=== PATIENT | female | born 1965 | race Two or more races ===

== ENCOUNTER 2019-01-14 22:19 | Inpatient (IN) | payer MEDICAID, OTHER ==
[~2019-01-14] VITALS: Ht 165.1 cm; Wt 109.6 kg
[2019-01-14] MEDS ORDERED: ALBUTEROL SULF 2.5 MG/0.5ML(0.5%) NEB SOLN NEB STA (22:22)
[2019-01-14] MEDS ORDERED: IPRATROPIUM BROM 0.5 MG/2.5ML INH SOL NEB ONE (22:30)
[2019-01-14] MEDS ORDERED: methylPREDNISolone SOD SUCC 125 MG/2 ML VL IV ONE (22:45)
[2019-01-14] MEDS ORDERED: ALBUTEROL SULF 2.5 MG/0.5ML(0.5%) NEB SOLN HHN ONE (22:45)
[2019-01-14] MEDS ORDERED: IPRATROPIUM BROM 0.5 MG/2.5ML INH SOL HHN ONE (22:45)
[2019-01-14] MEDS ORDERED: LEVOFLOXACIN 500MG 100 ML IV ONE (22:45)
[2019-01-14] MEDS ORDERED: ASPirin 81 mg TAB PO ONE (23:00)
[2019-01-14] MEDS ORDERED: MORPHINE SULF INJ 2 MG/ML SYRINGE 1ML IV ONE (23:00)
[2019-01-14] MEDS ORDERED: SODIUM CHLORIDE 0.9% 500 ML IV ONE (23:05)
[2019-01-14 23:11] LABS: Basophils # (auto) 0 uL; Basophils % (auto) 0.4 % (0.0-2.0); Eosinophils # (auto) 0 uL; Eosinophils % (auto) 0.1 % (0.0-7.0); Hematocrit 40.4 % (36.0-46.0); Hemoglobin 13.4 g/dL (12.2-16.2); Lymphocytes # (auto) 1.4 uL; Mean Corpuscular Hgb Conc. 33.1 g/dL (32.0-36.0); Mean Corpuscular Volume 87.4 fL (80.0-100.0); Monocytes # (auto) 0.9 uL; Monocytes % (auto) 8.9 % (0.0-12.0); Neutrophils # (auto) 7.8 uL; Neutrophils % (auto) 76.6 % (37.0-80.0); Platelet Count (auto) 272 10^3/uL (140-450); Red Blood Cells 4.62 10^6/uL (4.0-5.20); Red Cell Distribution Width 14.6 % (11.8-14.3); White Blood Cell 10.3 10^3/uL (4.4-10.8)
[2019-01-14] MEDS ORDERED: ONDANSETRON HCL 4 MG/2 ML VIAL IV ONE (23:15)
[2019-01-14] MEDS ORDERED: IODIXANOL 320MG/ML 100ML BTL IV ONE (23:17)
[2019-01-14 23:40] LABS: Alanine Aminotransferase 32 U/L (13-56); Albumin 4.1 g/dL (3.4-5.0); Anion Gap 9 (5-15); Aspartate Aminotransferase 23 U/L (15-37); BUN/Creatinine Ratio 31.9; Blood Urea Nitrogen 23 mg/dL (7-18); Calcium 8.7 mg/dL (8.5-10.1); Carbon Dioxide 21 mmol/L (21-32); Chloride 107 mmol/L (98-107); GFR African American 110 mL/min; GFR Non-African American 91 mL/min; Glucose 134 mg/dL (74-106); Potassium 3.8 mmol/L (3.5-5.1); Sodium 137 mmol/L (136-145)
[2019-01-14 23:44] LABS: Alkaline Phosphatase 93 U/L (45-117); Bilirubin, Total 1.4 mg/dL (0.2-1.0); Total Protein 7.6 g/dL (6.4-8.2)
[2019-01-14 23:54] LABS: INR 1.01 (0.9-1.15); Partial Thromboplastin Time 29.2 sec (23.78-33.04); Prothrombin Time 10.8 sec (9.27-12.13)
[2019-01-15] MEDS ORDERED: LORazepam 2MG/ML-1ML VIAL IV SCH (01:30)
[2019-01-15] MEDS ORDERED: LORazepam 2MG/ML-1ML VIAL IV ONE (01:30)
[2019-01-15] MEDS ORDERED: ONDANSETRON HCL 4 MG/2 ML VIAL IV ONE (02:05)
[2019-01-15] MEDS ORDERED: MORPHINE SULF INJ 2 MG/ML SYRINGE 1ML IV ONE (02:05)
[2019-01-15] MEDS ORDERED: cloNIDine HCL 0.1 MG TAB PO ONE ×2 (03:15→05:00)
[2019-01-15 05:46] LABS: Urine WBC None Seen /hpf (0 - 5)
[2019-01-15 05:56] LABS: Urine Bacteria NONE SEEN /hpf (None Seen); Urine Blood TRACE /uL (Negative)
[2019-01-15] MEDS ORDERED: ACETAMINOPHEN 500 MG TAB PO PRN (06:00)
[2019-01-15] MEDS: IPRATROPIUM BROM 0.5 MG/2.5ML INH SOL NEB SCH ×4 (06:08→19:16)
[2019-01-15] MEDS: ALBUTEROL SULF 2.5 MG/0.5ML(0.5%) NEB SOLN NEB SCH ×4 (06:08→19:15)
[2019-01-15] MEDS ORDERED: DOXYCYCLINE 100MG/250ML 250 ML IV SCH (06:30)
[2019-01-15] MEDS ORDERED: MORPHINE SULFATE 4 MG/ML SYR/VIAL IV ONE (06:30)
[2019-01-15 06:58] LABS: Calcium 8.4 mg/dL (8.5-10.1); Potassium 3.7 mmol/L (3.5-5.1)
[2019-01-15 07:02] LABS: BUN/Creatinine Ratio 21.9
[2019-01-15] MEDS: ONDANSETRON HCL 4 MG/2 ML VIAL IV PRN ×3 (07:03→17:02)
[2019-01-15] MEDS: methylPREDNISolone SOD SUCC 40 MG/ML VL IV SCH ×3 (07:04→21:45)
[2019-01-15] MEDS: MORPHINE SULF INJ 2 MG/ML SYRINGE 1ML IV PRN ×3 (07:04→17:01)
[2019-01-15 07:17] LABS: Basophils # (auto) 0 uL; Basophils % (auto) 0.1 % (0.0-2.0); Eosinophils # (auto) 0 uL; Hematocrit 37.2 % (36.0-46.0); Hemoglobin 12.2 g/dL (12.2-16.2); Lymphocytes # (auto) 0.6 uL; Lymphocytes % (auto) 7.2 % (10.0-50.0); Mean Corpuscular Hemoglobin 28.7 pg (28.0-32.0); Mean Corpuscular Hgb Conc. 32.7 g/dL (32.0-36.0); Mean Corpuscular Volume 87.7 fL (80.0-100.0); Monocytes # (auto) 0.1 uL; Monocytes % (auto) 1.6 % (0.0-12.0); Neutrophils # (auto) 7.3 uL; Neutrophils % (auto) 91.1 % (37.0-80.0); Platelet Count (auto) 254 10^3/uL (140-450); Red Blood Cells 4.25 10^6/uL (4.0-5.20); Red Cell Distribution Width 14.7 % (11.8-14.3)
[2019-01-15 07:35] VITALS: BP 154/79
[2019-01-15 08:40] VITALS: BP 145/85
--- NOTE | 2019-01-15 08:40 | NUR ---
Telemetry admit from ER PIA WHYTE admitted to Telemetry unit after SBAR received from Davina FORBES. Patient oriented to TRIP JACKSON, primary RN, unit, room, bed, and unit policies regarding patient care and visiting hours. Patient now on continuous telemetry monitoring, tele box #[id number] and telemetry reading on arrival to unit is sinus rhythm. Patient on room air oxygen of 97%, weighed by bedscale and encouraged to call if they need something. Called US tech because patient verbalized that she needs to pee for pelvic ultrasound. All questions and concerns addressed, patient verbalized understanding.
[2019-01-15 09:35] VITALS: BP 145/85
[2019-01-15] MEDS ORDERED: GABA300C10 PO (09:35)
[2019-01-15] MEDS ORDERED: MELO1TAB73 PO (09:35)
[2019-01-15] MEDS ORDERED: LISI40TA PO (09:35)
[2019-01-15] MEDS ORDERED: OMEP20TA PO (09:35)
[2019-01-15] MEDS ORDERED: IBUP600T27 PO (09:35)
[2019-01-15] MEDS ORDERED: PERCOT PO (09:35)
[2019-01-15] MEDS ORDERED: CHOL20007 PO (09:35)
[2019-01-15] MEDS: LORazepam 0.5 MG TAB PO PRN ×2 (09:50→21:45)
[2019-01-15] MEDS: LISINOPRIL 20 MG TAB PO SCH (09:52)
[2019-01-15] MEDS: PANTOPRAZOLE 40 MG TAB PO SCH (09:53)
--- NOTE | 2019-01-15 09:55 | NUR ---
IV removal Noted IV infiltrated. IV DC'd with clean sterile technique, catheter fully intact. Pressure dressing applied to site. Patient tolerated well.
--- NOTE | 2019-01-15 10:00 | NUR ---
IV insertion New IV access obtained, via clean sterile technique by inserting gauge catheter 22 at right antecubital after 1 attempt. IV secured properly. No trauma to site. Patient tolerated well.
--- NOTE | 2019-01-15 10:10 | NUR ---
DR. Oconnor at bedside.
[2019-01-15] MEDS ORDERED: cefTRIAXone 1GM/50ML D5W 50 ML IV ONE (10:30)
[2019-01-15] MEDS ORDERED: AZITHROMYCIN 250 MG TAB PO ONE (10:30)
[2019-01-15 12:28] VITALS: BP 133/70
[2019-01-15 16:36] VITALS: BP 126/71
--- NOTE | 2019-01-15 18:05 | NUR ---
INFORMED [employer] FOR PATIENT'S PULMO CONSULT TO DR. MA.
--- NOTE | 2019-01-15 19:20 | NUR ---
Opening Shift Note Assumed care of patient, awake and alert. No S/S of distress/SOB or pain. Instructed on POC and to call for assist PRN, will continue to monitor for changes Q1hr and PRN. Side rails up x2. Bed locked in lowest position. Call light within reach.
--- NOTE | 2019-01-15 22:00 | NUR ---
IV removal IV DC'd from right upper arm with clean sterile technique, catheter fully intact. Pressure dressing applied to site. Patient tolerated well.
[2019-01-15 22:06] VITALS: BP 148/72
--- NOTE | 2019-01-15 22:06 | NUR ---
IV insertion IV access obtained, via clean sterile technique by inserting 22 gauge catheter on left forearm after 1 attempt. IV secured properly. No trauma to site. Patient tolerated well.
--- NOTE | 2019-01-16 01:52 | NUR ---
Rounds Patient in bed asleep with no signs of distress/sob/pain. Will continue to monitor.
[2019-01-16] MEDS: ONDANSETRON HCL 4 MG/2 ML VIAL IV PRN ×5 (04:51→21:30)
[2019-01-16] MEDS: MORPHINE SULF INJ 2 MG/ML SYRINGE 1ML IV PRN ×5 (04:52→21:30)
[2019-01-16 05:05] VITALS: BP 138/76
[2019-01-16] MEDS: methylPREDNISolone SOD SUCC 40 MG/ML VL IV SCH ×3 (05:06→22:29)
[2019-01-16 06:11] LABS: Basophils # (auto) 0 uL; Basophils % (auto) 0.1 % (0.0-2.0); Eosinophils # (auto) 0 uL; Hematocrit 37.7 % (36.0-46.0); Hemoglobin 12.4 g/dL (12.2-16.2); Lymphocytes # (auto) 1.2 uL; Lymphocytes % (auto) 7.2 % (10.0-50.0); Mean Corpuscular Hemoglobin 28.8 pg (28.0-32.0); Mean Corpuscular Hgb Conc. 32.9 g/dL (32.0-36.0); Mean Corpuscular Volume 87.4 fL (80.0-100.0); Monocytes # (auto) 0.7 uL; Monocytes % (auto) 4.6 % (0.0-12.0); Neutrophils # (auto) 14.2 uL; Neutrophils % (auto) 88.1 % (37.0-80.0); Platelet Count (auto) 272 10^3/uL (140-450); Red Blood Cells 4.32 10^6/uL (4.0-5.20); Red Cell Distribution Width 14.7 % (11.8-14.3); White Blood Cell 16.1 10^3/uL (4.4-10.8)
[2019-01-16] MEDS: IPRATROPIUM BROM 0.5 MG/2.5ML INH SOL NEB PRN ×2 (06:26→13:28)
[2019-01-16] MEDS: ALBUTEROL SULF 2.5 MG/0.5ML(0.5%) NEB SOLN NEB PRN ×2 (06:26→13:28)
[2019-01-16 06:29] LABS: Potassium 3.9 mmol/L (3.5-5.1)
[2019-01-16 06:35] LABS: Albumin 3.4 g/dL (3.4-5.0); Bilirubin, Total 0.9 mg/dL (0.2-1.0)
--- NOTE | 2019-01-16 06:41 | NUR ---
IV removal IV DC'd from left forearm with clean sterile technique, catheter fully intact. Pressure dressing applied to site. Patient tolerated well.
--- NOTE | 2019-01-16 06:50 | NUR ---
IV insertion IV access obtained, via clean sterile technique by inserting 24 gauge catheter on Right forearm after 2 attempts. IV secured properly. No trauma to site. Patient tolerated well.
--- NOTE | 2019-01-16 07:08 | NUR ---
Endorsed care to day shift RN.
--- NOTE | 2019-01-16 07:15 | NUR ---
Opening Shift Note Received report from Bryec FORBES. Assumed care of patient, awake and alert. Reported SOB when coughing. Instructed on POC and to call for assist PRN, will continue to monitor for changes Q1hr and PRN.
[2019-01-16 07:20] VITALS: BP 143/73
[2019-01-16 08:00] VITALS: BP 143/73
[2019-01-16] MEDS: cefTRIAXone 1GM/50ML D5W 50 ML IV SCH (09:15)
[2019-01-16] MEDS: AZITHROMYCIN 250 MG TAB PO SCH (09:15)
[2019-01-16] MEDS: LISINOPRIL 20 MG TAB PO SCH (09:16)
[2019-01-16] MEDS: PANTOPRAZOLE 40 MG TAB PO SCH (09:16)
--- NOTE | 2019-01-16 10:10 | NUR ---
Dr. Oconnor at bedside.
[2019-01-16 12:33] VITALS: BP 157/89
[2019-01-16 16:39] VITALS: BP 148/91
--- NOTE | 2019-01-16 19:30 | NUR ---
Dr. Charles at bedside.
[2019-01-16] MEDS ORDERED: ALBUTEROL SULF 2.5 MG/0.5ML(0.5%) NEB SOLN ONE (20:34)
[2019-01-16] MEDS ORDERED: IPRATROPIUM BROM 0.5 MG/2.5ML INH SOL ONE (20:34)
[2019-01-16] MEDS ORDERED: IPRATROPIUM BROM 0.5 MG/2.5ML INH SOL NEB SCH (22:00)
[2019-01-16 22:14] VITALS: BP 149/72
[2019-01-16] MEDS: LORazepam 0.5 MG TAB PO PRN (23:52)
--- NOTE | 2019-01-17 01:26 | NUR ---
Rounds Patient in bed awake with complaints of shortness of breath. Elevated head of the bed with nasal cannula on 3L O2. RT paged for a breathing treatment.
[2019-01-17] MEDS: ALBUTEROL SULF 2.5 MG/0.5ML(0.5%) NEB SOLN NEB SCH ×4 (01:29→18:48)
[2019-01-17] MEDS: IPRATROPIUM BROM 0.5 MG/2.5ML INH SOL NEB SCH ×4 (01:29→18:48)
--- NOTE | 2019-01-17 01:29 | NUR ---
RT at bedside for a breathing treatment.
[2019-01-17] MEDS: MORPHINE SULF INJ 2 MG/ML SYRINGE 1ML IV PRN ×5 (04:44→22:57)
[2019-01-17] MEDS: ONDANSETRON HCL 4 MG/2 ML VIAL IV PRN ×5 (04:44→22:57)
[2019-01-17] MEDS: methylPREDNISolone SOD SUCC 40 MG/ML VL IV SCH ×3 (06:35→22:16)
[2019-01-17 06:40] LABS: Basophils # (auto) 0 uL; Basophils % (auto) 0.2 % (0.0-2.0); Eosinophils # (auto) 0 uL; Hematocrit 35.6 % (36.0-46.0); Hemoglobin 11.9 g/dL (12.2-16.2); Lymphocytes # (auto) 1.5 uL; Lymphocytes % (auto) 13.1 % (10.0-50.0); Mean Corpuscular Hemoglobin 29.3 pg (28.0-32.0); Mean Corpuscular Hgb Conc. 33.5 g/dL (32.0-36.0); Mean Corpuscular Volume 87.3 fL (80.0-100.0); Monocytes # (auto) 0.6 uL; Neutrophils # (auto) 9.5 uL; Neutrophils % (auto) 81.7 % (37.0-80.0); Nucleated Red Blood Cells % 0.1 %; Platelet Count (auto) 280 10^3/uL (140-450); Red Blood Cells 4.08 10^6/uL (4.0-5.20); Red Cell Distribution Width 14.7 % (11.8-14.3); White Blood Cell 11.7 10^3/uL (4.4-10.8)
[2019-01-17 06:53] LABS: Potassium 4.1 mmol/L (3.5-5.1)
[2019-01-17 06:57] LABS: Albumin 3.4 g/dL (3.4-5.0)
[2019-01-17 07:00] LABS: BUN/Creatinine Ratio 28.8
[2019-01-17 07:05] LABS: Bilirubin, Total 0.5 mg/dL (0.2-1.0)
--- NOTE | 2019-01-17 07:15 | NUR ---
Endorsed care to day shift RN.
--- NOTE | 2019-01-17 07:50 | NUR ---
Opening Shift Note Assumed care of patient, sitting up in bed, with NC at 3 L. Patient c/o chest and back pain when coughing. Will medicate as prescribed by MD. Instructed on POC and to call for assist PRN. Side rails up x2. Bed locked in lowest position Will continue to monitor for changes Q1hr and PRN.
[2019-01-17 08:00] VITALS: BP 151/101
[2019-01-17 08:20] VITALS: BP 140/78
[2019-01-17] MEDS: PANTOPRAZOLE 40 MG TAB PO SCH (09:27)
[2019-01-17] MEDS: LISINOPRIL 20 MG TAB PO SCH (09:28)
[2019-01-17] MEDS: cefTRIAXone 1GM/50ML D5W 50 ML IV SCH (09:29)
[2019-01-17] MEDS: AZITHROMYCIN 250 MG TAB PO SCH (10:59)
[2019-01-17 13:04] VITALS: BP 153/65
--- NOTE | 2019-01-17 14:06 | NUR ---
IV removal Patients IV started leaking, patient c/o pain while flushing. IV DC'd with clean sterile technique, catheter fully intact. Pressure dressing applied to site. Patient tolerated well.
--- NOTE | 2019-01-17 15:11 | NUR ---
NUTRITION ASSESSMENT NOTES Please refer to link notes of nutrition screen form filed under the intervention section of the plan of care for further details. Est. Needs: 1600 kcal to 2150 kcal (15-20 kcal/kgBW), 50 gms to 60 gms pro (1.0-1.2 gms/kgIBW : 50 kg). Will continue to monitor pertinent labs and reassess nutrient need prn Thank you. Addendum: 01/17/19 at [address] Amended: Links added.
[2019-01-17 16:25] VITALS: BP 153/84
--- NOTE | 2019-01-17 17:04 | NUR ---
Midline Placement: Patient educated on need for midline placement. All risks and benefits explained and all questions and concerns addresses prior to procedure. 18g/10cm midline inserted via right basilic vein using Ultrasound. Sterile technique utilized. Blood return obtained from lumen and flushed easily with NS using proper technique. Midline secured with saline lock; biodisc and occlusive dressing applied. Primary RN notified. Midline lot # [id number]. x1 attempt
--- NOTE | 2019-01-17 19:14 | NUR ---
Patient comfortably resting in bed. Care endorsed to NOC ANDREI Silver.
--- NOTE | 2019-01-17 19:25 | NUR ---
RECEIVED PATIENT LYING IN BED, AWAKE, ALERT, ORIENTED X4. NO S/S OF RESPIRATORY DISTRESS, DENIES SOB AND CHEST PAIN. ORIENTED ON PLAN OF CARE. BED IS LOCKED AND IN LOWEST LEVEL, SIDE RAILS UP X2, CALL LIGHT WITHIN REACH. WILL CONTINUE TO MONITOR
[2019-01-17] MEDS: HYDROcodone-ACET 5/325MG TAB PO PRN (21:18)
[2019-01-17 21:30] VITALS: BP 147/73
[2019-01-17] MEDS: LORazepam 0.5 MG TAB PO PRN (22:20)
[2019-01-18] VITALS (8 sets, daily range): BP systolic 134–160; BP diastolic 73–100
[2019-01-18] MEDS: IPRATROPIUM BROM 0.5 MG/2.5ML INH SOL NEB SCH ×4 (00:11→18:00)
[2019-01-18] MEDS: ALBUTEROL SULF 2.5 MG/0.5ML(0.5%) NEB SOLN NEB SCH ×4 (00:11→18:00)
[2019-01-18] MEDS: MORPHINE SULF INJ 2 MG/ML SYRINGE 1ML IV PRN ×4 (05:12→22:18)
[2019-01-18] MEDS: ONDANSETRON HCL 4 MG/2 ML VIAL IV PRN ×4 (05:12→22:18)
[2019-01-18] MEDS: methylPREDNISolone SOD SUCC 40 MG/ML VL IV SCH ×3 (05:50→22:07)
[2019-01-18 07:01] LABS: Basophils # (auto) 0 uL; Basophils % (auto) 0.1 % (0.0-2.0); Eosinophils # (auto) 0 uL; Hematocrit 38.2 % (36.0-46.0); Hemoglobin 12.5 g/dL (12.2-16.2); Lymphocytes # (auto) 1.3 uL; Lymphocytes % (auto) 10.6 % (10.0-50.0); Mean Corpuscular Hemoglobin 28.6 pg (28.0-32.0); Mean Corpuscular Hgb Conc. 32.7 g/dL (32.0-36.0); Mean Corpuscular Volume 87.4 fL (80.0-100.0); Monocytes # (auto) 0.7 uL; Monocytes % (auto) 5.7 % (0.0-12.0); Neutrophils # (auto) 10.5 uL; Neutrophils % (auto) 83.6 % (37.0-80.0); Platelet Count (auto) 304 10^3/uL (140-450); Red Blood Cells 4.37 10^6/uL (4.0-5.20); Red Cell Distribution Width 14.7 % (11.8-14.3); White Blood Cell 12.6 10^3/uL (4.4-10.8)
[2019-01-18 07:18] LABS: Potassium 4.1 mmol/L (3.5-5.1)
--- NOTE | 2019-01-18 07:18 | NUR ---
CARE ENDORSED TO AM SHIFT RN
[2019-01-18 07:25] LABS: Albumin 3.5 g/dL (3.4-5.0); BUN/Creatinine Ratio 33.9
[2019-01-18 07:27] LABS: Bilirubin, Total 0.4 mg/dL (0.2-1.0); Total Protein 7.1 g/dL (6.4-8.2)
--- NOTE | 2019-01-18 07:35 | NUR ---
Opening Shift Note Assumed care of patient, patient is sitting up in bed, awake and alert. Patient on 2L NC and No S/S of distress/SOB or pain. Instructed on POC and to call for assist PRN. Bed at lowest position and call light within reach, will continue to monitor for changes Q1hr and PRN.
[2019-01-18] MEDS: cefTRIAXone 1GM/50ML D5W 50 ML IV SCH (09:12)
[2019-01-18] MEDS: LISINOPRIL 20 MG TAB PO SCH (09:13)
[2019-01-18] MEDS: PANTOPRAZOLE 40 MG TAB PO SCH (09:13)
[2019-01-18] MEDS: HYDROcodone-ACET 5/325MG TAB PO PRN (09:14)
[2019-01-18] MEDS: AZITHROMYCIN 250 MG TAB PO SCH (09:14)
--- NOTE | 2019-01-18 15:15 | NUR ---
Patient c/o chest pain/pressure , rates it 910, patient was coughing and SOB. Medicated with pain medication per MD' s orders. Performed an EKG . EKG was read by Dr. Henok MD informs me that it looks NSR, no further orders. Dr. Oconnor has been notified, left message.
--- NOTE | 2019-01-18 15:20 | NUR ---
VS: Bp 168/87 HR 95 Sp02 96% RR 21
--- NOTE | 2019-01-18 15:20 | NUR ---
RT paged to patients room, for breathing treatment.
[2019-01-18] MEDS ORDERED: ASPirin 81 mg TAB PO ONE (16:00)
--- NOTE | 2019-01-18 16:00 | NUR ---
Orders received from Dr. Oconnor. Aspirin 81 mg po once today and daily, troponin series STAT. Orders read back and verified.
[2019-01-18] MEDS ORDERED: ALBUTEROL SULF 2.5 MG/0.5ML(0.5%) NEB SOLN NEB ONE ×3 (16:30→17:15)
--- NOTE | 2019-01-18 16:49 | NUR ---
paged Dr. Oconnor. RT recommends a higher breathing treatment dosage. Patient is requesting cough syrup for excessive coughing. Awaiting call back.
[2019-01-18] MEDS ORDERED: IPRATROPIUM BROM 0.5 MG/2.5ML INH SOL ONE (16:55)
[2019-01-18] MEDS ORDERED: ALBUTEROL SULF 2.5 MG/0.5ML(0.5%) NEB SOLN ONE (16:55)
[2019-01-18] MEDS ORDERED: IPRATROPIUM BROM 0.5 MG/2.5ML INH SOL NEB ONE (17:00)
--- NOTE | 2019-01-18 19:01 | NUR ---
Respiratory note: MED NEB TX NOT DUE. PT RECEIVED ALBUTEROL 10 MG AND ATROVENT 1 MG CONTINUOUS TX AT 1700 WITH RT AGATHA MANRIQUEZ. PT IS CURRENTLY ON 2 L/M NC: HR 104, RR 20. SPO2 95%. PT SHOWS NO S/S OF RESPIRATORY DISTRESS. WILL CONTINUE TO MONITOR.
--- NOTE | 2019-01-18 19:32 | NUR ---
OPENING NOTES RECEIVED REPORT FROM DAY SHIFT NURSE. PT A/O X4 WITH NO S/S OF DISTRESS NOR PAIN. PT IS STABLE WITH NO S/S OF SOB. BED IS IN LOWEST POSITION WITH SIDE RAILS UP X 2. BED BRAKES ARE LOCKED AND CALL LIGHT IS WITH IN REACH. HOB IS 30 DEGREES. DISCUSSED POC WITH PATIENT AND PT VERBALIZED UNDERSTANDING.
[2019-01-18] MEDS: PROMETHAZINE W/CODEINE 5 ML ORAL SYRUP PO PRN (20:05)
[2019-01-18] MEDS: LORazepam 0.5 MG TAB PO PRN (23:22)
[2019-01-19] VITALS (7 sets, daily range): BP systolic 136–158; BP diastolic 67–86
[2019-01-19] MEDS: ALBUTEROL SULF 2.5 MG/0.5ML(0.5%) NEB SOLN NEB SCH ×5 (00:24→23:51)
[2019-01-19] MEDS: IPRATROPIUM BROM 0.5 MG/2.5ML INH SOL NEB SCH ×5 (00:24→23:51)
[2019-01-19] MEDS: PROMETHAZINE W/CODEINE 5 ML ORAL SYRUP PO PRN ×3 (04:26→15:51)
[2019-01-19] MEDS: methylPREDNISolone SOD SUCC 40 MG/ML VL IV SCH ×2 (06:06→18:54)
[2019-01-19 06:11] LABS: Basophils # (auto) 0 uL; Basophils % (auto) 0.2 % (0.0-2.0); Eosinophils # (auto) 0 uL; Hematocrit 40.4 % (36.0-46.0); Hemoglobin 12.9 g/dL (12.2-16.2); Lymphocytes % (auto) 13.1 % (10.0-50.0); Mean Corpuscular Hemoglobin 28.8 pg (28.0-32.0); Mean Corpuscular Hgb Conc. 32.1 g/dL (32.0-36.0); Mean Corpuscular Volume 89.9 fL (80.0-100.0); Monocytes % (auto) 6.6 % (0.0-12.0); Neutrophils # (auto) 12.4 uL; Neutrophils % (auto) 80.1 % (37.0-80.0); Nucleated Red Blood Cells % 0.1 %; Platelet Count (auto) 287 10^3/uL (140-450); Red Blood Cells 4.49 10^6/uL (4.0-5.20); Red Cell Distribution Width 14.8 % (11.8-14.3); White Blood Cell 15.5 10^3/uL (4.4-10.8)
[2019-01-19 06:28] LABS: Potassium 4.4 mmol/L (3.5-5.1)
[2019-01-19] MEDS: HYDROcodone-ACET 5/325MG TAB PO PRN ×2 (06:39→20:51)
[2019-01-19 06:45] LABS: Albumin 3.4 g/dL (3.4-5.0); BUN/Creatinine Ratio 35.5; Bilirubin, Total 0.4 mg/dL (0.2-1.0); Calcium 9.4 mg/dL (8.5-10.1)
--- NOTE | 2019-01-19 07:00 | NUR ---
Opening Shift Note Assumed care of the patient from the shift production associate RN. The patient is A&Ox4, no signs or symptoms of distress. Educated the patient on POC and patient verbalized understanding. The patient's call light is within reach and bed is in the lowest, locked position. Will round hourly and continue to monitor.
--- NOTE | 2019-01-19 07:24 | NUR ---
CLOSING NOTES ENDORSED CARE TO DAY SHIFT NURSE, ALBERT.
[2019-01-19] MEDS: cefTRIAXone 1GM/50ML D5W 50 ML IV SCH (08:47)
--- NOTE | 2019-01-19 09:25 | NUR ---
Dr. Roya Oconnor at bedside
[2019-01-19] MEDS: PANTOPRAZOLE 40 MG TAB PO SCH (09:31)
[2019-01-19] MEDS: LISINOPRIL 20 MG TAB PO SCH (09:31)
[2019-01-19] MEDS: ASPirin 81 mg TAB PO SCH (09:31)
[2019-01-19] MEDS: AZITHROMYCIN 250 MG TAB PO SCH (09:32)
[2019-01-19] MEDS: MORPHINE SULF INJ 2 MG/ML SYRINGE 1ML IV PRN ×3 (10:48→23:26)
[2019-01-19] MEDS: ONDANSETRON HCL 4 MG/2 ML VIAL IV PRN ×3 (10:55→23:26)
[2019-01-19] MEDS: LORazepam 0.5 MG TAB PO PRN (20:53)
[2019-01-20] MEDS: PROMETHAZINE W/CODEINE 5 ML ORAL SYRUP PO PRN ×3 (03:49→22:36)
[2019-01-20 05:00] VITALS: BP 140/73
[2019-01-20 05:59] LABS: Basophils # (auto) 0 uL; Basophils % (auto) 0.1 % (0.0-2.0); Eosinophils # (auto) 0 uL; Eosinophils % (auto) 0.1 % (0.0-7.0); Hematocrit 39.1 % (36.0-46.0); Hemoglobin 12.5 g/dL (12.2-16.2); Lymphocytes # (auto) 3.2 uL; Lymphocytes % (auto) 19.4 % (10.0-50.0); Mean Corpuscular Hemoglobin 28.1 pg (28.0-32.0); Mean Corpuscular Hgb Conc. 32.1 g/dL (32.0-36.0); Mean Corpuscular Volume 87.5 fL (80.0-100.0); Monocytes # (auto) 1.2 uL; Monocytes % (auto) 7.2 % (0.0-12.0); Neutrophils # (auto) 12.2 uL; Neutrophils % (auto) 73.2 % (37.0-80.0); Platelet Count (auto) 329 10^3/uL (140-450); Red Blood Cells 4.46 10^6/uL (4.0-5.20); Red Cell Distribution Width 14.7 % (11.8-14.3); White Blood Cell 16.7 10^3/uL (4.4-10.8)
[2019-01-20 06:28] LABS: Potassium 4.4 mmol/L (3.5-5.1)
[2019-01-20] MEDS: ALBUTEROL SULF 2.5 MG/0.5ML(0.5%) NEB SOLN NEB SCH ×3 (06:37→19:28)
[2019-01-20] MEDS: IPRATROPIUM BROM 0.5 MG/2.5ML INH SOL NEB SCH ×3 (06:37→19:28)
[2019-01-20 06:39] LABS: Albumin 3.5 g/dL (3.4-5.0); BUN/Creatinine Ratio 33.8; Bilirubin, Total 0.4 mg/dL (0.2-1.0); Total Protein 6.3 g/dL (6.4-8.2)
--- NOTE | 2019-01-20 07:00 | NUR ---
Opening Shift Note Assumed care of the patient from the assistant passenger locomotive engineer RN. The patient is A&Ox4, no signs or symptoms of distress. Educated the patient on POC and patient verbalized understanding. The patient's call light is within reach and bed is in the lowest, locked position. Will round hourly and continue to monitor.
--- NOTE | 2019-01-20 07:01 | NUR ---
closing notes endorsed care to day shift nurse, Jil.
[2019-01-20] MEDS: MORPHINE SULF INJ 2 MG/ML SYRINGE 1ML IV PRN ×3 (08:06→20:58)
[2019-01-20] MEDS: ONDANSETRON HCL 4 MG/2 ML VIAL IV PRN ×3 (08:07→20:57)
[2019-01-20 09:01] VITALS: BP 140/70
[2019-01-20] MEDS: cefTRIAXone 1GM/50ML D5W 50 ML IV SCH (09:52)
[2019-01-20] MEDS: PANTOPRAZOLE 40 MG TAB PO SCH (09:53)
[2019-01-20] MEDS: ASPirin 81 mg TAB PO SCH (09:53)
[2019-01-20] MEDS: methylPREDNISolone SOD SUCC 40 MG/ML VL IV SCH ×2 (09:53→22:36)
[2019-01-20] MEDS: AZITHROMYCIN 250 MG TAB PO SCH (09:54)
[2019-01-20] MEDS: LISINOPRIL 20 MG TAB PO SCH (09:54)
[2019-01-20 11:43] VITALS: BP 129/64
[2019-01-20] MEDS: LORazepam 0.5 MG TAB PO PRN ×2 (13:00→22:36)
--- NOTE | 2019-01-20 14:32 | NUR ---
Nutrition Follow-up Notes Wt.: 107.1 kg as of yesterday. Pt's on oxygen via nasal cannula, asleep, no immediate family member at bedside during rounds this morning. Pt's no signs of distress noted earlier, currently on Consistent Carb diet with adequate PO intake aeb 90% ave. consumed meals (x6) in last 2.5 days. Noted pt's for active Cardiology consult. Est. Needs: 1600 kcal to 2150 kcal (15-20 kcal/kgBW), 50 gms to 60 gms pro (1.0-1.2 gms/kgIBW : 50 kg). Will continue to monitor pertinent labs and reassess nutrient need prn Labs: Gluc 134 H, BUN 22 H, AST 8 H, Tpro 6.3 L Skin: Jimmy scale 20, low risk, skin intact per emissions testing technician. GI: Pt had 1 BM yesterday per emissions testing technician. PES: Altered nutrition related lab values r/t current/chronic medical condition aeb hyperglycemia,low AST level Obesity r/t food intake more than body requirement aeb 188% IBW, BMI 39.3 kg/m2 and increased body adiposity Will continue to monitor PO intake, skin status, pertinent labs and weight trend. F/u in 3 to 5 days. Rec.: 1.) Continue close supervision during meals. 2.) Refer pt to CDE/RD for further nutrition education and weight monitoring upon discharge. 3.) Continue current plan of care.
[2019-01-20 16:39] VITALS: BP 123/69
[2019-01-20] MEDS: HYDROcodone-ACET 5/325MG TAB PO PRN (19:56)
--- NOTE | 2019-01-20 20:00 | NUR ---
open note assumed care of pt. upon entering room pt awake and alert conversing with visitor at bedside. no distress noted. pt updated on plan of care. pt bed is locked, in low position and 2x rails up. pt has no additional questions at this time. call light in reach, encouraged to call as needed. will round q1hr and prn.
[2019-01-20 22:00] VITALS: BP 138/73
[2019-01-21] MEDS: ALBUTEROL SULF 2.5 MG/0.5ML(0.5%) NEB SOLN NEB SCH ×4 (00:38→19:06)
[2019-01-21] MEDS: IPRATROPIUM BROM 0.5 MG/2.5ML INH SOL NEB SCH ×4 (00:39→19:06)
[2019-01-21] MEDS: ONDANSETRON HCL 4 MG/2 ML VIAL IV PRN ×4 (03:24→22:13)
[2019-01-21] MEDS: MORPHINE SULF INJ 2 MG/ML SYRINGE 1ML IV PRN ×4 (03:25→22:13)
[2019-01-21 04:51] VITALS: BP 125/91
[2019-01-21 06:05] LABS: Basophils # (auto) 0.1 uL; Basophils % (auto) 0.3 % (0.0-2.0); Eosinophils # (auto) 0 uL; Eosinophils % (auto) 0.3 % (0.0-7.0); Hematocrit 40.6 % (36.0-46.0); Hemoglobin 13.1 g/dL (12.2-16.2); Lymphocytes % (auto) 11.1 % (10.0-50.0); Mean Corpuscular Hemoglobin 28.5 pg (28.0-32.0); Mean Corpuscular Hgb Conc. 32.4 g/dL (32.0-36.0); Monocytes # (auto) 0.7 uL; Neutrophils % (auto) 84.3 % (37.0-80.0); Nucleated Red Blood Cells % 0.1 %; Platelet Count (auto) 325 10^3/uL (140-450); Red Blood Cells 4.61 10^6/uL (4.0-5.20); Red Cell Distribution Width 14.5 % (11.8-14.3); White Blood Cell 17.8 10^3/uL (4.4-10.8)
[2019-01-21 06:26] LABS: BUN/Creatinine Ratio 29.7; Calcium 8.9 mg/dL (8.5-10.1); Potassium 4.2 mmol/L (3.5-5.1)
--- NOTE | 2019-01-21 07:45 | NUR ---
opening Patient is asleep, bed in lowest position, call light within reach. No distress noted at this time Will f/u with morning assessment WBC 17.[address] ABD- diverticulosis this is to be treated as outpatient Stereo Equipment Repairer orders-- possible clearance once the patient is coughing less on exertion, less shortness of breath etc.
[2019-01-21 09:00] VITALS: BP 125/66
[2019-01-21] MEDS: methylPREDNISolone SOD SUCC 40 MG/ML VL IV SCH ×2 (09:30→22:12)
[2019-01-21] MEDS: cefTRIAXone 1GM/50ML D5W 50 ML IV SCH (09:30)
[2019-01-21] MEDS: AZITHROMYCIN 250 MG TAB PO SCH (09:31)
[2019-01-21] MEDS: ASPirin 81 mg TAB PO SCH (09:31)
[2019-01-21] MEDS: PANTOPRAZOLE 40 MG TAB PO SCH (09:31)
[2019-01-21] MEDS: LISINOPRIL 20 MG TAB PO SCH (09:33)
[2019-01-21 10:41] VITALS: BP 125/66
--- NOTE | 2019-01-21 11:09 | NUR ---
Respiratory note: ORDER RECEIVED FOR ROOM AIR ABG. ABG OBTAINED AND RESULTS IN [facility]. WALKED PT FOR 10 MINUTES ON ROOM AIR PRIOR TO OBTAINING SAMPLE.
--- NOTE | 2019-01-21 11:17 | NUR ---
ABG PO2 80.2 Does not qualify for home oxygen
[2019-01-21] MEDS: PROMETHAZINE W/CODEINE 5 ML ORAL SYRUP PO PRN ×2 (12:30→23:30)
[2019-01-21 13:00] VITALS: BP 133/74
--- NOTE | 2019-01-21 16:07 | NUR ---
assessment Patient is a 53 year old female who is alert and oriented. Patients cognitive abilities are intact. Prior to admission patient lived home with family and functioned independently. Patient informed me she is able to care for her own ADLs. Per patient she will return home to her prior living arrangements post discharge and family will transport her home. Patients PCP is Dr Irving. Patient feels safe returning home on discharge. Patient may need home 02 on discharge. Waiting for ABG now. I informed patient she has a right to speak to a rigging worker regarding all care. I informed patient she has a right to participate in any and all discharge planning. Patient is aware of visiting hours on the hospital floor. I informed patient she has a right to privacy. Patient does not have a POA and advanced directive. I have offered patient information on POA and advanced directives. I informed the patient the advantages and benefits of having an Advanced Directive. Patient verbalized understanding and agreed to discharge plan. Addendum: 01/21/19 at 1608 by Thu DELEON Amended: Links added.
[2019-01-21] MEDS: HYDROcodone-ACET 5/325MG TAB PO PRN (16:21)
[2019-01-21 16:46] VITALS: BP 143/69
--- NOTE | 2019-01-21 20:35 | NUR ---
open note assumed care of pt. upon entering room pt awake and alert. pt on room air with no sob or distress noted or expressed. pt denied pain at this time. pt updated on plan of care and had no additional questions at this time. pt dressing on tonny midline changed using aseptic technique. pt call light in reach, encouraged to call as needed. will round on this pt q1hr and prn.
[2019-01-21 22:00] VITALS: BP 130/71
[2019-01-21] MEDS: LORazepam 0.5 MG TAB PO PRN (23:31)
--- NOTE | 2019-01-21 23:47 | NUR ---
report given to Marcie FORBES. pt awake and alert. no distress noted or expressed. call light in reach.
[2019-01-22] MEDS: ALBUTEROL SULF 2.5 MG/0.5ML(0.5%) NEB SOLN NEB SCH ×3 (00:19→12:00)
[2019-01-22] MEDS: IPRATROPIUM BROM 0.5 MG/2.5ML INH SOL NEB SCH ×3 (00:19→12:00)
[2019-01-22] MEDS: MORPHINE SULF INJ 2 MG/ML SYRINGE 1ML IV PRN (04:16)
[2019-01-22] MEDS: ONDANSETRON HCL 4 MG/2 ML VIAL IV PRN (04:17)
[2019-01-22 04:35] VITALS: BP 124/58
--- NOTE | 2019-01-22 07:00 | NUR ---
Opening Shift Note Assumed care of patient, awake, alert, and oriented x4. No S/S of distress/SOB or pain. Midline in right upper arm asymptomatic, intact, patent, and saline locked. Bed locked and in lowest position and call light is within reach. Instructed on POC and to call for assist PRN, and patient verbalized understanding. Will continue to monitor for changes Q1hr and PRN.
[2019-01-22 08:08] LABS: Hematocrit 39.7 % (36.0-46.0); Mean Corpuscular Hemoglobin 28.8 pg (28.0-32.0); Mean Corpuscular Hgb Conc. 32.8 g/dL (32.0-36.0); Mean Corpuscular Volume 87.7 fL (80.0-100.0); Platelet Count (auto) 339 10^3/uL (140-450); Red Blood Cells 4.53 10^6/uL (4.0-5.20); Red Cell Distribution Width 14.6 % (11.8-14.3); White Blood Cell 19.2 10^3/uL (4.4-10.8)
[2019-01-22 08:25] LABS: Basophils % (manual) 0 (0.0-2.0); Blast Cells 0; Eosinophils % (manual) 0 (0-7); Metamyelocytes % 0; Myelocytes % 0; Promyelocytes % 0; Reactive Lymphocytes 0
[2019-01-22] MEDS: cefTRIAXone 1GM/50ML D5W 50 ML IV SCH (08:27)
[2019-01-22 08:30] LABS: Calcium 9.2 mg/dL (8.5-10.1); Potassium 4.4 mmol/L (3.5-5.1)
[2019-01-22 08:32] LABS: BUN/Creatinine Ratio 33.8
[2019-01-22] MEDS: HYDROcodone-ACET 5/325MG TAB PO PRN (08:34)
[2019-01-22 08:46] VITALS: BP 115/56
[2019-01-22 09:25] LABS: Band Neutrophils % (manual) 1; Lymphocytes % (manual) 18 (10.0-50.0); Monocytes % (manual) 5 (0-12)
--- NOTE | 2019-01-22 09:30 | NUR ---
Dr. Oconnor at bedside, new orders received.
[2019-01-22] MEDS: PANTOPRAZOLE 40 MG TAB PO SCH (10:00)
[2019-01-22] MEDS: LISINOPRIL 20 MG TAB PO SCH (10:00)
[2019-01-22] MEDS: ASPirin 81 mg TAB PO SCH (10:00)
[2019-01-22] MEDS: AZITHROMYCIN 250 MG TAB PO SCH (10:00)
[2019-01-22] MEDS: methylPREDNISolone SOD SUCC 40 MG/ML VL IV SCH (10:00)
[2019-01-22 10:14] VITALS: BP 115/56
--- NOTE | 2019-01-22 11:00 | NUR ---
Discharge instructions given as ordered. Encourage to follow up with PMD as instructed. All questions and concerns addressed. Patient verbalized understanding. Medication reconciliation form completed and copy given to patient. IV removed with catheter intact, pressure dressing applied. Telemetry unit returned to [facility]. Patient taken to vehicle via wheelchair with all personal belongings, accompanied by staff and family member. No distress noted at time of departure.
[2019-01-22 11:28] VITALS: BP 125/75
== END 2019-01-22 10:45 | disposition home or self-care (01) | DRG 140 ==
LOC: ER 22:19 → TELE 01-15 05:46 → TELE-WESTW 01-15 08:39
PROVIDERS: ADMIT Nurse Practitioner Family; ATTEND Internal Medicine
DX: J44.1 Chronic obstructive pulmonary disease with (acute) exacerbation (principal); J96.20 Acute and chronic respiratory failure, unspecified whether with hypoxia or hypercapnia; E11.41 Type 2 diabetes mellitus with diabetic mononeuropathy; E66.9 Obesity, unspecified; I10 Essential (primary) hypertension; K57.30 Diverticulosis of large intestine without perforation or abscess without bleeding; J98.11 Atelectasis; F12.90 Cannabis use, unspecified, uncomplicated; Z90.49 Acquired absence of other specified parts of digestive tract; Z98.51 Tubal ligation status; Z87.891 Personal history of nicotine dependence; Z80.1 Family history of malignant neoplasm of trachea, bronchus and lung; Z82.49 Family history of ischemic heart disease and other diseases of the circulatory system; Z83.3 Family history of diabetes mellitus; Z68.39 Body mass index [BMI] 39.0-39.9, adult
CPT/HCPCS: 36415; 36600; 70450; 71045; 74178; 76830; 76856; 80048; 80053; 81001; 82805; 83690; 83880; 84484; 84702; 85007; 85025; 85027; 85379; 85610; 85730; 87040; 93005; 93306; 94640; 94761; 96365; 96366; 96367; 96375; 96376; A6257; G0378; J0696; J1956; J2405; J3490; Q9967

== ENCOUNTER 2025-06-21 15:18 | Inpatient (IN) | payer MEDICARE, MEDICAID ==
[~2025-06-21] VITALS: Ht 167.6 cm; Wt 97.4 kg
[~2025-06-21 15:18] MED LIST: CHOL20007 PO; GABA-1250 PO; IBUP-1454 PO; LISI40TA16 PO; MELO7.5T7 PO; OMEP20TA PO; PERCOT PO
[2025-06-21 15:40] VITALS: PULSE 84; RESP 11; O2SAT 95
--- NOTE | 2025-06-21 15:58 | ECG ---
[facility] Test Date: 2025-06-21 Test Time: 15:21:33 Pat Name: PIA WHYTE Department: [facility] ED Patient ID: [id number] [facility]: [facility] Gender: F Sawyer Helper: best : 1965 Requested By: BRANT BERMUDEZ Order Number: [id number] Reading MD: Rangel Alegre Measurements Intervals [place] Rate: 87 P: -64 DE: 135 QRS: 81 QRSD: 106 T: 43 QT: 371 QTc: 447 Interpretive Statements Sinus or ectopic atrial rhythm Low voltage, precordial leads Electronically Signed On 06-22-2025 22:18:30 PDT by Rangel Alegre Please click the below link to view image of tracing.
[2025-06-21] MEDS: ONDANSETRON HCL 4 MG/2 ML VIAL IV ONE ×2 (16:06→18:43)
[2025-06-21] MEDS: MORPHINE SULFATE 4 MG/ML SYR/VIAL IV ONE ×2 (16:06→18:44)
[2025-06-21 16:43] LABS: Hematocrit 39.0 % (36.0-46.0); Hemoglobin 13.2 g/dL (12.2-16.2); Mean Corpuscular Hemoglobin 28.3 pg (28.0-32.0); Mean Corpuscular Volume 83.7 fL (80.0-100.0); Nucleated Red Blood Cells % 0.0 %
[2025-06-21 16:54] LABS: Potassium 3.5 mmol/L (3.5-5.1); Sodium 144 mmol/L (136-145)
[2025-06-21 16:55] LABS: Anion Gap 8 (5-15); Calcium 9.4 mg/dL (8.7-10.4); Carbon Dioxide 24 mmol/L (20-31); Chloride 112 mmol/L (98-107)
--- NOTE | 2025-06-21 16:59 | ED.PDOC ---
GI ASSESSMENT HPI Comments Keena Kumra is a 59 year old female, with past medical history of HTN, DM2, abdominal hernia, aFib, diverticular disease, colitis, IBS diarrhea predominant. The patient came to the ED via EMS with chief complain of abdominal pain that started 6 hrs ago, 6/10, localized on left lower quadrant, no radiation, colicky like, associated with nausea. Two hours ago the pain worsen, 10/10, continues, the patient noticed her abdomen is distended and the area of the abdominal hernia is nor reducible, indurated and painful to touch, associated with continues vomit >6 times, the gastric content, this prompted her visit tot the ED. The patient denies fever, chills, constipation. In the ED CT abd/pelv, labs and surgical consult was placed. Chief Complaint: Abdominal Pain Time Seen by MD: 15:50 Reviewed Notes: Nurses Notes, Medications, Allergies Allergies: Coded Allergies: NO KNOWN ALLERGIES (Unverified , 01/14/19) Home Meds Reported Medications Cholecalciferol (VITAMIN D3) 2,000 Unit Tab, 1 TAB PO DAILY, #30 TAB 5 Refills 01/15/19 Ibuprofen (Ibuprofen) 600 Mg Tab, 600 MG PO QIDP PRN for MILD PAIN, MG 0 Refills 01/15/19 Omeprazole (Gnp Omeprazole) 20 Mg Tab, 10 MG PO DAILY, TAB 01/15/19 Lisinopril (Lisinopril) 40 Mg Tab, 40 MG PO DAILY for 30 Days, MG 01/15/19 Gabapentin (Gabapentin) 300 Mg Cap, 300 MG PO BID for 30 Days, MG 01/15/19 Meloxicam (Meloxicam) 7.5 Mg Tab, 1 TAB PO DAILY, #30 TAB 2 Refills 01/15/19 Oxycodone W/ Acetaminophen (Percocet 5/325MG) 1 Tab Tb, 2 TAB PO QIDPRN PRN for MODERATE PAIN 01/15/19 Information Source: Patient Mode of Arrival: EMS Timing: Hours Duration: Since onset Quality: Cramping Vomitus: Food Particles Severity: Moderate Recent: None Recent Hx of: None Pain Location: LLQ Modifying Factors: Movement Associated sign and symptoms: Nausea, Vomiting, Diarrhea Past Medical History PAST MEDICAL HISTORY: AFIB, DM, HTN Past Medical History (Other): Diverticular disease Colitis IBS Diarrhea predominant Surgical History (Other): Laparotomy BARGE CAPTAIN History: No Pertinent BARGE CAPTAIN History Family History Family History: Reviewed,noncontributory to illness Social History Smoker: Quit Less Than 1 Year Alcohol: Denies ETOH Use Drugs: Denies Drug Use Lives In: Home Constitutional: denies: chills, diaphoresis, fatigue, fever, malaise, sweats, weakness, others EENTM: denies: blurred vision, double vision, ear bleeding, ear discharge, ear drainage, ear pain, ear ringing, eye pain, eye redness, hearing loss, mouth pain, mouth swelling, nasal discharge, nose bleeding, nose congestion, nose pain, photophobia, tearing, throat pain, throat swelling, voice changes, others Respiratory: denies: cough, hemoptysis, orthopnea, SOB at rest, shortness of breath, SOB with excertion, stridor, wheezing, others Cardiovascular: denies: chest pain, dizzy spells, diaphoresis, Dyspnea on exertion, edema, irregular heart beat, left arm pain, lightheadedness, palpitations, PND, syncope, others Gastrointestinal: reports: abdominal pain, diarrhea, nausea, vomiting; denies: abdomen distended, blood streaked bowels, constipated, dysphagia, difficulty swallowing, hematemesis, melena, poor appetite, poor fluid intake, rectal bleeding, rectal pain, others Genitourinary: denies: abnormal vagina bleeding, burning, dyspareunia, dysuria, flank pain, frequency, hematuria, incontinence, pain, , vagina discharge, urgency, others Neurological: denies: dizziness, fainting, headache, left sided numbness, left sided weakness, numbness, paresthesia, pre-existing deficit, right sided numbness, right sided weakness, seizure, speech problems, tingling, tremors, wea kness, others Musculoskeletal: denies: back pain, gout, joint pain, joint swelling, muscle pain, muscle stiffness, neck pain, others Integumetry: denies: bruises, change in color, change in hair/nails, dryness, l aceration, lesions, lumps, rash, wounds, others Allergic/Immunocompromised: denies: Difficulty Healing, Frequent Infections, Hives, Itching, others Hematologic/Lymphatic: denies: anemia, blood clots, easy bleeding, easy bruising, swollen glands, others Endocrine: denies: excessive hunger, excessive sweating, excessive thirst, excessive urination, flushing, intolerance to cold, intolerance to heat, unexplained weight gain, unexplained weight loss, others Psychiatric: denies: anxiety, bipolar disorder, depression, hopeless, panic disorder, schizophrenia, sleepless, suicidal, others Physical Exam General Appearance: Moderate Distress HEENT: Normal ENT Inspection, Pharynx Normal, TMs Normal Neck: Full Range of Motion, Non-Tender, Normal, Normal Inspection Respiratory: Chest Non-Tender, Lungs Clear, No Accessory Muscle Use, No Re spiratory Distress, Normal Breath Sounds Cardiovascular: No Edema, No JVD, No Murmur, No Gallop, Normal Peripheral Pulses, Regular Rate/Rhythm Breast Exam: Deferred Gastrointestinal: Abnormal Bowel Sounds (disminished), Hernia (Hernia is localized on the left side of the abdominal rectus, near to the umbilical area t hat is teneder to touch, no reducible. ), No Pulsatile Mass, Tenderness (Near to the umbilical area and left lower quadrant there is a induration tender to light touch. ) Genitalia: Deferred Pelvic: Deferred Rectal: Deferred Extremities: No calf tenderness, Normal capillary refill, Normal inspection, Normal range of motion, Non-tender, No pedal edema Musculoskeletal : Apperance: Normal Neurologic: Alert, saw edge fuser circular II-XII nml as Tested, No Motor Deficits, Normal Affect, Normal Mood, No Sensory Deficits Cerebellar Function: Normal Reflexes: Normal Skin: Dry, Normal Color, Warm Lymphatic: No Adenopathy Was a procedure done? Was a procedure done?: No GI differential Dx Differential Diagnosis: Hernia Other Differential Diagnosis Abdominal wall hernia incarcerated vs strangulated X-Ray, Labs, Meds, VS Vital Signs Date Time Temp Pulse Resp B/P (MAP) Pulse Ox O2 Delivery O2 Flow Rate FiO2 06/21/25 19:22 77 18 153/74 06/21/25 19:00 98.4 110 18 139/80 97 98.4 06/21/25 18:44 81 10 134/52 06/21/25 18:20 84 13 134/52 (79) 95 06/21/25 17:02 76 13 156/87 06/21/25 16:06 76 11 156/87 06/21/25 15:40 84 11 95 Room Air* 0 21 06/21/25 15:40 98.6 84 11 120/69 (86) 95 98.6 Lab Test 06/21/25 17:55 06/21/25 16:23 Range/Units Urine Color Light-yellow Yellow Urine Clarity Clear Clear Urine pH 7.5 5.0-9.0 Urine Specific [place] 1.032 1.001-1.035 Urine Protein Negative Negative Urine Ketones Trace Negative Urine Blood Negative Negative /uL Urine Nitrite Negative Negative Urine Bilirubin Negative Negative Urine Urobilinogen Normal Negative mg/dL Urine Leukocyte Esterase Negative Negative /uL Urine RBC <1 0 - 4 /hpf Urine Microscopic WBC < 1 0-5 /HPF Urine Squamous Epithelial Cells Few <5 /hpf Urine Bacteria None seen None Seen /hpf Urine Glucose Normal Normal mg/dL White Blood Count 13.1 H 4.4-10.8 10^3/uL Red Blood Count 4.65 4.0-5.20 10^6/uL Hemoglobin 13.2 12.2-16.2 g/dL Hematocrit 39.0 36.0-46.0 % Mean Corpuscular Volume 83.7 80.0-100.0 fL Mean Corpuscular Hemoglobin 28.3 28.0-32.0 pg Mean Corpuscular Hemoglobin Concent 33.7 32.0-36.0 g/dL Red Cell Distribution Width 13.8 11.8-14.3 % Platelet Count 312 140-450 10^3/uL Mean Platelet Volume 8.8 6.9-10.8 fL Neutrophils (%) (Auto) 82.1 H 37.0-80.0 % Lymphocytes (%) (Auto) 11.8 10.0-50.0 % Monocytes (%) (Auto) 5.0 0.0-12.0 % Eosinophils (%) (Auto) 0.4 0.0-7.0 % Basophils (%) (Auto) 0.7 0.0-2.0 % Neutrophils # (Auto) 10.7 H 1.6-8.6 10 ^3/uL Lymphocytes # (Auto) 1.5 0.4-5.4 10 ^3/uL Monocytes # (Auto) 0.6 0-1.3 10 ^3/uL Eosinophils # (Auto) 0.1 0-0.8 10 ^3/uL Basophils # (Auto) 0.1 0-0.2 10 ^3/uL Nucleated Red Blood Cells 0.0 % Prothrombin Time 11.0 9.3-11.8 sec Prothrombin Time INR 1.04 0.9-1.15 Activated Partial Thromboplast Time 24.8 24.5-34.5 SEC Sodium Level 144 136-145 mmol/L Potassium Level 3.5 3.5-5.1 mmol/L Chloride Level 112 H 98-107 mmol/L Carbon Dioxide Level 24 20-31 mmol/L Anion Gap 8 5-15 Blood Urea Nitrogen 9 9-23 mg/dL Creatinine 0.65 0.550-1.02 mg/dL Glomerular Filtration Rate Calc 103 >90 mL/min BUN/Creatinine Ratio 13.8 10.0-20.0 Serum Glucose 123 H 74-106 mg/dL Calcium Level 9.4 8.7-10.4 mg/dL Current Medications Medications (Trade) Dose Ordered Sig/Susana Route Start Time Stop Time Status Last Admin Morphine Sulfate 4 mg ONCE ONCE IV 06/21/25 15:45 06/21/25 15:46 DC 06/21/25 16:06 Ondansetron HCl (Zofran) 4 mg ONCE ONCE IV 06/21/25 15:45 06/21/25 15:46 DC 06/21/25 16:06 Morphine Sulfate 2 mg ONCE ONCE IV 06/21/25 18:30 06/21/25 18:31 DC 06/21/25 18:44 Ondansetron HCl (Zofran) 4 mg ONCE ONCE IV 06/21/25 18:30 06/21/25 18:31 DC 06/21/25 18:43 X-Ray, Labs, Meds, VS Comment The patient has been re-assessed, report improvement of abdominal pain after morphine. CBC revealed: WBC 13.1x10e3/uL, Hb: 13.2 mg/dl CMP: Na 144, Cl: 112 CT ab/pelv: the report is pending. 18:18 CT abdomen showed: Moderate sized supraumbilical hernia containing segmental small bowel with no evidence of obstruction. Mild fat stranding of the herniated mesenteric fat and adjacent ventral abdominal mesenteric fat. Correlate for Possible strangulation of the herniated fat. No associated bowel wall thickening or enhancement. Additional small fat containing epigastric and infraumbilical hernias are noted. Colonic diverticulosis without diverticulitis. Juan Jose Bartlett (Surgery) was consulted, he will come to see the patient. The patient will be admitted for further assessment and management. Time of 1ST Reevaluation: 16:00 Reevaluation 1ST: Improved (The pain improved from 10/10 to 7/10 with morphine 4mg. The abdomen is ammonia still operator to light touch. ) Time of 2ND Reevaluation: 18:18 Reevaluation 2ND: Improved Patient Education/Counseling: Diagnosis, Treatment, Prognosis, Need For Follow Up Family Education/Counseling: Diagnosis, Treatment, Prognosis, Need For Follow Up SEPSIS Sepsis Screen Recent Procedure: No On Antibiotic Therapy: No Respiratory Rate >20: No Heart Rate >90: No Temp<36 C (96.8 F) or >38.3 C: No SBP <90 or MAP <65 mmHG: No New Acute Mental Status Change: No Is the patient on CPAP, BIPAP,: No IV fluid challenge completed?: No Physician Orders Ct Ab Pel With Iv Con Only (06/21/25 15:50) * Surgical Consult (06/21/25 ) Npo (Nothing By Mouth) Diet (06/21/25 Dinner) Vital Signs Date Time Temp Pulse Resp B/P (MAP) Pulse Ox O2 Delivery O2 Flow Rate FiO2 06/21/25 19:22 77 18 153/74 06/21/25 19:00 98.4 110 18 139/80 97 98.4 06/21/25 18:44 81 10 134/52 06/21/25 18:20 84 13 134/52 (79) 95 06/21/25 17:02 76 13 156/87 06/21/25 16:06 76 11 156/87 06/21/25 15:40 84 11 95 Room Air* 0 21 06/21/25 15:40 98.6 84 11 120/69 (86) 95 98.6 Laboratory Tests Test 06/21/25 16:23 White Blood Count 13.1 10^3/uL (4.4-10.8) H Medications Medications Dose Ordered Sig/Susana Route Start Time Stop Time Status Last Admin Dose Admin Morphine Sulfate 2 mg ONCE ONCE IV 06/21/25 18:30 06/21/25 18:31 DC 06/21/25 18:44 Morphine Sulfate 4 mg ONCE ONCE IV 06/21/25 15:45 06/21/25 15:46 DC 06/21/25 16:06 Ondansetron HCl 4 mg ONCE ONCE IV 06/21/25 15:45 06/21/25 15:46 DC 06/21/25 16:06 Ondansetron HCl 4 mg ONCE ONCE IV 06/21/25 18:30 06/21/25 18:31 DC 06/21/25 18:43 Departure 1 Departure Time of Disposition: 18:18 Impression: Primary Impression: Abdominal wall hernia Additional Impression: Hernia with strangulation Disposition: ADMITTED INPATIENT Admit to: Med Surg Condition: Fair Comments Goals of care discussed with the patient > 35 min. Discussed plan of care with Dr. Mishra Code status: Full code PCP: the patient does not recall name Plan discussed with: Patient, the patient agrees with the admission plan. Critical Care Note Critical Care Time?: No Stability Stability form required: No Heart Score Heart Score: Heart Score Response (Comments) Value History N/A 0 EKG N/A 0 Age N/A 0 Risk Factors N/A 0 Troponin N/A 0 Total 0 BRANT BERMUDEZ RESIDENT Jun 21, 2025 16:59
[2025-06-21 17:00] LABS: BUN/Creatinine Ratio 13.8 (10.0-20.0); Blood Urea Nitrogen 9 mg/dL (9-23); Glucose 123 mg/dL (74-106)
[2025-06-21 17:07] LABS: INR 1.04 (0.9-1.15); Partial Thromboplastin Time 24.8 SEC (24.5-34.5); Prothrombin Time 11.0 sec (9.3-11.8)
[2025-06-21] MEDS: IOHEXOL 300 MG/ML 100ML BOTTLE IJ ONE (17:32)
--- NOTE | 2025-06-21 18:14 | DVH ---
Exam: CT CT AB PEL WITH IV CON ONLY History: Abdominal pain, R/O strangulated hernia Comparison Study: None TECHNIQUE: Multidetector CT of the abdomen pelvis with IV contrast. Axial, coronal and sagittal multi planar reformats were obtained from the axial data set by the technologist. Radiation Dose Information: CT Dose: CTDI volume is 26.73 mGy. Dose-length product is 3.92 mGy*cm FINDINGS: Bibasilar atelectasis. Partially visualized heart is unremarkable. Mild intrahepatic biliary ductal dilatation. Otherwise, liver, spleen, pancreas and adrenal glands un remarkable. Subcentimeter hypodense left renal lesion that is too small to characterize and otherwise, Kidneys, u reters and urinary bladder unremarkable. Uterus and adnexa unremarkable. Mild gastric wall thickening which may be due to inadequate distention. Small bowel loops are unremar kable. Moderate size supraumbilical hernia containing segment of small bowel without evidence of obst ruction . Mild fat stranding of the herniated mesenteric fat extending into the adjacent anterior ab dominal mesenteric fat. Additional Small fat containing infraumbilical and epigastric hernias noted w ith focus of hyperdensity over the inferior portion of the infraumbilical hernia. Appendix is not definitely visualized no pericecal inflammatory reaction to suggest acute appendiciti s. Descending colon and sigmoid diverticulosis without diverticulitis. The large bowel is unremarkabl e. No evidence of intraperitoneal free air or free fluid. No evidence of aortic aneurysm or dissection. Mild atherosclerotic calcification of the aorta and bi lateral iliacs. Shotty retroperitoneal and pelvic sidewall lymph nodes. The soft tissues unremarkable. No evidence of acute osseous abnormalities. IMPRESSION: Moderate sized supraumbilical hernia containing segmental small bowel with no evidence of obstruction . Mild fat stranding of the herniated mesenteric fat and adjacent ventral abdominal mesenteric fat. C orrelate for Possible strangulation of the herniated fat. No associated bowel wall thickening or enh ancement Additional small fat containing epigastric and infraumbilical hernias are noted. Colonic diverticulosis without diverticulitis. Additional findings as above.
[2025-06-21 18:28] LABS: Urine Protein, UAD Negative (Negative)
--- NOTE | 2025-06-21 21:08 | DVHINCON2 ---
Consultation - Surgical Date Seen: Jun 21, 2025 Referring Physician Reason for Consultation Chronically incarcerated ventral hernia causing obstructive symptoms History of Present Illness History of Present Illness Mrs. Marinelli is a 59-year-old female who presented to the ED today with midabdominal pain, associated with nausea vomiting and diarrhea. The abdominal pain started last night, patient started feeling her abdomen tight and decided to wait and see if it will pass on its own. This morning she woke up with more abdominal pain, crampy in nature and started having vomiting episodes and diarrhea. Patient has had a ventral hernia for some time now and denies any symptoms in the past. Denies fevers, chills, changes in urinary or stooling habits, blood in the vomit or in the stool. Patient has had a 36 lb weight loss, intentionally on Ozempic. Patient continues to pass gas and her last bowel movement was this morning. At the moment of the interview patient is not nauseous or vomiting. Past Medical/Surgical History Past Medical/Surgical History PMH: HTN, DM2, abdominal hernia, aFib, diverticular disease, colitis PSH open cholecystectomy, appendectomy, exploratory laparotomy x2 for internal bleeding (patient is unclear of what happened during the surgery) Family and Social History Family and Social History Family history noncontributory Allergies and medications Allergies: Coded Allergies: NO KNOWN ALLERGIES (Unverified , 01/14/19) Home Meds Reported Medications Cholecalciferol (VITAMIN D3) 2,000 Unit Tab, 1 TAB PO DAILY, #30 TAB 5 Refills 01/15/19 Ibuprofen (Ibuprofen) 600 Mg Tab, 600 MG PO QIDP PRN for MILD PAIN, MG 0 Refills 01/15/19 Omeprazole (Gnp Omeprazole) 20 Mg Tab, 10 MG PO DAILY, TAB 01/15/19 Lisinopril (Lisinopril) 40 Mg Tab, 40 MG PO DAILY for 30 Days, MG 01/15/19 Gabapentin (Gabapentin) 300 Mg Cap, 300 MG PO BID for 30 Days, MG 01/15/19 Meloxicam (Meloxicam) 7.5 Mg Tab, 1 TAB PO DAILY, #30 TAB 2 Refills 01/15/19 Oxycodone W/ Acetaminophen (Percocet 5/325MG) 1 Tab Tb, 2 TAB PO QIDPRN PRN for MODERATE PAIN 01/15/19 Review of systems Review of Systems: Deferred Examination Vital signs Vital Signs Date Time Temp Pulse Resp B/P (MAP) Pulse Ox O2 Delivery O2 Flow Rate FiO2 06/21/25 19:22 77 18 153/74 06/21/25 19:00 98.4 97 98.4 06/21/25 15:40 Room Air* 0 21 Laboratory Labs Test 06/21/25 17:55 06/21/25 16:23 Range/Units Urine Color Light-yellow Yellow Urine Clarity Clear Clear Urine pH 7.5 5.0-9.0 Urine Specific [place] 1.032 1.001-1.035 Urine Protein Negative Negative Urine Ketones Trace Negative Urine Blood Negative Negative /uL Urine Nitrite Negative Negative Urine Bilirubin Negative Negative Urine Urobilinogen Normal Negative mg/dL Urine Leukocyte Esterase Negative Negative /uL Urine RBC <1 0 - 4 /hpf Urine Microscopic WBC < 1 0-5 /HPF Urine Squamous Epithelial Cells Few <5 /hpf Urine Bacteria None seen None Seen /hpf Urine Glucose Normal Normal mg/dL White Blood Count 13.1 H 4.4-10.8 10^3/uL Red Blood Count 4.65 4.0-5.20 10^6/uL Hemoglobin 13.2 12.2-16.2 g/dL Hematocrit 39.0 36.0-46.0 % Mean Corpuscular Volume 83.7 80.0-100.0 fL Mean Corpuscular Hemoglobin 28.3 28.0-32.0 pg Mean Corpuscular Hemoglobin Concent 33.7 32.0-36.0 g/dL Red Cell Distribution Width 13.8 11.8-14.3 % Platelet Count 312 140-450 10^3/uL Mean Platelet Volume 8.8 6.9-10.8 fL Neutrophils (%) (Auto) 82.1 H 37.0-80.0 % Lymphocytes (%) (Auto) 11.8 10.0-50.0 % Monocytes (%) (Auto) 5.0 0.0-12.0 % Eosinophils (%) (Auto) 0.4 0.0-7.0 % Basophils (%) (Auto) 0.7 0.0-2.0 % Neutrophils # (Auto) 10.7 H 1.6-8.6 10 ^3/uL Lymphocytes # (Auto) 1.5 0.4-5.4 10 ^3/uL Monocytes # (Auto) 0.6 0-1.3 10 ^3/uL Eosinophils # (Auto) 0.1 0-0.8 10 ^3/uL Basophils # (Auto) 0.1 0-0.2 10 ^3/uL Nucleated Red Blood Cells 0.0 % Prothrombin Time 11.0 9.3-11.8 sec Prothrombin Time INR 1.04 0.9-1.15 Activated Partial Thromboplast Time 24.8 24.5-34.5 SEC Sodium Level 144 136-145 mmol/L Potassium Level 3.5 3.5-5.1 mmol/L Chloride Level 112 H 98-107 mmol/L Carbon Dioxide Level 24 20-31 mmol/L Anion Gap 8 5-15 Blood Urea Nitrogen 9 9-23 mg/dL Creatinine 0.65 0.550-1.02 mg/dL Glomerular Filtration Rate Calc 103 >90 mL/min BUN/Creatinine Ratio 13.8 10.0-20.0 Serum Glucose 123 H 74-106 mg/dL Calcium Level 9.4 8.7-10.4 mg/dL Examination: GENERAL:Normal, ABDOMEN:Abnormal (Nondistended, midline scar, right subcostal scar, ventral epigastric incisional hernia (Kittitian cheese) 1 defect at the superior edge of the incision (epigastric area proximally 3 cm in length), another 2 fascial defects in the supraumbilical area (1 of movements almost 3 cm in length and the other ones almost 4 cm in length) both this lower defects small bowel containing, no overlying skin changes, mild tenderness, no rebound, no guarding) Problem List/Assessment/Plan Problems: (1) Abdominal wall hernia Assessment and Plan Mrs. Marinelli is a 59-year-old female who presented with partial small bowel obstruction symptoms due to ventral incisional hernia. At the moment of evaluation patient is not nauseous or vomiting anymore, and is passing flatus. CT was evaluated and shows a ventral incisional hernia with [place] cheese defects, small bowel containing. Bowel does not appear to be strangulated, as he has good perfusion. Given that the hernia was causing obstructive symptoms patient will benefit from surgical repair of the hernia during this admission. I offered laparoscopic assisted open ventral hernia repair with mesh. Procedure, risks, benefits, complications, and alternatives were discussed with the patient. Patient agreed with surgical plan 1. On-call to OR for laparoscopic assisted open ventral hernia repair with mesh, possible bowel resection and all indicated procedures 2. NPO at midnight Plan discussed with Plan discussed with: Patient Visit Coding Surgery Date of Service if different f: Jun 21, 2025 Billing Provider: ADIA CRAFT MD Surgery Visit Codes: 25709 - INP CONSULT <110 MIN ADIA CRAFT MD Jun 21, 2025 21:08
[2025-06-21] MEDS ORDERED: DEXTROSE (50%) 50ML SYRG IV PRN (21:15)
--- NOTE | 2025-06-21 22:15 | DVH ---
CLINICAL HISTORY: pre operative TECHNIQUE: Single view of the chest was obtained. COMPARISON: None FINDINGS: The heart size and pulmonary vasculature are normal. The lungs are clear. IMPRESSION: NO ACUTE CARDIOPULMONARY PROCESS.
--- NOTE | 2025-06-21 22:51 | DVHHP2 ---
History of Present Illness Reason for Visit: Abdominal pain History of Present Illness 59-year-old female presents for evaluation of abdominal pain. Abdominal pain. Patient reports a one day history of abdominal pain to her left lower quadrant. She also reports having a ventral hernia that started becoming painful to the touch today. She also reports episodes of nausea with vomiting. No fever or chills. Past Medical History Hypertension, diabetes mellitus, atrial fibrillation, diverticular disease Past Surgical History Appendectomy, cholecystectomy, laparotomy x2 Family History Noncontributory Smoke: No ALCOHOL: none Drugs: None Lives: with Family Review of Systems Review of Systems Review of systems are currently negative otherwise addressed in HPI. Allergies: Coded Allergies: NO KNOWN ALLERGIES (Unverified , 01/14/19) Medications Current Medications Medications Dose Ordered Sig/Susana Route Start Time Stop Time Status Last Admin Dose Admin Ondansetron HCl 4 mg Q4HP PRN IV 06/21/25 21:15 Morphine Sulfate 2 mg Q4HPRN PRN IV 06/21/25 21:15 Diagnostic Test (Pha) 1 strip Q6HR 06/22/25 00:00 Insulin Human Regular Q6HR SC 06/22/25 00:00 Dextrose 50 ml UD PRN IV 06/21/25 21:15 Exam Vital Signs Vital Signs Date Time Temp Pulse Resp B/P (MAP) Pulse Ox O2 Delivery O2 Flow Rate FiO2 06/21/25 22:05 72 11 137/65 (89) 95 06/21/25 19:00 98.4 98.4 06/21/25 15:40 Room Air* 0 21 Exam Gen: 59-year-old female in mild distress Skin: Warm, dry, normal color and texture, no rash. HEENT: Normocephalic atraumatic, mucous membranes moist and pink. Neck: Cervical and supraclavicular nodes normal without enlargement, trachea is midline, thyroid gland is normal without masses. Pulmonary: Clear to auscultation and percussion bilaterally. Cardiac: Regular rate and rhythm. No murmur Abdomen: Soft, tenderness at ventral hernia site, nondistended, bowel sounds present all 4 quadrants, no guarding, no rigidity, no organomegaly. Extremities: No cyanosis, clubbing, no edema Neuro: Cranial nerves II through XII grossly intact, normal affect and speech, no focal motor deficits. Labs/Xrays ORDERING PHYSICIAN: ADIA CRAFT MD PROCEDURE(s): CXR1 - CHEST XRAY 1 VIEW REASON: pre operative ORDER NUMBER(s): [id number], ACCESSION NUMBER(s): [id number] CLINICAL HISTORY: pre operative TECHNIQUE: Single view of the chest was obtained. COMPARISON: None FINDINGS: The heart size and pulmonary vasculature are normal. The lungs are clear. IMPRESSION: NO ACUTE CARDIOPULMONARY PROCESS. RING PHYSICIAN: BRANT BERMUDEZ RESIDENT PROCEDURE(s): ABPLIV - CT AB PEL WITH IV CON ONLY REASON: Abdominal pain, R/O strangulated hernia ORDER NUMBER(s): [id number], ACCESSION NUMBER(s): [id number] Exam: CT CT AB PEL WITH IV CON ONLY History: Abdominal pain, R/O strangulated hernia Comparison Study: None TECHNIQUE: Multidetector CT of the abdomen pelvis with IV contrast. Axial, coronal and sagittal multiplanar reformats were obtained from the axial data set by the technologist. Radiation Dose Information: CT Dose: CTDI volume is 26.73 mGy. Dose-length product is 3.92 mGy*cm FINDINGS: Bibasilar atelectasis. Partially visualized heart is unremarkable. Mild intrahepatic biliary ductal dilatation. Otherwise, liver, spleen, pancreas and adrenal glands unremarkable. Subcentimeter hypodense left renal lesion that is too small to characterize and otherwise, Kidneys, ureters and urinary bladder unremarkable. Uterus and adnexa unremarkable. Mild gastric wall thickening which may be due to inadequate distention. Small bowel loops are unremarkable. Moderate size supraumbilical hernia containing segment of small bowel without evidence of obstruction . Mild fat stranding of the herniated mesenteric fat extending into the adjacent anterior abdominal mesenteric fat. Additional Small fat containing infraumbilical and epigastric hernias noted with focus of hyperdensity over the inferior portion of the infraumbilical hernia. Appendix is not definitely visualized no pericecal inflammatory reaction to suggest acute appendicitis. Descending colon and sigmoid diverticulosis without diverticulitis. The large bowel is unremarkable. No evidence of intraperitoneal free air or free fluid. No evidence of aortic aneurysm or dissection. Mild atherosclerotic calcification of the aorta and bilateral iliacs. Shotty retroperitoneal and pelvic sidewall lymph nodes. The soft tissues unremarkable. No evidence of acute osseous abnormalities. IMPRESSION: Moderate sized supraumbilical hernia containing segmental small bowel with no evidence of obstruction. Mild fat stranding of the herniated mesenteric fat and adjacent ventral abdominal mesenteric fat. Correlate for Possible strangulation of the herniated fat. No associated bowel wall thickening or enhancement Additional small fat containing epigastric and infraumbilical hernias are noted. Colonic diverticulosis without diverticulitis. Additional findings as above. ATED BY: DAGMAR RICHARDSON DO Labs Test 06/21/25 17:55 06/21/25 16:23 Range/Units Urine Color Light-yellow Yellow Urine Clarity Clear Clear Urine pH 7.5 5.0-9.0 Urine Specific [place] 1.032 1.001-1.035 Urine Protein Negative Negative Urine Ketones Trace Negative Urine Blood Negative Negative /uL Urine Nitrite Negative Negative Urine Bilirubin Negative Negative Urine Urobilinogen Normal Negative mg/dL Urine Leukocyte Esterase Negative Negative /uL Urine RBC <1 0 - 4 /hpf Urine Microscopic WBC < 1 0-5 /HPF Urine Squamous Epithelial Cells Few <5 /hpf Urine Bacteria None seen None Seen /hpf Urine Glucose Normal Normal mg/dL White Blood Count 13.1 H 4.4-10.8 10^3/uL Red Blood Count 4.65 4.0-5.20 10^6/uL Hemoglobin 13.2 12.2-16.2 g/dL Hematocrit 39.0 36.0-46.0 % Mean Corpuscular Volume 83.7 80.0-100.0 fL Mean Corpuscular Hemoglobin 28.3 28.0-32.0 pg Mean Corpuscular Hemoglobin Concent 33.7 32.0-36.0 g/dL Red Cell Distribution Width 13.8 11.8-14.3 % Platelet Count 312 140-450 10^3/uL Mean Platelet Volume 8.8 6.9-10.8 fL Neutrophils (%) (Auto) 82.1 H 37.0-80.0 % Lymphocytes (%) (Auto) 11.8 10.0-50.0 % Monocytes (%) (Auto) 5.0 0.0-12.0 % Eosinophils (%) (Auto) 0.4 0.0-7.0 % Basophils (%) (Auto) 0.7 0.0-2.0 % Neutrophils # (Auto) 10.7 H 1.6-8.6 10 ^3/uL Lymphocytes # (Auto) 1.5 0.4-5.4 10 ^3/uL Monocytes # (Auto) 0.6 0-1.3 10 ^3/uL Eosinophils # (Auto) 0.1 0-0.8 10 ^3/uL Basophils # (Auto) 0.1 0-0.2 10 ^3/uL Nucleated Red Blood Cells 0.0 % Prothrombin Time 11.0 9.3-11.8 sec Prothrombin Time INR 1.04 0.9-1.15 Activated Partial Thromboplast Time 24.8 24.5-34.5 SEC Sodium Level 144 136-145 mmol/L Potassium Level 3.5 3.5-5.1 mmol/L Chloride Level 112 H 98-107 mmol/L Carbon Dioxide Level 24 20-31 mmol/L Anion Gap 8 5-15 Blood Urea Nitrogen 9 9-23 mg/dL Creatinine 0.65 0.550-1.02 mg/dL Glomerular Filtration Rate Calc 103 >90 mL/min BUN/Creatinine Ratio 13.8 10.0-20.0 Serum Glucose 123 H 74-106 mg/dL Calcium Level 9.4 8.7-10.4 mg/dL SEPSIS Sepsis Screen Date sepsis recognized/suspect: Jun 21, 2025 Time Sepsis recognized/suspect: 1524 Recent Procedure: No On Antibiotic Therapy: No Respiratory Rate >20: No Heart Rate >90: No Temp<36 C (96.8 F) or >38.3 C: No SBP <90 or MAP <65 mmHG: No New Acute Mental Status Change: No Is the patient on CPAP, BIPAP,: No IV fluid challenge completed?: No Physician Orders Ct Ab Pel With Iv Con Only (06/21/25 15:50) * Surgical Consult (06/21/25 ) Complete Blood Count (06/22/25 04:00) Comprehensive Metabolic Panel (06/22/25 04:00) Prothrombin Time W/ Inr (06/22/25 04:00) Type And Screen (06/22/25 04:00) Beta Hcg, Quantitative (06/22/25 04:00) Chest Xray 1 View (06/21/25 21:08) Electrocardigram (06/21/25 21:08) Obtain Consent For: (06/21/25 21:12) Obtain Consent For Anesthesia (06/21/25 21:12) Npo (Nothing By Mouth) Diet (06/22/25 Breakfast) Admit (06/21/25 21:14) Ondansetron Hcl (Zofran) (06/21/25 21:15) Condition: Stable (06/21/25 21:14) Bedrest With Bathroom Privileg (06/21/25 21:14) Glucose Blood (Accu-Chek Comfort Curve T (06/22/25 00:00) Insulin R (Human) (Insulin R) (06/22/25 00:00) Dextrose 50% Syringe (06/21/25 21:15) Morphine Sulfate Injection (06/21/25 21:15) Vital Signs Date Time Temp Pulse Resp B/P (MAP) Pulse Ox O2 Delivery O2 Flow Rate FiO2 06/21/25 22:05 72 11 137/65 (89) 95 06/21/25 19:22 77 18 153/74 06/21/25 19:00 98.4 110 18 139/80 97 98.4 06/21/25 18:44 81 10 134/52 06/21/25 18:20 84 13 134/52 (79) 95 06/21/25 17:02 76 13 156/87 06/21/25 16:06 76 11 156/87 06/21/25 15:40 84 11 95 Room Air* 0 21 06/21/25 15:40 98.6 84 11 120/69 (86) 95 98.6 Laboratory Tests Test 06/21/25 16:23 White Blood Count 13.1 10^3/uL (4.4-10.8) H Medications Medications Dose Ordered Sig/Susana Route Start Time Stop Time Status Last Admin Dose Admin Morphine Sulfate 2 mg ONCE ONCE IV 06/21/25 18:30 06/21/25 18:31 DC 06/21/25 18:44 2 MG Morphine Sulfate 4 mg ONCE ONCE IV 06/21/25 15:45 06/21/25 15:46 DC 06/21/25 16:06 4 MG Ondansetron HCl 4 mg ONCE ONCE IV 06/21/25 15:45 06/21/25 15:46 DC 06/21/25 16:06 4 MG Ondansetron HCl 4 mg ONCE ONCE IV 06/21/25 18:30 06/21/25 18:31 DC 06/21/25 18:43 4 MG Assessment/Plan Assessment/Plan Assessment Acute abdominal pain Rule out strangulated hernia Hypertension Plan Admit the patient to [facility] surge to the hospitalist NPO after midnight Pain management Maintenance IV fluids Continue treatment per orders. Plan discussed with: Patient My Orders Orders - JOSE ISSA Procedure Category Date Status Time Npo (Nothing By DIET 06/22/25 Transmitted Mouth) Diet Breakfast Admit ADMIT 06/21/25 Transmitted 21:14 Ondansetron Hcl PHA 06/21/25 In Process (Zofran) 21:15 Condition: Stable SLOANE 06/21/25 In Process 21:14 Bedrest With Bathroom SLOANE 06/21/25 In Process Privileg 21:14 Glucose Blood PHA 06/22/25 In Process (Accu-Chek Comfort 00:00 Insulin R (Human) PHA 06/22/25 In Process (Insulin R) 00:00 Dextrose 50% Syringe PHA 06/21/25 In Process 21:15 Morphine Sulfate PHA 06/21/25 In Process Injection 21:15 Date of Service: Jun 21, 2025 Billing Provider: JOSE ISSA Common Visit Codes: [id number] INP/OBS CARE (MOD) JOSE ISSA Jun 21, 2025 22:51
[2025-06-21] MEDS: MORPHINE SULFATE 4 MG/ML SYR/VIAL IV PRN (22:58)
[2025-06-21] MEDS: ONDANSETRON HCL 4 MG/2 ML VIAL IV PRN (22:59)
[2025-06-22] MEDS: InsuLIN REG 1unit/0.01ml Soln (100units/ml) SC SCH
[2025-06-22] MEDS: ACCU-CHEK COMFORT CURVE STRIP VI SCH (00:16)
[2025-06-22 06:39] LABS: Hematocrit 39.5 % (36.0-46.0); Hemoglobin 13.3 g/dL (12.2-16.2); Mean Corpuscular Hemoglobin 28.3 pg (28.0-32.0); Mean Corpuscular Volume 84.0 fL (80.0-100.0); Nucleated Red Blood Cells % 0.0 %
[2025-06-22 06:56] LABS: Alanine Aminotransferase 16 U/L (7-40); Albumin 4.6 g/dL (3.2-4.8); Alkaline Phosphatase 91 U/L (46-116); Anion Gap 8 (5-15); BUN/Creatinine Ratio 14.3 (10.0-20.0); Blood Urea Nitrogen 10 mg/dL (9-23); Calcium 9.4 mg/dL (8.7-10.4); Carbon Dioxide 27 mmol/L (20-31); Glucose 106 mg/dL (74-106); Potassium 3.7 mmol/L (3.5-5.1); Sodium 143 mmol/L (136-145); Total Protein 6.8 g/dL (5.7-8.2)
[2025-06-22 06:58] LABS: Bilirubin, Total 1.5 mg/dL (0.2-1.0); Chloride 108 mmol/L (98-107)
[2025-06-22 07:01] LABS: INR 1.05 (0.9-1.15); Prothrombin Time 11.1 sec (9.3-11.8)
[2025-06-22 08:00] VITALS: BP 137/82; PULSE 70; RESP 17; TEMP 98.1; O2SAT 94
[2025-06-22 08:23] VITALS: PULSE 70; RESP 17; O2SAT 94
--- NOTE | 2025-06-22 11:53 | DVHPN2 ---
Reviewed: Care Plan, H&P, Labs, Medications, Previous Orders, Radiology Changes from previous H/P or p: No Changes Objective Vitals Vital Signs Date Time Temp Pulse Resp B/P (MAP) Pulse Ox O2 Delivery O2 Flow Rate FiO2 06/22/25 09:30 70 17 137/87 06/22/25 08:00 98.1 94 98.1 06/22/25 02:15 Room Air* 0 21 Intake/Output Intake and Output 06/22/25 07:00 Intake Total 400 ml Output Total 0 ml Balance 400 ml Intake Oral 400 ml Output Stool Total 0 ml # Voids 3 Medications Current Medications Medications Dose Ordered Sig/Susana Route Start Time Stop Time Status Last Admin Dose Admin Ondansetron HCl 4 mg Q4HP PRN IV 06/21/25 21:15 06/22/25 08:22 4 MG Morphine Sulfate 2 mg Q4HPRN PRN IV 06/21/25 21:15 06/22/25 08:23 2 MG Diagnostic Test (Pha) 1 strip Q6HR 06/22/25 00:00 06/22/25 11:42 1 STRIP Insulin Human Regular Q6HR SC 06/22/25 00:00 Dextrose 50 ml UD PRN IV 06/21/25 21:15 Laboratory Results Laboratory Tests 06/22/25 05:57 Chemistry Test 06/21/25 16:23 06/22/25 05:57 Calcium Level 9.4 mg/dL (8.7-10.4) 9.4 mg/dL (8.7-10.4) Albumin 4.6 g/dL (3.2-4.8) Total Protein 6.8 g/dL (5.7-8.2) Coagulation Test 06/21/25 16:23 06/22/25 05:57 Prothrombin Time 11.0 sec (9.3-11.8) 11.1 sec (9.3-11.8) Prothrombin Time INR 1.04 (0.9-1.15) 1.05 (0.9-1.15) Activated Partial Thromboplast Time 24.8 SEC (24.5-34.5) LFT Test 06/22/25 05:57 Alanine Aminotransferase (ALT) 16 U/L (7-40) Alkaline Phosphatase 91 U/L (46-116) Aspartate Amino Transferase (AST) 19 U/L (13-40) Total Bilirubin 1.5 mg/dL (0.2-1.0) H Urinalysis Test 06/21/25 17:55 Urine Color Light-yellow (Yellow) Urine Clarity Clear (Clear) Urine pH 7.5 (5.0-9.0) Urine Specific [place] 1.032 (1.001-1.035) Urine Protein Negative (Negative) Urine Ketones Trace (Negative) Urine Blood Negative /uL (Negative) Urine Nitrite Negative (Negative) Urine Bilirubin Negative (Negative) Urine Urobilinogen Normal mg/dL (Negative) Urine Leukocyte Esterase Negative /uL (Negative) Urine RBC <1 /hpf (0 - 4) Urine Microscopic WBC < 1 /HPF (0-5) Urine Squamous Epithelial Cells Few /hpf (<5) Urine Bacteria None seen /hpf (None Seen) Urine Glucose Normal mg/dL (Normal) Labs and/or images reviewed: Labs reviewed by me, Image(s) reviewed by me Assessment/Plan Assessment/Plan Acute abdominal pain Rule out strangulated hernia consult by Dr. Ingram appreciated Planning for laparoscopic assisted open ventral hernia repair with mesh, possible bowel resection and all indicated procedures History of laparotomy 2020 at [place] for perforated viscus Hypertension History of cholecystectomy History of appendectomy Plan discussed with: Patient My Orders Orders - TERRENCE DE SOUZA MD Procedure Category Date Status Time * Surgical Consult CONS 06/22/25 Transmitted 11:41 Date of Service: Jun 22, 2025 Billing Provider: TERRENCE DE SOUZA MD Common Visit Codes: [id number] INP/OBS CARE(HIGH) TERRENCE DE SOUZA MD Jun 22, 2025 11:53
[2025-06-22 13:00] VITALS: BP 129/64; PULSE 70; RESP 17; TEMP 98.1; O2SAT 95
[2025-06-22] MEDS: SODIUM CHLORIDE 0.9% 1,000 ML IV ONE (14:38)
[2025-06-22 16:00] VITALS: BP 123/73; PULSE 71; RESP 17; TEMP 98.1; O2SAT 95
[2025-06-22 21:00] VITALS: BP 132/79; PULSE 77; RESP 20; TEMP 98.4; O2SAT 96
--- NOTE | 2025-06-22 23:50 | DVHPN2 ---
Progress Note - Surgical Date Seen: Jun 22, 2025 Post op day Post op day: 0 Subjective Patient reports: Feels better (feeling better today no complaints of abdominal pain, afebrile with vital signs stable, no nausea no vomiting) Review of Systems: Deferred Objective Vital signs Vital Sign Date Time Temp Pulse Resp B/P (MAP) Pulse Ox O2 Delivery O2 Flow Rate FiO2 06/22/25 22:00 76 18 124/72 06/22/25 21:00 98.4 96 98.4 06/22/25 20:06 Room Air* 0 21 Total Intake and Output 06/21/25 06/21/25 06/22/25 15:00 23:00 07:00 Intake Total 400 ml Output Total 0 ml Balance 400 ml Medications Current Medications Medications Dose Ordered Sig/Susana Route Start Time Stop Time Status Last Admin Dose Admin Ondansetron HCl 4 mg Q4HP PRN IV 06/21/25 21:15 06/22/25 21:35 4 MG Morphine Sulfate 2 mg Q4HPRN PRN IV 06/21/25 21:15 06/22/25 21:35 2 MG Diagnostic Test (Pha) 1 strip Q6HR 06/22/25 00:00 06/22/25 17:58 1 STRIP Insulin Human Regular Q6HR SC 06/22/25 00:00 Dextrose 50 ml UD PRN IV 06/21/25 21:15 Laboratory Laboratory Tests 06/22/25 05:57 Test 06/22/25 05:57 Range/Units Serum Glucose 106 74-106 mg/dL Examination: GENERAL:Normal, ABDOMEN:Normal (Nondistended, soft, depressible, ventral hernia, very mild tenderness, no rebound,) Labs and/or images reviewed: Labs reviewed by me Problem List/Assessment/Plan Problems: (1) Abdominal wall hernia Assessment and Plan Mrs. Marinelli is a 59-year-old female who presented with partial small bowel obstruction symptoms due to ventral incisional hernia. Patient was scheduled to undergo surgery this morning but given that her symptoms have improved, not as painful, not vomiting, no nausea, and feeling hungry , patient was bumped for an emergent surgical procedure. Patient will undergo surgery tomorrow. 1. On-call to OR for laparoscopic assisted open ventral hernia repair with mesh, possible bowel resection and all indicated procedures 2. NPO at midnight My Orders My Orders Orders - ADIA CRAFT MD Procedure Category Date Status Time Consistent DIET 06/22/25 Transmitted [facility]Diabetes Dinner Plan discussed with Plan discussed with: Patient Visit Coding Surgery Date of Service if different f: Jun 22, 2025 Billing Provider: ADAI CRAFT MD Surgery Visit Codes: [id number] INP/OBS CARE(HIGH) ADIA CRAFT MD Jun 22, 2025 23:50
[2025-06-23] VITALS (10 sets, daily range): BP systolic 124–153; BP diastolic 77–91; PULSE 75–112; RESP 16–22; TEMP 97.5–98.1; O2SAT 94–99
[2025-06-23] MEDS ORDERED: ONDANSETRON HCL 4 MG/2 ML VIAL ONE ×2 (07:52→11:51)
[2025-06-23] MEDS ORDERED: KETOROLAC TROMETH 30 MG/ML 1ML VIAL ONE (07:52)
[2025-06-23] MEDS ORDERED: LIDOCAINE 2% (LOCAL ANESTH.) PF 5ml SDV ONE (07:52)
[2025-06-23] MEDS ORDERED: ROCURONIUM 10MG/ML 10ML VIAL IV ONE (07:53)
[2025-06-23] MEDS ORDERED: SUGAMMADEX 200mg/2ml Vial (100MG/ML) IV ONE (07:53)
[2025-06-23] MEDS ORDERED: GLYCOPYRROLATE 0.2 MG/ML 1ML VIAL ONE (07:53)
[2025-06-23] MEDS ORDERED: fentaNYL CITRATE 100 MCG/2 ML VL ONE (07:53)
[2025-06-23] MEDS ORDERED: PROPOFOL 10 MG/ML 20 ML IV ONE (07:53)
[2025-06-23] MEDS: BUPIVACAINE 0.25% INJ 50ML VIAL ONE ×2 (08:21→08:41)
[2025-06-23] MEDS: CELECOXIB 100 MG CAP ONE (08:36)
[2025-06-23] MEDS: GABAPENTIN 400 MG CAP ONE (08:36)
[2025-06-23] MEDS: ACETAMINOPHEN IV 100 ML IV ONE (08:37)
[2025-06-23] MEDS: ROCURONIUM 10MG/ML 10ML VIAL IV ONE ×2 (08:41→12:51)
[2025-06-23] MEDS: ACETAMINOPHEN IV 1000 MG/100ML (10MG/ML) IV ONE (08:42)
[2025-06-23] MEDS: GABAPENTIN 400 MG CAP PO ONE (08:43)
[2025-06-23] MEDS: CELECOXIB 100 MG CAP PO ONE (08:43)
--- NOTE | 2025-06-23 09:26 | DVHPN2 ---
Reviewed: Care Plan, H&P, Labs, Medications, Previous Orders, Radiology Changes from previous H/P or p: No Changes Objective Vitals Vital Signs Date Time Temp Pulse Resp B/P (MAP) Pulse Ox O2 Delivery O2 Flow Rate FiO2 06/23/25 07:49 76 18 98 Room Air* 0 21 06/23/25 05:00 98.1 124/88 (100) 98.1 Intake/Output Intake and Output 06/23/25 07:00 Intake Total 1045 ml Balance 1045 ml Intake Oral 1045 ml # Voids 9 Medications Current Medications Medications Dose Ordered Sig/Susana Route Start Time Stop Time Status Last Admin Dose Admin Ondansetron HCl 4 mg Q4HP PRN IV 06/21/25 21:15 06/23/25 04:14 4 MG Morphine Sulfate 2 mg Q4HPRN PRN IV 06/21/25 21:15 06/23/25 04:14 2 MG Diagnostic Test (Pha) 1 strip Q6HR 06/22/25 00:00 06/23/25 05:56 1 STRIP Insulin Human Regular Q6HR SC 06/22/25 00:00 Dextrose 50 ml UD PRN IV 06/21/25 21:15 Laboratory Results Laboratory Tests 06/22/25 05:57 Urinalysis Test 06/21/25 17:55 Urine Color Light-yellow (Yellow) Urine Clarity Clear (Clear) Urine pH 7.5 (5.0-9.0) Urine Specific [place] 1.032 (1.001-1.035) Urine Protein Negative (Negative) Urine Ketones Trace (Negative) Urine Blood Negative /uL (Negative) Urine Nitrite Negative (Negative) Urine Bilirubin Negative (Negative) Urine Urobilinogen Normal mg/dL (Negative) Urine Leukocyte Esterase Negative /uL (Negative) Urine RBC <1 /hpf (0 - 4) Urine Microscopic WBC < 1 /HPF (0-5) Urine Squamous Epithelial Cells Few /hpf (<5) Urine Bacteria None seen /hpf (None Seen) Urine Glucose Normal mg/dL (Normal) Labs and/or images reviewed: Labs reviewed by me, Image(s) reviewed by me Assessment/Plan Assessment/Plan Acute abdominal pain Rule out strangulated hernia consult by Dr. Ingram appreciated Planning for laparoscopic assisted open ventral hernia repair with mesh, possible bowel resection and all indicated procedures today History of laparotomy 2019 at [place] for perforated viscus Hypertension History of cholecystectomy History of appendectomy Plan discussed with: Patient My Orders Orders - TERRENCE DE SOUZA MD Procedure Category Date Status Time * Surgical Consult CONS 06/22/25 Transmitted 11:41 Date of Service: Jun 23, 2025 Billing Provider: TERRENCE DE SOUZA MD Common Visit Codes: [id number] INP/OBS CARE(HIGH) TERRENCE DE SOUZA MD Jun 23, 2025 09:26
[2025-06-23] MEDS ORDERED: ESMOLOL HCL 10 ML IV ONE (10:49)
[2025-06-23] MEDS ORDERED: FLUMAZENIL 0.1 MG/ML INJ 10ML MDV IV PRN (14:45)
[2025-06-23] MEDS ORDERED: NALOXONE HCL 0.4 MG/ML VIAL IV PRN (14:45)
[2025-06-23] MEDS ORDERED: hydrALAZINE HCL 20 MG/ML VL IV PRN (14:45)
[2025-06-23] MEDS: HYDROmorphone HCL 2 MG/ML VL/or syr ONE (14:50)
[2025-06-23] MEDS: HYDROmorphone HCL 2 MG/ML VL/or syr IV PRN (14:50)
[2025-06-23] MEDS: fentaNYL CITRATE 100 MCG/2 ML VL IV PRN (15:10)
[2025-06-23] MEDS: ONDANSETRON HCL 4 MG/2 ML VIAL IV PRN (15:36)
--- NOTE | 2025-06-23 19:45 | DVHOP2 ---
Operative Report - 2 Report Details Date: 06/23/25 Preop Diagnosis: Ventral incisional hernia Postop Diagnosis: Uzbek cheese ventral incisional hernia Surgeon: Crescencio Palomino MD Anesthesiologist: Romain Brink CRNA Anesthesia: General Drains: 19 Spanish round channel drain in the subcutaneous tissue and sitting in the right lower quadrant Implant: 30 x 20 cm Symbotex mesh Consent: The patient was informed of the risks and benefits of the procedure. These include but are not limited to complications of anesthesia, postoperative infection, incomplete relief of symptoms, recurrence of symptoms, damage to blood vessels, nerves and tendons, deep venous thrombosis, pulmonary embolism and possible need for repeat surgery in the future. Complications: None Estimated Blood Loss: 100 mL Findings: Complex ventral incisional hernia, Uzbek-cheese, multiple defects of varying sizes, small bowel densely adhesed to the subcutaneous tissue and anterior abdominal wall, intra peritoneal cavity was completely full of adhesions: Omentum and bowel to anterior abdominal wall/interloop adhesions. Once all defects were incorporated into 1 the entire fascial opening was 24 cm in length. Indications for Surgery: Ventral hernia causing partial bowel obstruction Name of Procedure Performed Open ventral hernia repair with mesh, extensive lysis of adhesions, imbrication of transverse colon serosal tear Procedure Details Procedure Details: Upon arriving to the operating room patient was transferred to the operating table and placed in the supine position with arms extended. General endotracheal anesthesia was induced. Time-out was observed. Patient was prepped and draped in standard sterile surgical fashion with chlorhexidine. I then proceeded to make a midline skin incision over a previous laparotomy scar extending several cm above the umbilicus to several cm below the umbilicus. I then proceeded to dissect down to fascia the entire length of the incision. During this I immediately encountered a supraumbilical fascial defect with small bowel protruding through it. The hernia sac and small bowel were very adhesed to the subcutaneous tissue, fascia and anterior abdominal wall. I carefully lysed all the adhesions and was able to free the small bowel and dunked it back into the peritoneal cavity. I then proceeded to palpate the undersurface of the peritoneal cavity. I immediately noted that there were 360 of adhesions around the created fascial defect. And also felt that there was a fascial defect at the umbilical area. I then proceeded to carefully lyse the adhesions to gain access to the 2nd fascial defect. Once I did that I was able to extend my fascial incision to incorporate the fascial defect. The anterior abdominal wall was completely full of omental and small-bowel adhesions, to it. I then carefully proceeded to lyse the adhesions between the omentum and small bowel circumferentially around the the fascial incision. I then noted another fascial defect below the belly button and had to extend the fascial incision to accommodate this fascial defect. The same thing happened in the cephalad direction, I noted another defect and had to extend the fascial incision superiorly. At this point I did not feel any other fascial defects. I then made sure I lysed the anterior abdominal wall adhesions to InCompass the entire length of my fascial incision circumferentially, creating a good landing spot fo r the mesh. I then proceeded to inspect the bowel that was involved in the adhesions. There was a ball of adhesed small bowel, I then carefully lysed this interloop adhesions completely freeing up the small bowel. I also noted a serosal tear in the mid transverse colon. I then imbricated the serosal tear with a running 3-0 silk suture. No other abnormalities, or bleeding was noted from the undersurface of the abdominal wall or involved loops of bowel and omentum. I then created subcutaneous tissue flaps circumferentially around the fascia, and obtain hemostasis as I went with cautery. The entire fascial opening measured 24 cm. The fascia from both sites was able to interpose without tension. I then proceeded to utilize a 30 x 20 cm Symbotex mesh. The mesh was modified at its width, final with was 15 cm. The mesh was then sutured to the anterior abdominal wall in an underlay fashion with 0 Prolene. The mesh laid completely flat against the anterior abdominal wall and without tension. I then closed the fascia with interrupted 0 Prolene sutures. I then obtained hemostasis of the subcutaneous tissue. I then reattached the umbilicus to the abdominal wall with 2-0 Vicryl. I then laid a 19 Spanish round channel drain over the fascia, and exiting out of the right lower quadrant. Drain was secured in place with a 2-0 nylon. I then closed the deep subcutaneous tissue with 2-0 Vicryl running. Skin was closed with fina. All counts were complete and correct at the end of the procedure. 0.25% Marcaine was used as local anesthetic. Wound was dressed with 4 x 4 gauze and Tegaderm. Patient tolerated the procedure well and was transferred to PACU in stable condition. Specimen: None Condition Stable Disposition Still a Patient CRESCENCIO CRAFT MD Jun 23, 2025 19:45
[2025-06-23] MEDS: MECLIZINE HCL 25 MG TAB PO PRN (20:42)
[2025-06-24] VITALS (8 sets, daily range): BP systolic 131–161; BP diastolic 58–85; PULSE 71–88; RESP 18–19; TEMP 97.6–98.6; O2SAT 93–97
[2025-06-24 09:32] LABS: Hematocrit 36.4 % (36.0-46.0); Hemoglobin 12.0 g/dL (12.2-16.2); Mean Corpuscular Hemoglobin 27.9 pg (28.0-32.0); Mean Corpuscular Volume 84.5 fL (80.0-100.0); Nucleated Red Blood Cells % 0.1 %
--- NOTE | 2025-06-24 09:39 | DVHPN2 ---
Progress Note - Surgical Date Seen: Jun 24, 2025 Post op day Post op day: 1 Subjective Patient reports: Other (Patient having pain control issues, she takes chronic pain medications at home, afebrile with vital signs stable, not feeling bloated or distended.) Review of Systems: Deferred Objective Vital signs Vital Sign Date Time Temp Pulse Resp B/P (MAP) Pulse Ox O2 Delivery O2 Flow Rate FiO2 06/24/25 09:02 87 19 139/61 06/24/25 08:59 97.8 97 97.8 06/23/25 20:00 Room Air* 0 21 Total Intake and Output 06/23/25 06/23/25 06/24/25 15:00 23:00 07:00 Intake Total 400 ml 0 ml 0 ml Output Total 900 ml 180 ml Balance -500 ml -180 ml 0 ml Medications Current Medications Medications Dose Ordered Sig/Susana Route Start Time Stop Time Status Last Admin Dose Admin Ondansetron HCl 4 mg Q4HP PRN IV 06/21/25 21:15 06/24/25 09:08 4 MG Morphine Sulfate 2 mg Q4HPRN PRN IV 06/21/25 21:15 06/24/25 09:02 2 MG Diagnostic Test (Pha) 1 strip Q6HR 06/22/25 00:00 06/24/25 05:43 1 STRIP Insulin Human Regular Q6HR SC 06/22/25 00:00 Dextrose 50 ml UD PRN IV 06/21/25 21:15 Oxycodone HCl 10 mg ONCE PRN PO 06/23/25 14:45 06/23/25 20:43 10 MG Meclizine HCl 25 mg BID PRN PO 06/23/25 20:30 06/23/25 20:42 25 MG Laboratory Test 06/24/25 09:12 Range/Units Serum Glucose Pending Examination: GENERAL:Normal, ABDOMEN:Normal (Nondistended, soft, depressible, appropriate tenderness, midline wound with dressing in place, drain with serosanguineous output, no rebound, no guarding) Labs and/or images reviewed: Labs reviewed by me (Still pending labs for today) Problem List/Assessment/Plan Assessment and Plan Mrs. Marinelli is a 59-year-old female who presented with partial small bowel obstruction symptoms due to ventral incisional hernia. Patient is currently postop day 1 from open ventral hernia repair with mesh, with extensive lysis of adhesions. Patient having some pain control issues, we will add MultiModal pain regimen. 1. Okay for clear liquid diet and advanced to full liquid diet by the afternoon if tolerated 2. Out of bed and ambulate 3. Abdominal binder for support 4. Pain regimen: Tylenol 650 mg p.o. every 6 hours (scheduled), Toradol 15 mg IV every 8 hours (scheduled), gabapentin 300 mg t.i.d. p.o. (scheduled), Percocet 5 mg p.o. PRN moderate pain every 4 hours, Percocet 10 mg p.o. every 4 hours p.r.n. severe pain 5. MiraLax 1 packet daily 6. Incentive spirometry 7. No lifting over 10 lb for 8 weeks 8. Drain stripping b.i.d. and prn, please empty and record drain output b.i.d.) My Orders My Orders Orders - ADIA CRAFT MD Procedure Category Date Status Time Npo (Nothing By DIET 06/23/25 Transmitted Mouth) Diet Dinner Complete Blood Count LAB 06/24/25 In Process 08:29 Comprehensive LAB 06/24/25 In Process Metabolic Panel 08:29 Clear Liq Diet DIET 06/24/25 Verified Breakfast Complete Blood Count LAB 06/25/25 Verified 04:00 Comprehensive LAB 06/25/25 Verified Metabolic Panel 04:00 Acetaminophen Tablet PHA 06/24/25 Verified (Tylenol Tablet) 09:30 Gabapentin Capsule PHA 06/24/25 Verified (Neurontin Capsule) 09:30 Polyethylene Glycol PHA 06/24/25 Verified 17g Powder (Miralax 10:00 Plan discussed with Plan discussed with: Patient Visit Coding Surgery Date of Service if different f: Jun 24, 2025 Billing Provider: ADIA CRAFT MD Surgery Visit Codes: [id number] INP/OBS CARE(HIGH) ADIA CRAFT MD Jun 24, 2025 09:39
[2025-06-24 09:48] LABS: Alanine Aminotransferase 25 U/L (7-40); Albumin 4.0 g/dL (3.2-4.8); Alkaline Phosphatase 69 U/L (46-116); Anion Gap 8 (5-15); BUN/Creatinine Ratio 26.2 (10.0-20.0); Bilirubin, Total 1.6 mg/dL (0.2-1.0); Blood Urea Nitrogen 16 mg/dL (9-23); Calcium 9.3 mg/dL (8.7-10.4); Carbon Dioxide 28 mmol/L (20-31); Chloride 107 mmol/L (98-107); Glucose 114 mg/dL (74-106); Potassium 4.2 mmol/L (3.5-5.1); Sodium 143 mmol/L (136-145); Total Protein 6.0 g/dL (5.7-8.2)
--- NOTE | 2025-06-24 09:59 | DVHPN2 ---
Reviewed: Care Plan, H&P, Labs, Medications, Previous Orders, Radiology Changes from previous H/P or p: No Changes Objective Vitals Vital Signs Date Time Temp Pulse Resp B/P (MAP) Pulse Ox O2 Delivery O2 Flow Rate FiO2 06/24/25 09:02 87 19 139/61 06/24/25 08:59 97.8 97 97.8 06/23/25 20:00 Room Air* 0 21 Intake/Output Intake and Output 06/24/25 07:00 Intake Total 400 ml Output Total 1080 ml Balance -680 ml Intake Oral 0 ml IV Total 400 ml Output Urine Total 900 ml Drainage Total 180 ml # Voids 2 Medications Current Medications Medications Dose Ordered Sig/Susana Route Start Time Stop Time Status Last Admin Dose Admin Ondansetron HCl 4 mg Q4HP PRN IV 06/21/25 21:15 06/24/25 09:08 4 MG Diagnostic Test (Pha) 1 strip Q6HR 06/22/25 00:00 06/24/25 05:43 1 STRIP Insulin Human Regular Q6HR SC 06/22/25 00:00 Dextrose 50 ml UD PRN IV 06/21/25 21:15 Meclizine HCl 25 mg BID PRN PO 06/23/25 20:30 06/23/25 20:42 25 MG Acetaminophen 650 mg Q6HR PO 06/24/25 09:30 Ketorolac Tromethamine 15 mg Q8HR IV 06/24/25 09:30 06/29/25 09:29 Oxycodone/ Acetaminophen 2 tab Q4HP PRN PO 06/24/25 09:30 Oxycodone/ Acetaminophen 1 tab Q4HP PRN PO 06/24/25 09:30 Gabapentin 300 mg TID PO 06/24/25 09:30 Polyethylene Glycol 17 gm DAILY PO 06/24/25 10:00 Piperacillin Sod/ Tazobactam Sod 100 ml @ 25 mls/hr Q8HR IV 06/24/25 14:00 UNV Laboratory Results Laboratory Tests 06/24/25 09:12 Chemistry Test 06/24/25 09:12 Albumin 4.0 g/dL (3.2-4.8) Calcium Level 9.3 mg/dL (8.7-10.4) Total Protein 6.0 g/dL (5.7-8.2) LFT Test 06/24/25 09:12 Alanine Aminotransferase (ALT) 25 U/L (7-40) Alkaline Phosphatase 69 U/L (46-116) Aspartate Amino Transferase (AST) 34 U/L (13-40) Total Bilirubin 1.6 mg/dL (0.2-1.0) H Urinalysis Test 06/21/25 17:55 Urine Color Light-yellow (Yellow) Urine Clarity Clear (Clear) Urine pH 7.5 (5.0-9.0) Urine Specific [place] 1.032 (1.001-1.035) Urine Protein Negative (Negative) Urine Ketones Trace (Negative) Urine Blood Negative /uL (Negative) Urine Nitrite Negative (Negative) Urine Bilirubin Negative (Negative) Urine Urobilinogen Normal mg/dL (Negative) Urine Leukocyte Esterase Negative /uL (Negative) Urine RBC <1 /hpf (0 - 4) Urine Microscopic WBC < 1 /HPF (0-5) Urine Squamous Epithelial Cells Few /hpf (<5) Urine Bacteria None seen /hpf (None Seen) Urine Glucose Normal mg/dL (Normal) Labs and/or images reviewed: Labs reviewed by me, Image(s) reviewed by me Assessment/Plan Assessment/Plan Acute abdominal pain Strangulated ventral hernia status post Open ventral hernia repair with mesh, extensive lysis of adhesions, imbrication of transverse colon serosal tear by surgeon Dr. Ingram on 06/23/2025 History of laparotomy 2020 at [place] for perforated viscus Hypertension History of cholecystectomy History of appendectomy Time Spent 70 minutes Advanced care planning time 20 minutes Patient is full code Plan discussed with: Patient My Orders Orders - TERRENCE DE SOUZA MD Procedure Category Date Status Time Piperacillin-Tazob PHA 06/24/25 Logged 3.375gm (Zosyn 3.375g 14:00 Date of Service: Jun 24, 2025 Billing Provider: TERRENCE DE SOUZA MD Common Visit Codes: [id number] CARE 30-74 MIN TERRENCE DE SOUZA MD Jun 24, 2025 09:59
[2025-06-24] MEDS ORDERED: KETAMINE 50mg/ML 1ml syringe IM ONE (14:23)
[2025-06-24] MEDS: PIPERACILLIN-TAZOB 3.375GM 100 ML IV SCH (14:38)
[2025-06-24] MEDS: POLYETHYLENE GLYCOL 17 GM PWDR PO SCH (14:41)
[2025-06-24] MEDS: ACETAMINOPHEN 325 MG TAB PO SCH (14:44)
[2025-06-24] MEDS: GABAPENTIN 300 MG CAP PO SCH (14:44)
[2025-06-24] MEDS: KETOROLAC TROMETH 30 MG/ML 1ML VIAL IV SCH (14:45)
[2025-06-24] MEDS: PANTOPRAZOLE 40 MG/10 ML VIAL INJ IV SCH (14:45)
[2025-06-24] MEDS: MECLIZINE HCL 25 MG TAB PO PRN (16:38)
[2025-06-24] MEDS: OXYCODONE W/ ACETAMINOPHEN 5/325MG TABLET PO PRN ×2 (18:35→23:51)
[2025-06-25] VITALS (7 sets, daily range): BP systolic 118–150; BP diastolic 59–90; PULSE 61–87; RESP 16–18; TEMP 97.5–98.2; O2SAT 94–98
[2025-06-25 06:43] LABS: Hematocrit 39.7 % (36.0-46.0); Hemoglobin 12.8 g/dL (12.2-16.2); Mean Corpuscular Hemoglobin 28.0 pg (28.0-32.0); Mean Corpuscular Volume 86.7 fL (80.0-100.0); Nucleated Red Blood Cells % 0.0 %
[2025-06-25 07:11] LABS: Alanine Aminotransferase 26 U/L (7-40); Alkaline Phosphatase 73 U/L (46-116); Anion Gap 10 (5-15); BUN/Creatinine Ratio 19.0 (10.0-20.0); Blood Urea Nitrogen 12 mg/dL (9-23); Calcium 9.1 mg/dL (8.7-10.4); Carbon Dioxide 26 mmol/L (20-31); Chloride 105 mmol/L (98-107); Glucose 88 mg/dL (74-106); Potassium 3.8 mmol/L (3.5-5.1); Sodium 141 mmol/L (136-145); Total Protein 6.5 g/dL (5.7-8.2)
[2025-06-25 07:13] LABS: Albumin 4.2 g/dL (3.2-4.8); Bilirubin, Total 1.9 mg/dL (0.2-1.0)
--- NOTE | 2025-06-25 10:15 | DVHPN2 ---
Reviewed: Care Plan, H&P, Labs, Medications, Previous Orders, Radiology Changes from previous H/P or p: No Changes Objective Vitals Vital Signs Date Time Temp Pulse Resp B/P (MAP) Pulse Ox O2 Delivery O2 Flow Rate FiO2 06/25/25 09:00 97.7 73 18 132/74 (93) 94 97.7 06/25/25 07:45 Room Air* 0 21 Intake/Output Intake and Output 06/25/25 07:00 Intake Total 1610 ml Output Total 175 ml Balance 1435 ml Intake Oral 1410 ml IV Total 200 ml Drainage Total 75 ml Other 100 ml # Voids 6 Medications Current Medications Medications Dose Ordered Sig/Susana Route Start Time Stop Time Status Last Admin Dose Admin Ondansetron HCl 4 mg Q4HP PRN IV 06/21/25 21:15 06/24/25 09:08 4 MG Diagnostic Test (Pha) 1 strip Q6HR 06/22/25 00:00 06/25/25 05:25 1 STRIP Insulin Human Regular Q6HR SC 06/22/25 00:00 Dextrose 50 ml UD PRN IV 06/21/25 21:15 Acetaminophen 650 mg Q6HR PO 06/24/25 09:30 06/24/25 16:24 650 MG Ketorolac Tromethamine 15 mg Q8HR IV 06/24/25 09:30 06/29/25 09:29 06/25/25 05:21 15 MG Oxycodone/ Acetaminophen 2 tab Q4HP PRN PO 06/24/25 09:30 06/25/25 08:54 2 TAB Oxycodone/ Acetaminophen 1 tab Q4HP PRN PO 06/24/25 09:30 06/24/25 18:35 1 TAB Gabapentin 300 mg TID PO 06/24/25 09:30 06/25/25 05:21 300 MG Polyethylene Glycol 17 gm DAILY PO 06/24/25 10:00 06/24/25 14:41 17 GM Piperacillin Sod/ Tazobactam Sod 100 ml @ 25 mls/hr Q8HR IV 06/24/25 14:00 06/25/25 05:21 25 MLS/HR Pantoprazole Sodium 40 mg BID IV 06/24/25 10:00 06/24/25 21:08 40 MG Meclizine HCl 25 mg [id number] PRN PO 06/24/25 16:30 06/24/25 16:38 25 MG Laboratory Results Laboratory Tests 06/25/25 05:47 Chemistry Test 06/25/25 05:47 Albumin 4.2 g/dL (3.2-4.8) Calcium Level 9.1 mg/dL (8.7-10.4) Total Protein 6.5 g/dL (5.7-8.2) LFT Test 06/25/25 05:47 Alanine Aminotransferase (ALT) 26 U/L (7-40) Alkaline Phosphatase 73 U/L (46-116) Aspartate Amino Transferase (AST) 49 U/L (13-40) H Total Bilirubin 1.9 mg/dL (0.2-1.0) H Urinalysis Test 06/21/25 17:55 Urine Color Light-yellow (Yellow) Urine Clarity Clear (Clear) Urine pH 7.5 (5.0-9.0) Urine Specific [place] 1.032 (1.001-1.035) Urine Protein Negative (Negative) Urine Ketones Trace (Negative) Urine Blood Negative /uL (Negative) Urine Nitrite Negative (Negative) Urine Bilirubin Negative (Negative) Urine Urobilinogen Normal mg/dL (Negative) Urine Leukocyte Esterase Negative /uL (Negative) Urine RBC <1 /hpf (0 - 4) Urine Microscopic WBC < 1 /HPF (0-5) Urine Squamous Epithelial Cells Few /hpf (<5) Urine Bacteria None seen /hpf (None Seen) Urine Glucose Normal mg/dL (Normal) Labs and/or images reviewed: Labs reviewed by me, Image(s) reviewed by me Assessment/Plan Assessment/Plan Acute abdominal pain Strangulated ventral hernia status post Open ventral hernia repair with mesh, extensive lysis of adhesions, imbrication of transverse colon serosal tear by surgeon Dr. Ingram on 06/23/2025 History of laparotomy 2020 at [place] for perforated viscus Hypertension History of cholecystectomy History of appendectomy Time Spent 50 minutes Advanced care planning time 20 minutes Patient is full code Physical therapy ordered Plan discussed with: Patient My Orders Orders - TERRENCE DE SOUZA MD Procedure Category Date Status Time Meclizine Tablet PHA 06/24/25 In Process (Antivert Tablet) 16:30 Date of Service: Jun 25, 2025 Billing Provider: TERRENCE DE SOUZA MD Common Visit Codes: [id number] INP/OBS CARE(HIGH) TERRENCE DE SOUZA MD Jun 25, 2025 10:15
[2025-06-26] VITALS (8 sets, daily range): BP systolic 129–159; BP diastolic 75–88; PULSE 70–78; RESP 15–18; TEMP 97.1–98; O2SAT 96–98
[2025-06-26 07:53] LABS: Hematocrit 34.3 % (36.0-46.0); Hemoglobin 11.4 g/dL (12.2-16.2); Mean Corpuscular Hemoglobin 28.3 pg (28.0-32.0); Mean Corpuscular Volume 85.2 fL (80.0-100.0); Nucleated Red Blood Cells % 0.0 %
[2025-06-26 08:07] LABS: Alanine Aminotransferase 12 U/L (7-40); Alkaline Phosphatase 63 U/L (46-116); Anion Gap 9 (5-15); BUN/Creatinine Ratio 19.0 (10.0-20.0); Blood Urea Nitrogen 12 mg/dL (9-23); Carbon Dioxide 27 mmol/L (20-31); Chloride 107 mmol/L (98-107); Potassium 3.9 mmol/L (3.5-5.1); Sodium 143 mmol/L (136-145)
[2025-06-26 08:08] LABS: Albumin 3.7 g/dL (3.2-4.8)
[2025-06-26 08:09] LABS: Bilirubin, Total 1.1 mg/dL (0.2-1.0)
[2025-06-26 08:11] LABS: Calcium 8.6 mg/dL (8.7-10.4); Glucose 89 mg/dL (74-106); Total Protein 5.6 g/dL (5.7-8.2)
--- NOTE | 2025-06-26 10:07 | DVHPN2 ---
Reviewed: Care Plan, H&P, Labs, Medications, Previous Orders, Radiology Changes from previous H/P or p: No Changes Objective Vitals Vital Signs Date Time Temp Pulse Resp B/P (MAP) Pulse Ox O2 Delivery O2 Flow Rate FiO2 06/26/25 08:46 97.1 75 15 156/75 (102) 96 97.1 06/25/25 20:00 Room Air* 0 21 Intake/Output Intake and Output 06/26/25 07:00 Intake Total 1218 ml Output Total 150 ml Balance 1068 ml Intake Oral 918 ml IV Total 300 ml Drainage Total 150 ml # Voids 5 # Bowel Movements 1 Medications Current Medications Medications Dose Ordered Sig/Susana Route Start Time Stop Time Status Last Admin Dose Admin Ondansetron HCl 4 mg Q4HP PRN IV 06/21/25 21:15 06/24/25 09:08 4 MG Diagnostic Test (Pha) 1 strip Q6HR 06/22/25 00:00 06/26/25 05:15 1 STRIP Insulin Human Regular Q6HR SC 06/22/25 00:00 06/25/25 17:43 2 UNITS Dextrose 50 ml UD PRN IV 06/21/25 21:15 Acetaminophen 650 mg Q6HR PO 06/24/25 09:30 06/25/25 18:19 650 MG Ketorolac Tromethamine 15 mg Q8HR IV 06/24/25 09:30 06/29/25 09:29 06/26/25 05:12 15 MG Oxycodone/ Acetaminophen 2 tab Q4HP PRN PO 06/24/25 09:30 06/26/25 09:12 2 TAB Oxycodone/ Acetaminophen 1 tab Q4HP PRN PO 06/24/25 09:30 06/26/25 04:27 1 TAB Gabapentin 300 mg TID PO 06/24/25 09:30 06/26/25 05:12 300 MG Polyethylene Glycol 17 gm DAILY PO 06/24/25 10:00 06/25/25 10:00 17 GM Piperacillin Sod/ Tazobactam Sod 100 ml @ 25 mls/hr Q8HR IV 06/24/25 14:00 06/26/25 05:12 25 MLS/HR Pantoprazole Sodium 40 mg BID IV 06/24/25 10:00 06/25/25 21:31 40 MG Meclizine HCl 25 mg [id number] PRN PO 06/24/25 16:30 06/24/25 16:38 25 MG Laboratory Results Laboratory Tests 06/26/25 05:52 Chemistry Test 06/26/25 05:52 Albumin 3.7 g/dL (3.2-4.8) Calcium Level 8.6 mg/dL (8.7-10.4) L Total Protein 5.6 g/dL (5.7-8.2) L LFT Test 06/26/25 05:52 Alanine Aminotransferase (ALT) 12 U/L (7-40) Alkaline Phosphatase 63 U/L (46-116) Aspartate Amino Transferase (AST) 42 U/L (13-40) H Total Bilirubin 1.1 mg/dL (0.2-1.0) H Urinalysis Test 06/21/25 17:55 Urine Color Light-yellow (Yellow) Urine Clarity Clear (Clear) Urine pH 7.5 (5.0-9.0) Urine Specific [place] 1.032 (1.001-1.035) Urine Protein Negative (Negative) Urine Ketones Trace (Negative) Urine Blood Negative /uL (Negative) Urine Nitrite Negative (Negative) Urine Bilirubin Negative (Negative) Urine Urobilinogen Normal mg/dL (Negative) Urine Leukocyte Esterase Negative /uL (Negative) Urine RBC <1 /hpf (0 - 4) Urine Microscopic WBC < 1 /HPF (0-5) Urine Squamous Epithelial Cells Few /hpf (<5) Urine Bacteria None seen /hpf (None Seen) Urine Glucose Normal mg/dL (Normal) Assessment/Plan Assessment/Plan Acute abdominal pain Strangulated ventral hernia status post Open ventral hernia repair with mesh, extensive lysis of adhesions, imbrication of transverse colon serosal tear by surgeon Dr. Ingram on 06/23/2025 History of laparotomy 2020 at [place] for perforated viscus Hypertension History of cholecystectomy History of appendectomy Time Spent 50 minutes Advanced care planning time 20 minutes Patient is full code Physical therapy ordered Advanced diet as tolerated Plan discussed with: Patient My Orders Orders - TERRENCE DE SOUZA MD Procedure Category Date Status Time Pt Request For Service PT 06/25/25 Logged 10:16 Complete Blood Count LAB 06/27/25 Verified 04:00 Comprehensive LAB 06/27/25 Verified Metabolic Panel 04:00 Soft Diet DIET 06/25/25 Transmitted Lunch Date of Service: Jun 26, 2025 Billing Provider: TERRENCE DE SOUZA MD Common Visit Codes: [id number] INP/OBS CARE(HIGH) TERRENCE DE SOUZA MD Jun 26, 2025 10:07
--- NOTE | 2025-06-26 10:30 | DVHPN2 ---
Progress Note - Surgical Date Seen: Jun 26, 2025 Post op day Post op day: 3 Subjective Patient reports: No new complaints (afebrile with VSS) Review of Systems: Not Done Objective Vital signs Vital Sign Date Time Temp Pulse Resp B/P (MAP) Pulse Ox O2 Delivery O2 Flow Rate FiO2 06/26/25 08:46 97.1 75 15 156/75 (102) 96 97.1 06/25/25 20:00 Room Air* 0 21 Total Intake and Output 06/25/25 06/25/25 06/26/25 15:00 23:00 07:00 Intake Total 100 ml 1018 ml 100 ml Output Total 150 ml Balance 100 ml 1018 ml -50 ml Medications Current Medications Medications Dose Ordered Sig/Susana Route Start Time Stop Time Status Last Admin Dose Admin Ondansetron HCl 4 mg Q4HP PRN IV 06/21/25 21:15 06/24/25 09:08 4 MG Diagnostic Test (Pha) 1 strip Q6HR 06/22/25 00:00 06/26/25 05:15 1 STRIP Insulin Human Regular Q6HR SC 06/22/25 00:00 06/25/25 17:43 2 UNITS Dextrose 50 ml UD PRN IV 06/21/25 21:15 Acetaminophen 650 mg Q6HR PO 06/24/25 09:30 06/25/25 18:19 650 MG Ketorolac Tromethamine 15 mg Q8HR IV 06/24/25 09:30 06/29/25 09:29 06/26/25 05:12 15 MG Oxycodone/ Acetaminophen 2 tab Q4HP PRN PO 06/24/25 09:30 06/26/25 09:12 2 TAB Oxycodone/ Acetaminophen 1 tab Q4HP PRN PO 06/24/25 09:30 06/26/25 04:27 1 TAB Gabapentin 300 mg TID PO 06/24/25 09:30 06/26/25 05:12 300 MG Polyethylene Glycol 17 gm DAILY PO 06/24/25 10:00 06/26/25 10:06 17 GM Piperacillin Sod/ Tazobactam Sod 100 ml @ 25 mls/hr Q8HR IV 06/24/25 14:00 06/26/25 05:12 25 MLS/HR Pantoprazole Sodium 40 mg BID IV 06/24/25 10:00 06/26/25 10:06 40 MG Meclizine HCl 25 mg [id number] PRN PO 06/24/25 16:30 06/24/25 16:38 25 MG Laboratory Laboratory Tests 06/26/25 05:52 Test 06/26/25 05:52 Range/Units Serum Glucose 89 74-106 mg/dL Examination: ABDOMEN:Normal (non distended, soft, depressible, appropriate tenderness, incision with fina in place and no surrounding signs of infection, RLQ with SS output) Labs and/or images reviewed: Labs reviewed by me Problem List/Assessment/Plan Assessment and Plan Mrs. Marinelli is a 59-year-old female who presented with partial small bowel obstruction symptoms due to ventral incisional hernia. Patient is currently postop day 3 from open ventral hernia repair with mesh, with extensive lysis of adhesions. Interval: Pt ambulating, tolerating soft diet, had a BM. If pain is controlled with only PO meds, then she is cleared for discharge per surgical standpoint. She will leave hospital with drain 1. Soft diet advance as tolerated 2. Out of bed and ambulate 3. Abdominal binder for support 4. Pain regimen: Tylenol 650 mg p.o. every 6 hours (scheduled), Toradol 15 mg IV every 8 hours (scheduled), gabapentin 300 mg t.i.d. p.o. (scheduled), Percocet 5 mg p.o. PRN moderate pain every 4 hours, Percocet 10 mg p.o. every 4 hours p.r.n. severe pain 5. MiraLax 1 packet daily 6. Incentive spirometry Upon Discharge: 1. No lifting over 10 lb for 8 weeks 2. May shower, no swimming or bathing for two weeks after surgery 3. Drain care education 4. Regular diet 5. Recommended Pain management: Tylenol 650 mg Q6hrs, Ibuprofen 600mg TID, Percocet 10mg prn severe pain, Gabapentin 300mg TID 6. Continue to wear abdominal binder until cleared by surgery 7. Follow up with Dr. Ingram at surgery clinic in 10 days Plan discussed with Plan discussed with: Other (nurse) Visit Coding Surgery Date of Service if different f: Jun 26, 2025 Billing Provider: ADIA CRAFT MD Surgery Visit Codes: NOT BILLABLE ADIA CRAFT MD Jun 26, 2025 10:30
[2025-06-26] MEDS ORDERED: METR-344 PO (11:21)
[2025-06-26] MEDS ORDERED: PANT40T PO (11:21)
[2025-06-26] MEDS ORDERED: LEVO500T91 PO (11:21)
--- NOTE | 2025-06-26 11:29 | DVHDS2 ---
Discharge Summary Date of Admission Jun 21, 2025 at 21:14 Date of Discharge: Jun 26, 2025 Admitting Diagnosis Acute abdominal pain Wounds: Ventral hernia repair Labs/Diagnostic Data: Laboratory Results Test 06/26/25 05:52 06/26/25 05:11 06/22/25 05:57 06/21/25 17:55 White Blood Count 9.2 10^3/uL (4.4-10.8) Red Blood Count 4.02 10^6/uL (4.0-5.20) Hemoglobin 11.4 g/dL (12.2-16.2) Hematocrit 34.3 % (36.0-46.0) Mean Corpuscular Volume 85.2 fL (80.0-100.0) Mean Corpuscular Hemoglobin 28.3 pg (28.0-32.0) Mean Corpuscular Hemoglobin Concent 33.2 g/dL (32.0-36.0) Red Cell Distribution Width 14.0 % (11.8-14.3) Platelet Count 253 10^3/uL (140-450) Mean Platelet Volume 9.1 fL (6.9-10.8) Neutrophils (%) (Auto) 63.2 % (37.0-80.0) Lymphocytes (%) (Auto) 25.5 % (10.0-50.0) Monocytes (%) (Auto) 6.8 % (0.0-12.0) Eosinophils (%) (Auto) 4.2 % (0.0-7.0) Basophils (%) (Auto) 0.3 % (0.0-2.0) Neutrophils # (Auto) 5.8 10 ^3/uL (1.6-8.6) Lymphocytes # (Auto) 2.3 10 ^3/uL (0.4-5.4) Monocytes # (Auto) 0.6 10 ^3/uL (0-1.3) Eosinophils # (Auto) 0.4 10 ^3/uL (0-0.8) Basophils # (Auto) 0 10 ^3/uL (0-0.2) Nucleated Red Blood Cells 0.0 % Sodium Level 143 mmol/L (136-145) Potassium Level 3.9 mmol/L (3.5-5.1) Chloride Level 107 mmol/L (98-107) Carbon Dioxide Level 27 mmol/L (20-31) Anion Gap 9 (5-15) Blood Urea Nitrogen 12 mg/dL (9-23) Creatinine 0.63 mg/dL (0.550-1.02) Glomerular Filtration Rate Calc 103 mL/min (>90) BUN/Creatinine Ratio 19.0 (10.0-20.0) Serum Glucose 89 mg/dL (74-106) Calcium Level 8.6 mg/dL (8.7-10.4) Total Bilirubin 1.1 mg/dL (0.2-1.0) Aspartate Amino Transferase (AST) 42 U/L (13-40) Alanine Aminotransferase (ALT) 12 U/L (7-40) Alkaline Phosphatase 63 U/L (46-116) Total Protein 5.6 g/dL (5.7-8.2) Albumin 3.7 g/dL (3.2-4.8) POC Glucose 96 mg/dl (70-106) Prothrombin Time 11.1 sec (9.3-11.8) Prothrombin Time INR 1.05 (0.9-1.15) Beta HCG, Quantitative 1.8 mIU/mL (1.5-4.2) Urine Color Light-yellow (Yellow) Urine Clarity Clear (Clear) Urine pH 7.5 (5.0-9.0) Urine Specific [place] 1.032 (1.001-1.035) Urine Protein Negative (Negative) Urine Ketones Trace (Negative) Urine Blood Negative /uL (Negative) Urine Nitrite Negative (Negative) Urine Bilirubin Negative (Negative) Urine Urobilinogen Normal mg/dL (Negative) Urine Leukocyte Esterase Negative /uL (Negative) Urine RBC <1 /hpf (0 - 4) Urine Microscopic WBC < 1 /HPF (0-5) Urine Squamous Epithelial Cells Few /hpf (<5) Urine Bacteria None seen /hpf (None Seen) Urine Glucose Normal mg/dL (Normal) Test 06/21/25 16:23 Activated Partial Thromboplast Time 24.8 SEC (24.5-34.5) Other Laboratory Tests 06/26/25 05:52 Brief Hx & Hospital Course: 69-year-old female with a history of hypertension previous history of cholecystectomy appendectomy came in for acute abdominal pain found to have incarcerated ventral hernia and underwent repair with a mesh by surgeon Dr. Ingram treated with the IV antibiotics IV fluids pain medications. Cleared for discharge by surgeon at the time of discharge patient is afebrile with stable vital signs and ambulating she has pain meds at home from her pain management DrQuiana prescription for Levaquin Flagyl pantoprazole transmitted to the pharmacy. She has a drain in place which will be removed by the surgeon in 10 days at the time of follow up visit. Home health arranged. Consults/Reason for consult Surgeon Dr. Ingram Operations or Procedures Ventral hernia repair Condition at Discharge: Fair Final Diagnosis/Problems List Acute abdominal pain Strangulated ventral hernia status post Open ventral hernia repair with mesh, extensive lysis of adhesions, imbrication of transverse colon serosal tear by surgeon Dr. Ingram on 06/23/2025 History of laparotomy 2020 at [place] for perforated viscus Hypertension History of cholecystectomy History of appendectomy Discharge Disposition: Home with Health Services Discharge Instruct/Medications Diet: Regular Activity: See Comment Activity comment: Do Not lift any weights more than 10 lbs until cleared by surgeon Follow Up/Referral: Follow up with surgeon Dr. Ingram in 10 days for removal of the drain Continue your home pain medication gabapentin Percocet and Motrin Medications: Levaquin Flagyl Pantoprazole Transmitted to pharmacy Scheduled Cholecalciferol (Vitamin D3), 1 TAB PO DAILY, (Reported) Gabapentin (Gabapentin), 300 MG PO BID, (Reported) Levofloxacin Hemihydrate (Levaquin 500 Mg), 1 TAB PO DAILY Lisinopril (Lisinopril), 40 MG PO DAILY, (Reported) Meloxicam (Meloxicam), 1 TAB PO DAILY, (Reported) Metronidazole (Flagyl), 1 TAB PO TID Omeprazole (Gnp Omeprazole), 10 MG PO DAILY, (Reported) Pantoprazole Sodium Sesquihydr (Pantoprazole Sodium), 40 MG PO BID Scheduled PRN Ibuprofen (Ibuprofen), 600 MG PO QIDP PRN for MILD PAIN, (Reported) Oxycodone W/ Acetaminophen (Percocet 5/325MG), 2 TAB PO QIDPRN PRN for MODERATE PAIN, (Reported) 39 (Time taken for discharge summary 39 minutes) Discharge Statement: "Patient was advised to return to the ER or call 911 if any headaches, dizziness, shortness of breath, chest pain, abdominal pain, bleeding, fevers, or worsening of medical condition. Patient was counseled about treatment plan, medications, possible side effects, patientverbalized understanding. All questions were answered to the best of my ability. This discharge took greater then 30 minutes in planning, reviewing documentation, counseling the patient, and discussing with other team members." ASSESSMENT ASSESSMENT Assessment Acute abdominal pain Strangulated ventral hernia status post Open ventral hernia repair with mesh, extensive lysis of adhesions, imbrication of transverse colon serosal tear by surgeon Dr. Ingram on 06/23/2025 History of laparotomy 2020 at [place] for perforated viscus Hypertension History of cholecystectomy History of appendectomy Date of Service: Jun 26, 2025 Billing Provider: TERRENCE DE SOUZA MD Common Visit Codes: [id number] INP/OBS CARE(HIGH) TERRENCE DE SOUZA MD Jun 26, 2025 11:29
== END 2025-06-26 21:18 | disposition home health service (06) | DRG 337 ==
LOC: ER 15:18 → EDBD 15:18 → OVERFLOW 21:14 → EAST 23:02
PROVIDERS: ADMIT Family Medicine; ATTEND Family Medicine
PROC: 0WUF0JZ Supplement Abdominal Wall with Synthetic Substitute, Open Approach (ICD-10-PCS; 2025-06-23)
PROC: 0DNU0ZZ Release Omentum, Open Approach (ICD-10-PCS; principal; 2025-06-23 09:02)
DX: K43.0 Incisional hernia with obstruction, without gangrene (principal); I10 Essential (primary) hypertension; E11.9 Type 2 diabetes mellitus without complications; I48.91 Unspecified atrial fibrillation; K58.0 Irritable bowel syndrome with diarrhea; Z90.49 Acquired absence of other specified parts of digestive tract; Z87.891 Personal history of nicotine dependence
CPT/HCPCS: 36415; 71045; 74177; 80048; 80053; 81001; 82962; 84702; 85025; 85610; 85730; 86850; 86900; 86901; 93005; 96374; 96375; 97163; G0378; J0131; J0169; J0694; J1100; J1815; J1885; J2003; J2405; J2470; J2543; J2704; J3490

== ENCOUNTER 2025-07-06 09:11 | Inpatient (IN) | payer MEDICARE, MEDICAID ==
[~2025-07-06] VITALS: Ht 167.6 cm; Wt 100.0 kg
[~2025-07-06 09:11] MED LIST changes: +LEVO500T91 PO; +METR-344 PO; +PANT40T PO
[2025-07-06 09:25] VITALS: PULSE 117; RESP 24; O2SAT 99
--- NOTE | 2025-07-06 09:47 | ED.PDOC ---
GI ASSESSMENT HPI Comments 59 y/o F, with PMHx of HTN, DM, and AFib presents to the ED for CC of abdominal pain. Patient states, she has been experiencing excruciating abdominal pain sudden onset, last night (07/05/25). Patient reports, that she had a recent hernia repair procedure at [facility] on (06/23/25). Patient endorses, that draining tubing has not been draining fluid however, has had drainage at the surgical site. Patient comments, "I feel like my insides are going to explode". At this time patient c/o 10/10 abdominal pain and is unable to stay still or answer question appropriately. No other symptoms or modifying factors are obtainable at this time. Chief Complaint: Abdominal Pain Time Seen by MD: 09:25 Reviewed Notes: Nurses Notes, Medications, Allergies Allergies: Coded Allergies: NO KNOWN ALLERGIES (Unverified , 01/14/19) Home Meds Active Scripts Pantoprazole Sodium Sesquihydr (Pantoprazole Sodium) 40 Mg Tab, 40 MG PO BID, #30 TAB Prov:TERRENCE DE OSUZA MD 06/26/25 Metronidazole (Flagyl) 500 Mg Tab, 1 TAB PO TID, #30 TAB Prov:TERRENCE DE SOUZA MD 06/26/25 Levofloxacin Hemihydrate (LEVAQUIN 500 MG) 500 Mg Tab, 1 TAB PO DAILY, #10 TAB Prov:TERRENCE DE SOUZA MD 06/26/25 Reported Medications Cholecalciferol (VITAMIN D3) 2,000 Unit Tab, 1 TAB PO DAILY, #30 TAB 5 Refills 01/15/19 Ibuprofen (Ibuprofen) 600 Mg Tab, 600 MG PO QIDP PRN for MILD PAIN, MG 0 Refills 01/15/19 Omeprazole (Gnp Omeprazole) 20 Mg Tab, 10 MG PO DAILY, TAB 01/15/19 Lisinopril (Lisinopril) 40 Mg Tab, 40 MG PO DAILY for 30 Days, MG 01/15/19 Gabapentin (Gabapentin) 300 Mg Cap, 300 MG PO BID for 30 Days, MG 01/15/19 Meloxicam (Meloxicam) 7.5 Mg Tab, 1 TAB PO DAILY, #30 TAB 2 Refills 01/15/19 Oxycodone W/ Acetaminophen (Percocet 5/325MG) 1 Tab Tb, 2 TAB PO QIDPRN PRN for MODERATE PAIN 01/15/19 Information Source: Patient Mode of Arrival: Wheelchair Timing: Hours Duration: Since onset Prehospital treatment: None Vomitus: None Stool: Normal Severity: Moderate Recent: Recent Surgery Recent Hx of: None Pain Location: Diffuse Modifying Factors: Nothing Associated sign and symptoms: Abdominal Pain Past Medical History PAST MEDICAL HISTORY: AFIB, DM, HTN SHOCHET History: No Pertinent SHOCHET History Family History Family History: Reviewed,noncontributory to illness Social History Smoker: Quit Less Than 1 Year Alcohol: Denies ETOH Use Drugs: Denies Drug Use Lives In: Home Constitutional: denies: chills, diaphoresis, fatigue, fever, malaise, sweats, weakness, others EENTM: denies: blurred vision, double vision, ear bleeding, ear discharge, ear drainage, ear pain, ear ringing, eye pain, eye redness, hearing loss, mouth pain, mouth swelling, nasal discharge, nose bleeding, nose congestion, nose pain, photophobia, tearing, throat pain, throat swelling, voice changes, others Respiratory: denies: cough, hemoptysis, orthopnea, SOB at rest, shortness of breath, SOB with excertion, stridor, wheezing, others Cardiovascular: denies: chest pain, dizzy spells, diaphoresis, Dyspnea on exertion, edema, irregular heart beat, left arm pain, lightheadedness, palpitations, PND, syncope, others Gastrointestinal: reports: abdominal pain; denies: abdomen distended, blood streaked bowels, constipated, diarrhea, dysphagia, difficulty swallowing, hematemesis, melena, nausea, poor appetite, poor fluid intake, rectal bleeding, rectal pain, vomiting, others Genitourinary: denies: abnormal vagina bleeding, burning, dyspareunia, dysuria, flank pain, frequency, hematuria, incontinence, pain, , vagina discharge, urgency, others Neurological: denies: dizziness, fainting, headache, left sided numbness, left sided weakness, numbness, paresthesia, pre-existing deficit, right sided numbness, right sided weakness, seizure, speech problems, tingling, tremors, weakness, others Musculoskeletal: denies: back pain, gout, joint pain, joint swelling, muscle pain, muscle stiffness, neck pain, others Integumetry: denies: bruises, change in color, change in hair/nails, dryness, laceration, lesions, lumps, rash, wounds, others Allergic/Immunocompromised: denies: Difficulty Healing, Frequent Infections, Hives, Itching, others Hematologic/Lymphatic: denies: anemia, blood clots, easy bleeding, easy bruising, swollen glands, others Endocrine: denies: excessive hunger, excessive sweating, excessive thirst, excessive urination, flushing, intolerance to cold, intolerance to heat, unexplained weight gain, unexplained weight loss, others Psychiatric: denies: anxiety, bipolar disorder, depression, hopeless, panic disorder, schizophrenia, sleepless, suicidal, others All Other Systems: Reviewed and Negative Physical Exam General Appearance: Moderate Distress HEENT: Normal ENT Inspection, Pharynx Normal, TMs Normal Neck: Full Range of Motion, Non-Tender, Normal, Normal Inspection Respiratory: Chest Non-Tender, Lungs Clear, No Accessory Muscle Use, No Respiratory Distress, Normal Breath Sounds Cardiovascular: No Edema, No JVD, No Murmur, No Gallop, Normal Peripheral Pulses, Regular Rate/Rhythm Breast Exam: Deferred Gastrointestinal: No Organomegaly, Non Tender, No Pulsatile Mass, Normal Bowel Sounds, Soft Genitalia: Deferred Pelvic: Deferred Rectal: Deferred Extremities: No calf tenderness, Normal capillary refill, Normal inspection, Normal range of motion, Non-tender, No pedal edema Musculoskeletal : Apperance: Normal Neurologic: Alert, senior center director II-XII nml as Tested, No Motor Deficits, Normal Affect, Normal Mood, No Sensory Deficits Cerebellar Function: Normal Reflexes: Normal Skin: Dry, Normal Color, Warm Peripheral Pulses: 3+ Radial (R), 3+ Radial (L) Lymphatic: No Adenopathy Was a procedure done? Was a procedure done?: No GI differential Dx Differential Diagnosis: Constipation, Diverticular disease, Esophagitis, Gastritis/PUD, Gastroenteritis, Other (postoperative complication) X-Ray, Labs, Meds, VS Vital Signs Date Time Temp Pulse Resp B/P (MAP) Pulse Ox O2 Delivery O2 Flow Rate FiO2 07/06/25 10:59 96 10 103/62 07/06/25 09:54 107 24 121/75 07/06/25 09:25 99.1 117 24 136/86 (103) 99 99.1 07/06/25 09:25 117 24 99 Room Air* 0 21 07/06/25 09:12 97.9 112 22 154/99 100 97.9 Lab Test 07/06/25 12:02 07/06/25 10:35 07/06/25 10:00 Range/Units Lactic Acid Level 1.5 3.5 *H 0.4-2.0 mmol/L Urine Color Light-yellow Yellow Urine Clarity Clear Clear Urine pH 8.5 5.0-9.0 Urine Specific [place] 1.039 H 1.001-1.035 Urine Protein Negative Negative Urine Ketones Negative Negative Urine Blood Negative Negative /uL Urine Nitrite Negative Negative Urine Bilirubin Negative Negative Urine Urobilinogen Normal Negative mg/dL Urine Leukocyte Esterase Negative Negative /uL Urine RBC 1 0 - 4 /hpf Urine Microscopic WBC 2 0-5 /HPF Urine Squamous Epithelial Cells Few <5 /hpf Urine Bacteria None seen None Seen /hpf Urine Glucose Normal Normal mg/dL White Blood Count 12.1 H 4.4-10.8 10^3/uL Red Blood Count 4.18 4.0-5.20 10^6/uL Hemoglobin 11.9 L 12.2-16.2 g/dL Hematocrit 34.9 L 36.0-46.0 % Mean Corpuscular Volume 83.5 80.0-100.0 fL Mean Corpuscular Hemoglobin 28.5 28.0-32.0 pg Mean Corpuscular Hemoglobin Concent 34.1 32.0-36.0 g/dL Red Cell Distribution Width 13.9 11.8-14.3 % Platelet Count 469 H 140-450 10^3/uL Mean Platelet Volume 7.6 6.9-10.8 fL Neutrophils (%) (Auto) 75.6 37.0-80.0 % Lymphocytes (%) (Auto) 13.5 10.0-50.0 % Monocytes (%) (Auto) 6.5 0.0-12.0 % Eosinophils (%) (Auto) 3.0 0.0-7.0 % Basophils (%) (Auto) 1.4 0.0-2.0 % Neutrophils # (Auto) 9.2 H 1.6-8.6 10 ^3/uL Lymphocytes # (Auto) 1.6 0.4-5.4 10 ^3/uL Monocytes # (Auto) 0.8 0-1.3 10 ^3/uL Eosinophils # (Auto) 0.4 0-0.8 10 ^3/uL Basophils # (Auto) 0.2 0-0.2 10 ^3/uL Nucleated Red Blood Cells 0.0 % Sodium Level 137 136-145 mmol/L Potassium Level 3.8 3.5-5.1 mmol/L Chloride Level 102 98-107 mmol/L Carbon Dioxide Level 23 20-31 mmol/L Anion Gap 12 5-15 Blood Urea Nitrogen 13 9-23 mg/dL Creatinine 0.63 0.550-1.02 mg/dL Glomerular Filtration Rate Calc 103 >90 mL/min BUN/Creatinine Ratio 20.6 H 10.0-20.0 Serum Glucose 154 H 74-106 mg/dL Calcium Level 9.7 8.7-10.4 mg/dL Total Bilirubin 0.7 0.2-1.0 mg/dL Aspartate Amino Transferase (AST) 21 13-40 U/L Alanine Aminotransferase (ALT) 28 7-40 U/L Alkaline Phosphatase 71 46-116 U/L Troponin I High Sensitivity 4 </=34 ng/L Total Protein 5.7 5.7-8.2 g/dL Albumin 4.0 3.2-4.8 g/dL Current Medications Medications (Trade) Dose Ordered Sig/Susana Route Start Time Stop Time Status Last Admin Sodium Chloride 1,000 ml @ 1,000 mls/hr Q1H ONCE IV 07/06/25 09:45 07/06/25 10:44 DC 07/06/25 09:54 Ondansetron HCl (Zofran) 4 mg ONCE ONCE IV 07/06/25 09:45 07/06/25 09:46 DC 07/06/25 09:54 Sodium Chloride 1,000 ml @ 150 mls/hr Q6H40M ONCE IV 07/06/25 09:45 07/06/25 16:24 07/06/25 11:01 Hydromorphone HCl (Dilaudid Injection) 1 mg ONCE ONCE IV 07/06/25 09:45 07/06/25 09:46 DC 07/06/25 09:54 Piperacillin Sod/ Tazobactam Sod 100 ml @ 100 mls/hr ONCE ONCE IV 07/06/25 09:45 07/06/25 10:44 DC 07/06/25 10:10 Clindamycin Phosphate 50 ml @ 50 mls/hr ONCE ONCE IV 07/06/25 09:45 07/06/25 10:44 DC 07/06/25 11:01 [place] [id number] Ph: [phone] DIAGNOSTIC IMAGING Diagnostic Imaging Report : [id number] Signed PATIENT: PIA WHYTE ACCT: [id number] UNIT: [id number] : 1965 LOC: ER ROOM / BED: / AGE / SEX: 59 / F ADM STATUS: REG ER SERVICE 0932 ORDERING PHYSICIAN: LAZARUS MURRAY MD PROCEDURE(s): ABPLIV - CT AB PEL WITH IV CON ONLY REASON: abscess ORDER NUMBER(s): [id number], ACCESSION NUMBER(s): [id number] CT CT AB PEL WITH IV CON ONLY INDICATION: abscess EXAM DATE: 07/06/2025 09:36 AM COMPARISON: CT CT AB PEL WITH IV CON ONLY on DOS: 06/21/25 RADIATION DOSE: CTDIvol: 23.5 mGy, DLP: 1246.28 mGy*cm PROCEDURE: Helical CT images were obtained of the abdomen and pelvis with IV contrast Sagittal and coronal reconstructions are provided. ORAL CONTRAST: None. ADDITIONAL IMAGES / REFORMATS: None All CT scans at this medical facility are performed using dose modulation techniques as appropriate to a performed exam including the following: Automated exposure control was utilized; adjustment of the MA and/or KV according to patient size; and use of iterative reconstruction technique. FINDINGS: LUNG BASE: Normal. LIVER: Normal. GALLBLADDER AND BILIARY TREE: Absent gallbladder. No intra- or extrahepatic biliary ductal dilation. PANCREAS: Normal. SPLEEN: Normal. BOWEL: Mild colonic diverticulosis. Appendix not seen. ADRENALS: Normal. KIDNEYS AND URETER: Normal. BLADDER: Normal. REPRODUCTIVE ORGANS: Normal. LYMPH NODES:No lymphadenopathy. PERITONEUM: No ascites or free air. No other fluid collection. VESSELS: Scattered atherosclerotic calcifications are noted. RETROPERITONEUM: Normal. ABDOMINAL WALL: A ventral abdominal wall hernia containing bowel and a surgical drain is present. BONES: Scattered osseous degenerative changes are noted. IMPRESSION: A ventral abdominal wall hernia containing bowel and a surgical drain is present. No focal fluid collection to suggest for abscess. ATED BY: JOSEF VAZQUEZ MD DICTATED DATE/TIME: 07/06/25 1016 SIGNED BY: JOSEF VAZQUEZ MD SIGNED DATE/TIME: 07/06/25 1016 CC: [place] [id number] Ph: [phone] DIAGNOSTIC IMAGING Diagnostic Imaging Report : [id number] Signed PATIENT: PIA WHYTE ACCT: [id number] UNIT: [id number] : 1965 LOC: ER ROOM / BED: / AGE / SEX: 59 / F ADM STATUS: REG ER SERVICE 0 ORDERING PHYSICIAN: LAZARUS MURRAY MD PROCEDURE(s): CXRP - CHEST PORTABLE REASON: sob ORDER NUMBER(s): [id number], ACCESSION NUMBER(s): [id number] XY CHEST PORTABLE, HISTORY: sob COMPARISON: XY CHEST XRAY 1 VIEW on DOS: 06/21/25 XY CHEST XRAY 1 VIEW on DOS: 06/21/25 TECHNICAL DATA: 1 view of the chest was obtained. FINDINGS: Lines and tubes: None Cardiomediastinal silhouette: normal Pulmonary vasculature: normal Lung expansion: normal Lung airspace: normal Lung interstitium: normal Pleura: normal Pneumothorax: no Bones: Unremarkable Other: no IMPRESSION: No acute intrathoracic abnormality. ATED BY: JOSEF VAZQUEZ MD DICTATED DATE/TIME: 07/06/25 1009 SIGNED BY: JOSEF VAZQUEZ MD SIGNED DATE/TIME: 07/06/25 1009 CC: Patient alert. Came in because of abdominal pain. Recent surgery. Vitals stable. CT scan of the abdomen reviewed does not show any acute changes. Establish intravenous access. Was given fluids. Was given pain medication. Reviewed her previous visit. Explained to the patient. Continue monitoring. Images Reviewed?: Images reviewed and evaluated by me Time of 1ST Reevaluation: 10:55 Reevaluation 1ST: Unchanged Patient Education/Counseling: Diagnosis, Treatment Family Education/Counseling: No Family Present SEPSIS Sepsis Screen Date sepsis recognized/suspect: Jul 06, 2025 Time Sepsis recognized/suspect: 0914 Recent Procedure: No On Antibiotic Therapy: No Respiratory Rate >20: Yes Heart Rate >90: Yes Temp<36 C (96.8 F) or >38.3 C: No SBP <90 or MAP <65 mmHG: No New Acute Mental Status Change: No Is the patient on CPAP, BIPAP,: No Physician Orders Chest Portable (07/06/25 09:31) Sodium Chloride 0.9% (07/06/25 09:45) Blood Culture (07/06/25 09:32) Ct Ab Pel With Iv Con Only (07/06/25 09:32) Vital Signs Date Time Temp Pulse Resp B/P (MAP) Pulse Ox O2 Delivery O2 Flow Rate FiO2 07/06/25 10:59 96 10 103/62 07/06/25 09:54 107 24 121/75 07/06/25 09:25 99.1 117 24 136/86 (103) 99 99.1 07/06/25 09:25 117 24 99 Room Air* 0 21 07/06/25 09:12 97.9 112 22 154/99 100 97.9 Laboratory Tests Test 07/06/25 10:00 07/06/25 12:02 Lactic Acid Level 3.5 mmol/L (0.4-2.0) *H 1.5 mmol/L (0.4-2.0) White Blood Count 12.1 10^3/uL (4.4-10.8) H Medications Medications Dose Ordered Sig/Susana Route Start Time Stop Time Status Last Admin Dose Admin Clindamycin Phosphate 50 ml @ 50 mls/hr ONCE ONCE IV 07/06/25 09:45 07/06/25 10:44 DC 07/06/25 11:01 Hydromorphone HCl 1 mg ONCE ONCE IV 07/06/25 09:45 07/06/25 09:46 DC 07/06/25 09:54 Ondansetron HCl 4 mg ONCE ONCE IV 07/06/25 09:45 07/06/25 09:46 DC 07/06/25 09:54 Piperacillin Sod/ Tazobactam Sod 100 ml @ 100 mls/hr ONCE ONCE IV 07/06/25 09:45 07/06/25 10:44 DC 07/06/25 10:10 Sodium Chloride 1,000 ml @ 150 mls/hr Q6H40M ONCE IV 07/06/25 09:45 07/06/25 16:24 07/06/25 11:01 Sodium Chloride 1,000 ml @ 1,000 mls/hr Q1H ONCE IV 07/06/25 09:45 07/06/25 10:44 DC 07/06/25 09:54 Departure 1 Departure Time of Disposition: 13:07 Impression: Primary Impression: Abdominal wall hernia Additional Impression: Acute abdominal pain Disposition: ADMITTED INPATIENT Admit to: Med Surg Condition: Guarded Critical Care Note Critical Care Time?: No Stability Stability form required: No Heart Score Heart Score: Heart Score Response (Comments) Value History N/A 0 EKG N/A 0 Age N/A 0 Risk Factors N/A 0 Troponin N/A 0 Total 0 I personally scribed for LAZARUS MURRAY MD ([email or web address]) on 07/06/25 at 09:46. Electronically submitted by Tanja Yost ([email or web address]). I personally scribed for LAZARUS MURRAY MD ([email or web address]) on 07/06/25 at 12:13. Electronically submitted by Amish Houser ([email or web address]). I personally scribed for LAZARUS MURRAY MD ([email or web address]) on 07/06/25 at 12:23. Electronically submitted by Amish Houser ([email or web address]). I personally scribed for LAZARUS MURRAY MD ([email or web address]) on 07/06/25 at 12:23. Electronically submitted by Amish Houser ([email or web address]). LAZARUS MURRAY MD Jul 06, 2025 09:46
[2025-07-06] MEDS: IOHEXOL 300 MG/ML 100ML BOTTLE IJ ONE (09:54)
[2025-07-06] MEDS: ONDANSETRON HCL 4 MG/2 ML VIAL IV ONE (09:54)
[2025-07-06] MEDS: SODIUM CHLORIDE 0.9% 1,000 ML IV ONE ×3 (09:54→14:51)
[2025-07-06] MEDS: HYDROmorphone HCL 2 MG/ML VL/or syr IV ONE (09:54)
[2025-07-06] MEDS: PIPERACILLIN-TAZOB 3.375GM 100 ML IV ONE (10:10)
--- NOTE | 2025-07-06 10:11 | DVH ---
XY CHEST PORTABLE, HISTORY: sob COMPARISON: XY CHEST XRAY 1 VIEW on DOS: 06/21/25 XY CHEST XRAY 1 VIEW on DOS: 06/21/25 TECHNICAL DATA: 1 view of the chest was obtained. FINDINGS: Lines and tubes: None Cardiomediastinal silhouette: normal Pulmonary vasculature: normal Lung expansion: normal Lung airspace: normal Lung interstitium: normal Pleura: normal Pneumothorax: no Bones: Unremarkable Other: no IMPRESSION: No acute intrathoracic abnormality.
[2025-07-06 10:15] LABS: Hematocrit 34.9 % (36.0-46.0); Hemoglobin 11.9 g/dL (12.2-16.2); Mean Corpuscular Hemoglobin 28.5 pg (28.0-32.0); Mean Corpuscular Volume 83.5 fL (80.0-100.0); Nucleated Red Blood Cells % 0.0 %
--- NOTE | 2025-07-06 10:18 | DVH ---
CT CT AB PEL WITH IV CON ONLY INDICATION: abscess EXAM DATE: 07/06/2025 09:36 AM COMPARISON: CT CT AB PEL WITH IV CON ONLY on DOS: 06/21/25 RADIATION DOSE: CTDIvol: 23.5 mGy, DLP: 1246.28 mGy*cm PROCEDURE: Helical CT images were obtained of the abdomen and pelvis with IV contrast Sagittal and co chayo reconstructions are provided. ORAL CONTRAST: None. ADDITIONAL IMAGES / REFORMATS: None All CT s cans at this medical facility are performed using dose modulation techniques as appropriate to a perf ormed exam including the following: Automated exposure control was utilized; adjustment of the MA and /or KV according to patient size; and use of iterative reconstruction technique. FINDINGS: LUNG BASE: Normal. LIVER: Normal. GALLBLADDER AND BILIARY TREE: Absent gallbladder. No intra- or extrahepatic biliary ductal dilation. PANCREAS: Normal. SPLEEN: Normal. BOWEL: Mild colonic diverticulosis. Appendix not seen. ADRENALS: Normal. KIDNEYS AND URETER: Normal. BLADDER: Normal. REPRODUCTIVE ORGANS: Normal. LYMPH NODES:No lymphadenopathy. PERITONEUM: No ascites or free air. No other fluid collection. VESSELS: Scattered atherosclerotic calcifications are noted. RETROPERITONEUM: Normal. ABDOMINAL WALL: A ventral abdominal wall hernia containing bowel and a surgical drain is present. BONES: Scattered osseous degenerative changes are noted. IMPRESSION: A ventral abdominal wall hernia containing bowel and a surgical drain is present. No focal fluid mayra ection to suggest for abscess.
[2025-07-06 10:29] LABS: Alanine Aminotransferase 28 U/L (7-40); Albumin 4.0 g/dL (3.2-4.8); Alkaline Phosphatase 71 U/L (46-116); Anion Gap 12 (5-15); BUN/Creatinine Ratio 20.6 (10.0-20.0); Blood Urea Nitrogen 13 mg/dL (9-23); Calcium 9.7 mg/dL (8.7-10.4); Carbon Dioxide 23 mmol/L (20-31); Chloride 102 mmol/L (98-107); Potassium 3.8 mmol/L (3.5-5.1); Sodium 137 mmol/L (136-145)
[2025-07-06 10:30] LABS: Bilirubin, Total 0.7 mg/dL (0.2-1.0); Glucose 154 mg/dL (74-106); Total Protein 5.7 g/dL (5.7-8.2)
[2025-07-06 10:34] LABS: Lactic Acid w/Reflex 3.5 mmol/L (0.4-2.0)
[2025-07-06] MEDS: CLINDAMYCIN 600MG IV 50 ML IV ONE (11:01)
[2025-07-06 11:33] LABS: Urine Protein, UAD Negative (Negative)
[2025-07-06] MEDS ORDERED: DEXTROSE (50%) 50ML SYRG IV PRN (13:30)
[2025-07-06] MEDS: CLINDAMYCIN 600MG IV 50 ML IV SCH (14:00)
[2025-07-06] MEDS: PANTOPRAZOLE 40 MG/10 ML VIAL INJ IV ONE (14:56)
--- NOTE | 2025-07-06 15:53 | DVHHP2 ---
History of Present Illness Reason for Visit: Abdominal pain History of Present Illness 59-year-old female presents for evaluation of abdominal pain. Patient reports a one day history of developing sharp umbilical pain that radiates to her surgical site. Patient underwent a ventral hernia repair and was discharged home recentl y. She reports having an appointment tomorrow with his surgeon to remove the fina from the surgical site. Denies nausea or vomiting. She does report chills. Past Medical History Hypertension, AFib, diabetes mellitus Past Surgical History Denies Family History Noncontributory Smoke: <1 pack per day ALCOHOL: none Drugs: None Lives: with Family Review of Systems Review of Systems Review of systems are currently negative otherwise addressed in HPI. Allergies: Coded Allergies: NO KNOWN ALLERGIES (Unverified , 01/14/19) Medications Current Medications Medications Dose Ordered Sig/Susana Route Start Time Stop Time Status Last Admin Dose Admin Pantoprazole Sodium 40 mg DAILY IV 07/07/25 10:00 Clindamycin Phosphate 50 ml @ 50 mls/hr Q8HR IV 07/06/25 14:00 Hydromorphone HCl 0.5 mg Q6HPRN PRN IV 07/06/25 13:30 Diagnostic Test (Pha) 1 strip Q6HR 07/06/25 18:00 Insulin Human Regular Q6HR SC 07/06/25 18:00 Dextrose 50 ml UD PRN IV 07/06/25 13:30 Ondansetron HCl 4 mg Q4HP PRN IV 07/06/25 13:30 Exam Vital Signs Vital Signs Date Time Temp Pulse Resp B/P (MAP) Pulse Ox O2 Delivery O2 Flow Rate FiO2 07/06/25 13:10 102 07/06/25 12:00 97.5 12 115/63 (80) 97 97.5 07/06/25 09:25 Room Air* 0 21 Exam Gen: 59-year-old female in mild distress. Skin: Warm, dry, normal color and texture, no rash. HEENT: Normocephalic atraumatic, mucous membranes moist and pink. Neck: Cervical and supraclavicular nodes normal without enlargement, trachea is midline, thyroid gland is normal without masses. Pulmonary: Clear to auscultation and percussion bilaterally. Cardiac: Regular rate and rhythm. No murmur Abdomen: Soft, tenderness at the surgical site., nondistended, bowel sounds present all 4 quadrants, no guarding, no rigidity, no organomegaly. Extremities: No cyanosis, clubbing, no edema Neuro: Cranial nerves II through XII grossly intact, normal affect and speech, no focal motor deficits. Labs/Xrays ORDERING PHYSICIAN: LAZARUS MURRAY MD PROCEDURE(s): ABPLIV - CT AB PEL WITH IV CON ONLY REASON: abscess ORDER NUMBER(s): [id number], ACCESSION NUMBER(s): [id number] CT CT AB PEL WITH IV CON ONLY INDICATION: abscess EXAM DATE: 07/06/2025 09:36 AM COMPARISON: CT CT AB PEL WITH IV CON ONLY on DOS: 06/21/25 RADIATION DOSE: CTDIvol: 23.5 mGy, DLP: 1246.28 mGy*cm PROCEDURE: Helical CT images were obtained of the abdomen and pelvis with IV contrast Sagittal and coronal reconstructions are provided. ORAL CONTRAST: None. ADDITIONAL IMAGES / REFORMATS: None All CT scans at this medical facility are p erformed using dose modulation techniques as appropriate to a performed exam including the following: Automated exposure control was utilized; adjustment of the MA and/or KV according to patient size; and use of iterative reconstruction technique. FINDINGS: LUNG BASE: Normal. LIVER: Normal. GALLBLADDER AND BILIARY TREE: Absent gallbladder. No intra- or extrahepatic biliary ductal dilation. PANCREAS: Normal. SPLEEN: Normal. BOWEL: Mild colonic diverticulosis. Appendix not seen. ADRENALS: Normal. KIDNEYS AND URETER: Normal. BLADDER: Normal. REPRODUCTIVE ORGANS: Normal. LYMPH NODES:No lymphadenopathy. PERITONEUM: No ascites or free air. No other fluid collection. VESSELS: Scattered atherosclerotic calcifications are noted. RETROPERITONEUM: Normal. ABDOMINAL WALL: A ventral abdominal wall hernia containing bowel and a surgical drain is present. BONES: Scattered osseous degenerative changes are noted. IMPRESSION: A ventral abdominal wall hernia containing bowel and a surgical drain is present. No focal fluid collection to suggest for abscess. Labs Test 07/06/25 12:02 07/06/25 10:35 07/06/25 10:00 Range/Units Lactic Acid Level 1.5 0.4-2.0 mmol/L Urine Color Light-yellow Yellow Urine Clarity Clear Clear Urine pH 8.5 5.0-9.0 Urine Specific [place] 1.039 H 1.001-1.035 Urine Protein Negative Negative Urine Ketones Negative Negative Urine Blood Negative Negative /uL Urine Nitrite Negative Negative Urine Bilirubin Negative Negative Urine Urobilinogen Normal Negative mg/dL Urine Leukocyte Esterase Negative Negative /uL Urine RBC 1 0 - 4 /hpf Urine Microscopic WBC 2 0-5 /HPF Urine Squamous Epithelial Cells Few <5 /hpf Urine Bacteria None seen None Seen /hpf Urine Glucose Normal Normal mg/dL White Blood Count 12.1 H 4.4-10.8 10^3/uL Red Blood Count 4.18 4.0-5.20 10^6/uL Hemoglobin 11.9 L 12.2-16.2 g/dL Hematocrit 34.9 L 36.0-46.0 % Mean Corpuscular Volume 83.5 80.0-100.0 fL Mean Corpuscular Hemoglobin 28.5 28.0-32.0 pg Mean Corpuscular Hemoglobin Concent 34.1 32.0-36.0 g/dL Red Cell Distribution Width 13.9 11.8-14.3 % Platelet Count 469 H 140-450 10^3/uL Mean Platelet Volume 7.6 6.9-10.8 fL Neutrophils (%) (Auto) 75.6 37.0-80.0 % Lymphocytes (%) (Auto) 13.5 10.0-50.0 % Monocytes (%) (Auto) 6.5 0.0-12.0 % Eosinophils (%) (Auto) 3.0 0.0-7.0 % Basophils (%) (Auto) 1.4 0.0-2.0 % Neutrophils # (Auto) 9.2 H 1.6-8.6 10 ^3/uL Lymphocytes # (Auto) 1.6 0.4-5.4 10 ^3/uL Monocytes # (Auto) 0.8 0-1.3 10 ^3/uL Eosinophils # (Auto) 0.4 0-0.8 10 ^3/uL Basophils # (Auto) 0.2 0-0.2 10 ^3/uL Nucleated Red Blood Cells 0.0 % Sodium Level 137 136-145 mmol/L Potassium Level 3.8 3.5-5.1 mmol/L Chloride Level 102 98-107 mmol/L Carbon Dioxide Level 23 20-31 mmol/L Anion Gap 12 5-15 Blood Urea Nitrogen 13 9-23 mg/dL Creatinine 0.63 0.550-1.02 mg/dL Glomerular Filtration Rate Calc 103 >90 mL/min BUN/Creatinine Ratio 20.6 H 10.0-20.0 Serum Glucose 154 H 74-106 mg/dL Calcium Level 9.7 8.7-10.4 mg/dL Total Bilirubin 0.7 0.2-1.0 mg/dL Aspartate Amino Transferase (AST) 21 13-40 U/L Alanine Aminotransferase (ALT) 28 7-40 U/L Alkaline Phosphatase 71 46-116 U/L Troponin I High Sensitivity 4 </=34 ng/L Total Protein 5.7 5.7-8.2 g/dL Albumin 4.0 3.2-4.8 g/dL SEPSIS Sepsis Screen Date sepsis recognized/suspect: Jul 06, 2025 Time Sepsis recognized/suspect: 924 Recent Procedure: Yes On Antibiotic Therapy: No Respiratory Rate >20: Yes Heart Rate >90: Yes Temp<36 C (96.8 F) or >38.3 C: No SBP <90 or MAP <65 mmHG: No New Acute Mental Status Change: No Is the patient on CPAP, BIPAP,: No Physician Orders Chest Portable (07/06/25 09:31) Sodium Chloride 0.9% (07/06/25 09:45) Blood Culture (07/06/25 09:32) Ct Ab Pel With Iv Con Only (07/06/25 09:32) Sodium Chloride 0.9% (07/06/25 13:30) Pantoprazole (Protonix) (07/07/25 10:00) * Surgical Consult (07/06/25 ) Clindamycin 600mg Iv (Cleocin Iv) (07/06/25 14:00) Hydromorphone Injection (Dilaudid Inject (07/06/25 13:30) Glucose Blood (Accu-Chek Comfort Curve T (07/06/25 18:00) Insulin R (Human) (Insulin R) (07/06/25 18:00) Dextrose 50% Syringe (07/06/25 13:30) Admit (07/06/25 13:22) Ondansetron Hcl (Zofran) (07/06/25 13:30) Complete Blood Count (07/07/25 04:00) Comprehensive Metabolic Panel (07/07/25 04:00) Npo (Nothing By Mouth) Diet (07/06/25 Lunch) Condition: Stable (07/06/25 13:22) Bedrest With Bathroom Privileg (07/06/25 13:22) Cefepime 1 Gm (07/06/25 22:00) Vital Signs Date Time Temp Pulse Resp B/P (MAP) Pulse Ox O2 Delivery O2 Flow Rate FiO2 07/06/25 13:10 102 07/06/25 12:00 97.5 98 12 115/63 (80) 97 97.5 07/06/25 10:59 96 10 103/62 07/06/25 09:54 107 24 121/75 07/06/25 09:25 99.1 117 24 136/86 (103) 99 99.1 07/06/25 09:25 117 24 99 Room Air* 0 21 07/06/25 09:12 97.9 112 22 154/99 100 97.9 Laboratory Tests Test 07/06/25 10:00 07/06/25 12:02 Lactic Acid Level 3.5 mmol/L (0.4-2.0) *H 1.5 mmol/L (0.4-2.0) White Blood Count 12.1 10^3/uL (4.4-10.8) H Medications Medications Dose Ordered Sig/Susana Route Start Time Stop Time Status Last Admin Dose Admin Clindamycin Phosphate 50 ml @ 50 mls/hr ONCE ONCE IV 07/06/25 09:45 07/06/25 10:44 DC 07/06/25 11:01 50 MLS/HR Hydromorphone HCl 1 mg ONCE ONCE IV 07/06/25 09:45 07/06/25 09:46 DC 07/06/25 09:54 1 MG Ondansetron HCl 4 mg ONCE ONCE IV 07/06/25 09:45 07/06/25 09:46 DC 07/06/25 09:54 4 MG Pantoprazole Sodium 40 mg ONCE ONCE IV 07/06/25 13:30 07/06/25 14:13 DC 07/06/25 14:56 40 MG Piperacillin Sod/ Tazobactam Sod 100 ml @ 100 mls/hr ONCE ONCE IV 07/06/25 09:45 07/06/25 10:44 DC 07/06/25 10:10 100 MLS/HR Sodium Chloride 1,000 ml @ 100 mls/hr Q10H ONCE IV 07/06/25 13:30 07/06/25 23:29 07/06/25 14:51 100 MLS/HR Sodium Chloride 1,000 ml @ 150 mls/hr Q6H40M ONCE IV 07/06/25 09:45 07/06/25 16:24 07/06/25 11:01 150 MLS/HR Sodium Chloride 1,000 ml @ 1,000 mls/hr Q1H ONCE IV 07/06/25 09:45 07/06/25 10:44 DC 07/06/25 09:54 1,000 MLS/HR Assessment/Plan Assessment/Plan Assessment Acute abdominal pain Status post ventral hernia repair Diabetes mellitus Plan Admit the patient to [facility] to the hospitalist Surgical consultation NPO Clindamycin/cefepime Maintenance IV fluids Pain management Continue treatment per orders. Plan discussed with: Patient My Orders Orders - JOSE ISSA AGACNRusty Procedure Category Date Status Time Sodium Chloride 0.9% PHA 07/06/25 In Process 13:30 Pantoprazole PHA 07/07/25 In Process (Protonix) 10:00 * Surgical Consult CONS 07/06/25 Transmitted Clindamycin 600mg Iv PHA 07/06/25 In Process (Cleocin Iv) 14:00 Hydromorphone PHA 07/06/25 In Process Injection (Dilaudid 13:30 Glucose Blood PHA 07/06/25 In Process (Accu-Chek Comfort 18:00 Insulin R (Human) PHA 07/06/25 In Process (Insulin R) 18:00 Dextrose 50% Syringe PHA 07/06/25 In Process 13:30 Admit ADMIT 07/06/25 Transmitted 13:22 Ondansetron Hcl PHA 07/06/25 In Process (Zofran) 13:30 Complete Blood Count LAB 07/07/25 Verified 04:00 Comprehensive LAB 07/07/25 Verified Metabolic Panel 04:00 Npo (Nothing By DIET 07/06/25 Transmitted Mouth) Diet Lunch Condition: Stable SLOANE 07/06/25 In Process 13:22 Bedrest With Bathroom SLOANE 07/06/25 In Process Privileg 13:22 Cefepime 1 Gm PHA 07/06/25 Verified 22:00 Date of Service: Jul 06, 2025 Billing Provider: JOSE ISSA Common Visit Codes: [id number] INP/OBS CARE (HIGH) JOSE ISSA Jul 06, 2025 15:53
[2025-07-06] MEDS: HYDROmorphone HCL 2 MG/ML VL/or syr IV PRN (16:31)
[2025-07-06 16:36] VITALS: O2SAT 98
[2025-07-06 16:37] VITALS: BP 137/73; PULSE 98; RESP 17; TEMP 97.7; O2SAT 98
[2025-07-06 17:00] VITALS: BP 137/73; PULSE 98; RESP 17; TEMP 97.7; O2SAT 98
[2025-07-06] MEDS: InsuLIN REG 1unit/0.01ml Soln (100units/ml) SC SCH (17:17)
[2025-07-06] MEDS: ACCU-CHEK COMFORT CURVE STRIP VI SCH (17:17)
--- NOTE | 2025-07-06 17:33 | DVHINCON2 ---
Consultation - Surgical Date Seen: Jul 06, 2025 Referring Physician Reason for Consultation Abdominal pain History of Present Illness History of Present Illness Mrs. Marinelli is a 59-year-old female who presents to the ED with complaints of abdominal pain, that has been present for the last several days. Patient underwent on June 23, 2025 a open ventral incisional hernia repair with mesh and extensive lysis of adhesions due to partial small bowel obstruction from the hernia. Patient had a Brazilian cheese hernia defect. Patient states that she was doing well postoperatively until several days ago when she had a emesis episodes and felt a pop in her belly with immediate pain, pain has been getting worse with the passing of days. She is still tolerating diet, having bowel movements. Past Medical/Surgical History Past Medical/Surgical History PMH: HTN, DM2, abdominal hernia, aFib, diverticular disease, colitis PSH (06/23)Open ventral hernia repair with mesh, extensive lysis of adhesions, imbrication of transverse colon serosal tear, open cholecystectomy, appendectomy, exploratory laparotomy x2 for internal bleeding (patient is unclear of what happened during the surgery) Family and Social History Family and Social History Noncontributory Allergies and medications Allergies: Coded Allergies: NO KNOWN ALLERGIES (Unverified , 01/14/19) Home Meds Active Scripts Pantoprazole Sodium Sesquihydr (Pantoprazole Sodium) 40 Mg Tab, 40 MG PO BID, #30 TAB Prov:TERRENCE DE SOUZA MD 06/26/25 Metronidazole (Flagyl) 500 Mg Tab, 1 TAB PO TID, #30 TAB Prov:TERRENCE DE SOUZA MD 06/26/25 Levofloxacin Hemihydrate (LEVAQUIN 500 MG) 500 Mg Tab, 1 TAB PO DAILY, #10 TAB Prov:TERRENCE DE SOUZA MD 06/26/25 Reported Medications Cholecalciferol (VITAMIN D3) 2,000 Unit Tab, 1 TAB PO DAILY, #30 TAB 5 Refills 01/15/19 Ibuprofen (Ibuprofen) 600 Mg Tab, 600 MG PO QIDP PRN for MILD PAIN, MG 0 Refills 01/15/19 Omeprazole (Gnp Omeprazole) 20 Mg Tab, 10 MG PO DAILY, TAB 01/15/19 Lisinopril (Lisinopril) 40 Mg Tab, 40 MG PO DAILY for 30 Days, MG 01/15/19 Gabapentin (Gabapentin) 300 Mg Cap, 300 MG PO BID for 30 Days, MG 01/15/19 Meloxicam (Meloxicam) 7.5 Mg Tab, 1 TAB PO DAILY, #30 TAB 2 Refills 01/15/19 Oxycodone W/ Acetaminophen (Percocet 5/325MG) 1 Tab Tb, 2 TAB PO QIDPRN PRN for MODERATE PAIN 01/15/19 Review of systems Review of Systems: Deferred Examination Vital signs Vital Signs Date Time Temp Pulse Resp B/P (MAP) Pulse Ox O2 Delivery O2 Flow Rate FiO2 07/06/25 17:00 97.7 98 17 137/73 (94) 98 97.7 07/06/25 16:36 Nasal Cannula* 2 28 Medications Current Medications Medications (Trade) Dose Ordered Sig/Susana Route PRN Reason Start Time Stop Time Status Last Admin Pantoprazole Sodium (Protonix) 40 mg DAILY IV 07/07/25 10:00 Clindamycin Phosphate 50 ml @ 50 mls/hr Q8HR IV 07/06/25 14:00 Hydromorphone HCl (Dilaudid Injection) 0.5 mg Q6HPRN PRN IV MODERATE PAIN (4-6 PAIN SCALE) 07/06/25 13:30 07/06/25 16:31 Diagnostic Test (Pha) (Accu-Chek Comfort Curve T) 1 strip Q6HR 07/06/25 18:00 Insulin Human Regular (InsuLIN R) Q6HR SC 07/06/25 18:00 Dextrose 50 ml UD PRN IV Blood Sugar LESS THAN 60 07/06/25 13:30 Ondansetron HCl (Zofran) 4 mg Q4HP PRN IV NAUSEA / VOMITING 07/06/25 13:30 Cefepime HCl 50 ml @ 12.5 mls/hr Q12HR IV 07/06/25 22:00 UNV Laboratory Labs Test 07/06/25 12:02 07/06/25 10:35 07/06/25 10:00 Range/Units Lactic Acid Level 1.5 0.4-2.0 mmol/L Urine Color Light-yellow Yellow Urine Clarity Clear Clear Urine pH 8.5 5.0-9.0 Urine Specific [place] 1.039 H 1.001-1.035 Urine Protein Negative Negative Urine Ketones Negative Negative Urine Blood Negative Negative /uL Urine Nitrite Negative Negative Urine Bilirubin Negative Negative Urine Urobilinogen Normal Negative mg/dL Urine Leukocyte Esterase Negative Negative /uL Urine RBC 1 0 - 4 /hpf Urine Microscopic WBC 2 0-5 /HPF Urine Squamous Epithelial Cells Few <5 /hpf Urine Bacteria None seen None Seen /hpf Urine Glucose Normal Normal mg/dL White Blood Count 12.1 H 4.4-10.8 10^3/uL Red Blood Count 4.18 4.0-5.20 10^6/uL Hemoglobin 11.9 L 12.2-16.2 g/dL Hematocrit 34.9 L 36.0-46.0 % Mean Corpuscular Volume 83.5 80.0-100.0 fL Mean Corpuscular Hemoglobin 28.5 28.0-32.0 pg Mean Corpuscular Hemoglobin Concent 34.1 32.0-36.0 g/dL Red Cell Distribution Width 13.9 11.8-14.3 % Platelet Count 469 H 140-450 10^3/uL Mean Platelet Volume 7.6 6.9-10.8 fL Neutrophils (%) (Auto) 75.6 37.0-80.0 % Lymphocytes (%) (Auto) 13.5 10.0-50.0 % Monocytes (%) (Auto) 6.5 0.0-12.0 % Eosinophils (%) (Auto) 3.0 0.0-7.0 % Basophils (%) (Auto) 1.4 0.0-2.0 % Neutrophils # (Auto) 9.2 H 1.6-8.6 10 ^3/uL Lymphocytes # (Auto) 1.6 0.4-5.4 10 ^3/uL Monocytes # (Auto) 0.8 0-1.3 10 ^3/uL Eosinophils # (Auto) 0.4 0-0.8 10 ^3/uL Basophils # (Auto) 0.2 0-0.2 10 ^3/uL Nucleated Red Blood Cells 0.0 % Sodium Level 137 136-145 mmol/L Potassium Level 3.8 3.5-5.1 mmol/L Chloride Level 102 98-107 mmol/L Carbon Dioxide Level 23 20-31 mmol/L Anion Gap 12 5-15 Blood Urea Nitrogen 13 9-23 mg/dL Creatinine 0.63 0.550-1.02 mg/dL Glomerular Filtration Rate Calc 103 >90 mL/min BUN/Creatinine Ratio 20.6 H 10.0-20.0 Serum Glucose 154 H 74-106 mg/dL Calcium Level 9.7 8.7-10.4 mg/dL Total Bilirubin 0.7 0.2-1.0 mg/dL Aspartate Amino Transferase (AST) 21 13-40 U/L Alanine Aminotransferase (ALT) 28 7-40 U/L Alkaline Phosphatase 71 46-116 U/L Troponin I High Sensitivity 4 </=34 ng/L Total Protein 5.7 5.7-8.2 g/dL Albumin 4.0 3.2-4.8 g/dL Examination: GENERAL:Normal, ABDOMEN:Abnormal (Large pannus, fina out m idline, right lower quadrant drain with serosanguineous output minimal, minimal tenderness, no rebound, no guarding) Problem List/Assessment/Plan Problems: (1) Recurrent ventral incisional hernia Assessment and Plan Mrs. Marinelli is a 59-year-old female who underwent on June 23, 2025 a open ventral hernia repair with mesh and extensive lysis of adhesions due to a Brazilian cheese hernia causing partial small bowel obstruction. Patient presented with abdominal pain, CT was reviewed and shows recurrence of ventral hernia. Fascia dehisced and small bowel is within the subcutaneous tissue with overlying mesh in place, although the bottom aspect of the incision has no overlying mesh. Given that the patient is not obstructed, and bowel is not compromised, I will only treat with pain control at this time. No plan for redo surgery at this time. 1. Pain control 2. Okay for diet Plan discussed with Plan discussed with: Patient Visit Coding Surgery Date of Service if different f: Jul 06, 2025 Billing Provider: ADIA CRAFT MD Surgery Visit Codes: [id number] - INP CONSULT <110 MIN ADIA CRAFT MD Jul 06, 2025 17:33
[2025-07-06] MEDS ORDERED: HYDROcodone-ACET 5/325MG TAB PO PRN (18:30)
[2025-07-06 21:00] VITALS: BP 122/58; PULSE 76; RESP 18; TEMP 97.9; O2SAT 93
[2025-07-06] MEDS: KETOROLAC TROMETH 30 MG/ML 1ML VIAL IV SCH (21:20)
[2025-07-06] MEDS: CEFEPIME 1GM/50ML 50 ML IV SCH (23:17)
[2025-07-06] MEDS: HYDROcodone-ACET 10/325MG TAB PO PRN (23:17)
[2025-07-06] MEDS: ONDANSETRON HCL 4 MG/2 ML VIAL IV PRN (23:19)
[2025-07-07] VITALS (8 sets, daily range): BP systolic 115–145; BP diastolic 66–90; PULSE 70–90; RESP 16–18; TEMP 97.2–98.8; O2SAT 95–100
[2025-07-07] MEDS: ACETAMINOPHEN 325 MG TAB PO SCH (01:25)
[2025-07-07 06:42] LABS: Hematocrit 34.8 % (36.0-46.0); Hemoglobin 11.6 g/dL (12.2-16.2); Mean Corpuscular Hemoglobin 28.3 pg (28.0-32.0); Mean Corpuscular Volume 84.6 fL (80.0-100.0); Nucleated Red Blood Cells % 0.0 %
[2025-07-07 06:59] LABS: Alanine Aminotransferase 23 U/L (7-40); Alkaline Phosphatase 68 U/L (46-116); Anion Gap 8 (5-15); BUN/Creatinine Ratio 16.7 (10.0-20.0); Blood Urea Nitrogen 10 mg/dL (9-23); Calcium 9.3 mg/dL (8.7-10.4); Carbon Dioxide 30 mmol/L (20-31); Chloride 103 mmol/L (98-107); Potassium 4.1 mmol/L (3.5-5.1); Sodium 141 mmol/L (136-145); Total Protein 5.8 g/dL (5.7-8.2)
[2025-07-07 07:01] LABS: Albumin 3.9 g/dL (3.2-4.8); Bilirubin, Total 0.8 mg/dL (0.2-1.0)
[2025-07-07 07:06] LABS: Glucose 124 mg/dL (74-106)
[2025-07-07] MEDS: PANTOPRAZOLE 40 MG/10 ML VIAL INJ IV SCH (09:45)
[2025-07-07] MEDS ORDERED: OXYCODONE W/ ACETAMINOPHEN 5/325MG TABLET PO PRN (11:00)
--- NOTE | 2025-07-07 12:14 | DVHPN2 ---
Progress Note - Surgical Date Seen: Jul 07, 2025 Post op day Post op day: 0 Subjective Patient reports: No new complaints (Still having abdominal pain especially when she gets up to ambulate. No nausea, no vomiting, tolerating diet) Review of Systems: Deferred Objective Vital signs Vital Sign Date Time Temp Pulse Resp B/P (MAP) Pulse Ox O2 Delivery O2 Flow Rate FiO2 07/07/25 09:02 97.2 90 18 115/83 (94) 99 97.2 07/06/25 20:00 Room Air* 0 21 Total Intake and Output 07/06/25 07/06/25 07/07/25 15:00 23:00 07:00 Intake Total 1150 ml 100 ml 850 ml Output Total 30 ml Balance 1150 ml 100 ml 820 ml Medications Current Medications Medications Dose Ordered Sig/Susana Route Start Time Stop Time Status Last Admin Dose Admin Pantoprazole Sodium 40 mg DAILY IV 07/07/25 10:00 07/07/25 09:45 40 MG Clindamycin Phosphate 50 ml @ 50 mls/hr Q8HR IV 07/06/25 14:00 07/07/25 05:02 50 MLS/HR Hydromorphone HCl 0.5 mg Q6HPRN PRN IV 07/06/25 13:30 Hold 07/06/25 16:31 0.5 MG Diagnostic Test (Pha) 1 strip Q6HR 07/06/25 18:00 07/07/25 05:07 1 STRIP Insulin Human Regular Q6HR SC 07/06/25 18:00 Dextrose 50 ml UD PRN IV 07/06/25 13:30 Ondansetron HCl 4 mg Q4HP PRN IV 07/06/25 13:30 07/07/25 10:00 4 MG Cefepime HCl 50 ml @ 12.5 mls/hr Q12HR IV 07/06/25 22:00 07/07/25 09:45 12.5 MLS/HR Acetaminophen 650 mg Q6HR PO 07/07/25 00:00 07/07/25 02:53 650 MG Ketorolac Tromethamine 15 mg TID IV 07/06/25 22:00 07/11/25 21:59 07/07/25 05:01 15 MG Oxycodone/ Acetaminophen 2 tab Q6HP PRN PO 07/07/25 11:00 Laboratory Laboratory Tests 07/07/25 05:53 Test 07/07/25 05:53 Range/Units Serum Glucose 124 H 74-106 mg/dL Microbiology Date/Time Source Procedure Growth Status 07/06/25 10:00 Blood Blood Culture - Preliminary NO GROWTH AFTER 24 HOURS OF INCUBATION. Resulted Examination: GENERAL:Normal, ABDOMEN:Abnormal (Large pannus, fina in place and without signs of infection, drain with minimal output it was removed today, mild tenderness surrounding incision, rebound, no guarding) Labs and/or images reviewed: Labs reviewed by me (No leukocytosis) Problem List/Assessment/Plan Assessment and Plan Mrs. Marinelli is a 59-year-old female who underwent on June 23, 2025 a open ventral hernia repair with mesh and extensive lysis of adhesions due to a Peruvian cheese hernia causing partial small bowel obstruction. Patient presented with abdominal pain, CT was reviewed and shows recurrence of ventral hernia. Fascia dehisced and small bowel is within the subcutaneous tissue with overlying mesh in place, although the bottom aspect of the incision has no overlying mesh. Given that the patient is not obstructed, and bowel is not compromised, I will only treat with pain control at this time. No plan for redo surgery at this time. Interval: Adjusted her pain medications as she takes chronic pain medicines at home. Once the patient's pain is under control she can be discharged home. 1. Pain control 2. Okay for diet 3. Continue to wear abdominal binder at all times 4. I will remove fina at the three-week period after surgery 5. Drain was removed today at bedside My Orders My Orders Orders - ADIA CRAFT MD Procedure Category Date Status Time Regular Diet DIET 07/06/25 Transmitted Dinner Acetaminophen Tablet PHA 07/07/25 In Process (Tylenol Tablet) 00:00 Ketorolac Injection PHA 07/06/25 In Process (Toradol Injection) 22:00 Oxycodone W/ Acet PHA 07/07/25 In Process 5/325mg Tab (Percocet 11:00 Plan discussed with Plan discussed with: Patient Visit Coding Surgery Date of Service if different f: Jul 07, 2025 Billing Provider: ADIA CRAFT MD Surgery Visit Codes: [id number] INP/OBS CARE(HIGH) ADIA CRAFT MD Jul 07, 2025 12:14
--- NOTE | 2025-07-07 12:24 | DVHPN2 ---
Subjective The patient is seen and examined at bedside. Complain of abdominal pain. MUNA drain had been removed by surgeon Reviewed: Care Plan, H&P, Labs, Medications, Previous Orders, Radiology Changes from previous H/P or p: No Changes Objective Vitals Vital Signs Date Time Temp Pulse Resp B/P (MAP) Pulse Ox O2 Delivery O2 Flow Rate FiO2 07/07/25 09:02 97.2 90 18 115/83 (94) 99 97.2 07/06/25 20:00 Room Air* 0 21 Intake/Output Intake and Output 07/07/25 07:00 Intake Total 2100 ml Output Total 30 ml Balance 2070 ml Intake Oral 850 ml IV Total 1250 ml Output Drainage Total 30 ml # Voids 4 General Appearance: Alert, Oriented X3, Cooperative, No acute distress HEENT: Atraumatic, PERRLA, EOMI, Mucous membr. moist/pink Neck: Supple Lungs: Clear to auscultation, Normal air movement Cardiovascular: Regular rate, Normal S1, Normal S2, No murmurs, Gallops, Rubs Abdomen: Normal bowel sounds, Soft, No tenderness Neuro: Cranial nerves 3-12 NL Psych/Mental Status: Mental status NL Medications Current Medications Medications Dose Ordered Sig/Susana Route Start Time Stop Time Status Last Admin Dose Admin Pantoprazole Sodium 40 mg DAILY IV 07/07/25 10:00 07/07/25 09:45 40 MG Clindamycin Phosphate 50 ml @ 50 mls/hr Q8HR IV 07/06/25 14:00 07/07/25 05:02 50 MLS/HR Hydromorphone HCl 0.5 mg Q6HPRN PRN IV 07/06/25 13:30 Hold 07/06/25 16:31 0.5 MG Diagnostic Test (Pha) 1 strip Q6HR 07/06/25 18:00 07/07/25 05:07 1 STRIP Insulin Human Regular Q6HR SC 07/06/25 18:00 07/07/25 12:12 2 UNITS Dextrose 50 ml UD PRN IV 07/06/25 13:30 Ondansetron HCl 4 mg Q4HP PRN IV 07/06/25 13:30 07/07/25 10:00 4 MG Cefepime HCl 50 ml @ 12.5 mls/hr Q12HR IV 07/06/25 22:00 07/07/25 09:45 12.5 MLS/HR Acetaminophen 650 mg Q6HR PO 07/07/25 00:00 07/07/25 02:53 650 MG Ketorolac Tromethamine 15 mg TID IV 07/06/25 22:00 07/11/25 21:59 07/07/25 05:01 15 MG Oxycodone/ Acetaminophen 2 tab Q6HP PRN PO 07/07/25 11:00 Laboratory Results Laboratory Tests 07/07/25 05:53 Chemistry Test 07/07/25 05:53 Albumin 3.9 g/dL (3.2-4.8) Calcium Level 9.3 mg/dL (8.7-10.4) Total Protein 5.8 g/dL (5.7-8.2) LFT Test 07/07/25 05:53 Alanine Aminotransferase (ALT) 23 U/L (7-40) Alkaline Phosphatase 68 U/L (46-116) Aspartate Amino Transferase (AST) 21 U/L (13-40) Total Bilirubin 0.8 mg/dL (0.2-1.0) Urinalysis Test 07/06/25 10:35 Urine Color Light-yellow (Yellow) Urine Clarity Clear (Clear) Urine pH 8.5 (5.0-9.0) Urine Specific [place] 1.039 (1.001-1.035) Urine Protein Negative (Negative) Urine Ketones Negative (Negative) Urine Blood Negative /uL (Negative) Urine Nitrite Negative (Negative) Urine Bilirubin Negative (Negative) Urine Urobilinogen Normal mg/dL (Negative) Urine Leukocyte Esterase Negative /uL (Negative) Urine RBC 1 /hpf (0 - 4) Urine Microscopic WBC 2 /HPF (0-5) Urine Squamous Epithelial Cells Few /hpf (<5) Urine Bacteria None seen /hpf (None Seen) Urine Glucose Normal mg/dL (Normal) Microbiology Microbiology Date/Time Source Procedure Growth Status 07/06/25 10:00 Blood Blood Culture - Preliminary NO GROWTH AFTER 24 HOURS OF INCUBATION. Resulted Labs and/or images reviewed: Labs reviewed by me Assessment/Plan Assessment/Plan Acute abdominal pain Status post ventral hernia repair Diabetes mellitus Plan Continuing current management. Diet was advanced by surgeon MUNA drain removed Continuing with pain medication. Continuing with sliding scale insulin. Continuing with IV antibiotic clindamycin. We will follow up with blood culture Discharge planning when cleared by surgeon. This medical document was created using an electronic medical record system with [employer] direct computerized dictation system. Although this document has been carefully reviewed, there may still be some phonetic and typographical errors. These areas are purely typographical due to imperfections of the software programs, and do not reflect any compromise in the patient's medical care. Plan discussed with: Patient Date of Service: Jul 07, 2025 Billing Provider: CLARISA OROSCO MD Common Visit Codes: [id number] INP/OBS CARE(HIGH) CLARISA OROSCO MD Jul 07, 2025 12:24
[2025-07-07] MEDS: OXYCODONE W/ ACETAMINOPHEN 5/325MG TABLET PO PRN (15:52)
[2025-07-08 01:00] VITALS: BP 132/79; PULSE 81; RESP 15; TEMP 97.4; O2SAT 97
[2025-07-08 05:00] VITALS: BP 164/93; PULSE 74; RESP 18; TEMP 96.4; O2SAT 97
[2025-07-08 08:00] VITALS: PULSE 59; RESP 16
[2025-07-08 08:37] VITALS: BP 116/67; PULSE 59; RESP 16; TEMP 97.4; O2SAT 100
[2025-07-08] MEDS ORDERED: ZOFR4T PO (10:24)
--- NOTE | 2025-07-08 10:27 | DVHPN2 ---
Progress Note - Surgical Date Seen: Jul 08, 2025 Post op day Post op day: 0 Subjective Patient reports: Feels better (Patient feeling better, abdominal pain much improved, she would like to go home today.) Review of Systems: Deferred Objective Vital signs Vital Sign Date Time Temp Pulse Resp B/P (MAP) Pulse Ox O2 Delivery O2 Flow Rate FiO2 07/08/25 08:37 97.4 59 16 116/67 (83) 100 97.4 07/07/25 20:00 Room Air* 0 21 Total Intake and Output 07/07/25 07/07/25 07/08/25 15:00 23:00 07:00 Intake Total 50 ml 2600 ml 640 ml Balance 50 ml 2600 ml 640 ml Medications Current Medications Medications Dose Ordered Sig/Susana Route Start Time Stop Time Status Last Admin Dose Admin Pantoprazole Sodium 40 mg DAILY IV 07/07/25 10:00 07/08/25 10:19 40 MG Clindamycin Phosphate 50 ml @ 50 mls/hr Q8HR IV 07/06/25 14:00 07/08/25 05:19 50 MLS/HR Hydromorphone HCl 0.5 mg Q6HPRN PRN IV 07/06/25 13:30 Hold 07/06/25 16:31 0.5 MG Diagnostic Test (Pha) 1 strip Q6HR 07/06/25 18:00 07/08/25 06:00 1 STRIP Insulin Human Regular Q6HR SC 07/06/25 18:00 07/08/25 00:03 2 UNITS Dextrose 50 ml UD PRN IV 07/06/25 13:30 Ondansetron HCl 4 mg Q4HP PRN IV 07/06/25 13:30 07/07/25 10:00 4 MG Cefepime HCl 50 ml @ 12.5 mls/hr Q12HR IV 07/06/25 22:00 07/08/25 10:19 12.5 MLS/HR Acetaminophen 650 mg Q6HR PO 07/07/25 00:00 07/07/25 17:20 650 MG Ketorolac Tromethamine 15 mg TID IV 07/06/25 22:00 07/11/25 21:59 07/08/25 06:13 15 MG Oxycodone/ Acetaminophen 2 tab Q6HP PRN PO 07/07/25 11:00 07/08/25 05:18 2 TAB Laboratory Laboratory Tests 07/07/25 05:53 Test 07/07/25 05:53 Range/Units Serum Glucose 124 H 74-106 mg/dL Microbiology Date/Time Source Procedure Growth Status 07/06/25 10:00 Blood Blood Culture - Preliminary NO GROWTH AFTER 48 HOURS OF INCUBATION. Resulted Examination: GENERAL:Normal, ABDOMEN:Abnormal (Globose, soft, depressible, midline incision with fina in place and without surrounding signs of infection, appropriate tenderness) Labs and/or images reviewed: Labs reviewed by me (No leukocytosis) Problem List/Assessment/Plan Assessment and Plan Mrs. Marinelli is a 59-year-old female who underwent on June 23, 2025 a open ventral hernia repair with mesh and extensive lysis of adhesions due to a Palestinian cheese hernia causing partial small bowel obstruction. Patient presented with abdominal pain, CT was reviewed and shows recurrence of ventral hernia. Fascia dehisced and small bowel is within the subcutaneous tissue with overlying mesh in place, although the bottom aspect of the incision has no overlying mesh. Given that the patient is not obstructed, and bowel is not compromised, I will only treat with pain control at this time. No plan for redo surgery at this time. Interval: Patient doing well today, tolerating diet, ambulating, having bowel movements, she wants to go home today. Patient is cleared for discharge home. 1. Okay to discharge per surgical standpoint 2. Diet as tolerated 3. Continue to wear abdominal binder at all times 4. No lifting over 10 lb until cleared by Dr. Ingram 5. We will follow up in clinic in 1 week My Orders My Orders Orders - ADIA CRAFT MD Procedure Category Date Status Time Oxycodone W/ Acet PHA 07/07/25 In Process 5/325mg Tab (Percocet 11:00 Plan discussed with Plan discussed with: Patient Visit Coding Surgery Date of Service if different f: Jul 08, 2025 Billing Provider: ADIA CRAFT MD Surgery Visit Codes: [id number] INP/OBS CARE(HIGH) ADIA CRAFT MD Jul 08, 2025 10:27
[2025-07-08 12:33] VITALS: BP 150/89; PULSE 87; RESP 18; TEMP 97; O2SAT 98
--- NOTE | 2025-07-08 14:36 | DVHDS2 ---
Discharge Summary Date of Admission Jul 06, 2025 at 13:22 Date of Discharge: Jul 08, 2025 Admitting Diagnosis Acute abdominal pain Status post ventral hernia repair Diabetes mellitus Labs/Diagnostic Data: Laboratory Results Test 07/08/25 11:59 07/07/25 05:53 07/06/25 12:02 07/06/25 10:35 POC Glucose 149 mg/dl (70-106) White Blood Count 9.4 10^3/uL (4.4-10.8) Red Blood Count 4.12 10^6/uL (4.0-5.20) Hemoglobin 11.6 g/dL (12.2-16.2) Hematocrit 34.8 % (36.0-46.0) Mean Corpuscular Volume 84.6 fL (80.0-100.0) Mean Corpuscular Hemoglobin 28.3 pg (28.0-32.0) Mean Corpuscular Hemoglobin Concent 33.4 g/dL (32.0-36.0) Red Cell Distribution Width 14.5 % (11.8-14.3) Platelet Count 433 10^3/uL (140-450) Mean Platelet Volume 7.7 fL (6.9-10.8) Neutrophils (%) (Auto) 64.9 % (37.0-80.0) Lymphocytes (%) (Auto) 21.0 % (10.0-50.0) Monocytes (%) (Auto) 6.4 % (0.0-12.0) Eosinophils (%) (Auto) 6.2 % (0.0-7.0) Basophils (%) (Auto) 1.5 % (0.0-2.0) Neutrophils # (Auto) 6.1 10 ^3/uL (1.6-8.6) Lymphocytes # (Auto) 2.0 10 ^3/uL (0.4-5.4) Monocytes # (Auto) 0.6 10 ^3/uL (0-1.3) Eosinophils # (Auto) 0.6 10 ^3/uL (0-0.8) Basophils # (Auto) 0.1 10 ^3/uL (0-0.2) Nucleated Red Blood Cells 0.0 % Sodium Level 141 mmol/L (136-145) Potassium Level 4.1 mmol/L (3.5-5.1) Chloride Level 103 mmol/L (98-107) Carbon Dioxide Level 30 mmol/L (20-31) Anion Gap 8 (5-15) Blood Urea Nitrogen 10 mg/dL (9-23) Creatinine 0.60 mg/dL (0.550-1.02) Glomerular Filtration Rate Calc 105 mL/min (>90) BUN/Creatinine Ratio 16.7 (10.0-20.0) Serum Glucose 124 mg/dL (74-106) Calcium Level 9.3 mg/dL (8.7-10.4) Total Bilirubin 0.8 mg/dL (0.2-1.0) Aspartate Amino Transferase (AST) 21 U/L (13-40) Alanine Aminotransferase (ALT) 23 U/L (7-40) Alkaline Phosphatase 68 U/L (46-116) Total Protein 5.8 g/dL (5.7-8.2) Albumin 3.9 g/dL (3.2-4.8) Lactic Acid Level 1.5 mmol/L (0.4-2.0) Urine Color Light-yellow (Yellow) Urine Clarity Clear (Clear) Urine pH 8.5 (5.0-9.0) Urine Specific [place] 1.039 (1.001-1.035) Urine Protein Negative (Negative) Urine Ketones Negative (Negative) Urine Blood Negative /uL (Negative) Urine Nitrite Negative (Negative) Urine Bilirubin Negative (Negative) Urine Urobilinogen Normal mg/dL (Negative) Urine Leukocyte Esterase Negative /uL (Negative) Urine RBC 1 /hpf (0 - 4) Urine Microscopic WBC 2 /HPF (0-5) Urine Squamous Epithelial Cells Few /hpf (<5) Urine Bacteria None seen /hpf (None Seen) Urine Glucose Normal mg/dL (Normal) Test 07/06/25 10:00 Troponin I High Sensitivity 4 ng/L (</=34) Other Laboratory Tests 07/07/25 05:53 Brief Hx & Hospital Course: This is a 59 years old female come into emergency department because severe abdominal pain. Patient had a sharp umbilical that radiates to her surgical site. The patient underwent a ventral hernia repair was discharged home recently from this hospital. The patient denied any nausea or vomiting. Denied any fever but patient does have chills. The patient apparently had appointment to see her surgeon, to remove staple from the surgical site and also MUNA drain. The patient was admitted. Dr. Ingram, the surgeon see the patient. He checked on her wound in his healing well. He also remove MUNA drain. Today the patient did not have any chill. She was empirically put on IV antibiotic in the hospital with clindamycin. Surgeon cleared the patient for discharge. So I am going to discharge her home. Advised her to follow up with primary care physician 1-2 weeks. Follow up with surgeon per schedule. Physical exam: HEENT: Normocephalic atraumatic pupils equal react to light and accommodation. Extraocular muscles intact, conjunctiva pink, oropharynx moist, no thrush, no exudate. Lymphatic: No lymphadenopathy Cardiovascular exam: S1, S2 was heard. No murmurs, rubs, gallops Lung: Clear on auscultation bilaterally, no wheeze, rale, rhonchi. GI: Abdominal soft, nondistended, nontenderness, positive bowel sounds. Extremity: No crepitus, cyanosis, edema. Pedal pulses present bilateral. Full range of motion. Skin: Normal turgor, no rash. Psych: Alert, oriented x3. Neurology: No focal deficits, cranial nerve II to XII grossly intact. This medical document was created using an electronic medical record system with [employer] direct computerized dictation system. Although this document has been carefully reviewed, there may still be some phonetic and typographical errors. These areas are purely typographical due to imperfections of the software programs, and do not reflect any compromise in the patient's medical care. Condition at Discharge: Stable Final Diagnosis/Problems List Acute abdominal pain Status post ventral hernia repair Diabetes mellitus Discharge Disposition: Home Discharge Instruct/Medications Diet: Cardiac 2g Na,low cholest Activity: No Restrictions, As Tolerated Follow Up/Referral: PCP 1-2 WEEKS Scheduled Cholecalciferol (Vitamin D3), 1 TAB PO DAILY, (Reported) Docusate Sodium (Colace), 1 CAP PO BID Gabapentin (Gabapentin), 300 MG PO BID, (Reported) Levofloxacin Hemihydrate (Levaquin 500 Mg), 1 TAB PO DAILY Lisinopril (Lisinopril), 40 MG PO DAILY, (Reported) Meloxicam (Meloxicam), 1 TAB PO DAILY, (Reported) Metronidazole (Flagyl), 1 TAB PO TID Omeprazole (Gnp Omeprazole), 10 MG PO DAILY, (Reported) Pantoprazole Sodium Sesquihydr (Pantoprazole Sodium), 40 MG PO BID Scheduled PRN Ibuprofen (Ibuprofen), 600 MG PO QIDP PRN for MILD PAIN, (Reported) Ondansetron Odt 4MG Tab (Zofran Po), 4 MG PO Q6HPRN PRN Oxycodone W/ Acetaminophen (Percocet 5/325MG), 2 TAB PO QIDPRN PRN for MODERATE PAIN, (Reported) Discharge Statement: "Patient was advised to return to the ER or call 911 if any headaches, dizziness, shortness of breath, chest pain, abdominal pain, bleeding, fevers, or worsening of medical condition. Patient was counseled about treatment plan, medications, possible side effects, patientverbalized understanding. All questions were answered to the best of my ability. This discharge took greater then 30 minutes in planning, reviewing documentation, counseling the patient, and discussing with other team members." ASSESSMENT ASSESSMENT Assessment ABDOMINAL PAIN Date of Service: Jul 08, 2025 Billing Provider: CLARISA OROSCO MD Common Visit Codes: [id number] DISCH DAY >30min CLARISA OROSCO MD Jul 08, 2025 14:36
[2025-07-08] MEDS ORDERED: DOCU-94 PO (15:17)
[2025-07-08 16:45] VITALS: BP 146/73; PULSE 85; RESP 18; TEMP 97.3; O2SAT 99
== END 2025-07-08 19:05 | disposition home or self-care (01) | DRG 948 ==
LOC: ER 09:11 → OVERFLOW 13:22 → EAST 16:16
PROVIDERS: ADMIT Internal Medicine; ATTEND Internal Medicine
DX: G89.18 Other acute postprocedural pain (principal); E11.9 Type 2 diabetes mellitus without complications; I10 Essential (primary) hypertension; I48.91 Unspecified atrial fibrillation; G89.29 Other chronic pain; Z87.891 Personal history of nicotine dependence; K43.2 Incisional hernia without obstruction or gangrene
CPT/HCPCS: 36415; 71045; 74177; 80053; 81001; 82962; 83605; 84484; 85025; 87040; 96365; 96375; G0378; J1815; J1885; J2405; J2470; J2543; J3490

== ENCOUNTER 2025-07-21 14:47 | Inpatient (IN) | payer OTHER, MEDICAID ==
[~2025-07-21] VITALS: Ht 167.6 cm; Wt 90.1 kg
[2025-07-21] VITALS (13 sets, daily range): BP systolic 67–189; BP diastolic 46–130; PULSE 105–145; RESP 12–27; TEMP 99; O2SAT 94–100
[~2025-07-21 14:47] MED LIST changes: +DOCU-94 PO; +ZOFR4T PO
[2025-07-21 15:38] LABS: Hematocrit 39.3 % (36.0-46.0); Hemoglobin 13.0 g/dL (12.2-16.2); Mean Corpuscular Hemoglobin 27.6 pg (28.0-32.0); Mean Corpuscular Volume 83.4 fL (80.0-100.0); Nucleated Red Blood Cells % 0.0 %
--- NOTE | 2025-07-21 15:40 | ED.PDOC ---
GI ASSESSMENT HPI Comments 60 y.o female wit PMHx of HTN, DM and AFIB, presents to the ED via EMS for a chief complaint of abdominal pain associated with nausea and vomiting that started yesterday. Patient describes pain as sharp, constant and diffused. Patient had hernia repair surgery on 06/22/25, was then admitted the following week given infection at surgical site and had a drain placed. Patient states since has been taking her Morphine and Percocet PRN which had relieved up until yesterday. Patient now is unable to keep any fluids down. She denies any fever, chills, chest pain or SOB. Chief Complaint: Abdominal Pain Time Seen by MD: 14:57 Reviewed Notes: Nurses Notes, Inspector Repairer [place] Notes, Medications, Allergies Allergies: Coded Allergies: NO KNOWN ALLERGIES (Unverified , 01/14/19) Home Meds Active Scripts Docusate Sodium (Colace) 100 Mg Cap, 1 CAP PO BID, #30 CAP Prov:CLARISA OROSCO MD 07/08/25 Ondansetron Odt 4MG Tab (ZOFRAN PO) 4 Mg Tb, 4 MG PO Q6HPRN PRN, #20 TAB ODT TAB-DISSOLVE IN MOUTH, THEN SWALLOW Prov:ADIA CRAFT MD 07/08/25 Pantoprazole Sodium Sesquihydr (Pantoprazole Sodium) 40 Mg Tab, 40 MG PO BID, #30 TAB Prov:TERRENCE DE SOUZA MD 06/26/25 Metronidazole (Flagyl) 500 Mg Tab, 1 TAB PO TID, #30 TAB Prov:TERRENCE DE SOUZA MD 06/26/25 Levofloxacin Hemihydrate (LEVAQUIN 500 MG) 500 Mg Tab, 1 TAB PO DAILY, #10 TAB Prov:TERRENCE DE SOUZA MD 06/26/25 Reported Medications Cholecalciferol (VITAMIN D3) 2,000 Unit Tab, 1 TAB PO DAILY, #30 TAB 5 Refills 01/15/19 Ibuprofen (Ibuprofen) 600 Mg Tab, 600 MG PO QIDP PRN for MILD PAIN, MG 0 Refills 01/15/19 Omeprazole (Gnp Omeprazole) 20 Mg Tab, 10 MG PO DAILY, TAB 01/15/19 Lisinopril (Lisinopril) 40 Mg Tab, 40 MG PO DAILY for 30 Days, MG 01/15/19 Gabapentin (Gabapentin) 300 Mg Cap, 300 MG PO BID for 30 Days, MG 01/15/19 Meloxicam (Meloxicam) 7.5 Mg Tab, 1 TAB PO DAILY, #30 TAB 2 Refills 01/15/19 Oxycodone W/ Acetaminophen (Percocet 5/325MG) 1 Tab Tb, 2 TAB PO QIDPRN PRN for MODERATE PAIN 01/15/19 Information Source: Patient Mode of Arrival: EMS Timing: Days (1) Duration: Since onset Prehospital treatment: 12 Lead EKG, Claims Clerk, Pain Meds (200mg fentanyl IV ), Treatment (8mg Zofran ) Quality: Sharp Stool: Empty Severity: Moderate Recent: None Recent Hx of: Abdominal Operations, Abdominal Surgery Pain Location: Diffuse Modifying Factors: Nothing Associated sign and symptoms: Nausea, Vomiting, Constipation, Abdominal Pain Past Medical History PAST MEDICAL HISTORY: AFIB, DM, HTN Surgical History: Hernia Repair ANAESTHESIOLOGIST History: No Pertinent ANAESTHESIOLOGIST History Family History Family History: Reviewed,noncontributory to illness Social History Smoker: Quit Less Than 1 Year Alcohol: Denies ETOH Use Drugs: Denies Drug Use Lives In: Home Constitutional: denies: chills, diaphoresis, fatigue, fever, malaise, sweats, weakness, others EENTM: denies: blurred vision, double vision, ear bleeding, ear discharge, ear drainage, ear pain, ear ringing, eye pain, eye redness, hearing loss, mouth pain, mouth swelling, nasal discharge, nose bleeding, nose congestion, nose pain, photophobia, tearing, throat pain, throat swelling, voice changes, others Respiratory: denies: cough, hemoptysis, orthopnea, SOB at rest, shortness of breath, SOB with excertion, stridor, wheezing, others Cardiovascular: denies: chest pain, dizzy spells, diaphoresis, Dyspnea on exertion, edema, irregular heart beat, left arm pain, lightheadedness, palpitations, PND, syncope, others Gastrointestinal: reports: abdominal pain, constipated, nausea, vomiting; denies: abdomen distended, blood streaked bowels, diarrhea, dysphagia, difficulty swallowing, hematemesis, melena, poor appetite, poor fluid intake, rectal bleeding, rectal pain, others Genitourinary: denies: abnormal vagina bleeding, burning, dyspareunia, dysuria, flank pain, frequency, hematuria, incontinence, pain, , vagina discharge, urgency, others Neurological: denies: dizziness, fainting, headache, left sided numbness, left sided weakness, numbness, paresthesia, pre-existing deficit, right sided numbness, right sided weakness, seizure, speech problems, tingling, tremors, weakness, others Musculoskeletal: denies: back pain, gout, joint pain, joint swelling, muscle pain, muscle stiffness, neck pain, others Integumetry: denies: bruises, change in color, change in hair/nails, dryness, laceration, lesions, lumps, rash, wounds, others Allergic/Immunocompromised: denies: Difficulty Healing, Frequent Infections, Hives, Itching, others Hematologic/Lymphatic: denies: anemia, blood clots, easy bleeding, easy bruising, swollen glands, others Psychiatric: denies: anxiety, bipolar disorder, depression, hopeless, panic disorder, schizophrenia, sleepless, suicidal, others All Other Systems: Reviewed and Negative Physical Exam General Appearance: Moderate Distress HEENT: Normal ENT Inspection, Pharynx Normal, TMs Normal Neck: Full Range of Motion, Non-Tender, Normal, Normal Inspection Respiratory: Chest Non-Tender, Lungs Clear, No Accessory Muscle Use, No Respiratory Distress, Normal Breath Sounds Cardiovascular: No Edema, No JVD, No Murmur, No Gallop, Normal Peripheral Pulses, Regular Rate/Rhythm Breast Exam: Deferred Gastrointestinal: Diffuse, No Organomegaly, No Pulsatile Mass, Normal Bowel Sounds, Soft Genitalia: Deferred Pelvic: Deferred Rectal: Deferred Extremities: No calf tenderness, Normal capillary refill, Normal inspection, Normal range of motion, Non-tender, No pedal edema Musculoskeletal : Apperance: Normal Neurologic: Alert, architecture intern II-XII nml as Tested, No Motor Deficits, Normal Affect, Normal Mood, No Sensory Deficits Cerebellar Function: Normal Reflexes: Normal Skin: Dry, Normal Color, Warm Peripheral Pulses: 3+ Radial (R), 3+ Radial (L) Lymphatic: No Adenopathy Was a procedure done? Was a procedure done?: No GI differential Dx Differential Diagnosis: Bowel Obstruction, Constipation, Diverticular disease, Esophagitis, Gastritis/PUD, Gastroenteritis, Hernia, Inflammatory BD, Dehydration X-Ray, Labs, Meds, VS Vital Signs Date Time Temp Pulse Resp B/P (MAP) Pulse Ox O2 Delivery O2 Flow Rate FiO2 10/31/25 14:58 98.8 120 20 145/81 97 98.8 Lab Test 07/21/25 15:20 Range/Units White Blood Count 13.1 H 4.4-10.8 10^3/uL Red Blood Count 4.71 4.0-5.20 10^6/uL Hemoglobin 13.0 12.2-16.2 g/dL Hematocrit 39.3 36.0-46.0 % Mean Corpuscular Volume 83.4 80.0-100.0 fL Mean Corpuscular Hemoglobin 27.6 L 28.0-32.0 pg Mean Corpuscular Hemoglobin Concent 33.1 32.0-36.0 g/dL Red Cell Distribution Width 14.4 H 11.8-14.3 % Platelet Count 527 H 140-450 10^3/uL Mean Platelet Volume 7.8 6.9-10.8 fL Neutrophils (%) (Auto) 85.3 H 37.0-80.0 % Lymphocytes (%) (Auto) 8.9 L 10.0-50.0 % Monocytes (%) (Auto) 5.0 0.0-12.0 % Eosinophils (%) (Auto) 0.2 0.0-7.0 % Basophils (%) (Auto) 0.6 0.0-2.0 % Neutrophils # (Auto) 11.1 H 1.6-8.6 10 ^3/uL Lymphocytes # (Auto) 1.2 0.4-5.4 10 ^3/uL Monocytes # (Auto) 0.7 0-1.3 10 ^3/uL Eosinophils # (Auto) 0 0-0.8 10 ^3/uL Basophils # (Auto) 0.1 0-0.2 10 ^3/uL Nucleated Red Blood Cells 0.0 % Sodium Level Pending Potassium Level Pending Chloride Level Pending Carbon Dioxide Level Pending Anion Gap Pending Blood Urea Nitrogen Pending Creatinine Pending Glomerular Filtration Rate Calc Pending BUN/Creatinine Ratio Pending Serum Glucose Pending Calcium Level Pending Patient alert. Complaining of abdominal pain. WBC elevated. Vitals stable. Has been seen in this ER many times after the surgery. Establish intravenous access. Was given fluids. Was given Zofran. Hernia repair done at this hospital. Reviewed her previous visit. Explained to the patient. Continue monitoring. Time of Reevaluation: 15:23 Reevaluation 1ST: Unchanged Patient Education/Counseling: Diagnosis, Treatment, Prognosis Family Education/Counseling: No Family Present SEPSIS Sepsis Screen Date sepsis recognized/suspect: Jul 21, 2025 Time Sepsis recognized/suspect: 1500 Recent Procedure: No On Antibiotic Therapy: No Respiratory Rate >20: No Heart Rate >90: Yes Temp<36 C (96.8 F) or >38.3 C: No SBP <90 or MAP <65 mmHG: No New Acute Mental Status Change: No Is the patient on CPAP, BIPAP,: No Physician Orders Urinalysis (07/21/25 15:13) Ct Ab Pel Wo Con-No Oral Or Iv (07/21/25 15:13) Basic Metabolic Panel (07/21/25 15:13) Vital Signs Date Time Temp Pulse Resp B/P (MAP) Pulse Ox O2 Delivery O2 Flow Rate FiO2 07/21/25 14:58 98.8 120 20 145/81 97 98.8 Laboratory Tests Test 07/21/25 15:20 White Blood Count 13.1 10^3/uL (4.4-10.8) H Departure 1 Departure Time of Disposition: 15:55 Impression: Primary Impression: Acute abdominal pain Disposition: ADMITTED INPATIENT Admit to: Med Surg Condition: Guarded Critical Care Note Critical Care Time?: No Stability Stability form required: No I personally scribed for LAZARUS MURRAY MD ([email or web address]) on 07/21/25 at 15:40. Electronically submitted by Rabia Ray ([facility]). LAZARUS MURRAY MD Jul 21, 2025 15:40
[2025-07-21 15:51] LABS: Potassium 3.7 mmol/L (3.5-5.1); Sodium 138 mmol/L (136-145)
[2025-07-21 15:52] LABS: Anion Gap 12 (5-15); Calcium 10.4 mg/dL (8.7-10.4); Carbon Dioxide 29 mmol/L (20-31)
[2025-07-21 15:55] LABS: Chloride 97 mmol/L (98-107)
[2025-07-21 15:57] LABS: BUN/Creatinine Ratio 22.7 (10.0-20.0); Blood Urea Nitrogen 15 mg/dL (9-23)
[2025-07-21 16:01] LABS: Glucose 185 mg/dL (74-106)
--- NOTE | 2025-07-21 16:24 | DVH ---
Indication: hernia Technique: CT axial images of the abdomen and pelvis are obtained without contrast. Coronal and sagit summer reformats were obtained. Radiation Dose Information: CTDI volume is 20 mGy. Dose-length product is 1056 mGy*cm Comparison: 07/06/2025 FINDINGS: There is limited interpretation of the abdomen and pelvis without administration of intravenous contr ast. There is left lower lobe atelectasis/developing consolidation. Adrenal glands, unremarkable. There is a small amount of perisplenic ascites fluid. Pancreas unremarkable. Cholecystectomy. Liver unremarkable in shape. Kidneys demonstrate no hydronephrosis / nephrolithiasis. Stomach is partially distended. Small bowel loops arem abnormally dilated up to 4 cm with multiple a ir-fluid levels. There is an infraumbilical hernia containing small bowel loops measuring 17 x 7.7 cm which acts as the lead point for the bowel obstruction, axial image 66 of 95. The distal small bowel loops are nondistended. There are Fecal like contents and inflammatory stranding within the hernia s ac. There is mesenteric edema. There is a supraumbilical hernia containing fluid measuring 9.1 x 4.3 cm Colonic diverticular disease. Moderate volume stool throughout the colon. Abdominal aortic atherosclerotic disease. Bladder partially distended. Small amount of free pelvic fluid. No inguinal lymphadenopathy. [id number] thoracolumbar degenerative. 3 mm anterolisthesis L4 upon L5. IMPRESSION: Limited evaluation without contrast. High-grade small-bowel obstruction secondary to an infraumbilical hernia containing small bowel loops measuring 17 x 7.7 cm. Associated edema and stranding within the hernia sac, raising concern for inc arceration / strangulation. Recommend surgical consultation. Mesenteric edema and small amount of ascites fluid which is likely secondary to the underlying small bowel obstruction. Supraumbilical hernia containing ascites fluid measuring 9.1 x 4.3 cm. Atherosclerotic disease. Colonic diverticular disease. Left lower lobe atelectasis/developing consolidation. Other findings as described.
[2025-07-21] MEDS: ONDANSETRON HCL 4 MG/2 ML VIAL IV ONE (17:16)
[2025-07-21] MEDS: HYDROmorphone HCL 2 MG/ML VL/or syr IV ONE (17:16)
[2025-07-21] MEDS: PIPERACILLIN-TAZOB 3.375GM 100 ML IV ONE ×2 (18:02→23:49)
--- NOTE | 2025-07-21 18:21 | DVH ---
CHEST RADIOGRAPH Indication: NGT CONFIRMATION Technique: Single frontal view of the chest was obtained Comparison: XY CHEST PORTABLE on DOS: 07/06/25, XY CHEST XRAY 1 VIEW on DOS: 06/21/25 FINDINGS: Lines and Tubes: Enteric tube below the left diaphragm most likely in the stomach. Tip is not include d on this study. Lungs: No focal consolidation. Pleura: No effusion. No pneumothorax. Cardiomediastinal contours: Unremarkable Bones: No acute osseous abnormality. IMPRESSION: 1. Enteric tube in the stomach below the left diaphragm.
--- NOTE | 2025-07-21 19:00 | DVHINCON2 ---
Date of service: Jul 21, 2025 Family History: Diabetes mellitus G8 MOTHER, Age: 72 Hypertension G8 MOTHER, Age: 72 Thyroid disease G8 MOTHER, Age: 72 Allergies: Coded Allergies: NO KNOWN ALLERGIES (Unverified , 01/14/19) Home Meds Active Scripts Docusate Sodium (Colace) 100 Mg Cap, 1 CAP PO BID, #30 CAP Prov:CLARISA OROSCO MD 07/08/25 Ondansetron Odt 4MG Tab (ZOFRAN PO) 4 Mg Tb, 4 MG PO Q6HPRN PRN, #20 TAB ODT TAB-DISSOLVE IN MOUTH, THEN SWALLOW Prov:ADIA CRAFT MD 07/08/25 Pantoprazole Sodium Sesquihydr (Pantoprazole Sodium) 40 Mg Tab, 40 MG PO BID, #30 TAB Prov:TERRENCE DE SOUZA MD 06/26/25 Metronidazole (Flagyl) 500 Mg Tab, 1 TAB PO TID, #30 TAB Prov:TERRENCE DE SOUZA MD 06/26/25 Levofloxacin Hemihydrate (LEVAQUIN 500 MG) 500 Mg Tab, 1 TAB PO DAILY, #10 TAB Prov:TERRENCE DE SOUZA MD 06/26/25 Reported Medications Cholecalciferol (VITAMIN D3) 2,000 Unit Tab, 1 TAB PO DAILY, #30 TAB 5 Refills 01/15/19 Ibuprofen (Ibuprofen) 600 Mg Tab, 600 MG PO QIDP PRN for MILD PAIN, MG 0 Refills 01/15/19 Omeprazole (Gnp Omeprazole) 20 Mg Tab, 10 MG PO DAILY, TAB 01/15/19 Lisinopril (Lisinopril) 40 Mg Tab, 40 MG PO DAILY for 30 Days, MG 01/15/19 Gabapentin (Gabapentin) 300 Mg Cap, 300 MG PO BID for 30 Days, MG 01/15/19 Meloxicam (Meloxicam) 7.5 Mg Tab, 1 TAB PO DAILY, #30 TAB 2 Refills 01/15/19 Oxycodone W/ Acetaminophen (Percocet 5/325MG) 1 Tab Tb, 2 TAB PO QIDPRN PRN for MODERATE PAIN 01/15/19 Vital Signs Vital Signs Date Time Temp Pulse Resp B/P (MAP) Pulse Ox O2 Delivery O2 Flow Rate FiO2 07/21/25 17:16 107 14 140/86 07/21/25 16:40 99 Room Air* 0 21 07/21/25 16:40 98.4 98.4 Labs/Diagnostic Data Labs Test 07/21/25 18:42 07/21/25 15:20 Range/Units White Blood Count 13.1 H 4.4-10.8 10^3/uL Red Blood Count 4.71 4.0-5.20 10^6/uL Hemoglobin 13.0 12.2-16.2 g/dL Hematocrit 39.3 36.0-46.0 % Mean Corpuscular Volume 83.4 80.0-100.0 fL Mean Corpuscular Hemoglobin 27.6 L 28.0-32.0 pg Mean Corpuscular Hemoglobin Concent 33.1 32.0-36.0 g/dL Red Cell Distribution Width 14.4 H 11.8-14.3 % Platelet Count 527 H 140-450 10^3/uL Mean Platelet Volume 7.8 6.9-10.8 fL Neutrophils (%) (Auto) 85.3 H 37.0-80.0 % Lymphocytes (%) (Auto) 8.9 L 10.0-50.0 % Monocytes (%) (Auto) 5.0 0.0-12.0 % Eosinophils (%) (Auto) 0.2 0.0-7.0 % Basophils (%) (Auto) 0.6 0.0-2.0 % Neutrophils # (Auto) 11.1 H 1.6-8.6 10 ^3/uL Lymphocytes # (Auto) 1.2 0.4-5.4 10 ^3/uL Monocytes # (Auto) 0.7 0-1.3 10 ^3/uL Eosinophils # (Auto) 0 0-0.8 10 ^3/uL Basophils # (Auto) 0.1 0-0.2 10 ^3/uL Nucleated Red Blood Cells 0.0 % Sodium Level 138 136-145 mmol/L Potassium Level 3.7 3.5-5.1 mmol/L Chloride Level 97 L 98-107 mmol/L Carbon Dioxide Level 29 20-31 mmol/L Anion Gap 12 5-15 Blood Urea Nitrogen 15 9-23 mg/dL Creatinine 0.66 0.550-1.02 mg/dL Glomerular Filtration Rate Calc 102 >90 mL/min BUN/Creatinine Ratio 22.7 H 10.0-20.0 Serum Glucose 185 H 74-106 mg/dL Calcium Level 10.4 8.7-10.4 mg/dL Assessment patient had an abdominal wall hernia repair with a 30 x 20 cm Mesh about one month ago, following which she " developed an infection" and broke down the repair, her surgeon decided not to attempt re repair and was going to wait up to 6 months to repair the recurrence, day before yesterday she started to feel ill,vomiting and unable to empty her bowels and came in today, ER diagnosis is an INCARCERATED ,POSSIBLY STRANGULATED HERNIATION AT THE LEVEL OF THE UMBILICUS. SHE HAS A LONG MIDLINE WOUND WHICH IS HEALING WITHOUT EXTERNAL EVIDENCE E OF INFECTION AND HER ABDOMEN IS DISTENDED AND EXQUISITELY TENDER, WBC ELEVATED. WILL NEED TO EXPLORE AND POSSIBLY RESECT BOWEL, REMOVE THE MESH. OPERATION AND RISKS AND COMPLICATIONS explained in detail, patient's sister at bedside. all questions answered . PATIENT HAD OTHER MULTIPLE OPERATIONS (APPENDECTOMY,CHOLECYSTECTOMY, TWO OPERATIONS FOR GI BLEEDING,SHE WAS HAS PTSD(SON 2 YEARS AGO), SHE HAS COPD, DIVERTICULOSIS, QUIT SMOKING ABOUT ONE MONTH AGO. Plan discussed with: Patient CHARLENE FORTUNE MD Jul 21, 2025 19:00
[2025-07-21] MEDS ORDERED: fentaNYL CITRATE 100 MCG/2 ML VL ONE ×3 (19:08→20:27)
[2025-07-21] MEDS ORDERED: HYDROmorphone HCL 2 MG/ML VL/or syr ONE ×2 (19:08→19:49)
[2025-07-21] MEDS ORDERED: MIDAZOLAM HCL 2MG/2ML 2ml VIAL (1mg/ml) ONE ×2 (19:08→21:15)
[2025-07-21 19:17] LABS: Urine Protein, UAD 1+ (Negative)
[2025-07-21] MEDS ORDERED: PROPOFOL 10 MG/ML 20 ML IV ONE (19:33)
[2025-07-21] MEDS ORDERED: ONDANSETRON HCL 4 MG/2 ML VIAL ONE (19:33)
[2025-07-21] MEDS ORDERED: ESMOLOL HCL 10 ML IV ONE (20:26)
[2025-07-21] MEDS ORDERED: fentaNYL Drip 2500mCg/250mlNS 250 ML IV SCH (20:37)
[2025-07-21] MEDS: MIDAZOLAM DRIP 100 mg/100mL NS 100 ML IV SCH (21:30)
[2025-07-21] MEDS: MIDAZOLAM DRIP 100 mg/100mL NS 100 ML IV ONE (21:43)
[2025-07-21] MEDS: fentaNYL Drip 2500mCg/250mlNS 250 ML IV ONE (21:44)
--- NOTE | 2025-07-21 21:50 | DVHOP ---
DATE OF SURGERY: 07/21/2025 PREOPERATIVE DIAGNOSIS: Small bowel obstruction secondary to incarcerated umbilical hernia (recurrent) with suspected bowel gangrene. DESCRIPTION OF PROCEDURE: Under general endotracheal anesthesia administered by Dr. Dash with the abdomen prepped and draped, the abdomen was entered by incision of the preexisting scar from an operation performed approximately 4 weeks ago by another surgeon at this facility. The abdomen was entered and amount of serous fluid was evacuated. Cultures were submitted. Numerous loops of massively dilated small bowel were encountered. There was tremendous amount of adhesions within the peritoneal cavity. Lysis of adhesions was necessitated, which took approximately 1.5 hours to accomplish. We lysed the adhesions from the terminal ileum to the ligament of Treitz. The small bowel was then inspected. There were numerous areas of complete bowel obstruction with proximal dilatation of the bowel and there was an area of perforation of the transverse colon, which had to be resected due to the massive adhesions surrounding it. The transverse colon segment was resected by means of a ELISE stapler. The two ends were secured to the anterior abdominal wall as the abdomen would not be possible to approximate due to the intestinal swelling and the foreshortened nature of the fascial layer. For this reason, following termination of the procedure and inspection of the bowel for any injury, none of which were found, the abdomen was packed with wet towels and covered with an Ioban drape. The patient's sister was thoroughly informed by phone at [phone]. I explained the extent of the operation, the complicating features, as well as the need for a secondary operation tomorrow morning at 7:00 a.m. MD MIKO Campbell/CARMELLA TID: [id number] RECEIPT: [id number]
[2025-07-21 22:25] LABS: Base Excess -3.6 mmol/L (-2.0-3.0)
--- NOTE | 2025-07-21 22:55 | DVHHP2 ---
History of Present Illness Reason for Visit: Small-bowel obstruction History of Present Illness The patient is a 60-year-old female with past medical history of AFib, diabetes mellitus, and hypertension who presented to [facility] ED with complaint of abdominal pain. Patient reports has been experiencing abdominal p ain rating 8/10 numeric scale, described pain as sharp in nature, constant, diffuse, associated with nausea, vomiting, and unable to keep any fluids or food down. Patient had hernia repair surgery on 06/22/25, was then admitted the following week given infection at surgical site and had a drain placed. Patient was seen and evaluated in the ED, laboratory data shows WBC 16.8, platelets 486, sodium 138, potassium 3.2, BUN 15, creatinine 0.66, glucose 185, calcium 10.5, blood pressure 169/77, heart rate 104, temperature 99.0 F, O2 saturation 95% on ventilator. Abdomen/pelvis CT revealing high-grade small-bowel obstruction secondary to an infraumbilical hernia containing small bowel loops measuring 17 x 7.7 cm, associated edema and stranding within the hernia sac raising concern for incarceration/strangulation; supraumbilical hernia containing ascites fluid measuring 9.1 x 4.3 cm; left lower lobe atelectasis/developing consolidation. Patient underwent surgical procedure by incision of the preexisting scar from an operation performed approximately 4 weeks ago by another surgeon at this facility. The abdomen was entered and amount of serous fluid was evacuated. Cultures were submitted by Donn Rodriguez MD. Patient was started on IV antibiotic regimen Zosyn, please see medication orders section in the computer. Patient was admitted to intensive care unit from operating room for further possible surgical procedure and medical management. Past Medical History AFIB, DM, HTN Past Surgical History Hernia Repair Family History Reviewed, noncontributory to the management of this case. Past Social History The patient lives at home, denies smoking, alcohol or illicit drugs abuse. Review of Systems Constitutional: Yes: Weakness; No: Fever, Chills, Sweats, Malaise, Other Eyes: No: Pain, Vision change, Conjunctivae inflammation, Eyelid inflammation, Other, Redness ENT: No: Ear pain, Ear discharge, Nose pain, Nose discharge, Nose congestion, Mouth pain, Mouth swelling, Throat pain, Throat swelling, Other Respiratory: No: Cough, Dry, Shortness of breath, SOB with excertion, Wheezing, Hemoptysis, Pleuritic Pain, Sputum, Wheezing, Other Cardiovascular: No: Chest Pain, Palpitations, Orthopnea, Paroxysmal Noc. Dyspnea, Edema, Lt Headedness, Other Gastrointestinal: Nausea, Vomiting, Abdominal Pain; No: Diarrhea, Constipation, Melena, Hematochezia, Other Genitourinary: No Dysuria, No Frequency, No Incontinence, No Hematuria, No Retention, No Other Musculoskeletal: No: other, neck pain, shoulder pain, arm pain, back pain, hand pain, leg pain, foot pain Skin: No: Rash, Lesions, Jaundice, Bruising, Other Neurological: No: Weakness, Numbness, Incoordination, Change in speech, Confusion, Seizures, Other Allergies: Coded Allergies: NO KNOWN ALLERGIES (Unverified , 01/14/19) Medications Current Medications Medications Dose Ordered Sig/Susana Route Start Time Stop Time Status Last Admin Dose Admin Midazolam HCl 100 ml @ 1 mls/hr Q24H IV 07/21/25 21:30 Exam Vital Signs Vital Signs Date Time Temp Pulse Resp B/P (MAP) Pulse Ox O2 Delivery O2 Flow Rate FiO2 07/21/25 22:26 145 13 185/76 (112) 100 50 07/21/25 16:40 Room Air* 0 07/21/25 16:40 98.4 98.4 General Appearance: Other (Fully intubated) HEENT: Atraumatic, PERRLA, EOMI, Mucous membr. moist/pink Respiratory: Normal air movement, Other (On ventilator) Cardiovascular: Normal S1, Normal S2, No murmurs, Other (Irregular heart rate) Abdominal: Normal bowel sounds, Soft, No tenderness, No hepatospenomegaly, No masses Extremities: No clubbing, No cyanosis, No edema, Normal pulses, No tenderness/swelling Skin: No rashes, No significant lesion Neuro: Normal tone, Reflexes 2+, Other (Generalized weakness) Psych/Mental Status: Other (Unobtainable) Labs/Xrays Labs Test 07/21/25 22:06 07/21/25 22:04 07/21/25 18:42 07/21/25 15:20 Range/Units POC Glucose 235 H 70-106 mg/dl Blood Gas Specimen Type Arterial Blood Gas Sample Site Arterial line Blood Gas Patient Temperature 37.0 Arterial Blood Date Drawn [id number] Arterial Blood pH 7.460 H 7.350-7.450 Arterial Blood Partial Pressure CO2 27.7 L 32.0-45.0 mmHg Arterial Blood Partial Pressure O2 79.9 L 83.0-108.0 mmHg Arterial Blood HCO3 19.3 L 21.0-28.0 mmol/L Arterial Blood Oxygen Saturation 94.5 94.0-98.0 % Arterial Blood Base Excess -3.6 L -2.0-3.0 mmol/L Arterial Blood Oxyhemoglobin 94.0 94.0-98.0 % Arterial Blood Carboxyhemoglobin 0.3 L 0.5-1.5 % Arterial Blood Methemoglobin 0.2 0.0-1.5 % Martinez Test N/a Blood Gas Total Hemoglobin 10.60 L 12.0-16.0 g/dL Blood Gas Set Respiration Rate 12.0 Blood Gas Modality Vent - cpap Blood Gas Spontaneous Rate 14 FiO2 % 50.0 Blood Gas Tidal Volume 500.0 Blood Gas Spontaneous Tidal Volume 508 Blood Gas PEEP or CPAP 5.0 Blood Gas Critical Value Read Back Yes Urine Color Yellow Yellow Urine Clarity Clear Clear Urine pH 8.0 5.0-9.0 Urine Specific [place] 1.029 1.001-1.035 Urine Protein 1+ H Negative Urine Ketones 1+ H Negative Urine Blood Negative Negative /uL Urine Nitrite Negative Negative Urine Bilirubin Negative Negative Urine Urobilinogen 12 H Negative mg/dL Urine Leukocyte Esterase Negative Negative /uL Urine RBC 2 0 - 4 /hpf Urine Microscopic WBC 1 0-5 /HPF Urine Squamous Epithelial Cells Few <5 /hpf Urine Bacteria Few H None Seen /hpf Urine Hyaline Casts Few 0 - 2 /lpf Urine Mucus Few None Seen Urine Glucose Normal Normal mg/dL White Blood Count 13.1 H 4.4-10.8 10^3/uL Red Blood Count 4.71 4.0-5.20 10^6/uL Hemoglobin 13.0 12.2-16.2 g/dL Hematocrit 39.3 36.0-46.0 % Mean Corpuscular Volume 83.4 80.0-100.0 fL Mean Corpuscular Hemoglobin 27.6 L 28.0-32.0 pg Mean Corpuscular Hemoglobin Concent 33.1 32.0-36.0 g/dL Red Cell Distribution Width 14.4 H 11.8-14.3 % Platelet Count 527 H 140-450 10^3/uL Mean Platelet Volume 7.8 6.9-10.8 fL Neutrophils (%) (Auto) 85.3 H 37.0-80.0 % Lymphocytes (%) (Auto) 8.9 L 10.0-50.0 % Monocytes (%) (Auto) 5.0 0.0-12.0 % Eosinophils (%) (Auto) 0.2 0.0-7.0 % Basophils (%) (Auto) 0.6 0.0-2.0 % Neutrophils # (Auto) 11.1 H 1.6-8.6 10 ^3/uL Lymphocytes # (Auto) 1.2 0.4-5.4 10 ^3/uL Monocytes # (Auto) 0.7 0-1.3 10 ^3/uL Eosinophils # (Auto) 0 0-0.8 10 ^3/uL Basophils # (Auto) 0.1 0-0.2 10 ^3/uL Nucleated Red Blood Cells 0.0 % Sodium Level 138 136-145 mmol/L Potassium Level 3.7 3.5-5.1 mmol/L Chloride Level 97 L 98-107 mmol/L Carbon Dioxide Level 29 20-31 mmol/L Anion Gap 12 5-15 Blood Urea Nitrogen 15 9-23 mg/dL Creatinine 0.66 0.550-1.02 mg/dL Glomerular Filtration Rate Calc 102 >90 mL/min BUN/Creatinine Ratio 22.7 H 10.0-20.0 Serum Glucose 185 H 74-106 mg/dL Calcium Level 10.4 8.7-10.4 mg/dL PATIENT: PIA WHYTE ACCT: [id number] UNIT: [id number] : 1965 LOC: ER ROOM / BED: / AGE / SEX: 60 / F ADM STATUS: REG ER SERVICE 1513 ORDERING PHYSICIAN: LAZARUS MURRAY MD PROCEDURE(s): ABPL - CT AB PEL WO CON-NO ORAL OR IV REASON: hernia ORDER NUMBER(s): [id number], ACCESSION NUMBER(s): [id number] Indication: hernia Technique: CT axial images of the abdomen and pelvis are obtained without contrast. Coronal and sagittal reformats were obtained. Radiation Dose Information: CTDI volume is 20 mGy. Dose-length product is 1056 mGy*cm Comparison: 07/06/2025 FINDINGS: There is limited interpretation of the abdomen and pelvis without administration of intravenous contrast. There is left lower lobe atelectasis/developing consolidation. Adrenal glands, unremarkable. There is a small amount of perisplenic ascites fluid. Pancreas unremarkable. Cholecystectomy. Liver unremarkable in shape. Kidneys demonstrate no hydronephrosis/nephrolithiasis. Stomach is partially distended. Small bowel loops arem abnormally dilated up to 4 cm with multiple air-fluid levels. There is an infraumbilical hernia containing small bowel loops measuring 17 x 7.7 cm which acts as the lead point for the bowel obstruction, axial image 66 of 95. The distal small bowel loops are nondistended. There are Fecal like contents and inflammatory stranding within the hernia sac. There is mesenteric edema. There is a supraumbilical hernia containing fluid measuring 9.1 x 4.3 cm Colonic diverticular disease. Moderate volume stool throughout the colon. Abdominal aortic atherosclerotic disease. Bladder partially distended. Small amount of free pelvic fluid. No inguinal lymphadenopathy. Dzbt-ax-njhxumie thoracolumbar degenerative. 3 mm anterolisthesis L4 upon L5. IMPRESSION: Limited evaluation without contrast. High-grade small-bowel obstruction secondary to an infraumbilical hernia containing small bowel loops measuring 17 x 7.7 cm. Associated edema and stranding within the hernia sac, raising concern for incarceration/strangulation. Recommend surgical consultation. Mesenteric edema and small amount of ascites fluid which is likely secondary to the underlying small bowel obstruction. Supraumbilical hernia containing ascites fluid measuring 9.1 x 4.3 cm. Atherosclerotic disease. Colonic diverticular disease. Left lower lobe atelectasis/developing consolidation. Other findings as described. ORDERING PHYSICIAN: LAZARUS MURRAY MD PROCEDURE(s): CXR1 - CHEST XRAY 1 VIEW REASON: NGT CONFIRMATION ORDER NUMBER(s): [id number], ACCESSION NUMBER(s): [id number] CHEST RADIOGRAPH Indication: NGT CONFIRMATION Technique: Single frontal view of the chest was obtained Comparison: XY CHEST PORTABLE on DOS: 07/06/25, XY CHEST XRAY 1 VIEW on DOS: 06/21/25 FINDINGS: Lines and Tubes: Enteric tube below the left diaphragm most likely in the [facility]. Tip is not included on this study. Lungs: No focal consolidation. Pleura: No effusion. No pneumothorax. Cardiomediastinal contours: Unremarkable Bones: No acute osseous abnormality. IMPRESSION: 1. Enteric tube in the stomach below the left diaphragm. SEPSIS Sepsis Screen Date sepsis recognized/suspect: Jul 21, 2025 Time Sepsis recognized/suspect: 1640 Recent Procedure: Yes On Antibiotic Therapy: No Respiratory Rate >20: No Heart Rate >90: No Temp<36 C (96.8 F) or >38.3 C: No SBP <90 or MAP <65 mmHG: No New Acute Mental Status Change: No Is the patient on CPAP, BIPAP,: No Physician Orders Ct Ab Pel Wo Con-No Oral Or Iv (07/21/25 15:13) Ngt/Ogt (07/21/25 ) * Surgical Consult (07/21/25 ) Chest Xray 1 View (07/21/25 17:37) Ng To Lcs (07/21/25 17:43) Andrea Catheters (07/21/25 ) Anaerobic Culture (07/21/25 19:45) Gram Stain (07/21/25 19:45) Routine Bacterial Culture (07/21/25 19:45) Small Bowel Series-W Gastrogra (07/22/25 08:00) Ventilator Orders (07/21/25 21:22) Midazolam Drip 100 Mg/100ml Ns (Versed D (07/21/25 21:30) Rass Sedation Scale Q1HR (07/21/25 21:28) D5w/Sod Chl 0.45%/Kcl 20meq (07/21/25 21:45) Call/Page Hospitalist/Atten Fo (07/21/25 21:32) Page Hospitalist For Admission (07/21/25 21:32) Abdominal Binder (07/21/25 21:32) Sequential Compression Device (07/21/25 21:32) Ng To Lcs (07/21/25 21:32) Obtain Consent For: (07/21/25 21:32) May Draw Abg Prn (07/21/25 21:37) Communication Order (07/21/25 21:38) Chest Portable (07/21/25 21:49) Type And Screen (07/21/25 21:51) Abg W/ Co-Ox (07/21/25 22:22) Complete Blood Count (07/21/25 22:43) Basic Metabolic Panel (07/21/25 22:43) Magnesium (07/21/25 22:43) Zosyn Extended Infusion (07/22/25 06:00) Famotidine Injection (Pepcid Injection) (07/22/25 10:00) Labetalol Hcl (Labetalol Hcl) (07/21/25 23:00) Glucose Blood (Accu-Chek Comfort Curve T (07/22/25 00:00) Mild Sliding Scale Npo - Q6hr (07/22/25 00:00) Dextrose 50% Syringe (07/21/25 23:00) Admit (07/21/25 22:46) Allergies (07/21/25:46) Code Status (07/21/25:) 0.9% Ns 1000 Ml (07/21/25 23:00) Oxygen Per Hour (07/21/25:46) Ondansetron Hcl (Zofran) (07/21/25 23:00) Fall Risk Precautions In Place QSHIFT (07/21/25:46) Complete Blood Count (07/22/25 04:00) Comprehensive Metabolic Panel (07/22/25 04:00) Npo (Nothing By Mouth) Diet (07/22/25 Breakfast) Condition: Serious (07/21/25:46) Maintain Bed Rest (07/21/25:46) Nitroglycerin Sublingual (Ntrostat Subli (07/21/25 23:00) Morphine Sulfate Injection (07/21/25 23:00) Stat Ekg For Chest Pain (07/21/25:46) Notify Of Changes From Base (07/21/25 22:46) [employer] Fin[employer] For 24 Hours (07/21/25:46) Emergency Dysrhythmia Protocol (07/21/25:46) Rhythm Strips Once Every Shift (07/21/25:46) Oxygen By Nasal Cannula (07/21/25:46) Acetaminophen Suppository (Tylenol Suppo (07/21/25 23:00) Metronidazole Ivpb Flagyl (07/22/25 06:00) Vital Signs Date Time Temp Pulse Resp B/P (MAP) Pulse Ox O2 Delivery O2 Flow Rate FiO2 07/21/25 22:26 145 13 185/76 (112) 100 50 07/21/25 18:00 98 16 141/80 (100) 94 07/21/25 17:46 104 16 140/86 07/21/25 17:16 107 14 140/86 07/21/25 17:00 107 14 140/86 (104) 96 07/21/25 16:40 112 18 99 Room Air* 0 21 07/21/25 16:40 98.4 112 18 136/96 (109) 99 98.4 07/21/25 14:58 98.8 120 20 145/81 97 98.8 Laboratory Tests Test 07/21/25 15:20 White Blood Count 13.1 10^3/uL (4.4-10.8) H Medications Medications Dose Ordered Sig/Susana Route Start Time Stop Time Status Last Admin Dose Admin Hydromorphone HCl 2 mg ONCE ONCE IV 07/21/25 17:00 07/21/25 17:01 DC 07/21/25 17:16 2 MG Metronidazole 100 ml @ 100 mls/hr ONCE ONCE IV 07/21/25 17:00 07/21/25 17:59 DC 07/21/25 18:14 100 MLS/HR Ondansetron HCl 4 mg ONCE ONCE IV 07/21/25 17:00 07/21/25 17:01 DC 07/21/25 17:16 4 MG Piperacillin Sod/ Tazobactam Sod 100 ml @ 100 mls/hr ONCE ONCE IV 07/21/25 17:00 07/21/25 17:59 DC 07/21/25 18:02 100 MLS/HR Assessment/Plan Assessment/Plan Acute abdominal pain Bowel perforation Leukocytosis, unspecified Small-bowel obstruction Hernia with strangulation Recurrent ventral incisional hernia Plan 1. Admit to intensive care unit 2. Breathing treatment 3. Pain control management 4. IV antibiotic management 5. Management of fluids and electrolytes 6. Consultation for surgical team 7. Diagnostic test abdomen/pelvis CT 8. DVT prophylaxis-on SCDs 9. Repeat labs CBC, CMP in a.m. 10. Home medication reviewed and reconciled 11. Continue with current medical management 12. Treatment plan discussed with patient and RN. Patient verbalized understanding. Plan discussed with: Patient, Other (RN) My Orders Orders - LOLIS GAUTHIER DNP Procedure Category Date Status Time Chest Portable XY 07/21/25 Logged 21:49 Abg W/ Co-Ox RT 07/21/25 Logged 22:22 Complete Blood Count LAB 07/21/25 Logged 22:43 Basic Metabolic Panel LAB 07/21/25 Logged 22:43 Magnesium LAB 07/21/25 Logged 22:43 Zosyn Extended PHA 07/22/25 Transmitted Infusion 06:[address] [facility] 07/22/25 Transmitted (Pepcid Injection) 10:[address] [facility] 07/21/25 Transmitted (Labetalol Hcl) 23:[address] [facility] 07/22/25 Transmitted (Accu-Chek Comfort 00:00 Mild Sliding Scale PHA 07/22/25 Transmitted Npo - Q6hr 00:00 Dextrose 50% Syringe PHA 07/21/25 Transmitted 23:00 Admit ADMIT 07/21/25 Transmitted 22:46 Allergies [facility] 07/21/25 Transmitted 22:46 Code Status CODE 07/21/25 Transmitted 22:46 0.9% Ns [address] [facility] 07/21/25 Transmitted 23:00 Oxygen Per Hour RT 07/21/25 Transmitted 22:[address] [facility] 07/21/25 Transmitted (Zofran) 23:00 Fall Risk Precautions [facility] 07/21/[address] 22:46 Complete Blood Count LAB 07/22/25 Verified 04:00 Comprehensive LAB 07/22/25 Verified Metabolic Panel 04:00 Npo (Nothing By DIET 07/22/25 Transmitted Mouth) Diet Breakfast Condition: Serious [facility] 07/21/25 Transmitted 22:46 Maintain Bed Rest [facility] 07/21/25 Transmitted 22:[address] [facility] 07/21/25 Transmitted Sublingual (Ntrostat 23:[address] [facility] 07/21/25 Transmitted Injection 23:00 Stat Ekg For Chest [facility] 07/21/25 Transmitted Pain 22:46 Notify Md Of Changes [facility] 07/21/25 Transmitted From Base 22:46 [employer] For [place] 07/21/25 Transmitted 24 Hours 22:46 Emergency Dysrhythmia [facility] 07/21/25 Transmitted Protocol 22:46 Rhythm Strips Once [facility] 07/21/25 Transmitted Every Shift 22:46 Oxygen By Nasal RT 07/21/25 Transmitted Cannula 22:[address] [facility] 07/21/25 Transmitted Suppository (Tylenol 23:00 Metronidazole Ivpb PHA 07/22/25 Transmitted Flagyl 06:00 Problem List: (1) Acute abdominal pain (2) Bowel perforation (3) Leukocytosis, unspecified (4) Small bowel obstruction (5) Hernia with strangulation (6) Recurrent ventral incisional hernia Date of Service: Jul 21, 2025 Billing Provider: LOLIS GAUTHIER DNP Common Visit Codes: [id number] INP/OBS CARE (HIGH) LOLIS GAUTHIER DNP Jul 21, 2025 22:55
[2025-07-21] MEDS ORDERED: ONDANSETRON HCL 4 MG/2 ML VIAL IV PRN (23:00)
[2025-07-21] MEDS ORDERED: MORPHINE SULFATE INJ 2 MG/ml SYRG IV PRN (23:00)
[2025-07-21] MEDS ORDERED: ACETAMINOPHEN 650 MG RECT SUPP PR PRN (23:00)
[2025-07-21] MEDS ORDERED: NITROGLYCERIN 0.4 MG SL TAB SL PRN (23:00)
[2025-07-21] MEDS ORDERED: DEXTROSE (50%) 50ML SYRG IV PRN (23:00)
[2025-07-21] MEDS ORDERED: LABETALOL HCL 20 MG/4 ML VL IV PRN (23:00)
[2025-07-21] MEDS: fentaNYL Drip 2500mCg/250mlNS 250 ML IV SCH (23:15)
[2025-07-21] MEDS: D5W/SOD CHL 0.45%/KCL 20MEQ 1,000 ML IV ONE (23:28)
[2025-07-21] MEDS: ACCU-CHEK COMFORT CURVE STRIP VI SCH (23:58)
[2025-07-21] MEDS: InsuLIN REG 1unit/0.01ml Soln (100units/ml) SC SCH (23:59)
[2025-07-22] VITALS (110 sets, daily range): BP systolic 60–167; BP diastolic 35–118; PULSE 101–140; RESP 11–34; TEMP 99–99.8; O2SAT 91–100
--- NOTE | 2025-07-22 00:21 | DVH ---
CHEST RADIOGRAPH Indication: VERIFY ETT PLACEMENT Technique: Single frontal view of the chest was obtained COMPARISON: XY CHEST XRAY 1 VIEW on DOS: 07/21/25, XY CHEST PORTABLE on DOS: 07/06/25, XY CHEST XRAY 1 VIEW on DOS: 06/21/25 FINDINGS: Lines and Tubes: Endotracheal tube tip projects approximately 4.2 cm above the level of the feliciano. Lungs: Clear Pleura: No effusion. No pneumothorax. Cardiomediastinal contours: Unremarkable Bones: Unremarkable IMPRESSION: 1. No acute disease. 2. Endotracheal tube as above.
[2025-07-22 00:34] LABS: Nucleated Red Blood Cells % 0.1 %
[2025-07-22 00:37] LABS: Hematocrit 37.8 % (36.0-46.0); Hemoglobin 12.2 g/dL (12.2-16.2); Mean Corpuscular Hemoglobin 27.4 pg (28.0-32.0); Mean Corpuscular Volume 85.2 fL (80.0-100.0)
[2025-07-22 00:44] LABS: Chloride 103 mmol/L (98-107); Sodium 142 mmol/L (136-145)
[2025-07-22 00:45] LABS: Anion Gap 11 (5-15); Carbon Dioxide 28 mmol/L (20-31)
[2025-07-22 00:46] LABS: Calcium 8.7 mg/dL (8.7-10.4)
[2025-07-22 00:50] LABS: BUN/Creatinine Ratio 26.6 (10.0-20.0); Blood Urea Nitrogen 17 mg/dL (9-23)
[2025-07-22 00:51] LABS: Magnesium 1.8 mg/dL (1.6-2.6)
[2025-07-22 00:53] LABS: Glucose 205 mg/dL (74-106); Potassium 3.3 mmol/L (3.5-5.1)
[2025-07-22] MEDS: SODIUM CHLORIDE 0.9% 1,000 ML IV SCH (02:00)
[2025-07-22] MEDS: POTASSIUM CHL 20MEQ/100ML 100 ML IV SCH (02:18)
[2025-07-22 04:11] LABS: Hematocrit 38.3 % (36.0-46.0); Hemoglobin 12.7 g/dL (12.2-16.2); Mean Corpuscular Hemoglobin 27.9 pg (28.0-32.0); Mean Corpuscular Volume 84.6 fL (80.0-100.0); Nucleated Red Blood Cells % 0.0 %
[2025-07-22 04:18] LABS: Alanine Aminotransferase 20 U/L (7-40); Alkaline Phosphatase 71 U/L (46-116); Anion Gap 9 (5-15); BUN/Creatinine Ratio 31.0 (10.0-20.0); Blood Urea Nitrogen 18 mg/dL (9-23); Carbon Dioxide 26 mmol/L (20-31); Chloride 105 mmol/L (98-107); Potassium 4.3 mmol/L (3.5-5.1); Sodium 140 mmol/L (136-145)
[2025-07-22 04:19] LABS: Bilirubin, Total 1.0 mg/dL (0.2-1.0)
[2025-07-22 04:38] LABS: Albumin 3.2 g/dL (3.2-4.8); Calcium 8.4 mg/dL (8.7-10.4); Glucose 208 mg/dL (74-106); Total Protein 4.6 g/dL (5.7-8.2)
[2025-07-22] MEDS: PIPERACILLIN-TAZOB 3.375GM 100 ML IV SCH (05:16)
[2025-07-22] MEDS ORDERED: fentaNYL CITRATE 5 ML ONE ×2 (07:58→09:22)
[2025-07-22] MEDS ORDERED: PHENYLEPHRINE HCL 10 MG/ML VL ONE (08:00)
[2025-07-22] MEDS: PROPOFOL 100 ML IV SCH (09:11)
[2025-07-22] MEDS ORDERED: HYDROmorphone HCL 2 MG/ML VL/or syr ONE (09:12)
[2025-07-22] MEDS ORDERED: LACTATED RINGER'S 1,000 ML IV SCH (10:45)
[2025-07-22] MEDS: MIDAZOLAM DRIP 100 mg/100mL NS 100 ML IV SCH (10:45)
[2025-07-22] MEDS ORDERED: D5W/SOD CHL 0.45%/KCL 20MEQ 1,000 ML IV SCH (10:45)
[2025-07-22] MEDS: POVIDONE IODINE 10 % TOPICAL OINT 30GM TOP ONE (10:50)
--- NOTE | 2025-07-22 11:42 | DVHOP ---
DATE OF SURGERY: 07/22/2025 PREOPERATIVE DIAGNOSIS: Second-look operation after last night's exploratory laparotomy, resection of transverse colon perforation, lysis of adhesions, and removal of infected abdominal wall mesh. DESCRIPTION OF PROCEDURE: At this time, the patient was taken to the operating room. Her abdomen was uncovered and packing removed from the abdominal cavity. The abdomen was profusely irrigated. Irrigant was aspirated. Adhesions were again lysed. They were fibrinous and much exudate was encountered. The two ends of the transverse colon were placed into opposition. The staple lines were excised and while the colon was controlled with BioClamp anastomosis established between the left and right halves of the transverse colon utilizing 3-0 Monocryl and 3-0 Prolene sutures for the inner and outer layer respectively. Subsequently, the abdomen was again profusely irrigated. Irrigant was aspirated. A 10-mm Jose Marks drain was placed to the vicinity but not adjacent to the anastomosis. A 7-mm drain was placed into the pelvis exteriorized through the left lower quadrant of the abdominal wall and then the third drain is a subcutaneous drain exiting from the subcutaneous space through the right lower quadrant. Gloves were exchanged and closure accomplished utilizing rubber fish for protection of the distended bowel. Numerous #2 retention sutures equipped with rubber bolsters were placed. Subsequent to this, the fascia was approximated using #1 double-stranded PDS suture. Throughout the entire suturing process, the bowel was carefully protected from injury and all sutures were attempted to be placed away from the distended bowel. There was no omentum within the peritoneal cavity, which had been previously removed by another surgeon apparently. Following closure of the midline fascia, the retention sutures were individually ligated and skin approximated using metallic skin fina. The patient remained hemodynamically stable throughout the procedure, left the operating room following an accurate needle and sponge counts x3. The patient's sister was thoroughly informed by phone. The patient remains intubated and is going to the Intensive Care Unit. Postscript: The patient's sister was thoroughly informed about the findings, operation, and anticipated course by phone. MD MIKO Campbell/JAYLENE TID: [id number] RECEIPT: [id number]
[2025-07-22] MEDS ORDERED: SODIUM CHLORIDE 0.9% 1,000 ML IV SCH (12:00)
--- NOTE | 2025-07-22 12:07 | DVH ---
CHEST RADIOGRAPH Indication: F/O OPERA Technique: Single frontal view of the chest was obtained Comparison: XY CHEST PORTABLE on DOS: 07/21/25 FINDINGS: Lines and Tubes: Endotracheal tube terminates 3.4 cm above the feliciano. Enteric tube terminates in the stomach. Lungs: Improved aeration at left lung base. Right lung is clear. Pleura: No effusion. No pneumothorax. Cardiomediastinal contours: Unremarkable Bones: No acute osseous abnormality. IMPRESSION: 1. Improved aeration at the left lung base.
[2025-07-22] MEDS: NOREPINEPHRINE 8 MG/250ML KIT 250 ML IV SCH (12:30)
[2025-07-22] MEDS: NOREPINEPHRINE 8 MG/250ML KIT 250 ML IV ONE (12:30)
[2025-07-22] MEDS: FAMOTIDINE (10MG/ML) 2ML VL IV SCH (12:35)
[2025-07-22] MEDS: LACTATED RINGER'S 1,000 ML IV SCH (13:00)
[2025-07-22] MEDS ORDERED: ACETAMINOPHEN IV 1000 MG/100ML (10MG/ML) IV PRN (13:00)
[2025-07-22 14:14] LABS: Base Excess -4.3 mmol/L (-2.0-3.0)
--- NOTE | 2025-07-22 14:20 | DVHNC2 ---
Central Line Recorder of insertion practice: Scuba Diver Occupation of visual designer: Name of visual designer (DR Collier) Indication: Hypotension, CVP monitoring, Volume resuscitation, Suspected infection Room prepared for procedure: Yes Scuba Diver performed hand hygien: Yes Maximal sterile barrier precau: Mask/Eye shield, Sterile gown, Cap, Sterlie gloves, Large sterlie drape Skin Preparation: Chlorhexidine gluconate, Alcohol Skin preparation completely dr: Yes Insertion site: Right, Internal jugular Central line catheter type: [id number] dialysis Number of lumens: 3 Central line exchanged over a: No Antiseptic ointment applied to: No Post Assessment: Chest X-Ray, Proper placement, No Pneumothorax Informed consent obtained: Yes Risks/benefits/alt described: Yes Notes Emergent procedure. Medically necessary for administration of vaso-active medications. DESCRIPTION OF PROCEDURE IN DETAIL: The patient was lying in the Trendelenburg position with head turned 30 degrees away from the insertion site. The skin was thoroughly sponged with chlorhexidine and allowed to dry. All persons involved were shielded with hair nets, face masks and sterile gowns. With sterile-gloved hands the right neck area was draped with the large disposable sterile field provided in the pre-manufactured kit. The skin and subcutaneous tissues superficial to the RIGHT internal jugular vein were anesthetized with 2 mL of 1% lidocaine. The RIGHT internal jugular vein was identified on ultrasound from the angle of the mandible down into the supraclavicular fossa using the linear ultrasound probe in the transverse orientation. The carotid artery was identified and avoided utilizing color-flow. The internal jugular vein was then placed in the center of the ultrasound field and compressed for patency. A movement artifact was identified as the needle was advanced through the skin and advanced toward the vessel. A real time hyperechoic signal revealed visualization of vascular needle entry into the lumen as blood was noted to flashback in the syringe. The needle was then held in place while the guide wire was advanced. The needle was then removed. Direct visualization of guide wire location within the vein was noted on ultrasound indicating proper placement and was document in the electronic medical record chart. A skin dilator was advanced over the guidewire and removed, and the triple-lumen catheter was then advanced over the guide wire into proper position. The guide wire was removed and discarded. The ports were aspirated which showed good blood return and then carefully flushed with normal saline. The catheter was stabilized and sutured to the skin at 2 anchor points. A sterile bio-patch and dressing was placed over the catheter, including the insertion site. The patient tolerated the procedure well. A chest x-ray was ordered for position confirmation. Post-procedure chest x-ray no pneumothorax. Date of Service: Jul 22, 2025 Billing Provider: SIRISHA MA MD Common Visit Codes: PROCEDURE ONLY Procedure Codes: [id number] NON-TUNNEL CV CATH TIM COLLIER RESIDENT Jul 22, 2025 14:20
--- NOTE | 2025-07-22 14:20 | DVHPNRES ---
Progress Note Date Seen: Jul 22, 2025 Resident Creating Document: TIM COLLIER RESIDENT Medical Necessity Reason Pt with a Central, PICC or Fol: Yes The following are medically ne: Central Line, Andrea Catheter Subjective Review of Systems Patient is 60-year-old female with past medical history of hypertension, diabetes mellitus type 2, chronic bronchitis/Chronic obstructive pulmonary disease who initially presented with abdominal pain. Initially on 06/23/2025 patient underwent surgery for ventral hernia causing partial bowel obstruction. During procedure patient found to have multiple abdominal wall/interloop agitations, underwent mesh implant and patient was following outpatient setting with surgeon. Patient had recent hospitalization for postoperative abdominal pain, was discharged on 07/08/2025 with pain control. However patient continued to have abdominal pain 03/30, constant, diffuse, associated nausea and vomiting, that prompted visit to hospital. Patient found to have high-grade small-bowel obstruction and underwent to laparotomy procedure on 07/20/2025 and 07/22/2025. And then patient has been transferred to ICU for further care. Past medical history: Hypertension, diabetes mellitus type 2, perforation of bowel Past surgical history: History of ventral hernia repair on 06/23/2025, history of abdominal surgery in 2020. Cholecystectomy, appendectomy Personal history: Former smoker, occasional marijuana use. No any other recreational drug or alcohol use. Family history: Lives with family Allergy: None Home medication 07/22/2025: Patient is in ICU. Status post laparotomy abdominal surgery done by Dr. Almeida. Minimal urine output, requiring vasopressor. Underwent right IJ central line insertion. Receiving IV antibiotics. Objective vital signs Vital Sign Date Time Temp Pulse Resp B/P (MAP) Pulse Ox O2 Delivery O2 Flow Rate FiO2 07/22/25 14:02 128 22 84/62 (69) 98 50 07/22/25 13:00 99.7 99.7 07/22/25 12:00 Mechanical Ventilator+ 07/21/25 16:40 0 Total Intake and Output 07/21/25 07/21/25 07/22/25 15:00 23:00 07:00 Intake Total 206 ml 1566.5 ml Output Total 1000 ml Balance 206 ml 566.5 ml medications Current Medications Medications Dose Ordered Sig/Susana Route Start Time Stop Time Status Last Admin Dose Admin Piperacillin Sod/ Tazobactam Sod 100 ml @ 25 mls/hr Q8HR IV 07/22/25 06:00 07/22/25 05:16 25 MLS/HR Metronidazole 100 ml @ 100 mls/hr Q8HR IV 07/22/25 06:00 07/22/25 05:16 100 MLS/HR Labetalol HCl 5 mg Q2HPRN PRN IV 07/21/25 23:00 Diagnostic Test (Pha) 1 strip Q6HR 07/22/25 00:00 07/22/25 12:00 1 STRIP Insulin Human Regular Q6HR SC 07/22/25 00:00 07/22/25 12:36 4 UNITS Dextrose 50 ml UD PRN IV 07/21/25 23:00 Fentanyl Citrate 250 ml @ 2.5 mls/hr Q24H IV 07/21/25 23:15 07/21/25 23:15 2.5 MLS/HR Propofol 100 ml @ 2.73 mls/hr Q24H IV 07/21/25 23:15 Midazolam HCl 100 ml @ 1 mls/hr Q24H IV 07/22/25 10:45 Norepinephrine Bitartrate 250 ml @ 3.75 mls/hr Q24H IV 07/22/25 12:30 Lactated Ringer's 1,000 ml @ 100 mls/hr Q10H IV 07/22/25 13:00 07/22/25 13:00 100 MLS/HR Pantoprazole Sodium 40 mg DAILY IV 07/23/25 10:00 Examination General Appearance: Sedated on ventilation. Head Exam: Normal inspection Neck Exam: Normal inspection. Non-tender. Normal alignment Pulmonary/Respiratory: Chest non-tender. Clear bilateral breath sounds Cardiovascular/Chest: Regular rate and rhythm. No murmurs. No JVD. Peripheral Pulses: 2+ Radial (R). 2+ Radial (L). 2+ Pedal (R). 2+ Pedal (L) Abdominal Exam: Presence of two MUNA drain, dressing over laparotomy incision site. Status post surgery, deep palpation was avoided. Ankle Exam: Negative ankle edema Lower extremities: Negative lower extremity edema Neuro/Mental Status: Sedated laboratory and microbiology Laboratory Tests 07/22/25 03:23 Test 07/22/25 03:23 Range/Units Serum Glucose 208 H 74-106 mg/dL Problem List/Assessment/Plan Problem List/Assessment/Plan Neurology Acute metabolic encephalopathy likely due to sepsis Sedated -on fentanyl and Versed Cardiovascular Sinus tachycardia likely due to underlying sepsis -continue treatment of sepsis Septic shock due to peritonitis, incarcerated small bowel obstruction -IV antibiotic with Zosyn and vancomycin -panculture: Blood, respiratory, urine -IV fluid bolus of 1.5 L has been given -lactic acid: -target map greater than 65 -on vasopressors Levophed -CVP monitoring: Currently low 4 to 6 mmHg. Respiratory Acute hypoxic respiratory failure due to sepsis -on mechanical ventilation -volume control assisted: Respiratory rate 22, tidal volume 450, FiO2 50%, peep of five -chest x-ray in a.m. Gastroenterology High-grade small-bowel obstruction Incarcerated umbilical hernia Bowel gangrene Perforation of transverse colon Abdominal adhesions Acute peritonitis -status post laparotomy surgery on 07/20/2025 and 07/22/2025. -NPO -surgery -MUNA drain -wound care -IV antibiotic -TPN History of ventral incisional hernia repair on 06/23/2025 History of abdominal surgery in 2020 Nephrology ROGERIO due to VMN due to hemodynamically mediated related to septic shock Low urine output -creatinine 0.58, 1.38 -hyperkalemia -lactic acidosis -IV fluid to maintain CVP Hyperkalemia Metabolic acidosis -potassium 5.4 -IV bicarbonate, albuterol and insulin. Endocrine Diabetes mellitus type 2 -serum glucose 199 -IV insulin 10 units for uncontrolled diabetes and hyperkalemia -continue to monitor Obesity BMI 32.4 Lines: Right IJ on 07/22/2025 Intubated on 07/21/2025 Feeding: NPO Nutrition: TPN Andrea catheter Goals of care discussed at bedside with and sister. Full code status. Critical care time spent 90 minutes. Outside of procedure. Plan discussed with Plan discussed with: Spouse (Sister and RN), Other My Orders My Orders Orders - TIM COLLIER RESIDENT Procedure Category Date Status Time Norepinephrine 8 PHA 07/22/25 In Process Mg/250ml Kit 12:30 Obtain Consent For: ORDERS 07/22/25 Transmitted 12:21 Lactated Ringer's PHA 07/22/25 In Process 13:00 Blood Culture CHRIS 07/22/25 Logged 12:53 Respiratory Culture CHRIS 07/22/25 Logged W/ Gs 12:53 Urine Bacterial CHRIS 07/22/25 Logged Culture 12:53 Basic Metabolic Panel LAB 07/22/25 Logged 12:53 Lactic Acid W/ Reflex LAB 07/22/25 Logged Order 12:53 Pantoprazole PHA 07/23/25 In Process (Protonix) 10:00 Chest Portable XY 07/22/25 Taken 13:57 TIM COLLIER RESIDENT Jul 22, 2025 14:20
[2025-07-22] MEDS: PANTOPRAZOLE 40 MG/10 ML VIAL INJ IV ONE (14:42)
--- NOTE | 2025-07-22 14:52 | DVH ---
CLINICAL INFORMATION: Status post central line placement. TECHNIQUE: Single AP portable chest radiograph was obtained. COMPARISON: Chest radiograph from earlier the same day at 11:38 a.m.. FINDINGS: Interval placement of a right internal jugular central venous catheter with the tip at the SVC / RA j unction. Stable satisfactory positioning of the endotracheal tube and enteric tube. No pneumothorax. No other significant interval change. IMPRESSION: 1. Interval placement of a right internal jugular central venous catheter in satisfactory position. S table satisfactory positioning of the endotracheal tube and enteric tube. 2. No pneumothorax. No other significant interval change.
[2025-07-22] MEDS ORDERED: SUCCINYLCHOLINE 20mg/ml 100mg/5ml SYRINGE IV ONE (16:13)
[2025-07-22 16:25] LABS: Chloride 105 mmol/L (98-107); Sodium 140 mmol/L (136-145)
[2025-07-22 16:26] LABS: Anion Gap 13 (5-15); Carbon Dioxide 22 mmol/L (20-31)
[2025-07-22 16:31] LABS: BUN/Creatinine Ratio 9.4 (10.0-20.0); Blood Urea Nitrogen 13 mg/dL (9-23)
[2025-07-22 16:38] LABS: Calcium 8.0 mg/dL (8.7-10.4); Glucose 199 mg/dL (74-106); Potassium 5.4 mmol/L (3.5-5.1)
[2025-07-22 16:40] LABS: Lactic Acid w/Reflex 3.9 mmol/L (0.4-2.0)
[2025-07-22] MEDS: ALBUTEROL SULF 2.5 MG/0.5ML(0.5%) NEB SOLN NEB ONE (16:53)
[2025-07-22] MEDS: LACTATED RINGER'S 500 ML IV ONE (16:53)
[2025-07-22] MEDS: SODIUM BICARB 8.4% 50Meq/50ml SYR Vial IV ONE (16:58)
[2025-07-22] MEDS: DEXTROSE (50%) 50ML SYRG IV ONE (16:58)
[2025-07-22] MEDS: InsuLIN REG 1unit/0.01ml Soln (100units/ml) IV ONE (17:04)
[2025-07-22] MEDS: LACTATED RINGER'S 1,000 ML IV ONE (18:00)
--- NOTE | 2025-07-22 18:19 | DVHINCON2 ---
Date of service: Jul 22, 2025 Referring Physician Hospital Reason for Consultation Acute kidney injury History of Present Illness 60-year-old female past medical history of COPD, diverticulosis, PTSD patient has had multiple abdominal surgeries in the past including appendectomy and gallbladder removal. One month ago patient had a ventral abdominal hernia repair with mesh which per surgery report became infected she presented to the hospital with severe abdominal pain. Overnight she was taken for emergent exploratory laparoscopic surgery. Per ICU nurse at bedside patient was taken back to the OR and had transverse colon resection, washout and mesh removal. N ephrology is consulted due to postoperative decreased urinary output and abnormal labs. Patient is intubated currently on pressors has abdominal binder and multiple MUNA drains Allergies: Coded Allergies: NO KNOWN ALLERGIES (Unverified , 01/14/19) Home Meds Active Scripts Docusate Sodium (Colace) 100 Mg Cap, 1 CAP PO BID, #30 CAP Prov:CLARISA OROSCO MD 07/08/25 Ondansetron Odt 4MG Tab (ZOFRAN PO) 4 Mg Tb, 4 MG PO Q6HPRN PRN, #20 TAB ODT TAB-DISSOLVE IN MOUTH, THEN SWALLOW Prov:ADIA CRAFT MD 07/08/25 Pantoprazole Sodium Sesquihydr (Pantoprazole Sodium) 40 Mg Tab, 40 MG PO BID, #30 TAB Prov:TERRENCE DE SOUZA MD 06/26/25 Metronidazole (Flagyl) 500 Mg Tab, 1 TAB PO TID, #30 TAB Prov:TERRENCE DE SOUZA MD 06/26/25 Levofloxacin Hemihydrate (LEVAQUIN 500 MG) 500 Mg Tab, 1 TAB PO DAILY, #10 TAB Prov:TERRENCE DE SOUZA MD 06/26/25 Reported Medications Cholecalciferol (VITAMIN D3) 2,000 Unit Tab, 1 TAB PO DAILY, #30 TAB 5 Refills 01/15/19 Ibuprofen (Ibuprofen) 600 Mg Tab, 600 MG PO QIDP PRN for MILD PAIN, MG 0 Refills 01/15/19 Omeprazole (Gnp Omeprazole) 20 Mg Tab, 10 MG PO DAILY, TAB 01/15/19 Lisinopril (Lisinopril) 40 Mg Tab, 40 MG PO DAILY for 30 Days, MG 01/15/19 Gabapentin (Gabapentin) 300 Mg Cap, 300 MG PO BID for 30 Days, MG 01/15/19 Meloxicam (Meloxicam) 7.5 Mg Tab, 1 TAB PO DAILY, #30 TAB 2 Refills 01/15/19 Oxycodone W/ Acetaminophen (Percocet 5/325MG) 1 Tab Tb, 2 TAB PO QIDPRN PRN for MODERATE PAIN 01/15/19 Current Medications Current Medications Medications (Trade) Dose Ordered Sig/Susana Route PRN Reason Start Time Stop Time Status Last Admin Midazolam HCl 100 ml @ 1 mls/hr Q24H IV 07/21/25 21:30 07/22/25 11:07 DC 07/22/25 05:28 Piperacillin Sod/ Tazobactam Sod 100 ml @ 25 mls/hr Q8HR IV 07/22/25 06:00 07/22/25 14:41 Metronidazole 100 ml @ 100 mls/hr Q8HR IV 07/22/25 06:00 07/22/25 14:35 Famotidine (Pepcid Injection) 20 mg Q12HR IV 07/22/25 10:00 07/22/25 12:59 DC 07/22/25 12:35 Labetalol HCl (Labetalol HCl) 5 mg Q2HPRN PRN IV SBP>150 07/21/25 23:00 Diagnostic Test (Pha) (Accu-Chek Comfort Curve T) 1 strip Q6HR 07/22/25 00:00 07/22/25 12:00 Insulin Human Regular (InsuLIN R) Q6HR SC 07/22/25 00:00 07/22/25 12:36 Dextrose 50 ml UD PRN IV Blood Sugar LESS THAN 60 07/21/25 23:00 Sodium Chloride 1,000 ml @ 60 mls/hr [id number] IV 07/21/25 23:00 07/22/25 11:52 DC 07/22/25 02:00 Ondansetron HCl (Zofran) 4 mg Q4HP PRN IV NAUSEA / VOMITING 07/21/25 23:00 07/22/25 12:59 DC Nitroglycerin (Ntrostat Sublingual) 0.4 mg Q5MINP PRN SL FOR CHEST PAIN 07/21/25 23:00 07/22/25 12:59 DC Morphine Sulfate 2 mg Q30M PRN IV FOR CHEST PAIN 07/21/25 23:00 07/22/25 12:59 DC Acetaminophen (Tylenol Suppository) 650 mg Q6HP PRN SD PAIN SCALE 1-3 OR TEMP>100.4 07/21/25 23:00 07/22/25 12:59 DC Fentanyl Citrate 250 ml @ 2.5 mls/hr Q24H IV 07/21/25 20:37 07/21/25 23:07 DC Fentanyl Citrate 250 ml @ 2.5 mls/hr Q24H IV 07/21/25 23:15 07/22/25 14:55 Propofol 100 ml @ 2.73 mls/hr Q24H IV 07/21/25 23:15 Potassium Chloride 100 ml @ 50 mls/hr Q2H IV 07/22/25 01:45 07/22/25 05:44 DC 07/22/25 03:31 Potassium Chloride/Dextrose/ Sod Cl 1,000 ml @ 120 mls/hr Q8H20M IV 07/22/25 10:45 07/22/25 12:59 DC Lactated Ringer's 1,000 ml @ 50 mls/hr Q20H IV 07/22/25 10:45 07/22/25 12:59 DC Midazolam HCl 100 ml @ 1 mls/hr Q24H IV 07/22/25 10:45 07/22/25 16:35 Sodium Chloride 1,000 ml @ 100 mls/hr Q10H IV 07/22/25 12:00 07/22/25 12:40 DC Norepinephrine Bitartrate 250 ml @ 3.75 mls/hr Q24H IV 07/22/25 12:30 Lactated Ringer's 1,000 ml @ 100 mls/hr Q10H IV 07/22/25 13:00 07/22/25 13:00 Pantoprazole Sodium (Protonix) 40 mg DAILY IV 07/23/25 10:00 Acetaminophen (Ofirmev) 1,000 mg [id number] PRN IV PAIN SCALE 1-3 OR TEMP>100.4 07/22/25 13:00 07/22/25 13:32 DC Linezolid 300 ml @ 150 mls/hr Q12HR@0400,1600 IV 07/22/25 17:30 Family History: Diabetes mellitus G8 MOTHER, Age: 72 Hypertension G8 MOTHER, Age: 72 Thyroid disease G8 MOTHER, Age: 72 Review of Systems Can not obtain due to critical illness H&P Exam Vital Signs/I&O Vital Sign Date Time Temp Pulse Resp B/P (MAP) Pulse Ox O2 Delivery O2 Flow Rate FiO2 07/22/25 16:45 119 22 93/58 (70) 97 67/46 (53) 07/22/25 16:20 Mechanical Ventilator+ 40 40 07/22/25 16:00 99.8 99.8 07/21/25 16:40 0 Intake and Output 07/21/25 07/22/25 19:00 07:00 Intake Total 200 ml 1595.0 ml Output Total 1000 ml Balance 200 ml 595.0 ml Intake IV Total 200 ml 1595.0 ml Output Urine Total 1000 ml Physical Exam Obese white female Appears critically ill Intubated Sedated On pressors has decreased capillary refill and cold extremities to the touch Abdominal binder with MUNA drains Andrea catheter Sinus tachycardia with hypotension Labs/Diagnostic Data Labs/Diagnostic Data Laboratory Tests Test 07/22/25 17:00 07/22/25 15:03 07/22/25 14:09 07/22/25 11:12 Range/Units POC Glucose 179 H 212 H 70-106 mg/dl Sodium Level 140 136-145 mmol/L Potassium Level 5.4 H 3.5-5.1 mmol/L Chloride Level 105 98-107 mmol/L Carbon Dioxide Level 22 20-31 mmol/L Anion Gap 13 5-15 Blood Urea Nitrogen 13 9-23 mg/dL Creatinine 1.38 #H 0.550-1.02 mg/dL Glomerular Filtration Rate Calc 44 >90 mL/min BUN/Creatinine Ratio 9.4 L 10.0-20.0 Serum Glucose 199 H 74-106 mg/dL Lactic Acid Level 3.9 *H 0.4-2.0 mmol/L Calcium Level 8.0 L 8.7-10.4 mg/dL Blood Gas Specimen Type Arterial Blood Gas Sample Site Right radial Blood Gas Patient Temperature 37.0 Arterial Blood Date Drawn [id number] Arterial Blood pH 7.320 L 7.350-7.450 Arterial Blood Partial Pressure CO2 43.1 32.0-45.0 mmHg Arterial Blood Partial Pressure O2 99.0 83.0-108.0 mmHg Arterial Blood HCO3 21.7 21.0-28.0 mmol/L Arterial Blood Oxygen Saturation 97.0 94.0-98.0 % Arterial Blood Base Excess -4.3 L -2.0-3.0 mmol/L Arterial Blood Oxyhemoglobin 95.8 94.0-98.0 % Arterial Blood Carboxyhemoglobin 0.6 0.5-1.5 % Arterial Blood Methemoglobin 0.6 0.0-1.5 % Martinez Test Modified Blood Gas Total Hemoglobin 14.90 12.0-16.0 g/dL Blood Gas Set Respiration Rate 22.0 Blood Gas Modality Vent - ac FiO2 % 50.0 Blood Gas Tidal Volume 450.0 Blood Gas PEEP or CPAP 5.0 Test 07/22/25 05:07 07/22/25 03:23 07/21/25 23:57 07/21/25 23:50 Range/Units POC Glucose 208 H 219 H 70-106 mg/dl White Blood Count 19.1 H 16.8 #H 4.4-10.8 10^3/uL Red Blood Count 4.53 4.44 4.0-5.20 10^6/uL Hemoglobin 12.7 12.2 12.2-16.2 g/dL Hematocrit 38.3 37.8 36.0-46.0 % Mean Corpuscular Volume 84.6 85.2 80.0-100.0 fL Mean Corpuscular Hemoglobin 27.9 L 27.4 L 28.0-32.0 pg Mean Corpuscular Hemoglobin Concent 33.0 32.1 32.0-36.0 g/dL Red Cell Distribution Width 14.7 H 14.5 H 11.8-14.3 % Platelet Count 520 H 486 H 140-450 10^3/uL Mean Platelet Volume 7.8 8.1 6.9-10.8 fL Neutrophils (%) (Auto) 86.9 H 87.8 H 37.0-80.0 % Lymphocytes (%) (Auto) 3.7 L 4.4 L 10.0-50.0 % Monocytes (%) (Auto) 9.2 7.4 0.0-12.0 % Eosinophils (%) (Auto) 0.0 0.1 0.0-7.0 % Basophils (%) (Auto) 0.2 0.3 0.0-2.0 % Neutrophils # (Auto) 16.6 H 14.8 H 1.6-8.6 10 ^3/uL Lymphocytes # (Auto) 0.7 0.7 0.4-5.4 10 ^3/uL Monocytes # (Auto) 1.8 H 1.2 0-1.3 10 ^3/uL Eosinophils # (Auto) 0 0 0-0.8 10 ^3/uL Basophils # (Auto) 0 0 0-0.2 10 ^3/uL Nucleated Red Blood Cells 0.0 0.1 % Sodium Level 140 142 136-145 mmol/L Potassium Level 4.3 3.3 L 3.5-5.1 mmol/L Chloride Level 105 103 98-107 mmol/L Carbon Dioxide Level 26 28 20-31 mmol/L Anion Gap 9 11 5-15 Blood Urea Nitrogen 18 17 9-23 mg/dL Creatinine 0.58 0.64 0.550-1.02 mg/dL Glomerular Filtration Rate Calc 105 102 >90 mL/min BUN/Creatinine Ratio 31.0 H 26.6 H 10.0-20.0 Serum Glucose 208 H 205 H 74-106 mg/dL Calcium Level 8.4 L 8.7 8.7-10.4 mg/dL Total Bilirubin 1.0 0.2-1.0 mg/dL Aspartate Amino Transferase (AST) 22 13-40 U/L Alanine Aminotransferase (ALT) 20 7-40 U/L Alkaline Phosphatase 71 46-116 U/L Total Protein 4.6 L 5.7-8.2 g/dL Albumin 3.2 3.2-4.8 g/dL Magnesium Level 1.8 1.6-2.6 mg/dL Test 07/21/25 22:06 07/21/25 22:04 07/21/25 18:42 07/21/25 15:20 Range/Units POC Glucose 235 H 70-106 mg/dl Blood Gas Specimen Type Arterial Blood Gas Sample Site Arterial line Blood Gas Patient Temperature 37.0 Arterial Blood Date Drawn [id number] Arterial Blood pH 7.460 H 7.350-7.450 Arterial Blood Partial Pressure CO2 27.7 L 32.0-45.0 mmHg Arterial Blood Partial Pressure O2 79.9 L 83.0-108.0 mmHg Arterial Blood HCO3 19.3 L 21.0-28.0 mmol/L Arterial Blood Oxygen Saturation 94.5 94.0-98.0 % Arterial Blood Base Excess -3.6 L -2.0-3.0 mmol/L Arterial Blood Oxyhemoglobin 94.0 94.0-98.0 % Arterial Blood Carboxyhemoglobin 0.3 L 0.5-1.5 % Arterial Blood Methemoglobin 0.2 0.0-1.5 % Martinez Test N/a Blood Gas Total Hemoglobin 10.60 L 12.0-16.0 g/dL Blood Gas Set Respiration Rate 12.0 Blood Gas Modality Vent - cpap Blood Gas Spontaneous Rate 14 FiO2 % 50.0 Blood Gas Tidal Volume 500.0 Blood Gas Spontaneous Tidal Volume 508 Blood Gas PEEP or CPAP 5.0 Blood Gas Critical Value Read Back Yes Urine Color Yellow Yellow Urine Clarity Clear Clear Urine pH 8.0 5.0-9.0 Urine Specific [place]ber[place] 1.029 1.001-1.035 Urine Protein 1+ H Negative Urine Ketones 1+ H Negative Urine Blood Negative Negative /uL Urine Nitrite Negative Negative Urine Bilirubin Negative Negative Urine Urobilinogen 12 H Negative mg/dL Urine Leukocyte Esterase Negative Negative /uL Urine RBC 2 0 - 4 /hpf Urine Microscopic WBC 1 0-5 /HPF Urine Squamous Epithelial Cells Few <5 /hpf Urine Bacteria Few H None Seen /hpf Urine Hyaline Casts Few 0 - 2 /lpf Urine Mucus Few None Seen Urine Glucose Normal Normal mg/dL White Blood Count 13.1 H 4.4-10.8 10^3/uL Red Blood Count 4.71 4.0-5.20 10^6/uL Hemoglobin 13.0 12.2-16.2 g/dL Hematocrit 39.3 36.0-46.0 % Mean Corpuscular Volume 83.4 80.0-100.0 fL Mean Corpuscular Hemoglobin 27.6 L 28.0-32.0 pg Mean Corpuscular Hemoglobin Concent 33.1 32.0-36.0 g/dL Red Cell Distribution Width 14.4 H 11.8-14.3 % Platelet Count 527 H 140-450 10^3/uL Mean Platelet Volume 7.8 6.9-10.8 fL Neutrophils (%) (Auto) 85.3 H 37.0-80.0 % Lymphocytes (%) (Auto) 8.9 L 10.0-50.0 % Monocytes (%) (Auto) 5.0 0.0-12.0 % Eosinophils (%) (Auto) 0.2 0.0-7.0 % Basophils (%) (Auto) 0.6 0.0-2.0 % Neutrophils # (Auto) 11.1 H 1.6-8.6 10 ^3/uL Lymphocytes # (Auto) 1.2 0.4-5.4 10 ^3/uL Monocytes # (Auto) 0.7 0-1.3 10 ^3/uL Eosinophils # (Auto) 0 0-0.8 10 ^3/uL Basophils # (Auto) 0.1 0-0.2 10 ^3/uL Nucleated Red Blood Cells 0.0 % Sodium Level 138 136-145 mmol/L Potassium Level 3.7 3.5-5.1 mmol/L Chloride Level 97 L 98-107 mmol/L Carbon Dioxide Level 29 20-31 mmol/L Anion Gap 12 5-15 Blood Urea Nitrogen 15 9-23 mg/dL Creatinine 0.66 0.550-1.02 mg/dL Glomerular Filtration Rate Calc 102 >90 mL/min BUN/Creatinine Ratio 22.7 H 10.0-20.0 Serum Glucose 185 H 74-106 mg/dL Calcium Level 10.4 8.7-10.4 mg/dL Microbiology Date/Time Source Procedure Growth Status 07/21/25 23:00 Nose MRSA Screen - Final Complete Assessment Acute kidney injury hemodynamically mediated with possible early onset acute tubular necrosis IV fluid hydration aggressive replacement and pressors to maintain mean arterial pressure greater than 65 No previous evidence of chronic kidney disease recent baseline kidney function was less than one Septic shock in the setting of abdominal infection colonic perforation and infected mesh -IV antibiotics - management as per surgery Acute respiratory failure Management as per critical Care primary medical team Metabolic derangements: Hyperkalemia, metabolic acidosis - start sodium bicarbonate drip - Daily ABG - vent management as per ICU No emergent indication for hemodialysis at this time however patient is critically ill and chances of requiring renal replacement is high. We will require daily assessment Avoid contrast studies in the subacute kidney injury. And avoid NSAIDs Plan discussed with: Other (nurse) OBINNA WINKLER MD Jul 22, 2025 18:19
[2025-07-22] MEDS ORDERED: TPN PER PHARMACY 0 ML IV SCH (18:30)
[2025-07-22] MEDS: LINEZOLID 600MG/300ML 300 ML IV SCH (18:43)
[2025-07-22] MEDS ORDERED: DEXTROSE (50%) 50ML SYRG IV SCH (19:00)
[2025-07-22] MEDS: SODIUM BICARB 50mEq/50ml SYR 75 ML in SOD CHL 0.45% 1,000 ML IV SCH (19:28)
[2025-07-22 20:12] LABS: Chloride 105 mmol/L (98-107); Potassium 4.2 mmol/L (3.5-5.1); Sodium 140 mmol/L (136-145)
[2025-07-22 20:13] LABS: Anion Gap 7 (5-15); Carbon Dioxide 28 mmol/L (20-31)
[2025-07-22 20:18] LABS: BUN/Creatinine Ratio 18.3 (10.0-20.0)
[2025-07-22 20:19] LABS: Blood Urea Nitrogen 24 mg/dL (9-23); Calcium 7.7 mg/dL (8.7-10.4); Glucose 232 mg/dL (74-106)
[2025-07-22 20:26] LABS: Base Excess -0.9 mmol/L (-2.0-3.0)
[2025-07-22] MEDS: SODIUM CHLORIDE 0.9% 500 ML IV ONE (21:00)
[2025-07-22 21:17] LABS: Triglycerides 88.0 mg/dL (< 150)
[2025-07-22 21:18] LABS: Magnesium 1.8 mg/dL (1.6-2.6)
[2025-07-22 21:19] LABS: Cholesterol 101.0 mg/dL (< 200); HDL Cholesterol 47.0 mg/dL (40-59)
[2025-07-22] MEDS: AMINO ACID INFUSION IN D10W 1,000 ML IV SCH (21:24)
[2025-07-22 22:19] LABS: INR 1.52 (0.9-1.15); Partial Thromboplastin Time 30.6 SEC (24.5-34.5); Prothrombin Time 15.5 sec (9.3-11.8)
--- NOTE | 2025-07-22 22:43 | DVHINCON2 ---
Date of service: Jul 22, 2025 Referring Physician YVETTE Harmon Reason for Consultation Acute hypoxic respiratory failure requiring mechanical ventilator History of Present Illness A The patient is a 60-year-old female with past medical history of AFib, diabetes mellitus, and hypertension who presented to ED on 07/21/25 with complaint of abdominal pain. Patient reported ongoing abdominal pain rated 8/10 on numeric scale, described pain as sharp in nature, constant, diffuse, associated with nausea, vomiting, and unable to keep any fluids or food down. Patient had hernia repair surgery on 06/22/25, was then admitted the following week given infection at surgical site and had a drain placed. Patient was seen and evaluated in the ED, laboratory data shows WBC 16.8, platelets 486, sodium 138, potassium 3.2, BUN 15, creatinine 0.66, glucose 185, calcium 10.5. Initial vitals show blood pressure 169/77, heart rate 104, temperature 99.0 F, O2 saturation 95% on ventilator. Abdomen/pelvis CT revealing high-grade small-bowel obstruction secondary to an infraumbilical hernia containing small bowel loops measuring 17 x 7.7 cm, associated edema and stranding within the hernia sac raising concern for incarceration/strangulation; supraumbilical hernia containing ascites fluid measuring 9.1 x 4.3 cm; left lower lobe atelectasis/developing consolidation. Patient underwent surgical procedure by incision of the preexisting scar performed approximately 4 weeks ago by another surgeon at this facility. The abdomen was entered and amount of serous fluid was evacuated. Cultures were submitted by Donn Rodriguez MD. Patient was started on IV antibiotic regimen Zosyn. She was admitted to intensive care unit from operating room for further possible surgical procedure and medical management. Pulmonary consultation is requested for evaluation and vent management . Review of Systems: Unable to obtain d/t intubated status Past Medical History AFIB, DM, HTN Past Surgical History Hernia Repair Medications: Reviewed. Allergies: No known drug allergies. Family History: No family history of premature CAD. No family history of lung disorders. Social History: Nonsmoker. No alcohol or illicit drug use. Family History: Diabetes mellitus G8 MOTHER, Age: 72 Hypertension G8 MOTHER, Age: 72 Thyroid disease G8 MOTHER, Age: 72 Allergies: Coded Allergies: NO KNOWN ALLERGIES (Unverified , 01/14/19) Home Meds Active Scripts Docusate Sodium (Colace) 100 Mg Cap, 1 CAP PO BID, #30 CAP Prov:CLARISA OROSCO MD 07/08/25 Ondansetron Odt 4MG Tab (ZOFRAN PO) 4 Mg Tb, 4 MG PO Q6HPRN PRN, #20 TAB ODT TAB-DISSOLVE IN MOUTH, THEN SWALLOW Prov:ADIA CRAFT MD 07/08/25 Pantoprazole Sodium Sesquihydr (Pantoprazole Sodium) 40 Mg Tab, 40 MG PO BID, #3 0 TAB Prov:TERRENCE DE SOUZA MD 06/26/25 Metronidazole (Flagyl) 500 Mg Tab, 1 TAB PO TID, #30 TAB Prov:TERRENCE DE SOUZA MD 06/26/25 Levofloxacin Hemihydrate (LEVAQUIN 500 MG) 500 Mg Tab, 1 TAB PO DAILY, #10 TAB Prov:TERRENCE DE SOUZA MD 06/26/25 Reported Medications Cholecalciferol (VITAMIN D3) 2,000 Unit Tab, 1 TAB PO DAILY, #30 TAB 5 Refills 01/15/19 Ibuprofen (Ibuprofen) 600 Mg Tab, 600 MG PO QIDP PRN for MILD PAIN, MG 0 Refills 01/15/19 Omeprazole (Gnp Omeprazole) 20 Mg Tab, 10 MG PO DAILY, TAB 01/15/19 Lisinopril (Lisinopril) 40 Mg Tab, 40 MG PO DAILY for 30 Days, MG 01/15/19 Gabapentin (Gabapentin) 300 Mg Cap, 300 MG PO BID for 30 Days, MG 01/15/19 Meloxicam (Meloxicam) 7.5 Mg Tab, 1 TAB PO DAILY, #30 TAB 2 Refills 01/15/19 Oxycodone W/ Acetaminophen (Percocet 5/325MG) 1 Tab Tb, 2 TAB PO QIDPRN PRN for MODERATE PAIN 01/15/19 Current Medications Current Medications Medications (Trade) Dose Ordered Sig/Susana Route PRN Reason Start Time Stop Time Status Last Admin Piperacillin Sod/ Tazobactam Sod 100 ml @ 25 mls/hr Q8HR IV 07/22/25 06:00 07/22/25 21:40 Metronidazole 100 ml @ 100 mls/hr Q8HR IV 07/22/25 06:00 07/22/25 21:24 Famotidine (Pepcid Injection) 20 mg Q12HR IV 07/22/25 10:00 07/22/25 12:59 DC 07/22/25 12:35 Labetalol HCl (Labetalol HCl) 5 mg Q2HPRN PRN IV SBP>150 07/21/25 23:00 Diagnostic Test (Pha) (Accu-Chek Comfort Curve T) 1 strip Q6HR 07/22/25 00:00 07/22/25 23:59 07/22/25 18:00 Insulin Human Regular (InsuLIN R) Q6HR SC 07/22/25 00:00 07/22/25 23:59 07/22/25 18:50 Dextrose 50 ml UD PRN IV Blood Sugar LESS THAN 60 07/21/25 23:00 07/22/25 18:59 DC Sodium Chloride 1,000 ml @ 60 mls/hr [id number] IV 07/21/25 23:00 07/22/25 11:52 DC 07/22/25 02:00 Ondansetron HCl (Zofran) 4 mg Q4HP PRN IV NAUSEA / VOMITING 07/21/25 23:00 07/22/25 12:59 DC Nitroglycerin (Ntrostat Sublingual) 0.4 mg Q5MINP PRN SL FOR CHEST PAIN 07/21/25 23:00 07/22/25 12:59 DC Morphine Sulfate 2 mg Q30M PRN IV FOR CHEST PAIN 07/21/25 23:00 07/22/25 12:59 DC Acetaminophen (Tylenol Suppository) 650 mg Q6HP PRN FL PAIN SCALE 1-3 OR TEMP>100.4 07/21/25 23:00 07/22/25 12:59 DC Fentanyl Citrate 250 ml @ 2.5 mls/hr Q24H IV 07/21/25 23:15 07/22/25 21:25 Propofol 100 ml @ 2.73 mls/hr Q24H IV 07/21/25 23:15 Potassium Chloride 100 ml @ 50 mls/hr Q2H IV 07/22/25 01:45 07/22/25 05:44 DC 07/22/25 03:31 Potassium Chloride/Dextrose/ Sod Cl 1,000 ml @ 120 mls/hr Q8H20M IV 07/22/25 10:45 07/22/25 12:59 DC Lactated Ringer's 1,000 ml @ 50 mls/hr Q20H IV 07/22/25 10:45 07/22/25 12:59 DC Midazolam HCl 100 ml @ 1 mls/hr Q24H IV 07/22/25 10:45 07/22/25 21:25 Sodium Chloride 1,000 ml @ 100 mls/hr Q10H IV 07/22/25 12:00 07/22/25 12:40 DC Norepinephrine Bitartrate 250 ml @ 3.75 mls/hr Q24H IV 07/22/25 12:30 Lactated Ringer's 1,000 ml @ 100 mls/hr Q10H IV 07/22/25 13:00 07/22/25 19:34 DC 07/22/25 13:00 Pantoprazole Sodium (Protonix) 40 mg DAILY IV 07/23/25 10:00 Acetaminophen (Ofirmev) 1,000 mg [id number] PRN IV PAIN SCALE 1-3 OR TEMP>100.4 07/22/25 13:00 07/22/25 13:32 DC Linezolid 300 ml @ 150 mls/hr Q12HR@0400,1600 IV 07/22/25 17:30 07/22/25 18:43 Sodium Bicarbonate 75 ml/ Sodium Chloride 1,075 ml @ 125 mls/hr Q8H36M IV 07/22/25 17:45 07/22/25 19:28 Amino Acids 0 ml @ 0 mls/hr PER PHARMACY IV 07/22/25 18:30 Amino Acids/ Electrolytes/ Dextrose 1,000 ml @ 41 mls/hr DAILY@2200 IV 07/22/25 22:00 07/23/25 21:59 07/22/25 21:24 Diagnostic Test (Pha) (Accu-Chek Comfort Curve T) 1 strip Q6HR 07/23/25 00:00 Insulin Human Regular (InsuLIN R) FOLLOW SLIDING SCALE Q6HR SC 07/23/25 00:00 Dextrose 50 ml UD IV 07/22/25 19:00 Vital Signs Vital Signs Date Time Temp Pulse Resp B/P (MAP) Pulse Ox O2 Delivery O2 Flow Rate FiO2 07/22/25 20:07 107 23 102/55 (71) 97 40 07/22/25 18:15 99.8 99.8 07/22/25 18:00 Mechanical Ventilator+ 07/21/25 16:40 0 Physical Exam Gen.: Patient lying in bed in medical ICU. Sedated, intubated on mechanical ventilator. Head: Normocephalic, atraumatic. Eyes: PERRLA. Ears: Normal external anatomy. Throat: Endotracheal tube and orogastric tube in place. Neck: Supple, trachea midline. Chest: Transmitted breath sounds bilaterally. Decreased air entry bilaterally. No wheezing. Bibasilar crackles. Cardiovascular: Positive S1, positive S2. Regular rate and rhythm. Abdomen: Positive bowel sounds in all 4 quadrants. Soft, nontender, nondistended. : Andrea in place. Normal external genitalia. Rectal: Deferred. Skin: Warm, dry. Intact. Extremities: 2+ radial pulses bilaterally. No lower extremity edema. Neuro: Sedated. Labs/Diagnostic Data Labs Test 07/22/25 21:42 07/22/25 20:07 07/22/25 19:53 07/22/25 18:52 Range/Units Prothrombin Time 15.5 H 9.3-11.8 sec Prothrombin Time INR 1.52 H 0.9-1.15 Activated Partial Thromboplast Time 30.6 24.5-34.5 SEC Lactic Acid Level 2.0 0.4-2.0 mmol/L Blood Gas Specimen Type Arterial Blood Gas Sample Site Right radial Blood Gas Patient Temperature 37.0 Arterial Blood Date Drawn [id number] Arterial Blood pH 7.369 7.350-7.450 Arterial Blood Partial Pressure CO2 43.4 32.0-45.0 mmHg Arterial Blood Partial Pressure O2 89.8 83.0-108.0 mmHg Arterial Blood HCO3 24.5 21.0-28.0 mmol/L Arterial Blood Oxygen Saturation 95.6 94.0-98.0 % Arterial Blood Base Excess -0.9 -2.0-3.0 mmol/L Arterial Blood Oxyhemoglobin 95.0 94.0-98.0 % Arterial Blood Carboxyhemoglobin 0.4 L 0.5-1.5 % Arterial Blood Methemoglobin 0.2 0.0-1.5 % Martinez Test Yes Blood Gas Total Hemoglobin 12.40 12.0-16.0 g/dL Blood Gas Set Respiration Rate 22.0 Blood Gas Modality Vent - ac Blood Gas Spontaneous Rate 23 FiO2 % 40.0 Blood Gas Tidal Volume 450.0 Blood Gas Spontaneous Tidal Volume 450 Blood Gas PEEP or CPAP 5.0 Blood Gas Critical Value Read Back Yes Sodium Level 140 136-145 mmol/L Potassium Level 4.2 3.5-5.1 mmol/L Chloride Level 105 98-107 mmol/L Carbon Dioxide Level 28 20-31 mmol/L Anion Gap 7 5-15 Blood Urea Nitrogen 24 #H 9-23 mg/dL Creatinine 1.31 H 0.550-1.02 mg/dL Glomerular Filtration Rate Calc 47 >90 mL/min BUN/Creatinine Ratio 18.3 10.0-20.0 Serum Glucose 232 H 74-106 mg/dL Calcium Level 7.7 L 8.7-10.4 mg/dL Phosphorus Level 5.9 H 2.4-5.1 mg/dL Magnesium Level 1.8 1.6-2.6 mg/dL Triglycerides Level 88 < 150 mg/dL Cholesterol Level 101 < 200 mg/dL LDL Cholesterol 25 < 100 mg/dL HDL Cholesterol 47 40-59 mg/dL Thyroid Stimulating Hormone (TSH) 1.53 0.55-4.78 uIU/mL POC Glucose 197 H 70-106 mg/dl Test 07/22/25 03:23 07/21/25 18:42 Range/Units White Blood Count 19.1 H 4.4-10.8 10^3/uL Red Blood Count 4.53 4.0-5.20 10^6/uL Hemoglobin 12.7 12.2-16.2 g/dL Hematocrit 38.3 36.0-46.0 % Mean Corpuscular Volume 84.6 80.0-100.0 fL Mean Corpuscular Hemoglobin 27.9 L 28.0-32.0 pg Mean Corpuscular Hemoglobin Concent 33.0 32.0-36.0 g/dL Red Cell Distribution Width 14.7 H 11.8-14.3 % Platelet Count 520 H 140-450 10^3/uL Mean Platelet Volume 7.8 6.9-10.8 fL Neutrophils (%) (Auto) 86.9 H 37.0-80.0 % Lymphocytes (%) (Auto) 3.7 L 10.0-50.0 % Monocytes (%) (Auto) 9.2 0.0-12.0 % Eosinophils (%) (Auto) 0.0 0.0-7.0 % Basophils (%) (Auto) 0.2 0.0-2.0 % Neutrophils # (Auto) 16.6 H 1.6-8.6 10 ^3/uL Lymphocytes # (Auto) 0.7 0.4-5.4 10 ^3/uL Monocytes # (Auto) 1.8 H 0-1.3 10 ^3/uL Eosinophils # (Auto) 0 0-0.8 10 ^3/uL Basophils # (Auto) 0 0-0.2 10 ^3/uL Nucleated Red Blood Cells 0.0 % Hemoglobin A1c 5.7 <5.7 % A1C Total Bilirubin 1.0 0.2-1.0 mg/dL Aspartate Amino Transferase (AST) 22 13-40 U/L Alanine Aminotransferase (ALT) 20 7-40 U/L Alkaline Phosphatase 71 46-116 U/L Total Protein 4.6 L 5.7-8.2 g/dL Albumin 3.2 3.2-4.8 g/dL Urine Color Yellow Yellow Urine Clarity Clear Clear Urine pH 8.0 5.0-9.0 Urine Specific [place] 1.029 1.001-1.035 Urine Protein 1+ H Negative Urine Ketones 1+ H Negative Urine Blood Negative Negative /uL Urine Nitrite Negative Negative Urine Bilirubin Negative Negative Urine Urobilinogen 12 H Negative mg/dL Urine Leukocyte Esterase Negative Negative /uL Urine RBC 2 0 - 4 /hpf Urine Microscopic WBC 1 0-5 /HPF Urine Squamous Epithelial Cells Few <5 /hpf Urine Bacteria Few H None Seen /hpf Urine Hyaline Casts Few 0 - 2 /lpf Urine Mucus Few None Seen Urine Glucose Normal Normal mg/dL Microbiology Date/Time Source Procedure Growth Status 07/21/25 23:00 Nose MRSA Screen - Final Complete Assessment Impression: Acute hypoxic respiratory failure On mechanical ventilator Chronic obstructive pulmonary disease Nicotine dependence S/p exploratory laparotomy Obesity, BMI 32.4 Plan: s/p intubation on mechanical ventilator. CXR image and report reviewed. Devices in place. Improved aeration at the left lung base On AC mode; RR 22, VT 450, PEEP 5, FiO2 50% Titrate FIO2 to keep O2 saturation above 90%. VAP bundle. Daily ABG and CXR while intubated Sedate for ventilator synchrony Obtain ABG in 1 hour. Surgery recommendations appreciated. Continue bronchodilators. Continue antibiotics. Follow up cultures. IV fluids with NS at 100 ml/hr. Pressors for hemodynamic support Titrate to keep mean arterial pressure greater than 65 mmHg. Accu-Cheks, ISS Wound care Protonix for GI ppx Monitor renal function Monitor electrolytes. Supplement as necessary. Monitor ins and outs. Maintain euvolemia. Recommend diet and lifestyle modifications for weight reduction Obesity complicates all care GI prophylaxis. DVT prophylaxis. Prognosis: Poor given patient's multiple co-morbidities. Condition: Critical Rest of plan per hospitalist and other consultants. A total of 35 minutes of critical care time was spent reviewing the patient record, examining the patient, making a diagnostic and therapeutic plan, discussing this plan with the medical personnel, following up on diagnostic studies and following the patient for clinical stability excluding any and all procedures. At least 50% of this time was spent in direct, [id number] contact. Thank you, YVETTE Harmon, for allowing me to participate in this patient's care. Further recommendations will depend on the patient's clinical course. Please do not hesitate to contact me if you have any questions or concerns. This medical document was created using an electronic medical record system with [employer] dictation system. Although these documentations are being carefully reviewed, there may still be some phonetic and typographical changes. The errors are purely typographical, due to imperfection on the software program, and do not reflect any compromise in the patient's medical care. Plan discussed with: Other (ANDREI Mohr/) Visit Coding Pulmonary Billing Provider: SIRISHA MA MD Date of Service if different f: Jul 22, 2025 Common Visit Codes: [id number] CARE 30-74 MIN SIRISHA MA MD Jul 22, 2025 22:43
[2025-07-23] VITALS (107 sets, daily range): BP systolic 88–119; BP diastolic 35–63; PULSE 77–106; RESP 20–25; TEMP 97.7–99.9; O2SAT 94–100
[2025-07-23] MEDS: ACCU-CHEK COMFORT CURVE STRIP VI SCH (00:04)
[2025-07-23] MEDS: InsuLIN REG 1unit/0.01ml Soln (100units/ml) SC SCH (00:10)
--- NOTE | 2025-07-23 05:00 | DVH ---
CHEST RADIOGRAPH Indication: on vent Technique: Single frontal view of the chest was obtained Comparison: XY CHEST PORTABLE on DOS: 07/22/25, XY CHEST PORTABLE on DOS: 07/22/25, XY CHEST PORTABLE o n DOS: 07/21/25 IMPRESSION: Support lines and tubes appear unchanged in satisfactory position. The heart appears stable in size. There is increased opacification at the left hemidiaphragm which may represent consolidation or wors ening atelectasis. Possible small left effusion. Prominence of the right hilum appears increased or n ew as well which may be on the basis of the pulmonary artery or new airspace opacity. No discrete pne umothorax. Attention on follow-up is recommended. Consider CT of the chest with contrast.
[2025-07-23 05:08] LABS: Hematocrit 31.7 % (36.0-46.0); Hemoglobin 10.3 g/dL (12.2-16.2); Mean Corpuscular Hemoglobin 27.4 pg (28.0-32.0); Mean Corpuscular Volume 84.7 fL (80.0-100.0); Nucleated Red Blood Cells % 0.0 %
[2025-07-23 05:12] LABS: Alanine Aminotransferase 39 U/L (7-40); Alkaline Phosphatase 54 U/L (46-116); Anion Gap 9 (5-15); BUN/Creatinine Ratio 25.8 (10.0-20.0); Bilirubin, Total 0.6 mg/dL (0.2-1.0); Carbon Dioxide 29 mmol/L (20-31); Chloride 102 mmol/L (98-107); Magnesium 1.7 mg/dL (1.6-2.6); Potassium 4.2 mmol/L (3.5-5.1); Sodium 140 mmol/L (136-145); Triglycerides 78 mg/dL (< 150)
[2025-07-23 05:25] LABS: Albumin 2.6 g/dL (3.2-4.8); Blood Urea Nitrogen 31 mg/dL (9-23); Calcium 7.4 mg/dL (8.7-10.4); Glucose 173 mg/dL (74-106); Total Protein 4.0 g/dL (5.7-8.2)
[2025-07-23 07:22] LABS: Base Excess 1.4 mmol/L (-2.0-3.0)
[2025-07-23] MEDS: PANTOPRAZOLE 40 MG/10 ML VIAL INJ IV SCH (09:41)
[2025-07-23] MEDS: MAGNESIUM SULFATE 1GM/100ML 100 ML IV ONE (09:41)
--- NOTE | 2025-07-23 10:22 | DVHPN2 ---
Progress Note Date Seen: Jul 23, 2025 Medical Necessity Reason Pt with a Central, PICC or Fol: Yes The following are medically ne: Central Line, Larkin Catheter Reason for larkin catheter: Strict I&O Subjective Review of Systems: Deferred Objective vital signs Vital Sign Date Time Temp Pulse Resp B/P (MAP) Pulse Ox O2 Delivery O2 Flow Rate FiO2 07/23/25 09:47 102/45 07/23/25 08:45 96 22 99 07/23/25 08:15 40 07/23/25 08:15 99.3 99.3 07/23/25 08:00 Mechanical Ventilator+ 07/21/25 16:40 0 Total Intake and Output 07/22/25 07/22/25 07/23/25 15:00 23:00 07:00 Intake Total 830 ml 1837.00 ml 2183 ml Output Total 345 ml 690 ml Balance 830 ml 1492.00 ml 1493 ml medications Current Medications Medications Dose Ordered Sig/Susana Route Start Time Stop Time Status Last Admin Dose Admin Piperacillin Sod/ Tazobactam Sod 100 ml @ 25 mls/hr Q8HR IV 07/22/25 06:00 07/23/25 04:15 25 MLS/HR Metronidazole 100 ml @ 100 mls/hr Q8HR IV 07/22/25 06:00 07/23/25 05:07 100 MLS/HR Labetalol HCl 5 mg Q2HPRN PRN IV 07/21/25 23:00 Fentanyl Citrate 250 ml @ 2.5 mls/hr Q24H IV 07/21/25 23:15 07/23/25 04:14 30 MLS/HR Propofol 100 ml @ 2.73 mls/hr Q24H IV 07/21/25 23:15 Midazolam HCl 100 ml @ 1 mls/hr Q24H IV 07/22/25 10:45 07/23/25 09:47 15 MLS/HR Norepinephrine Bitartrate 250 ml @ 3.75 mls/hr Q24H IV 07/22/25 12:30 07/23/25 03:06 15 MLS/HR Pantoprazole Sodium 40 mg DAILY IV 07/23/25 10:00 07/23/25 09:41 40 MG Linezolid 300 ml @ 150 mls/hr Q12HR@0400,1600 IV 07/22/25 17:30 07/23/25 03:00 150 MLS/HR Sodium Bicarbonate 75 ml/ Sodium Chloride 1,075 ml @ 125 mls/hr Q8H36M IV 07/22/25 17:45 07/23/25 02:02 125 MLS/HR Amino Acids 0 ml @ 0 mls/hr PER PHARMACY IV 07/22/25 18:30 Amino Acids/ Electrolytes/ Dextrose 1,000 ml @ 41 mls/hr DAILY@2200 IV 07/22/25 22:00 07/23/25 21:59 07/22/25 21:24 41 MLS/HR Diagnostic Test (Pha) 1 strip Q6HR 07/23/25 00:00 07/23/25 04:25 1 STRIP Insulin Human Regular FOLLOW SLIDING SCALE Q6HR SC 07/23/25 00:00 07/23/25 04:33 4 UNITS Dextrose 50 ml UD IV 07/22/25 19:00 laboratory and microbiology Laboratory Tests 07/23/25 03:30 Test 07/23/25 03:30 Range/Units Serum Glucose 173 H 74-106 mg/dL Microbiology Date/Time Source Procedure Growth Status 07/21/25 23:00 Nose MRSA Screen - Final Complete Problem List/Assessment/Plan Problem List/Assessment/Plan Acute kidney injury hemodynamically mediated IV fluid hydration aggressive replacement and pressors to maintain mean arterial pressure greater than 65 Renal function improved with IV fluids Remains on Levophed we will continue IV fluids Lasix IV push today No previous evidence of chronic kidney disease recent baseline kidney function was less than one Septic shock in the setting of abdominal infection colonic perforation and infected mesh -IV antibiotics - management as per surgery Acute respiratory failure Management as per critical Care primary medical team Metabolic derangements: Hyperkalemia, metabolic acidosis - convert to LR @ rate 100cc/hr now that hyperkalemia and metabolic acidosis have resolved - vent management as per ICU No emergent indication for hemodialysis at this time Avoid contrast studies in the subacute kidney injury. And avoid NSAIDs Plan discussed with: Other My Orders My Orders Orders - OBINNA WINKLER MD Procedure Category Date Status Time Sod Chl 0.45% PHA 07/22/25 In Process (Sodi... W/Sodium 17:45 Strict I & O SLOANE 07/22/25 In Process 17:41 Dietary Evaluation Review Comments: 1) Increase TPN rate to meet at least 75% estimated daily needs 2) Advance to 45g CCHO cardiac diet when medically feasible 3) Refer to outpatient RD/CD[facility] for weight management 4) Follow-up with gastroenterology and cardiology/pulmonology 5) Continue to monitor I&O, labs, and skin integrity Expected Outcomes/Goals: 1) TPN to meet at least 75% estimated daily needs 2) labs and GI symptoms to improve 3) diet to advance 4) gradual wt loss 5) f/u in 2-3 days OBINNA WINKLER MD Jul 23, 2025 10:22
--- NOTE | 2025-07-23 11:33 | DVHPNRES ---
Progress Note Date Seen: Jul 23, 2025 Resident Creating Document: KAREN SWIFT RESIDENT Medical Necessity Reason Pt with a Central, PICC or Fol: Yes The following are medically ne: Central Line, Larkin Catheter Reason for larkin catheter: Strict I&O Subjective Review of Systems Patient is 60-year-old female with past medical history of hypertension, diabetes mellitus type 2, chronic bronchitis/Chronic obstructive pulmonary disease who initially presented with abdominal pain. Initially on 06/23/2025 patient underwent surgery for ventral hernia causing partial bowel obstruction. During procedure patient found to have multiple abdominal wall/interloop agitations, underwent mesh implant and patient was following outpatient setting with surgeon. Patient had recent hospitalization for postoperative abdominal pain, was discharged on 07/08/2025 with pain control. However patient continued to have abdominal pain 03/30, constant, diffuse, associated nausea and vomiting, that prompted visit to hospital. Patient found to have high-grade small-bowel obstruction and underwent to laparotomy procedure on 07/20/2025 and 07/22/2025. And then patient has been transferred to ICU for further care. Past medical history: Hypertension, diabetes mellitus type 2, perforation of bowel Past surgical history: History of ventral hernia repair on 06/23/2025, history of abdominal surgery in 2020. Cholecystectomy, appendectomy Personal history: Former smoker, occasional marijuana use. No any other recreational drug or alcohol use. Family history: Lives with family Allergy: None Home medication 07/22/2025: Patient is in ICU. Status post laparotomy abdominal surgery done by Dr. Almeida. Minimal urine output, requiring vasopressor. Underwent right IJ central line insertion. Receiving IV antibiotics. 07/23/2025: Patient seen in ICU. Status post laparotomy, patient had 500 mL urine output, serosanguineous output from 3 MUNA drains. Patient has a right upper extremity swelling. Patient has a right cephalic superficial thrombus. He is sedated with sent, Versed, on pressors Levophed 8. per Surgery keep abd wound open to air and NG to LCS. Objective vital signs Vital Sign Date Time Temp Pulse Resp B/P (MAP) Pulse Ox O2 Delivery O2 Flow Rate FiO2 07/23/25 09:50 97 22 102/45 (64) 98 40 07/23/25 08:15 99.3 99.3 07/23/25 08:00 Mechanical Ventilator+ 07/21/25 16:40 0 Total Intake and Output 07/22/25 07/22/25 07/23/25 14:59 22:59 06:59 Intake Total 642.5 ml 1881.00 ml 2308 ml Output Total 345 ml 690 ml Balance 642.5 ml 1536.00 ml 1618 ml medications Current Medications Medications Dose Ordered Sig/Susana Route Start Time Stop Time Status Last Admin Dose Admin Piperacillin Sod/ Tazobactam Sod 100 ml @ 25 mls/hr Q8HR IV 07/22/25 06:00 07/23/25 04:15 25 MLS/HR Metronidazole 100 ml @ 100 mls/hr Q8HR IV 07/22/25 06:00 07/23/25 05:07 100 MLS/HR Labetalol HCl 5 mg Q2HPRN PRN IV 07/21/25 23:00 Fentanyl Citrate 250 ml @ 2.5 mls/hr Q24H IV 07/21/25 23:15 07/23/25 04:14 30 MLS/HR Propofol 100 ml @ 2.73 mls/hr Q24H IV 07/21/25 23:15 Midazolam HCl 100 ml @ 1 mls/hr Q24H IV 07/22/25 10:45 07/23/25 09:47 15 MLS/HR Norepinephrine Bitartrate 250 ml @ 3.75 mls/hr Q24H IV 07/22/25 12:30 07/23/25 03:06 15 MLS/HR Pantoprazole Sodium 40 mg DAILY IV 07/23/25 10:00 07/23/25 09:41 40 MG Linezolid 300 ml @ 150 mls/hr Q12HR@0400,1600 IV 07/22/25 17:30 07/23/25 03:00 150 MLS/HR Amino Acids 0 ml @ 0 mls/hr PER PHARMACY IV 07/22/25 18:30 Amino Acids/ Electrolytes/ Dextrose 1,000 ml @ 41 mls/hr DAILY@2200 IV 07/22/25 22:00 07/23/25 21:59 07/22/25 21:24 41 MLS/HR Diagnostic Test (Pha) 1 strip Q6HR 07/23/25 00:00 07/23/25 04:25 1 STRIP Insulin Human Regular FOLLOW SLIDING SCALE Q6HR SC 07/23/25 00:00 07/23/25 04:33 4 UNITS Dextrose 50 ml UD IV 07/22/25 19:00 Examination General Appearance: Sedated on ventilation. Head Exam: Normal inspection Neck Exam: Normal inspection. Non-tender. Normal alignment Pulmonary/Respiratory: Chest non-tender. Clear bilateral breath sounds Cardiovascular/Chest: Regular rate and rhythm. No murmurs. No JVD. Peripheral Pulses: 2+ Radial (R). 2+ Radial (L). 2+ Pedal (R). 2+ Pedal (L) Abdominal Exam: Presence of 3 MUNA drains with serosanguineous fluid, dressing over laparotomy incision site. Status post surgery, deep palpation was avoided. Ankle Exam: Negative ankle edema extremities: Right upper extremity edema Neuro/Mental Status: Sedated laboratory and microbiology Laboratory Tests 07/23/25 03:30 Test 07/23/25 03:30 Range/Units Serum Glucose 173 H 74-106 mg/dL Microbiology Date/Time Source Procedure Growth Status 07/21/25 23:00 Nose MRSA Screen - Final Complete Problem List/Assessment/Plan Problem List/Assessment/Plan Neurology Acute metabolic encephalopathy likely due to sepsis Sedated -on fentanyl and Versed Cardiovascular Sinus tachycardia likely due to underlying sepsis -continue treatment of sepsis Septic shock due to peritonitis, incarcerated small bowel obstruction -IV antibiotic with Zosyn and vancomycin -panculture: Blood, respiratory, urine -IV fluid bolus of 1.5 L has been given -lactic acid: -target map greater than 65 -on vasopressors Levophed -CVP monitoring: Currently low 4 to 6 mmHg. Respiratory Acute hypoxic respiratory failure due to sepsis -on mechanical ventilation -volume control assisted: Respiratory rate 22, tidal volume 450, FiO2 50%, peep of five -chest x-ray in a.m. Gastroenterology High-grade small-bowel obstruction Incarcerated umbilical hernia Bowel gangrene Perforation of transverse colon Abdominal adhesions Acute peritonitis -status post laparotomy surgery on 07/20/2025 and 07/22/2025. -NPO -surgery -MUNA drain -wound care -IV antibiotic -TPN History of ventral incisional hernia repair on 06/23/2025 History of abdominal surgery in 2020 Nephrology ROGERIO due to VMN due to hemodynamically mediated related to septic shock Low urine output -creatinine 0.58, 1.38 -hyperkalemia -lactic acidosis -IV fluid to maintain CVP Hyperkalemia Metabolic acidosis -potassium 5.4 -IV bicarbonate, albuterol and insulin. Endocrine Diabetes mellitus type 2 -serum glucose 199 -IV insulin 10 units for uncontrolled diabetes and hyperkalemia -continue to monitor Obesity BMI 32.4 Lines: Right IJ on 07/22/2025 Intubated on 07/21/2025 Feeding: NPO Nutrition: TPN Larkin catheter superficial venous thrombosis in the right cephalic vein but no deep venous thrombosis. Goals of care discussed at bedside with and sister. Full code status. Critical care time spent 83 minutes. Outside of procedure. Plan discussed with Plan discussed with: Spouse, Other (Sister) My Orders My Orders Orders - KAREN SWIFT RESIDENT Procedure Category Date Status Time Bi Lat Upper Dvt US 07/23/25 Taken 10:32 Dietary Evaluation Review Comments: 1) Increase TPN rate to meet at least 75% estimated daily needs 2) Advance to 45g CCHO cardiac diet when medically feasible 3) Refer to outpatient RD/CD[facility] for weight management 4) Follow-up with gastroenterology and cardiology/pulmonology 5) Continue to monitor I&O, labs, and skin integrity Expected Outcomes/Goals: 1) TPN to meet at least 75% estimated daily needs 2) labs and GI symptoms to improve 3) diet to advance 4) gradual wt loss 5) f/u in 2-3 days KAREN SWIFT RESIDENT Jul 23, 2025 11:33
[2025-07-23] MEDS: FUROSEMIDE 40 MG/4 ML VIAL IV ONE (11:53)
--- NOTE | 2025-07-23 12:28 | MEDREC ---
[facility] Intervention Section I [facility] Intervention: Duplication of therapy (PLEASE CONSIDER D/C FLAGYL SINCE BOTH ZOSYN AND COVER FOR ANAEROBE ORGANISMS (DUPLICATE) ) THEE CORDERO PHARMACIST Jul 23, 2025 12:28
--- NOTE | 2025-07-23 13:31 | DVH ---
Upper Extremity Venous Duplex Clinical History: glenn. upper ext swelling. Comparison: None Technique: Duplex Doppler evaluation of the venous system of the RIGHT lower neck and upper extremity including color Doppler and spectral/pulsed waveform analysis was performed. Findings: The internal jugular vein demonstrates appropriate compressibility and waveform variability. The subclavian vein is patent on color Doppler evaluation without intraluminal thrombus and demonstra genesis waveform variability. The visualized portion of the brachiocephalic vein is patent on color Doppler evaluation without intr aluminal thrombus and demonstrates waveform variability. The axillary vein demonstrates appropriate compressibility and waveform variability. The brachial veins demonstrate appropriate compressibility and patency on Doppler evaluation. The basilic vein demonstrates appropriate compressibility and patency on Doppler evaluation. The right cephalic vein demonstrated no flow or compressibility which is consistent with superficial venous thrombosis. On the left there was no findings of deep or superficial venous thrombosis. Impression: 1. On the right there appear to be superficial venous thrombosis in the right cephalic vein but no de ep venous thrombosis. 2. Dr. Martinez was notified at 11:20 a.m.
--- NOTE | 2025-07-23 14:07 | DVHPN2 ---
Progress Note Date Seen: Jul 23, 2025 Medical Necessity Reason Pt with a Central, PICC or Fol: Yes The following are medically ne: Central Line, Larkin Catheter Reason for larkin catheter: Strict I&O Objective vital signs Vital Sign Date Time Temp Pulse Resp B/P (MAP) Pulse Ox O2 Delivery O2 Flow Rate FiO2 07/23/25 13:30 113/51 07/23/25 12:20 99 22 96 40 07/23/25 12:00 Mechanical Ventilator+ 07/23/25 12:00 99.9 99.9 07/21/25 16:40 0 Total Intake and Output 07/22/25 07/22/25 07/23/25 15:00 23:00 07:00 Intake Total 830 ml 1837.00 ml 2183 ml Output Total 345 ml 690 ml Balance 830 ml 1492.00 ml 1493 ml medications Current Medications Medications Dose Ordered Sig/Susana Route Start Time Stop Time Status Last Admin Dose Admin Piperacillin Sod/ Tazobactam Sod 100 ml @ 25 mls/hr Q8HR IV 07/22/25 06:00 07/23/25 13:26 25 MLS/HR Metronidazole 100 ml @ 100 mls/hr Q8HR IV 07/22/25 06:00 07/23/25 13:22 100 MLS/HR Labetalol HCl 5 mg Q2HPRN PRN IV 07/21/25 23:00 Fentanyl Citrate 250 ml @ 2.5 mls/hr Q24H IV 07/21/25 23:15 07/23/25 13:09 17.5 MLS/HR Propofol 100 ml @ 2.73 mls/hr Q24H IV 07/21/25 23:15 Midazolam HCl 100 ml @ 1 mls/hr Q24H IV 07/22/25 10:45 07/23/25 09:47 15 MLS/HR Norepinephrine Bitartrate 250 ml @ 3.75 mls/hr Q24H IV 07/22/25 12:30 07/23/25 03:06 15 MLS/HR Pantoprazole Sodium 40 mg DAILY IV 07/23/25 10:00 07/23/25 09:41 40 MG Linezolid 300 ml @ 150 mls/hr Q12HR@0400,1600 IV 07/22/25 17:30 07/23/25 03:00 150 MLS/HR Amino Acids 0 ml @ 0 mls/hr PER PHARMACY IV 07/22/25 18:30 Amino Acids/ Electrolytes/ Dextrose 1,000 ml @ 41 mls/hr DAILY@2200 IV 07/22/25 22:00 07/23/25 21:59 07/22/25 21:24 41 MLS/HR Diagnostic Test (Pha) 1 strip Q6HR 07/23/25 00:00 07/23/25 11:50 1 STRIP Insulin Human Regular FOLLOW SLIDING SCALE Q6HR SC 07/23/25 00:00 07/23/25 12:01 2 UNITS Dextrose 50 ml UD IV 07/22/25 19:00 Fat Emulsion Intravenous 50 ml/ Calcium Gluconate 4.65 meq/ Magnesium Sulfate 16 meq/ Multivitamins 10 ml/Chromium/ Copper/Manganese/ Zinc 1 ml/Insulin Human Regular 5 units/Amino Acids/ Dextrose/Purified Water 1,075.05 ml @ 44 mls/hr [id number] IV 07/23/25 22:00 07/24/25 21:59 laboratory and microbiology Laboratory Tests 07/23/25 03:30 Test 07/23/25 03:30 Range/Units Serum Glucose 173 H 74-106 mg/dL Problem List/Assessment/Plan Problem List/Assessment/Plan 07/23/25 PATIENT IS SEVERELY DEHYDRATED, HAD BOWEL OBSTRUCTION AND VERY DISTENDED BOWEL NERCESSITATING TWO OPERATIONS, SHE NEEDS MORE IV FLUID. ABDOMEN SOFT, NON DISTENDED,DRAINAGE SEROSANGUINEOUS. Plan discussed with: Other Dietary Evaluation Review Comments: 1) Increase TPN rate to meet at least 75% estimated daily needs 2) Advance to 45g CCHO cardiac diet when medically feasible 3) Refer to outpatient RD/[facility] for weight management 4) Follow-up with gastroenterology and cardiology/pulmonology 5) Continue to monitor I&O, labs, and skin integrity Expected Outcomes/Goals: 1) TPN to meet at least 75% estimated daily needs 2) labs and GI symptoms to improve 3) diet to advance 4) gradual wt loss 5) f/u in 2-3 days CHARLENE FORTUNE MD Jul 23, 2025 14:07
[2025-07-23] MEDS: LACTATED RINGER'S 2,000 ML IV ONE (14:33)
[2025-07-23] MEDS: LACTATED RINGER'S 1,000 ML IV SCH (16:30)
[2025-07-23] MEDS: TPN PER PHARMACY IV NR (21:59)
--- NOTE | 2025-07-23 22:55 | DVHPN2 ---
Subjective DOS: 07/23/2025 Patient seen and examined at bedside. Sedated, intubated on mechanical ventilator. Overnight events reviewed. Changes from previous H/P or p: No Changes Eyes: No Pain, No Vision change, No Conjunctivae inflammation, No Eyelid inflammation, No Other, No Redness ENT: No Ear pain, No Ear discharge, No Nose pain, No Nose discharge, No Nose congestion, No Mouth pain, No Mouth swelling, No Throat pain, No Throat swelling, No Other Cardiovascular: No Chest Pain, No Palpitations, No Orthopnea, No Paroxysmal Noc. Dyspnea, No Edema, No Lt Headedness, No Other Respiratory: No Cough, No Dry, No Shortness of breath, No SOB with excertion, No Wheezing, No Hemoptysis, No Pleuritic Pain, No Sputum, No Other Gastrointestinal: Nausea, Vomiting, Abdominal Pain; No Diarrhea, No Constipation, No Melena, No Hematochezia, No Other Genitourinary: No Dysuria, No Frequency, No Incontinence, No Hematuria, No Retention, No Other Musculoskeletal: No other, No neck pain, No shoulder pain, No arm pain, No back pain, No hand pain, No leg pain, No foot pain Skin: No Rash, No Lesions, No Jaundice, No Bruising, No Other Objective Vitals Vital Signs Date Time Temp Pulse Resp B/P (MAP) Pulse Ox O2 Delivery O2 Flow Rate FiO2 07/23/25 22:05 87 22 91/36 (54) 97 35 07/23/25 20:00 Mechanical Ventilator+ 07/23/25 20:00 97.7 97.7 07/21/25 16:40 0 Intake/Output Intake and Output 07/23/25 07:00 Intake Total 4850.00 ml Output Total 1035 ml Balance 3815.00 ml Intake Oral 0 ml IV Total 4850.00 ml Output Urine Total 660 ml Gastric Drainage Total 75 ml Drainage Total 300 ml Exam Gen.: Patient lying in bed in medical ICU. Sedated, intubated on mechanical ventilator. Head: Normocephalic, atraumatic. Eyes: PERRLA. Ears: Normal external anatomy. Throat: Endotracheal tube and orogastric tube in place. Neck: Supple, trachea midline. Chest: Transmitted breath sounds bilaterally. Decreased air entry bilaterally. No wheezing. Bibasilar crackles. Cardiovascular: Positive S1, positive S2. Regular rate and rhythm. Abdomen: Positive bowel sounds in all 4 quadrants. Soft, nontender, nondistended. : Andrea in place. Normal external genitalia. Rectal: Deferred. Skin: Warm, dry. Intact. Extremities: 2+ radial pulses bilaterally. No lower extremity edema. Neuro: Sedated. Medications Current Medications Medications Dose Ordered Sig/Susana Route Start Time Stop Time Status Last Admin Dose Admin Piperacillin Sod/ Tazobactam Sod 100 ml @ 25 mls/hr Q8HR IV 07/22/25 06:00 07/23/25 21:53 25 MLS/HR Metronidazole 100 ml @ 100 mls/hr Q8HR IV 07/22/25 06:00 07/23/25 21:52 100 MLS/HR Labetalol HCl 5 mg Q2HPRN PRN IV 07/21/25 23:00 Fentanyl Citrate 250 ml @ 2.5 mls/hr Q24H IV 07/21/25 23:15 07/23/25 13:09 17.5 MLS/HR Propofol 100 ml @ 2.73 mls/hr Q24H IV 07/21/25 23:15 Midazolam HCl 100 ml @ 1 mls/hr Q24H IV 07/22/25 10:45 07/23/25 17:52 10 MLS/HR Norepinephrine Bitartrate 250 ml @ 3.75 mls/hr Q24H IV 07/22/25 12:30 07/23/25 03:06 15 MLS/HR Pantoprazole Sodium 40 mg DAILY IV 07/23/25 10:00 07/23/25 09:41 40 MG Linezolid 300 ml @ 150 mls/hr Q12HR@0400,1600 IV 07/22/25 17:30 07/23/25 16:30 150 MLS/HR Amino Acids 0 ml @ 0 mls/hr PER PHARMACY IV 07/22/25 18:30 Diagnostic Test (Pha) 1 strip Q6HR 07/23/25 00:00 07/23/25 17:48 1 STRIP Insulin Human Regular FOLLOW SLIDING SCALE Q6HR SC 07/23/25 00:00 07/23/25 17:51 2 UNITS Dextrose 50 ml UD IV 07/22/25 19:00 Fat Emulsion Intravenous 50 ml/ Calcium Gluconate 4.65 meq/ Magnesium Sulfate 16 meq/ Multivitamins 10 ml/Chromium/ Copper/Manganese/ Zinc 1 ml/Insulin Human Regular 5 units/Amino Acids/ Dextrose/Purified Water 1,075.05 ml @ 44 mls/hr [id number] IV 07/23/25 22:00 07/24/25 21:59 07/23/25 21:59 44 MLS/HR Lactated Ringer's 1,000 ml @ 125 mls/hr Q8H IV 07/23/25 14:15 07/23/25 16:30 125 MLS/HR Laboratory Results Laboratory Tests 07/23/25 03:30 Chemistry Test 07/23/25 03:30 Albumin 2.6 g/dL (3.2-4.8) L Calcium Level 7.4 mg/dL (8.7-10.4) L Magnesium Level 1.7 mg/dL (1.6-2.6) Phosphorus Level 4.4 mg/dL (2.4-5.1) Total Protein 4.0 g/dL (5.7-8.2) L Lipid panel Test 07/23/25 03:30 Triglycerides Level 78 mg/dL (< 150) LFT Test 07/23/25 03:30 Alanine Aminotransferase (ALT) 39 U/L (7-40) Alkaline Phosphatase 54 U/L (46-116) Aspartate Amino Transferase (AST) 39 U/L (13-40) Total Bilirubin 0.6 mg/dL (0.2-1.0) Urinalysis Test 07/21/25 18:42 Urine Color Yellow (Yellow) Urine Clarity Clear (Clear) Urine pH 8.0 (5.0-9.0) Urine Specific Harwood 1.029 (1.001-1.035) Urine Protein 1+ (Negative) H Urine Ketones 1+ (Negative) H Urine Blood Negative /uL (Negative) Urine Nitrite Negative (Negative) Urine Bilirubin Negative (Negative) Urine Urobilinogen 12 mg/dL (Negative) H Urine Leukocyte Esterase Negative /uL (Negative) Urine RBC 2 /hpf (0 - 4) Urine Microscopic WBC 1 /HPF (0-5) Urine Squamous Epithelial Cells Few /hpf (<5) Urine Bacteria Few /hpf (None Seen) H Urine Hyaline Casts Few /lpf (0 - 2) Urine Mucus Few (None Seen) Urine Glucose Normal mg/dL (Normal) Blood Gas Results Test 07/23/25 07:10 Arterial Blood pH 7.399 (7.350-7.450) FiO2 % 40.0 Microbiology Microbiology Date/Time Source Procedure Growth Status 07/22/25 15:03 Blood Blood Culture - Preliminary NO GROWTH AFTER 24 HOURS OF INCUBATION. Resulted 07/21/25 23:00 Nose MRSA Screen - Final Complete Assessment/Plan Assessment/Plan Impression: Acute hypoxic respiratory failure On mechanical ventilator Chronic obstructive pulmonary disease Nicotine dependence S/p exploratory laparotomy Obesity, BMI 32.4 Events: Remains on vent support On AC mode; RR 22, VT 450, PEEP 5, FiO2 40% Taper FiO2 as tolerated. Sedated on Versed, Fentanyl ABG reviewed, notable for acidemia U/S venous Doppler shows right cephalic vein SVT Chest x-ray shows increased opacification at the left hemidiaphragm which may represent consolidation or worsening atelectasis. Possible small left effusion. Prominence of the right hilum, appears increased or new as well which may be on the basis of the pulmonary artery or new airspace opacity. Pressors for hemodynamic support On Levophed 8 mcg/min Titrate to keep mean arterial pressure greater than 65 mmHg. Continue bronchodilators. Continue antibiotics. Follow up cultures. WBC trending down. Off bicarb drip Nephrology recs appreciated Monitor renal function Monitor electrolytes. Supplement as necessary. Magnesium supplementation Monitor MUNA output Follow up Surgery recs Labs and imaging reviewed. Rest of plan as noted below. Plan: s/p intubation on mechanical ventilator. On AC mode; RR 22, VT 450, PEEP 5, FiO2 40% Titrate FIO2 to keep O2 saturation above 90%. VAP bundle. Daily ABG and CXR while intubated Sedate for ventilator synchrony Surgery recommendations appreciated. Continue bronchodilators. Continue antibiotics. Follow up cultures. IV fluids with NS at 100 ml/hr. Pressors for hemodynamic support Titrate to keep mean arterial pressure greater than 65 mmHg. Accu-Cheks, ISS Wound care Protonix for GI ppx Monitor renal function Monitor electrolytes. Supplement as necessary. Monitor ins and outs. Maintain euvolemia. Recommend diet and lifestyle modifications for weight reduction Obesity complicates all care GI prophylaxis. DVT prophylaxis. Prognosis: Poor given patient's multiple co-morbidities. Condition: Critical Rest of plan per hospitalist and other consultants. A total of 35 minutes of critical care time was spent reviewing the patient record, examining the patient, making a diagnostic and therapeutic plan, discussing this plan with the medical personnel, following up on diagnostic studies and following the patient for clinical stability excluding any and all procedures. At least 50% of this time was spent in direct, [id number] contact. Thank you, FLORAL DESIGN TEACHER Faustino, for allowing me to participate in this patient's care. Further recommendations will depend on the patient's clinical course. Please do not hesitate to contact me if you have any questions or concerns. This medical document was created using an electronic medical record system with [employer] dictation system. Although these documentations are being carefully reviewed, there may still be some phonetic and typographical changes. The errors are purely typographical, due to imperfection on the software program, and do not reflect any compromise in the patient's medical care. Plan discussed with: Other (RN) Visit Coding Pulmonary Billing Provider: SIRISHA MA MD Date of Service if different f: Jul 23, 2025 Common Visit Codes: [id number] INP/OBS CARE(HIGH), [id number] CARE 30-74 MIN SIRISHA MA MD Jul 23, 2025 22:55
[2025-07-24] VITALS (112 sets, daily range): BP systolic 58–122; BP diastolic 36–61; PULSE 73–84; RESP 17–24; TEMP 98–99.4; O2SAT 94–99
[2025-07-24 03:37] LABS: Hemoglobin 8.0 g/dL (12.2-16.2); Nucleated Red Blood Cells % 0.0 %
[2025-07-24 03:40] LABS: Hematocrit 24.1 % (36.0-46.0); Mean Corpuscular Hemoglobin 28.0 pg (28.0-32.0); Mean Corpuscular Volume 83.7 fL (80.0-100.0)
[2025-07-24 04:28] LABS: Alanine Aminotransferase 27 U/L (7-40); Alkaline Phosphatase 70 U/L (46-116); Anion Gap 5 (5-15); BUN/Creatinine Ratio 40.4 (10.0-20.0); Bilirubin, Total 0.5 mg/dL (0.2-1.0); Blood Urea Nitrogen 21 mg/dL (9-23); Magnesium 2.1 mg/dL (1.6-2.6)
[2025-07-24 04:33] LABS: Carbon Dioxide 33 mmol/L (20-31); Chloride 99 mmol/L (98-107); Glucose 158 mg/dL (74-106); Potassium 3.3 mmol/L (3.5-5.1); Sodium 137 mmol/L (136-145)
[2025-07-24 04:34] LABS: Albumin 2.8 g/dL (3.2-4.8); Calcium 8.1 mg/dL (8.7-10.4); Total Protein 4.6 g/dL (5.7-8.2)
--- NOTE | 2025-07-24 04:51 | DVH ---
CHEST RADIOGRAPH Indication: on vent Technique: Single frontal view of the chest was obtained COMPARISON: XY CHEST XRAY 1 VIEW on DOS: 07/23/25, XY CHEST PORTABLE on DOS: 07/22/25, XY CHEST PORTABL E on DOS: 07/22/25, XY CHEST PORTABLE on DOS: 07/21/25, XY CHEST XRAY 1 VIEW on DOS: 07/21/25 FINDINGS: Lines and Tubes: Unchanged. Lungs: Moderate diffuse increased prominence of the pulmonary vasculature and bibasilar pulmonary air space disease. No pneumothorax. Cardiomediastinal contours: Cardiomegaly. Bones: Unremarkable IMPRESSION: 1. Moderate diffuse increased prominence of the pulmonary vasculature and Bibasilar pulmonary airspac e disease. 2. Cardiomegaly. 3. Lines and tubes unchanged.
[2025-07-24] MEDS: POTASSIUM CHL 20MEQ/100ML 100 ML IV ONE ×2 (07:23→12:40)
[2025-07-24 08:00] LABS: Base Excess 6.8 mmol/L (-2.0-3.0)
[2025-07-24] MEDS: SODIUM PHOSPHATES 20 MEQ in SODIUM CHL 0.9% 100 ML IV ONE (09:08)
--- NOTE | 2025-07-24 10:20 | DVHPN2 ---
Progress Note Date Seen: Jul 24, 2025 Medical Necessity Reason Pt with a Central, PICC or Fol: Yes The following are medically ne: Central Line, Larkin Catheter Reason for larkin catheter: Strict I&O Subjective Review of Systems: RESPIRATORY:Abnormal Other Systems: Patient seen and examined by myself today in follow-up, patient remained intubated on ventilator Objective vital signs Vital Sign Date Time Temp Pulse Resp B/P (MAP) Pulse Ox O2 Delivery O2 Flow Rate FiO2 07/24/25 09:00 73 22 116/54 (74) 97 35 07/24/25 08:00 Mechanical Ventilator+ 07/24/25 04:00 98.6 98.6 Total Intake and Output 07/23/25 07/23/25 07/24/25 15:00 23:00 07:00 Intake Total 720.50 ml 3828.87 ml 1801.75 ml Output Total 1925 ml 1135 ml Balance 720.50 ml 1903.87 ml 666.75 ml medications Current Medications Medications Dose Ordered Sig/Susana Route Start Time Stop Time Status Last Admin Dose Admin Piperacillin Sod/ Tazobactam Sod 100 ml @ 25 mls/hr Q8HR IV 07/22/25 06:00 07/24/25 05:50 25 MLS/HR Metronidazole 100 ml @ 100 mls/hr Q8HR IV 07/22/25 06:00 07/24/25 05:50 100 MLS/HR Labetalol HCl 5 mg Q2HPRN PRN IV 07/21/25 23:00 Fentanyl Citrate 250 ml @ 2.5 mls/hr Q24H IV 07/21/25 23:15 07/24/25 05:10 15 MLS/HR Propofol 100 ml @ 2.73 mls/hr Q24H IV 07/21/25 23:15 Midazolam HCl 100 ml @ 1 mls/hr Q24H IV 07/22/25 10:45 07/24/25 04:00 10 MLS/HR Norepinephrine Bitartrate 250 ml @ 3.75 mls/hr Q24H IV 07/22/25 12:30 07/23/25 23:04 11.25 MLS/HR Pantoprazole Sodium 40 mg DAILY IV 07/23/25 10:00 07/24/25 09:35 40 MG Linezolid 300 ml @ 150 mls/hr Q12HR@0400,1600 IV 07/22/25 17:30 07/24/25 03:56 150 MLS/HR Amino Acids 0 ml @ 0 mls/hr PER PHARMACY IV 07/22/25 18:30 Diagnostic Test (Pha) 1 strip Q6HR 07/23/25 00:00 07/24/25 05:39 1 STRIP Insulin Human Regular FOLLOW SLIDING SCALE Q6HR SC 07/23/25 00:00 07/24/25 05:44 4 UNITS Dextrose 50 ml UD IV 07/22/25 19:00 Fat Emulsion Intravenous 50 ml/ Calcium Gluconate 4.65 meq/ Magnesium Sulfate 16 meq/ Multivitamins 10 ml/Chromium/ Copper/Manganese/ Zinc 1 ml/Insulin Human Regular 5 units/Amino Acids/ Dextrose/Purified Water 1,075.05 ml @ 44 mls/hr [id number] IV 07/23/25 22:00 07/24/25 21:59 07/23/25 21:59 44 MLS/HR Lactated Ringer's 1,000 ml @ 125 mls/hr Q8H IV 07/23/25 14:15 07/24/25 00:06 125 MLS/HR Fat Emulsion Intravenous 50 ml/ Sodium Phosphate 40 meq/Potassium Chloride 20 meq/ Magnesium Sulfate 10 meq/ Multivitamins 10 ml/Chromium/ Copper/Manganese/ Zinc 1 ml/Insulin Human Regular 5 units/Amino Acids/ Dextrose 983.55 ml @ 41 mls/hr Q24H IV 07/24/25 22:00 07/25/25 21:59 Examination: LUNGS:Normal, CVS:Normal, MSK:Normal laboratory and microbiology Laboratory Tests 07/24/25 02:30 Test 07/24/25 02:30 Range/Units Serum Glucose 158 H 74-106 mg/dL Microbiology Date/Time Source Procedure Growth Status 07/22/25 15:03 Blood Blood Culture - Preliminary NO GROWTH AFTER 24 HOURS OF INCUBATION. Resulted 07/21/25 23:00 Nose MRSA Screen - Final Complete Problem List/Assessment/Plan Problem List/Assessment/Plan Acute kidney injury secondary to hemodynamic mediated Acute respiratory failure, intubated on ventilator Septic shock Hypokalemia Hypophosphatemia Dehydration Obstruction status post surgery x2 Recommendations Kidney function is improving Increased urine output Strict I&Os K-Phos IV piggyback KCL replacement I agree with IV fluid hydration Hold diuresis IV antibiotics We will continue to follow Plan discussed with: Other (Nurse) Dietary Evaluation Review Comments: 1) Increase TPN rate to meet at least 75% estimated daily needs 2) Advance to 45g CCHO cardiac diet when medically feasible 3) Refer to outpatient RD/[facility] for weight management 4) Follow-up with gastroenterology and cardiology/pulmonology 5) Continue to monitor I&O, labs, and skin integrity Expected Outcomes/Goals: 1) TPN to meet at least 75% estimated daily needs 2) labs and GI symptoms to improve 3) diet to advance 4) gradual wt loss 5) f/u in 2-3 days RADHA LAWSON MD Jul 24, 2025 10:20
--- NOTE | 2025-07-24 11:25 | DVHPN2 ---
Progress Note Date Seen: Jul 24, 2025 Medical Necessity Reason Pt with a Central, PICC or Fol: Yes The following are medically ne: Central Line, Larkin Catheter Reason for larkin catheter: Strict I&O Objective vital signs Vital Sign Date Time Temp Pulse Resp B/P (MAP) Pulse Ox O2 Delivery O2 Flow Rate FiO2 07/24/25 10:47 77 22 104/52 (69) 95 35 07/24/25 10:00 Mechanical Ventilator+ 07/24/25 08:00 99.4 99.4 Total Intake and Output 07/23/25 07/23/25 07/24/25 15:00 23:00 07:00 Intake Total 720.50 ml 3828.87 ml 1801.75 ml Output Total 1925 ml 1135 ml Balance 720.50 ml 1903.87 ml 666.75 ml medications Current Medications Medications Dose Ordered Sig/Susana Route Start Time Stop Time Status Last Admin Dose Admin Piperacillin Sod/ Tazobactam Sod 100 ml @ 25 mls/hr Q8HR IV 07/22/25 06:00 07/24/25 05:50 25 MLS/HR Metronidazole 100 ml @ 100 mls/hr Q8HR IV 07/22/25 06:00 07/24/25 05:50 100 MLS/HR Labetalol HCl 5 mg Q2HPRN PRN IV 07/21/25 23:00 Fentanyl Citrate 250 ml @ 2.5 mls/hr Q24H IV 07/21/25 23:15 07/24/25 05:10 15 MLS/HR Propofol 100 ml @ 2.73 mls/hr Q24H IV 07/21/25 23:15 Midazolam HCl 100 ml @ 1 mls/hr Q24H IV 07/22/25 10:45 07/24/25 04:00 10 MLS/HR Norepinephrine Bitartrate 250 ml @ 3.75 mls/hr Q24H IV 07/22/25 12:30 07/23/25 23:04 11.25 MLS/HR Pantoprazole Sodium 40 mg DAILY IV 07/23/25 10:00 07/24/25 09:35 40 MG Linezolid 300 ml @ 150 mls/hr Q12HR@0400,1600 IV 07/22/25 17:30 07/24/25 03:56 150 MLS/HR Amino Acids 0 ml @ 0 mls/hr PER PHARMACY IV 07/22/25 18:30 Diagnostic Test (Pha) 1 strip Q6HR 07/23/25 00:00 07/24/25 05:39 1 STRIP Insulin Human Regular FOLLOW SLIDING SCALE Q6HR SC 07/23/25 00:00 07/24/25 05:44 4 UNITS Dextrose 50 ml UD IV 07/22/25 19:00 Fat Emulsion Intravenous 50 ml/ Calcium Gluconate 4.65 meq/ Magnesium Sulfate 16 meq/ Multivitamins 10 ml/Chromium/ Copper/Manganese/ Zinc 1 ml/Insulin Human Regular 5 units/Amino Acids/ Dextrose/Purified Water 1,075.05 ml @ 44 mls/hr [id number] IV 07/23/25 22:00 07/24/25 21:59 07/23/25 21:59 44 MLS/HR Lactated Ringer's 1,000 ml @ 125 mls/hr Q8H IV 07/23/25 14:15 07/24/25 00:06 125 MLS/HR Fat Emulsion Intravenous 50 ml/ Sodium Phosphate 40 meq/Potassium Chloride 20 meq/ Magnesium Sulfate 10 meq/ Multivitamins 10 ml/Chromium/ Copper/Manganese/ Zinc 1 ml/Insulin Human Regular 5 units/Amino Acids/ Dextrose 983.55 ml @ 41 mls/hr Q24H IV 07/24/25 22:00 07/25/25 21:59 laboratory and microbiology Laboratory Tests 07/24/25 02:30 Test 07/24/25 02:30 Range/Units Serum Glucose 158 H 74-106 mg/dL Problem List/Assessment/Plan Problem List/Assessment/Plan 07/23/25 PATIENT IS SEVERELY DEHYDRATED, HAD BOWEL OBSTRUCTION AND VERY DISTENDED BOWEL NERCESSITATING TWO OPERATIONS, SHE NEEDS MORE IV FLUID. ABDOMEN SOFT, NON DISTENDED,DRAINAGE SEROSANGUINEOUS. 07/24/25 kidney function improving, bp stable on 4 rito's of levo, abdomen soft, non distended, drainage serous (all three drains). labs reviewed. will wean off vent. Plan discussed with: Other Dietary Evaluation Review Comments: 1) Increase TPN rate to meet at least 75% estimated daily needs 2) Advance to 45g CCHO cardiac diet when medically feasible 3) Refer to outpatient RD/[facility] for weight management 4) Follow-up with gastroenterology and cardiology/pulmonology 5) Continue to monitor I&O, labs, and skin integrity Expected Outcomes/Goals: 1) TPN to meet at least 75% estimated daily needs 2) labs and GI symptoms to improve 3) diet to advance 4) gradual wt loss 5) f/u in 2-3 days CHARLENE FORTUNE MD Jul 24, 2025 11:25
[2025-07-24] MEDS: LACTATED RINGER'S 1,000 ML IV SCH (15:29)
[2025-07-24] MEDS: DEXMEDETOMIDINE HCL IN D5W 100 ML IV SCH (15:30)
--- NOTE | 2025-07-24 18:36 | DVHPNRES ---
Progress Note Date Seen: Jul 24, 2025 Resident Creating Document: TIM COLLIER RESIDENT Medical Necessity Reason Pt with a Central, PICC or Fol: Yes The following are medically ne: Central Line, Larkin Catheter Reason for larkin catheter: Strict I&O Subjective Review of Systems Patient is 60-year-old female with past medical history of hypertension, diabetes mellitus type 2, chronic bronchitis/Chronic obstructive pulmonary disease who initially presented with abdominal pain. Initially on 06/23/2025 patient underwent surgery for ventral hernia causing partial bowel obstruction. During procedure patient found to have multiple abdominal wall/interloop agitations, underwent mesh implant and patient was following outpatient setting with surgeon. Patient had recent hospitalization for postoperative abdominal pain, was discharged on 07/08/2025 with pain control. However patient continued to have abdominal pain 03/30, constant, diffuse, associated nausea and vomiting, that prompted visit to hospital. Patient found to have high-grade small-bowel obstruction and underwent to laparotomy procedure on 07/20/2025 and 07/22/2025. And then patient has been transferred to ICU for further care. Past medical history: Hypertension, diabetes mellitus type 2, perforation of bowel Past surgical history: History of ventral hernia repair on 06/23/2025, history of abdominal surgery in 2020. Cholecystectomy, appendectomy Personal history: Former smoker, occasional marijuana use. No any other recreational drug or alcohol use. Family history: Lives with family Allergy: None Home medication 07/22/2025: Patient is in ICU. Status post laparotomy abdominal surgery done by Dr. Almeida. Minimal urine output, requiring vasopressor. Underwent right IJ central line insertion. Receiving IV antibiotics. 07/23/2025: Patient seen in ICU. Off vasopressors. No fever, appropriate urine output. Draining both MUNA drain. Receiving IV antibiotics and IV fluids. No any other new complaints. Objective vital signs Vital Sign Date Time Temp Pulse Resp B/P (MAP) Pulse Ox O2 Delivery O2 Flow Rate FiO2 07/24/25 18:16 78 22 103/41 (61) 97 35 07/24/25 17:53 Mechanical Ventilator+ 07/24/25 16:00 98.6 98.6 Total Intake and Output 07/23/25 07/23/25 07/24/25 15:00 23:00 07:00 Intake Total 720.50 ml 3828.87 ml 2207.00 ml Output Total 1925 ml 1135 ml Balance 720.50 ml 1903.87 ml 1072.00 ml medications Current Medications Medications Dose Ordered Sig/Susana Route Start Time Stop Time Status Last Admin Dose Admin Piperacillin Sod/ Tazobactam Sod 100 ml @ 25 mls/hr Q8HR IV 07/22/25 06:00 07/24/25 13:47 25 MLS/HR Fentanyl Citrate 250 ml @ 2.5 mls/hr Q24H IV 07/21/25 23:15 07/24/25 05:10 15 MLS/HR Propofol 100 ml @ 2.73 mls/hr Q24H IV 07/21/25 23:15 Midazolam HCl 100 ml @ 1 mls/hr Q24H IV 07/22/25 10:45 07/24/25 04:00 10 MLS/HR Norepinephrine Bitartrate 250 ml @ 3.75 mls/hr Q24H IV 07/22/25 12:30 07/23/25 23:04 11.25 MLS/HR Pantoprazole Sodium 40 mg DAILY IV 07/23/25 10:00 07/24/25 09:35 40 MG Linezolid 300 ml @ 150 mls/hr Q12HR@0400,1600 IV 07/22/25 17:30 07/24/25 16:20 150 MLS/HR Amino Acids 0 ml @ 0 mls/hr PER PHARMACY IV 07/22/25 18:30 Diagnostic Test (Pha) 1 strip Q6HR 07/23/25 00:00 07/24/25 17:49 1 STRIP Insulin Human Regular FOLLOW SLIDING SCALE Q6HR SC 07/23/25 00:00 07/24/25 17:49 4 UNITS Dextrose 50 ml UD IV 07/22/25 19:00 Fat Emulsion Intravenous 50 ml/ Calcium Gluconate 4.65 meq/ Magnesium Sulfate 16 meq/ Multivitamins 10 ml/Chromium/ Copper/Manganese/ Zinc 1 ml/Insulin Human Regular 5 units/Amino Acids/ Dextrose/Purified Water 1,075.05 ml @ 44 mls/hr [id number] IV 07/23/25 22:00 07/24/25 21:59 07/23/25 21:59 44 MLS/HR Fat Emulsion Intravenous 50 ml/ Sodium Phosphate 40 meq/Potassium Chloride 20 meq/ Magnesium Sulfate 10 meq/ Multivitamins 10 ml/Chromium/ Copper/Manganese/ Zinc 1 ml/Insulin Human Regular 5 units/Amino Acids/ Dextrose 983.55 ml @ 41 mls/hr Q24H IV 07/24/25 22:00 07/25/25 21:59 Lactated Ringer's 1,000 ml @ 75 mls/hr [id number] IV 07/24/25 15:15 07/24/25 15:29 75 MLS/HR Examination General Appearance: Sedated on ventilation. Head Exam: Normal inspection Neck Exam: Normal inspection. Non-tender. Normal alignment Pulmonary/Respiratory: Chest non-tender. Clear bilateral breath sounds Cardiovascular/Chest: Regular rate and rhythm. No murmurs. No JVD. Peripheral Pulses: 2+ Radial (R). 2+ Radial (L). 2+ Pedal (R). 2+ Pedal (L) Abdominal Exam: Presence of two MUNA drain, dressing over laparotomy incision site. Status post surgery, deep palpation was avoided. Ankle Exam: Negative ankle edema Lower extremities: Negative lower extremity edema Neuro/Mental Status: Sedated laboratory and microbiology Laboratory Tests 07/24/25 02:30 Test 07/24/25 02:30 Range/Units Serum Glucose 158 H 74-106 mg/dL Microbiology Date/Time Source Procedure Growth Status 07/22/25 15:03 Blood Blood Culture - Preliminary NO GROWTH AFTER 48 HOURS OF INCUBATION. Resulted 07/21/25 23:00 Nose MRSA Screen - Final Complete 07/21/25 19:45 Peritoneal Fluid Gram Stain - Final Resulted 07/21/25 19:45 Peritoneal Fluid Anaerobic Culture Pending Resulted 07/21/25 19:45 Peritoneal Fluid Aerobic Culture Pending Resulted Problem List/Assessment/Plan Problem List/Assessment/Plan Neurology Acute metabolic encephalopathy likely due to sepsis Sedated -on fentanyl and Versed Cardiovascular Sinus tachycardia likely due to underlying sepsis -continue treatment of sepsis Septic shock due to peritonitis, incarcerated small bowel obstruction -IV antibiotic with Zosyn and linezolid -panculture: Blood, respiratory, urine: No growth till now -IV fluid LR 75 mL/hour -lactic acid: Improved -target map greater than 65 -on vasopressors Levophed Respiratory Acute hypoxic respiratory failure due to sepsis -on mechanical ventilation -volume control assisted: Respiratory rate 22, tidal volume 450, FiO2 50%, peep of five -chest x-ray in a.m. and plan for CPAP trial tomorrow Gastroenterology High-grade small-bowel obstruction Incarcerated umbilical hernia Bowel gangrene Perforation of transverse colon Abdominal adhesions Acute peritonitis -status post laparotomy surgery on 07/20/2025 and 07/22/2025. -NPO -surgery -MUNA drain 2 -wound care -IV antibiotic -TPN History of ventral incisional hernia repair on 06/23/2025 History of abdominal surgery in 2020 Nephrology ROGERIO due to VMN due to hemodynamically mediated related to septic shock: Improved Low urine output -creatinine 0.58, 1.38, 0.5 to -IV fluid to maintain CVP -LR 75 mL/hour Hypokalemia Metabolic acidosis Hypophosphatemia -IV potassium supplement -IV sodium phosphate Endocrine Diabetes mellitus type 2 -insulin regular sliding scale Obesity BMI 32.4 PUD prophylaxis with Protonix DVT prophylaxis with SCD Lines: Right IJ on 07/22/2025 Intubated on 07/21/2025 Feeding: NPO Nutrition: TPN Larkin catheter Plan for continue with hydration, with antibiotic. Plan for CPAP trial tomorrow morning. Goals of care discussed at bedside with and sister. Full code status. Critical care time spent 89 minutes. excluding procedures. Plan discussed with Plan discussed with: Spouse, Other (RN) Dietary Evaluation Review Comments: 1) Increase TPN rate to meet at least 75% estimated daily needs 2) Advance to 45g CCHO cardiac diet when medically feasible 3) Refer to outpatient RD/[facility] for weight management 4) Follow-up with gastroenterology and cardiology/pulmonology 5) Continue to monitor I&O, labs, and skin integrity Expected Outcomes/Goals: 1) TPN to meet at least 75% estimated daily needs 2) labs and GI symptoms to improve 3) diet to advance 4) gradual wt loss 5) f/u in 2-3 days Date of Service: Jul 24, 2025 Billing Provider: JOSE JORDAN MD Common Visit Codes: 29926-[id number] CARE 30-74 MIN, 49342-[id number] CARE-EACH +30MIN TIM COLLIER Jul 24, 2025 18:36 JOSE JORDAN MD Jul 25, 2025 12:28
[2025-07-24] MEDS: TPN PER PHARMACY IV NR (21:53)
[2025-07-25] VITALS (102 sets, daily range): BP systolic 91–202; BP diastolic 40–161; PULSE 69–121; RESP 10–37; TEMP 98–99.4; O2SAT 88–100
[2025-07-25 02:39] LABS: Mean Corpuscular Volume 83.5 fL (80.0-100.0)
[2025-07-25 02:41] LABS: Hematocrit 21.7 % (36.0-46.0); Hemoglobin 7.3 g/dL (12.2-16.2); Mean Corpuscular Hemoglobin 27.9 pg (28.0-32.0); Nucleated Red Blood Cells % 0.1 %
--- NOTE | 2025-07-25 04:46 | DVH ---
CHEST RADIOGRAPH Indication: on vent Technique: Single frontal view of the chest was obtained Comparison: XY CHEST XRAY 1 VIEW on DOS: 07/24/25, XY CHEST XRAY 1 VIEW on DOS: 07/23/25, XY CHEST PORTABLE on DOS: 07/22/25, XY CHEST PORTABLE on DOS: 07/22/25, XY CHEST PORTABLE on DOS: 07/21/25, XY CHEST XRAY 1 VIEW on DOS: 07/24/25 FINDINGS: Lines and Tubes: Unchanged. Lungs: Moderate diffuse increased prominence of the pulmonary vasculature and bibasilar pulmonary airspace disease. No pneumothorax. Cardiomediastinal contours: Cardiomegaly. Bones: Unremarkable IMPRESSION: 1. Moderate diffuse increased prominence of the pulmonary vasculature and Bibasilar pulmonary airspace disease. 2. Cardiomegaly. 3. Lines and tubes unchanged.
[2025-07-25 04:47] LABS: Alanine Aminotransferase 24 U/L (7-40); Alkaline Phosphatase 48 U/L (46-116); Anion Gap 4 (5-15); BUN/Creatinine Ratio 47.6 (10.0-20.0); Bilirubin, Total 0.5 mg/dL (0.2-1.0); Blood Urea Nitrogen 20 mg/dL (9-23); Chloride 100 mmol/L (98-107); Magnesium 2.2 mg/dL (1.6-2.6); Sodium 138 mmol/L (136-145)
[2025-07-25 05:20] LABS: Albumin 2.5 g/dL (3.2-4.8); Calcium 7.6 mg/dL (8.7-10.4); Carbon Dioxide 34 mmol/L (20-31); Glucose 139 mg/dL (74-106); Potassium 3.3 mmol/L (3.5-5.1); Total Protein 4.0 g/dL (5.7-8.2)
[2025-07-25] MEDS ORDERED: POTASSIUM CHL 20MEQ/100ML 100 ML IV ONE (08:15)
[2025-07-25] MEDS ORDERED: POTASSIUM PHOSPHATE 22 MEQ in SODIUM CHL 0.9% 100 ML IV ONE (08:15)
[2025-07-25 08:30] LABS: Base Excess 5.7 mmol/L (-2.0-3.0)
--- NOTE | 2025-07-25 10:07 | DVHPN2 ---
Progress Note Date Seen: Jul 25, 2025 Medical Necessity Reason Pt with a Central, PICC or Fol: Yes The following are medically ne: Central Line, Larkin Catheter Reason for larkin catheter: Strict I&O Subjective Review of Systems: RESPIRATORY:Abnormal Other Systems: Patient seen and examined by myself today in follow-up, patient remained intubated on ventilator Objective vital signs Vital Sign Date Time Temp Pulse Resp B/P (MAP) Pulse Ox O2 Delivery O2 Flow Rate FiO2 07/25/25 08:00 22 97 Mechanical Ventilator+ 30 30 07/25/25 08:00 82 07/25/25 07:50 202/161 (175) 07/25/25 04:00 98.2 98.2 Total Intake and Output 07/24/25 07/24/25 07/25/25 14:59 22:59 06:59 Intake Total 2158.25 ml 1175.25 ml 971.20 ml Output Total 1070 ml 1155 ml Balance 2158.25 ml 105.25 ml -183.80 ml medications Current Medications Medications Dose Ordered Sig/Susana Route Start Time Stop Time Status Last Admin Dose Admin Piperacillin Sod/ Tazobactam Sod 100 ml @ 25 mls/hr Q8HR IV 07/22/25 06:00 07/25/25 05:46 25 MLS/HR Fentanyl Citrate 250 ml @ 2.5 mls/hr Q24H IV 07/21/25 23:15 07/24/25 05:10 15 MLS/HR Propofol 100 ml @ 2.73 mls/hr Q24H IV 07/21/25 23:15 Norepinephrine Bitartrate 250 ml @ 3.75 mls/hr Q24H IV 07/22/25 12:30 07/23/25 23:04 11.25 MLS/HR Pantoprazole Sodium 40 mg DAILY IV 07/23/25 10:00 07/24/25 09:35 40 MG Linezolid 300 ml @ 150 mls/hr Q12HR@0400,1600 IV 07/22/25 17:30 07/25/25 04:00 150 MLS/HR Amino Acids 0 ml @ 0 mls/hr PER PHARMACY IV 07/22/25 18:30 Diagnostic Test (Pha) 1 strip Q6HR 07/23/25 00:00 07/25/25 05:43 1 STRIP Insulin Human Regular FOLLOW SLIDING SCALE Q6HR SC 07/23/25 00:00 07/25/25 05:44 4 UNITS Dextrose 50 ml UD IV 07/22/25 19:00 Fat Emulsion Intravenous 50 ml/ Sodium Phosphate 40 meq/Potassium Chloride 20 meq/ Magnesium Sulfate 10 meq/ Multivitamins 10 ml/Chromium/ Copper/Manganese/ Zinc 1 ml/Insulin Human Regular 5 units/Amino Acids/ Dextrose 983.55 ml @ 41 mls/hr Q24H IV 07/24/25 22:00 07/25/25 21:59 07/24/25 21:53 41 MLS/HR Furosemide 20 mg DAILY IV 07/25/25 10:00 Midazolam HCl 100 ml @ 1 mls/hr Q24H IV 07/25/25 08:30 Examination: LUNGS:Normal, CVS:Normal, MSK:Normal laboratory and microbiology Laboratory Tests 07/25/25 02:00 Test 07/25/25 02:00 Range/Units Serum Glucose 139 H 74-106 mg/dL Microbiology Date/Time Source Procedure Growth Status 07/22/25 15:03 Blood Blood Culture - Preliminary NO GROWTH AFTER 48 HOURS OF INCUBATION. Resulted 07/21/25 23:00 Nose MRSA Screen - Final Complete 07/21/25 19:45 Peritoneal Fluid Gram Stain - Final Resulted 07/21/25 19:45 Peritoneal Fluid Anaerobic Culture Pending Resulted 07/21/25 19:45 Peritoneal Fluid Aerobic Culture Pending Resulted Problem List/Assessment/Plan Problem List/Assessment/Plan Acute kidney injury secondary to hemodynamic mediated Acute respiratory failure, intubated on ventilator Septic shock Hypokalemia Hypophosphatemia Dehydration Small-bowel obstruction status post surgery x2 Recommendations Kidney function is improving Increased urine output Strict I&Os K-Phos IV piggyback KCL replacement I agree with IV fluid hydration Hold diuresis IV antibiotics We will continue to follow Plan discussed with: Other (Nurse) Dietary Evaluation Review Comments: 1) Increase TPN rate to meet at least 75% estimated daily needs 2) Advance to 45g CCHO cardiac diet when medically feasible 3) Refer to outpatient RD/[facility] for weight management 4) Follow-up with gastroenterology and cardiology/pulmonology 5) Continue to monitor I&O, labs, and skin integrity Expected Outcomes/Goals: 1) TPN to meet at least 75% estimated daily needs 2) labs and GI symptoms to improve 3) diet to advance 4) gradual wt loss 5) f/u in 2-3 days RADHA LAWSON MD Jul 25, 2025 10:07
[2025-07-25] MEDS: FUROSEMIDE 20 MG/2 ML VIAL IV SCH (10:35)
[2025-07-25] MEDS: POTASSIUM PHOSPHATE 44 MEQ in D5W 5% 250 ML IV ONE (10:46)
--- NOTE | 2025-07-25 10:55 | DVHPN2 ---
Progress Note Date Seen: Jul 25, 2025 Medical Necessity Reason Pt with a Central, PICC or Fol: Yes The following are medically ne: Central Line, Larkin Catheter Reason for larkin catheter: Strict I&O Objective vital signs Vital Sign Date Time Temp Pulse Resp B/P (MAP) Pulse Ox O2 Delivery O2 Flow Rate FiO2 07/25/25 10:35 98/50 07/25/25 10:20 72 22 95 40 07/25/25 08:00 Mechanical Ventilator+ 07/25/25 04:00 98.2 98.2 Total Intake and Output 07/24/25 07/24/25 07/25/25 15:00 23:00 07:00 Intake Total 1875.75 ml 1193.50 ml 830.20 ml Output Total 1070 ml 1155 ml Balance 1875.75 ml 123.50 ml -324.80 ml medications Current Medications Medications Dose Ordered Sig/Susana Route Start Time Stop Time Status Last Admin Dose Admin Piperacillin Sod/ Tazobactam Sod 100 ml @ 25 mls/hr Q8HR IV 07/22/25 06:00 07/25/25 05:46 25 MLS/HR Fentanyl Citrate 250 ml @ 2.5 mls/hr Q24H IV 07/21/25 23:15 07/24/25 05:10 15 MLS/HR Propofol 100 ml @ 2.73 mls/hr Q24H IV 07/21/25 23:15 Norepinephrine Bitartrate 250 ml @ 3.75 mls/hr Q24H IV 07/22/25 12:30 07/23/25 23:04 11.25 MLS/HR Pantoprazole Sodium 40 mg DAILY IV 07/23/25 10:00 07/25/25 10:35 40 MG Linezolid 300 ml @ 150 mls/hr Q12HR@0400,1600 IV 07/22/25 17:30 07/25/25 04:00 150 MLS/HR Amino Acids 0 ml @ 0 mls/hr PER PHARMACY IV 07/22/25 18:30 Diagnostic Test (Pha) 1 strip Q6HR 07/23/25 00:00 07/25/25 05:43 1 STRIP Insulin Human Regular FOLLOW SLIDING SCALE Q6HR SC 07/23/25 00:00 07/25/25 05:44 4 UNITS Dextrose 50 ml UD IV 07/22/25 19:00 Fat Emulsion Intravenous 50 ml/ Sodium Phosphate 40 meq/Potassium Chloride 20 meq/ Magnesium Sulfate 10 meq/ Multivitamins 10 ml/Chromium/ Copper/Manganese/ Zinc 1 ml/Insulin Human Regular 5 units/Amino Acids/ Dextrose 983.55 ml @ 41 mls/hr Q24H IV 07/24/25 22:00 07/25/25 21:59 07/24/25 21:53 41 MLS/HR Furosemide 20 mg DAILY IV 07/25/25 10:00 07/25/25 10:35 20 MG Midazolam HCl 100 ml @ 1 mls/hr Q24H IV 07/25/25 08:30 Fat Emulsion Intravenous 50 ml/ Sodium Chloride 40 meq/Potassium Phosphate 66 meq/ Magnesium Sulfate 8 meq/ Multivitamins 10 ml/Chromium/ Copper/Manganese/ Zinc 1 ml/Insulin Human Regular 5 units/Amino Acids/ Dextrose 1,088.05 ml @ 45 mls/hr [id number] IV 07/25/25 22:00 07/26/25 21:59 laboratory and microbiology Laboratory Tests 07/25/25 02:00 Test 07/25/25 02:00 Range/Units Serum Glucose 139 H 74-106 mg/dL Problem List/Assessment/Plan Problem List/Assessment/Plan 07/23/25 PATIENT IS SEVERELY DEHYDRATED, HAD BOWEL OBSTRUCTION AND VERY DISTENDED BOWEL NERCESSITATING TWO OPERATIONS, SHE NEEDS MORE IV FLUID. ABDOMEN SOFT, NON DISTENDED,DRAINAGE SEROSANGUINEOUS. 07/24/25 kidney function improving, bp stable on 4 rito's of levo, abdomen soft, non distended, drainage serous (all three drains). labs reviewed. will wean off vent. 07/25/25 failed weaning yesterday, remains intubated and sedated, abdomen non distended, soft, drainage serosanguineous, renal function improved. wound clean and well approximated Plan discussed with: Other Dietary Evaluation Review Comments: 1) Increase TPN rate to meet at least 75% estimated daily needs 2) Advance to 45g CCHO cardiac diet when medically feasible 3) Refer to outpatient RD/[facility] for weight management 4) Follow-up with gastroenterology and cardiology/pulmonology 5) Continue to monitor I&O, labs, and skin integrity Expected Outcomes/Goals: 1) TPN to meet at least 75% estimated daily needs 2) labs and GI symptoms to improve 3) diet to advance 4) gradual wt loss 5) f/u in 2-3 days CHARLENE FORTUNE MD Jul 25, 2025 10:55
[2025-07-25] MEDS: MIDAZOLAM DRIP 100 mg/100mL NS 100 ML IV SCH (11:05)
--- NOTE | 2025-07-25 16:47 | DVHPNRES ---
Progress Note Date Seen: Jul 25, 2025 Resident Creating Document: TIM COLLIER RESIDENT Medical Necessity Reason Pt with a Central, PICC or Fol: Yes The following are medically ne: Central Line, Larkin Catheter Reason for larkin catheter: Strict I&O Subjective Review of Systems Patient is 60-year-old female with past medical history of hypertension, diabetes mellitus type 2, chronic bronchitis/Chronic obstructive pulmonary disease who initially presented with abdominal pain. Initially on 06/23/2025 patient underwent surgery for ventral hernia causing partial bowel obstruction. During procedure patient found to have multiple abdominal wall/interloop agitations, underwent mesh implant and patient was following outpatient setting with surgeon. Patient had recent hospitalization for postoperative abdominal pain, was discharged on 07/08/2025 with pain control. However patient continued to have abdominal pain 03/30, constant, diffuse, associated nausea and vomiting, that prompted visit to hospital. Patient found to have high-grade small-bowel obstruction and underwent to laparotomy procedure on 07/20/2025 and 07/22/2025. And then patient has been transferred to ICU for further care. Past medical history: Hypertension, diabetes mellitus type 2, perforation of bowel Past surgical history: History of ventral hernia repair on 06/23/2025, history of abdominal surgery in 2020. Cholecystectomy, appendectomy Personal history: Former smoker, occasional marijuana use. No any other recreational drug or alcohol use. Family history: Lives with family Allergy: None Home medication 07/22/2025: Patient is in ICU. Status post laparotomy abdominal surgery done by Dr. Almeida. Minimal urine output, requiring vasopressor. Underwent right IJ central line insertion. Receiving IV antibiotics. 07/23/2025: Patient seen in ICU. Off vasopressors. No fever, appropriate urine output. Draining both MUNA drain. Receiving IV antibiotics and IV fluids. No any other new complaints. 07/25/2025:Patient seen in ICU. Falied cpap due tachypnea and tachy cardia. Off vasopressors. No fever, appropriate urine output 2.5 L. Draining both MUNA drain. Receiving IV antibiotics and IV lasix. No any other new complaints Objective vital signs Vital Sign Date Time Temp Pulse Resp B/P (MAP) Pulse Ox O2 Delivery O2 Flow Rate FiO2 07/25/25 15:44 88 22 111/51 (71) 97 30 07/25/25 15:00 99.0 99.0 07/25/25 14:00 Mechanical Ventilator+ Total Intake and Output 07/24/25 07/24/25 07/25/25 15:00 23:00 07:00 Intake Total 1875.75 ml 1193.50 ml 830.20 ml Output Total 1070 ml 1155 ml Balance 1875.75 ml 123.50 ml -324.80 ml medications Current Medications Medications Dose Ordered Sig/Susana Route Start Time Stop Time Status Last Admin Dose Admin Piperacillin Sod/ Tazobactam Sod 100 ml @ 25 mls/hr Q8HR IV 07/22/25 06:00 07/25/25 13:39 25 MLS/HR Fentanyl Citrate 250 ml @ 2.5 mls/hr Q24H IV 07/21/25 23:15 07/24/25 05:10 15 MLS/HR Propofol 100 ml @ 2.73 mls/hr Q24H IV 07/21/25 23:15 Norepinephrine Bitartrate 250 ml @ 3.75 mls/hr Q24H IV 07/22/25 12:30 07/23/25 23:04 11.25 MLS/HR Pantoprazole Sodium 40 mg DAILY IV 07/23/25 10:00 07/25/25 10:35 40 MG Linezolid 300 ml @ 150 mls/hr Q12HR@0400,1600 IV 07/22/25 17:30 07/25/25 04:00 150 MLS/HR Amino Acids 0 ml @ 0 mls/hr PER PHARMACY IV 07/22/25 18:30 Diagnostic Test (Pha) 1 strip Q6HR 07/23/25 00:00 07/25/25 11:49 1 STRIP Insulin Human Regular FOLLOW SLIDING SCALE Q6HR SC 07/23/25 00:00 07/25/25 11:48 4 UNITS Dextrose 50 ml UD IV 07/22/25 19:00 Fat Emulsion Intravenous 50 ml/ Sodium Phosphate 40 meq/Potassium Chloride 20 meq/ Magnesium Sulfate 10 meq/ Multivitamins 10 ml/Chromium/ Copper/Manganese/ Zinc 1 ml/Insulin Human Regular 5 units/Amino Acids/ Dextrose 983.55 ml @ 41 mls/hr Q24H IV 07/24/25 22:00 07/25/25 21:59 07/24/25 21:53 41 MLS/HR Furosemide 20 mg DAILY IV 07/25/25 10:00 07/25/25 10:35 20 MG Midazolam HCl 100 ml @ 1 mls/hr Q24H IV 07/25/25 08:30 07/25/25 11:05 3 MLS/HR Fat Emulsion Intravenous 50 ml/ Sodium Chloride 40 meq/Potassium Phosphate 66 meq/ Magnesium Sulfate 8 meq/ Multivitamins 10 ml/Chromium/ Copper/Manganese/ Zinc 1 ml/Insulin Human Regular 5 units/Amino Acids/ Dextrose 1,088.05 ml @ 45 mls/hr [id number] IV 07/25/25 22:00 07/26/25 21:59 Examination General Appearance: Sedated on ventilation. Head Exam: Normal inspection Neck Exam: Normal inspection. Non-tender. Normal alignment Pulmonary/Respiratory: Chest non-tender. Clear bilateral breath sounds Cardiovascular/Chest: Regular rate and rhythm. No murmurs. No JVD. Peripheral Pulses: 2+ Radial (R). 2+ Radial (L). 2+ Pedal (R). 2+ Pedal (L) Abdominal Exam: Presence of two MUNA drain, dressing over laparotomy incision site. Status post surgery, deep palpation was avoided. Ankle Exam: Negative ankle edema Lower extremities: Negative lower extremity edema Neuro/Mental Status: Sedated laboratory and microbiology Laboratory Tests 07/25/25 02:00 Test 07/25/25 02:00 Range/Units Serum Glucose 139 H 74-106 mg/dL Microbiology Date/Time Source Procedure Growth Status 07/22/25 15:03 Blood Blood Culture - Preliminary NO GROWTH AFTER 72 HOURS OF INCUBATION. Resulted 07/21/25 23:00 Nose MRSA Screen - Final Complete 07/21/25 19:45 Peritoneal Fluid Gram Stain - Final Resulted 07/21/25 19:45 Peritoneal Fluid Anaerobic Culture Pending Resulted 07/21/25 19:45 Peritoneal Fluid Aerobic Culture Pending Resulted Problem List/Assessment/Plan Problem List/Assessment/Plan Neurology Acute metabolic encephalopathy likely due to sepsis Sedated -on fentanyl and Versed Cardiovascular Sinus tachycardia likely due to underlying sepsis -continue treatment of sepsis Septic shock due to peritonitis, incarcerated small bowel obstruction -IV antibiotic with Zosyn and linezolid -panculture: Blood, respiratory, urine: No growth till now -lactic acid: Improved -target map greater than 65 -on vasopressors Levophed Respiratory Acute hypoxic respiratory failure due to sepsis -on mechanical ventilation -volume control assisted: Respiratory rate 22, tidal volume 450, FiO2 50%, peep of five -chest x-ray in a.m. and plan for CPAP trial tomorrow Gastroenterology High-grade small-bowel obstruction Incarcerated umbilical hernia Bowel gangrene Perforation of transverse colon Abdominal adhesions Acute peritonitis -status post laparotomy surgery on 07/20/2025 and 07/22/2025. -NPO -surgery -MUNA drain 2 -wound care -IV antibiotic -TPN History of ventral incisional hernia repair on 06/23/2025 History of abdominal surgery in 2020 Nephrology ROGERIO due to VMN due to hemodynamically mediated related to septic shock: Improved Low urine output -creatinine 0.58, 1.38, 0.5 to -IV fluid to maintain CVP Hypokalemia Metabolic acidosis Hypophosphatemia -IV potassium supplement -IV sodium phosphate Endocrine Diabetes mellitus type 2 -insulin regular sliding scale Obesity BMI 32.4 PUD prophylaxis with Protonix DVT prophylaxis with SCD Lines: Right IJ on 07/22/2025 Intubated on 07/21/2025 Feeding: NPO Nutrition: TPN Larkin catheter Failed CPAP trial today. Given worsening pulmonary vascular congestion, Star IV lasix 20 mg daily. Plan cpap trial tomorrow AM. Goals of care discussed at bedside with and sister. Full code status. Critical care time spent including sedation vacation was 82 mins. excluding procedures. Plan discussed with Plan discussed with: Other (RN) My Orders My Orders Orders - TIM COLLIER RESIDENT Procedure Category Date Status Time Chest Xray 1 View XY 07/25/25 Resulted 04:00 Abg W/ Co-Ox RT 07/25/25 Logged 04:00 Furosemide Injection PHA 07/25/25 In Process (Lasix Injection) 10:00 Cpap/Sed Vacation Med ORDERS 07/25/25 Transmitted Weaning 08:21 Cpap Trial For Am ORDERS 07/25/25 Transmitted 08:21 Midazolam Drip 100 PHA 07/25/25 In Process Mg/100ml Ns (Versed D 08:30 Rass Sedation Scale SLOANE 07/25/25 In Process 08:26 Potassium Phosphate PHA 07/25/25 In Process 09:30 Dietary Evaluation Review Comments: 1) Increase TPN rate to meet at least 75% estimated daily needs 2) Advance to 45g CCHO cardiac diet when medically feasible 3) Refer to outpatient RD/CDCES for weight management 4) Follow-up with gastroenterology and cardiology/pulmonology 5) Continue to monitor I&O, labs, and skin integrity Expected Outcomes/Goals: 1) TPN to meet at least 75% estimated daily needs 2) labs and GI symptoms to improve 3) diet to advance 4) gradual wt loss 5) f/u in 2-3 days Date of Service: Jul 25, 2025 Billing Provider: JOSE JORDAN MD Common Visit Codes: [id number] CARE 30-74 MIN, 45583-[id number] CARE-EACH +30MIN TIM COLLIER RESIDENT Jul 25, 2025 16:47 JOSE JORDAN MD Jul 26, 2025 14:26
[2025-07-25] MEDS: TPN PER PHARMACY IV NR (22:15)
[2025-07-26] VITALS (110 sets, daily range): BP systolic 90–182; BP diastolic 44–103; PULSE 72–132; RESP 9–75; TEMP 98.3–99.1; O2SAT 90–100
[2025-07-26 04:25] LABS: Hemoglobin 7.3 g/dL (12.2-16.2); Nucleated Red Blood Cells % 0.1 %
[2025-07-26 04:28] LABS: Hematocrit 21.7 % (36.0-46.0); Mean Corpuscular Hemoglobin 27.9 pg (28.0-32.0); Mean Corpuscular Volume 82.9 fL (80.0-100.0)
[2025-07-26 04:43] LABS: Alanine Aminotransferase 21 U/L (7-40); Alkaline Phosphatase 55 U/L (46-116); Anion Gap 9 (5-15); BUN/Creatinine Ratio 41.0 (10.0-20.0); Blood Urea Nitrogen 16 mg/dL (9-23); Chloride 98 mmol/L (98-107); Magnesium 1.9 mg/dL (1.6-2.6); Sodium 141 mmol/L (136-145)
[2025-07-26 04:44] LABS: Bilirubin, Total 0.7 mg/dL (0.2-1.0)
[2025-07-26 04:45] LABS: Albumin 2.5 g/dL (3.2-4.8); Calcium 7.7 mg/dL (8.7-10.4); Carbon Dioxide 34 mmol/L (20-31); Glucose 159 mg/dL (74-106); Potassium 3.0 mmol/L (3.5-5.1); Total Protein 4.1 g/dL (5.7-8.2)
[2025-07-26] MEDS: POTASSIUM CHL 20MEQ/100ML 100 ML IV SCH ×2 (05:00→20:56)
--- NOTE | 2025-07-26 05:07 | DVH ---
CHEST RADIOGRAPH Indication: INTUBATED PT Technique: Single frontal view of the chest was obtained COMPARISON: XY CHEST XRAY 1 VIEW on DOS: 07/25/25, XY CHEST XRAY 1 VIEW on DOS: 07/24/25, XY CHEST XRAY 1 VIEW on DOS: 07/23/25, XY CHEST PORTABLE on DOS: 07/22/25, XY CHEST PORTABLE on DOS: 07/22/25 FINDINGS: Lines and Tubes: Unchanged. Lungs: Moderate diffuse increased prominence of the pulmonary vasculature redemonstrated as is patchy bibasilar pulmonary airspace disease. Pleura: No effusion. No pneumothorax. Cardiomediastinal contours: Cardiomegaly. Bones: Unremarkable IMPRESSION: 1. Stable appearing diffuse increased prominence of the pulmonary vasculature and patchy bibasilar pulmonary airspace disease. 2. Cardiomegaly. 3. Lines and tubes unchanged.
--- NOTE | 2025-07-26 10:49 | DVHPN2 ---
Subjective Date Seen: Jul 26, 2025 Post op day Post op day: 0 Objective Vitals Vital Sign Date Time Temp Pulse Resp B/P (MAP) Pulse Ox O2 Delivery O2 Flow Rate FiO2 07/26/25 09:05 141/73 07/26/25 08:12 101 29 30 07/26/25 08:00 95 Mechanical Ventilator+ 07/26/25 04:00 98.8 98.8 Total Intake and Output 07/25/25 07/25/25 07/26/25 15:00 23:00 07:00 Intake Total 486.275 ml 766 ml 1152.5 ml Output Total 2295 ml 1710 ml Balance 486.275 ml -1529 ml -557.5 ml Medications Current Medications Medications Dose Ordered Sig/Susana Route Start Time Stop Time Status Last Admin Dose Admin Piperacillin Sod/ Tazobactam Sod 100 ml @ 25 mls/hr Q8HR IV 07/22/25 06:00 07/26/25 05:09 25 MLS/HR Fentanyl Citrate 250 ml @ 2.5 mls/hr Q24H IV 07/21/25 23:15 07/25/25 21:24 10 MLS/HR Propofol 100 ml @ 2.73 mls/hr Q24H IV 07/21/25 23:15 Norepinephrine Bitartrate 250 ml @ 3.75 mls/hr Q24H IV 07/22/25 12:30 07/23/25 23:04 11.25 MLS/HR Pantoprazole Sodium 40 mg DAILY IV 07/23/25 10:00 07/26/25 09:04 40 MG Linezolid 300 ml @ 150 mls/hr Q12HR@0400,1600 IV 07/22/25 17:30 07/26/25 03:03 150 MLS/HR Amino Acids 0 ml @ 0 mls/hr PER PHARMACY IV 07/22/25 18:30 Diagnostic Test (Pha) 1 strip Q6HR 07/23/25 00:00 07/26/25 05:30 1 STRIP Insulin Human Regular FOLLOW SLIDING SCALE Q6HR SC 07/23/25 00:00 07/26/25 05:28 4 UNITS Dextrose 50 ml UD IV 07/22/25 19:00 Furosemide 20 mg DAILY IV 07/25/25 10:00 07/26/25 09:05 20 MG Midazolam HCl 100 ml @ 1 mls/hr Q24H IV 07/25/25 08:30 07/26/25 03:01 4 MLS/HR Fat Emulsion Intravenous 50 ml/ Sodium Chloride 40 meq/Potassium Phosphate 66 meq/ Magnesium Sulfate 8 meq/ Multivitamins 10 ml/Chromium/ Copper/Manganese/ Zinc 1 ml/Insulin Human Regular 5 units/Amino Acids/ Dextrose 1,088.05 ml @ 45 mls/hr [id number] IV 07/25/25 22:00 07/26/25 21:59 07/25/25 22:15 45 MLS/HR Fat Emulsion Intravenous 100 ml/Sodium Chloride 20 meq/ Potassium Phosphate 66 meq/ Magnesium Sulfate 12 meq/ Multivitamins 10 ml/Chromium/ Copper/Manganese/ Zinc 1 ml/Insulin Human Regular 7 units/Amino Acids/ Dextrose 1,334.07 ml @ 56 mls/hr [id number] IV 07/26/25 22:00 07/27/25 21:59 Labs and Microbiology Laboratory Tests 07/26/25 03:50 Test 07/26/25 03:50 Range/Units Serum Glucose 159 H 74-106 mg/dL Ass/Plan Problem List Neurology Acute metabolic encephalopathy likely due to sepsis Sedated -on fentanyl and Versed Cardiovascular Sinus tachycardia likely due to underlying sepsis -continue treatment of sepsis Septic shock due to peritonitis, incarcerated small bowel obstruction -IV antibiotic with Zosyn and linezolid -panculture: Blood, respiratory, urine: No growth till now -lactic acid: Improved -target map greater than 65 -on vasopressors Levophed Respiratory Acute hypoxic respiratory failure due to sepsis -on mechanical ventilation -volume control assisted: Respiratory rate 22, tidal volume 450, FiO2 50%, peep of five -chest x-ray in a.m. and plan for CPAP trial tomorrow Gastroenterology High-grade small-bowel obstruction Incarcerated umbilical hernia Bowel gangrene Perforation of transverse colon Abdominal adhesions Acute peritonitis -status post laparotomy surgery on 07/20/2025 and 07/22/2025. -NPO -surgery -MUNA drain 2 -wound care -IV antibiotic -TPN History of ventral incisional hernia repair on 06/23/2025 History of abdominal surgery in 2020 Nephrology ROGERIO due to VMN due to hemodynamically mediated related to septic shock: Improved Low urine output -creatinine 0.58, 1.38, 0.5 to -IV fluid to maintain CVP Hypokalemia Metabolic acidosis Hypophosphatemia -IV potassium supplement -IV sodium phosphate Endocrine Diabetes mellitus type 2 -insulin regular sliding scale Obesity BMI 32.4 PUD prophylaxis with Protonix DVT prophylaxis with SCD Lines: Right IJ on 07/22/2025 Intubated on 07/21/2025 Feeding: NPO Nutrition: TPN Andrea catheter Failed CPAP trial today. Given worsening pulmonary vascular congestion, Star IV lasix 20 mg daily. Plan cpap trial tomorrow AM. Goals of care discussed at bedside with and sister. Full code status. Critical care time spent 90 minutes. excluding procedures. Plan discussed with Assessment/Plan patient intubated labs and notes reviewed abdomen soft. non distended, wound clean dry and intact MUNA drains all seropus fluid Plan: continue current treatment Prognosis: Good Plan discussed with dr denny Visit Coding Surgery Date of Service if different f: Jul 26, 2025 Billing Provider: CHARLENE DENNY MD Surgery Visit Codes: [id number] INP/OBS CARE(HIGH) DAV TRINH NP Jul 26, 2025 10:49
--- NOTE | 2025-07-26 11:05 | DVHPN2 ---
Progress Note Date Seen: Jul 26, 2025 Medical Necessity Reason Pt with a Central, PICC or Fol: Yes The following are medically ne: Central Line, Larkin Catheter Reason for larkin catheter: Strict I&O Subjective Review of Systems: RESPIRATORY:Abnormal Other Systems: Patient seen and examined by myself today in follow-up, patient remained intubated on ventilator Objective vital signs Vital Sign Date Time Temp Pulse Resp B/P (MAP) Pulse Ox O2 Delivery O2 Flow Rate FiO2 07/26/25 09:05 141/73 07/26/25 08:12 101 29 30 07/26/25 08:00 95 Mechanical Ventilator+ 07/26/25 04:00 98.8 98.8 Total Intake and Output 07/25/25 07/25/25 07/26/25 15:00 23:00 07:00 Intake Total 486.275 ml 766 ml 1152.5 ml Output Total 2295 ml 1710 ml Balance 486.275 ml -1529 ml -557.5 ml medications Current Medications Medications Dose Ordered Sig/Susana Route Start Time Stop Time Status Last Admin Dose Admin Piperacillin Sod/ Tazobactam Sod 100 ml @ 25 mls/hr Q8HR IV 07/22/25 06:00 07/26/25 05:09 25 MLS/HR Fentanyl Citrate 250 ml @ 2.5 mls/hr Q24H IV 07/21/25 23:15 07/25/25 21:24 10 MLS/HR Propofol 100 ml @ 2.73 mls/hr Q24H IV 07/21/25 23:15 Norepinephrine Bitartrate 250 ml @ 3.75 mls/hr Q24H IV 07/22/25 12:30 07/23/25 23:04 11.25 MLS/HR Pantoprazole Sodium 40 mg DAILY IV 07/23/25 10:00 07/26/25 09:04 40 MG Linezolid 300 ml @ 150 mls/hr Q12HR@0400,1600 IV 07/22/25 17:30 07/26/25 03:03 150 MLS/HR Amino Acids 0 ml @ 0 mls/hr PER PHARMACY IV 07/22/25 18:30 Diagnostic Test (Pha) 1 strip Q6HR 07/23/25 00:00 07/26/25 05:30 1 STRIP Insulin Human Regular FOLLOW SLIDING SCALE Q6HR SC 07/23/25 00:00 07/26/25 05:28 4 UNITS Dextrose 50 ml UD IV 07/22/25 19:00 Furosemide 20 mg DAILY IV 07/25/25 10:00 07/26/25 09:05 20 MG Midazolam HCl 100 ml @ 1 mls/hr Q24H IV 07/25/25 08:30 07/26/25 03:01 4 MLS/HR Fat Emulsion Intravenous 50 ml/ Sodium Chloride 40 meq/Potassium Phosphate 66 meq/ Magnesium Sulfate 8 meq/ Multivitamins 10 ml/Chromium/ Copper/Manganese/ Zinc 1 ml/Insulin Human Regular 5 units/Amino Acids/ Dextrose 1,088.05 ml @ 45 mls/hr [id number] IV 07/25/25 22:00 07/26/25 21:59 07/25/25 22:15 45 MLS/HR Fat Emulsion Intravenous 100 ml/Sodium Chloride 20 meq/ Potassium Phosphate 66 meq/ Magnesium Sulfate 12 meq/ Multivitamins 10 ml/Chromium/ Copper/Manganese/ Zinc 1 ml/Insulin Human Regular 7 units/Amino Acids/ Dextrose 1,334.07 ml @ 56 mls/hr [id number] IV 07/26/25 22:00 07/27/25 21:59 Examination: LUNGS:Normal, CVS:Normal, MSK:Normal laboratory and microbiology Laboratory Tests 07/26/25 03:50 Test 07/26/25 03:50 Range/Units Serum Glucose 159 H 74-106 mg/dL Microbiology Date/Time Source Procedure Growth Status 07/22/25 15:03 Blood Blood Culture - Preliminary NO GROWTH AFTER 72 HOURS OF INCUBATION. Resulted 07/21/25 23:00 Nose MRSA Screen - Final Complete 07/21/25 19:45 Peritoneal Fluid Gram Stain - Final Resulted 07/21/25 19:45 Peritoneal Fluid Anaerobic Culture Pending Resulted 07/21/25 19:45 Peritoneal Fluid Aerobic Culture - Preliminary Resulted Problem List/Assessment/Plan Problem List/Assessment/Plan Acute kidney injury secondary to hemodynamic mediated Acute respiratory failure, intubated on ventilator Septic shock Hypokalemia Hypophosphatemia Dehydration Small-bowel obstruction status post surgery x2 Recommendations Kidney function is improving Increased urine output Strict I&Os K-Phos IV piggyback KCL replacement I agree with IV fluid hydration Hold diuresis IV antibiotics We will continue to follow Plan discussed with: Patient My Orders My Orders Orders - RADHA LAWSON MD Procedure Category Date Status Time Communication Order ORDERS 07/25/25 Transmitted 19:03 Dietary Evaluation Review Comments: 1) Increase TPN rate to meet at least 75% estimated daily needs 2) Advance to 45g CCHO cardiac diet when medically feasible 3) Refer to outpatient RD/[facility] for weight management 4) Follow-up with gastroenterology and cardiology/pulmonology 5) Continue to monitor I&O, labs, and skin integrity Expected Outcomes/Goals: 1) TPN to meet at least 75% estimated daily needs 2) labs and GI symptoms to improve 3) diet to advance 4) gradual wt loss 5) f/u in 2-3 days RADHA LAWSON MD Jul 26, 2025 11:05
[2025-07-26 11:41] LABS: Base Excess 10.3 mmol/L (-2.0-3.0)
[2025-07-26 12:14] LABS: Potassium 3.6 mmol/L (3.5-5.1); Sodium 140 mmol/L (136-145)
[2025-07-26 12:15] LABS: Anion Gap 7 (5-15); Calcium 8.9 mg/dL (8.7-10.4)
[2025-07-26 12:18] LABS: Carbon Dioxide 36 mmol/L (20-31); Chloride 97 mmol/L (98-107)
[2025-07-26 12:20] LABS: BUN/Creatinine Ratio 31.1 (10.0-20.0); Blood Urea Nitrogen 14 mg/dL (9-23)
[2025-07-26 12:21] LABS: Glucose 178 mg/dL (74-106)
--- NOTE | 2025-07-26 16:23 | DVHPNRES ---
Progress Note Date Seen: Jul 26, 2025 Resident Creating Document: TIM COLLIER RESIDENT Medical Necessity Reason Pt with a Central, PICC or Fol: Yes The following are medically ne: Central Line, Larkin Catheter Reason for larkin catheter: Strict I&O Subjective Review of Systems Patient is 60-year-old female with past medical history of hypertension, diabetes mellitus type 2, chronic bronchitis/Chronic obstructive pulmonary disease who initially presented with abdominal pain. Initially on 06/23/2025 patient underwent surgery for ventral hernia causing partial bowel obstruction. During procedure patient found to have multiple abdominal wall/interloop agitations, underwent mesh implant and patient was following outpatient setting with surgeon. Patient had recent hospitalization for postoperative abdominal pain, was discharged on 07/08/2025 with pain control. However patient continued to have abdominal pain 03/30, constant, diffuse, associated nausea and vomiting, that prompted visit to hospital. Patient found to have high-grade small-bowel obstruction and underwent to laparotomy procedure on 07/20/2025 and 07/22/2025. And then patient has been transferred to ICU for further care. Past medical history: Hypertension, diabetes mellitus type 2, perforation of bowel Past surgical history: History of ventral hernia repair on 06/23/2025, history of abdominal surgery in 2020. Cholecystectomy, appendectomy Personal history: Former smoker, occasional marijuana use. No any other recreational drug or alcohol use. Family history: Lives with family Allergy: None Home medication 07/22/2025: Patient is in ICU. Status post laparotomy abdominal surgery done by Dr. Almeida. Minimal urine output, requiring vasopressor. Underwent right IJ central line insertion. Receiving IV antibiotics. 07/23/2025: Patient seen in ICU. Off vasopressors. No fever, appropriate urine output. Draining both MUNA drain. Receiving IV antibiotics and IV fluids. No any other new complaints. 07/25/2025:Patient seen in ICU. Falied cpap due tachypnea and tachy cardia. Off vasopressors. No fever, appropriate urine output 2.5 L. Draining both MUNA drain. Receiving IV antibiotics and IV lasix. No any other new complaints 07/26/2025: Objective vital signs Vital Sign Date Time Temp Pulse Resp B/P (MAP) Pulse Ox O2 Delivery O2 Flow Rate FiO2 07/26/25 14:35 40 07/26/25 14:13 118 28 139/66 (90) 100 07/26/25 08:00 Mechanical Ventilator+ 07/26/25 04:00 98.8 98.8 Total Intake and Output 07/25/25 07/25/25 07/26/25 15:00 23:00 07:00 Intake Total 486.275 ml 766 ml 1152.5 ml Output Total 2295 ml 1710 ml Balance 486.275 ml -1529 ml -557.5 ml medications Current Medications Medications Dose Ordered Sig/Susana Route Start Time Stop Time Status Last Admin Dose Admin Piperacillin Sod/ Tazobactam Sod 100 ml @ 25 mls/hr Q8HR IV 07/22/25 06:00 07/26/25 14:14 25 MLS/HR Fentanyl Citrate 250 ml @ 2.5 mls/hr Q24H IV 07/21/25 23:15 07/25/25 21:24 10 MLS/HR Propofol 100 ml @ 2.73 mls/hr Q24H IV 07/21/25 23:15 Norepinephrine Bitartrate 250 ml @ 3.75 mls/hr Q24H IV 07/22/25 12:30 07/23/25 23:04 11.25 MLS/HR Pantoprazole Sodium 40 mg DAILY IV 07/23/25 10:00 07/26/25 09:04 40 MG Linezolid 300 ml @ 150 mls/hr Q12HR@0400,1600 IV 07/22/25 17:30 07/26/25 03:03 150 MLS/HR Amino Acids 0 ml @ 0 mls/hr PER PHARMACY IV 07/22/25 18:30 Diagnostic Test (Pha) 1 strip Q6HR 07/23/25 00:00 07/26/25 12:07 1 STRIP Insulin Human Regular FOLLOW SLIDING SCALE Q6HR SC 07/23/25 00:00 07/26/25 12:07 4 UNITS Dextrose 50 ml UD IV 07/22/25 19:00 Furosemide 20 mg DAILY IV 07/25/25 10:00 07/26/25 09:05 20 MG Midazolam HCl 100 ml @ 1 mls/hr Q24H IV 07/25/25 08:30 07/26/25 03:01 4 MLS/HR Fat Emulsion Intravenous 50 ml/ Sodium Chloride 40 meq/Potassium Phosphate 66 meq/ Magnesium Sulfate 8 meq/ Multivitamins 10 ml/Chromium/ Copper/Manganese/ Zinc 1 ml/Insulin Human Regular 5 units/Amino Acids/ Dextrose 1,088.05 ml @ 45 mls/hr [id number] IV 07/25/25 22:00 07/26/25 21:59 07/25/25 22:15 45 MLS/HR Fat Emulsion Intravenous 100 ml/Sodium Chloride 20 meq/ Potassium Phosphate 66 meq/ Magnesium Sulfate 12 meq/ Multivitamins 10 ml/Chromium/ Copper/Manganese/ Zinc 1 ml/Insulin Human Regular 7 units/Amino Acids/ Dextrose 1,334.07 ml @ 56 mls/hr [id number] IV 07/26/25 22:00 07/27/25 21:59 Examination General Appearance: Sedated on ventilation. Head Exam: Normal inspection Neck Exam: Normal inspection. Non-tender. Normal alignment Pulmonary/Respiratory: Chest non-tender. Clear bilateral breath sounds Cardiovascular/Chest: Regular rate and rhythm. No murmurs. No JVD. Peripheral Pulses: 2+ Radial (R). 2+ Radial (L). 2+ Pedal (R). 2+ Pedal (L) Abdominal Exam: Presence of two MUNA drain, dressing over laparotomy incision site. Status post surgery, deep palpation was avoided. Ankle Exam: Negative ankle edema Lower extremities: Negative lower extremity edema Neuro/Mental Status: Sedated laboratory and microbiology Laboratory Tests 07/26/25 11:39 07/26/25 03:50 Test 07/26/25 11:39 Range/Units Serum Glucose 178 H 74-106 mg/dL Microbiology Date/Time Source Procedure Growth Status 07/22/25 15:03 Blood Blood Culture - Preliminary NO GROWTH AFTER 72 HOURS OF INCUBATION. Resulted 07/21/25 23:00 Nose MRSA Screen - Final Complete 07/21/25 19:45 Peritoneal Fluid Gram Stain - Final Resulted 07/21/25 19:45 Peritoneal Fluid Anaerobic Culture Pending Resulted 07/21/25 19:45 Peritoneal Fluid Aerobic Culture - Preliminary Resulted Problem List/Assessment/Plan Problem List/Assessment/Plan Neurology Acute metabolic encephalopathy likely due to sepsis Sedated -on fentanyl and Versed Cardiovascular Sinus tachycardia likely due to underlying sepsis -continue treatment of sepsis Septic shock due to peritonitis, incarcerated small bowel obstruction -IV antibiotic with Zosyn and linezolid -panculture: Blood, respiratory, urine: No growth till now -lactic acid: Improved -target map greater than 65 -on vasopressors Levophed Respiratory Acute hypoxic respiratory failure due to sepsis -on mechanical ventilation -volume control assisted: Respiratory rate 22, tidal volume 450, FiO2 50%, peep of five -chest x-ray in a.m. and plan for CPAP trial tomorrow Gastroenterology High-grade small-bowel obstruction Incarcerated umbilical hernia Bowel gangrene Perforation of transverse colon Abdominal adhesions Acute peritonitis -status post laparotomy surgery on 07/20/2025 and 07/22/2025. -NPO -MUNA drain 2 -wound care -IV antibiotic -TPN History of ventral incisional hernia repair on 06/23/2025 History of abdominal surgery in 2020 Nephrology ROGERIO due to VMN due to hemodynamically mediated related to septic shock: Improved Low urine output -creatinine 0.58, 1.38, 0.5 , 0.45 -stop IV fluid Hypokalemia Metabolic acidosis Hypophosphatemia -IV potassium supplement -IV sodium phosphate Endocrine Diabetes mellitus type 2 -insulin regular sliding scale Obesity BMI 32.4 PUD prophylaxis with Protonix DVT prophylaxis with SCD Lines: Right IJ on 07/22/2025 Intubated on 07/21/2025 Feeding: NPO Nutrition: TPN Larkin catheter Failed CPAP trial today. patient underwent sedation vacation. become tachypneic and tachycardic. Given worsening pulmonary vascular congestion, Star IV lasix 20 mg daily. Plan cpap trial tomorrow AM again. Goals of care discussed at bedside with and sister. Full code status. Critical care time spent 89 minutes including sedation vacation. excluding procedures. Plan discussed with Plan discussed with: Other (RN) My Orders My Orders Orders - TIM COLLIER RESIDENT Procedure Category Date Status Time Chest Portable XY 07/26/25 Resulted 04:00 Abg W/ Co-Ox RT 07/26/25 Logged 06:00 * Wound Consult CONS 07/26/25 Transmitted Magnesium Sulfate PHA 07/26/25 Logged 1gm/100ml 15:45 Potassium LAB 07/26/25 Logged 20:00 Magnesium LAB 07/26/25 Logged 20:00 Packedcell-Noactive BBK 07/26/25 Logged Bleeding 16:09 Type And Screen BBK 07/26/25 Logged 16:09 Dietary Evaluation Review Comments: 1) Increase TPN rate to meet at least 75% estimated daily needs 2) Advance to 45g CCHO cardiac diet when medically feasible 3) Refer to outpatient RD/CDCES for weight management 4) Follow-up with gastroenterology and cardiology/pulmonology 5) Continue to monitor I&O, labs, and skin integrity Expected Outcomes/Goals: 1) TPN to meet at least 75% estimated daily needs 2) labs and GI symptoms to improve 3) diet to advance 4) gradual wt loss 5) f/u in 2-3 days Date of Service: Jul 26, 2025 Billing Provider: JOSE JORDAN MD Common Visit Codes: 44861-[id number] CARE 30-74 MIN, 05815-[id number] CARE-EACH +30MIN TIM COLLIER RESIDENT Jul 26, 2025 16:23 JOSE JORDAN MD Jul 27, 2025 11:21
[2025-07-26] MEDS: MAGNESIUM SULFATE 1GM/100ML 100 ML IV ONE (17:51)
[2025-07-26 20:18] LABS: Magnesium 2.2 mg/dL (1.6-2.6)
[2025-07-26 20:19] LABS: Potassium 3.4 mmol/L (3.5-5.1)
[2025-07-26] MEDS: TPN PER PHARMACY IV NR (21:21)
[2025-07-27] VITALS (106 sets, daily range): BP systolic 94–187; BP diastolic 47–128; PULSE 83–135; RESP 9–30; TEMP 97.9–99.1; O2SAT 89–100
[2025-07-27 03:42] LABS: Hematocrit 26.0 % (36.0-46.0); Hemoglobin 8.5 g/dL (12.2-16.2); Mean Corpuscular Hemoglobin 27.3 pg (28.0-32.0); Mean Corpuscular Volume 83.8 fL (80.0-100.0); Nucleated Red Blood Cells % 0.3 %
[2025-07-27 04:05] LABS: Alanine Aminotransferase 27 U/L (7-40); Alkaline Phosphatase 82 U/L (46-116); Anion Gap 7 (5-15); BUN/Creatinine Ratio 34.2 (10.0-20.0); Blood Urea Nitrogen 13 mg/dL (9-23); Chloride 100 mmol/L (98-107); Magnesium 2.2 mg/dL (1.6-2.6); Potassium 4.2 mmol/L (3.5-5.1); Sodium 139 mmol/L (136-145)
[2025-07-27 04:21] LABS: Albumin 3.1 g/dL (3.2-4.8); Bilirubin, Total 1.7 mg/dL (0.2-1.0); Calcium 8.6 mg/dL (8.7-10.4); Carbon Dioxide 32 mmol/L (20-31); Glucose 141 mg/dL (74-106); Total Protein 5.2 g/dL (5.7-8.2)
--- NOTE | 2025-07-27 05:38 | DVH ---
CHEST RADIOGRAPH Indication: intubated , verify right IJ placement Technique: Single frontal view of the chest was obtained COMPARISON: XY CHEST PORTABLE on DOS: 07/26/25, XY CHEST XRAY 1 VIEW on DOS: 07/25/25, XY CHEST XRAY 1 VIEW on DOS: 07/24/25, XY CHEST XRAY 1 VIEW on DOS: 07/23/25, XY CHEST PORTABLE on DOS: 07/22/25 FINDINGS: Lines and Tubes: Endotracheal tube, enteric catheter and right central venous catheter in satisfactory position. Lungs: Multifocal airspace disease, unchanged. Pleura: No effusion.No pneumothorax. Cardiomediastinal contours: Cardiomegaly, unchanged. Bones: Unremarkable IMPRESSION: Lines and tubes in satisfactory position. No significant interval change.
[2025-07-27 07:13] LABS: Base Excess 5.6 mmol/L (-2.0-3.0)
--- NOTE | 2025-07-27 08:45 | DVHPN2 ---
Subjective Date Seen: Jul 27, 2025 Post op day Post op day: 5 Patient reports: Other (Intubated and sedated) Objective Vitals Vital Sign Date Time Temp Pulse Resp B/P (MAP) Pulse Ox O2 Delivery O2 Flow Rate FiO2 07/27/25 07:58 133 24 155/80 (105) 93 40 07/27/25 06:00 Mechanical Ventilator+ 07/27/25 04:00 98.0 98.0 Total Intake and Output 07/26/25 07/26/25 07/27/25 15:00 23:00 07:00 Intake Total 567.5 ml 1212 ml 977.325 ml Output Total 3450 ml 1195 ml Balance 567.5 ml -2238 ml -217.675 ml Medications Current Medications Medications Dose Ordered Sig/Susana Route Start Time Stop Time Status Last Admin Dose Admin Piperacillin Sod/ Tazobactam Sod 100 ml @ 25 mls/hr Q8HR IV 07/22/25 06:00 07/27/25 05:44 25 MLS/HR Fentanyl Citrate 250 ml @ 2.5 mls/hr Q24H IV 07/21/25 23:15 07/26/25 16:40 20 MLS/HR Propofol 100 ml @ 2.73 mls/hr Q24H IV 07/21/25 23:15 Norepinephrine Bitartrate 250 ml @ 3.75 mls/hr Q24H IV 07/22/25 12:30 07/23/25 23:04 11.25 MLS/HR Pantoprazole Sodium 40 mg DAILY IV 07/23/25 10:00 07/26/25 09:04 40 MG Linezolid 300 ml @ 150 mls/hr Q12HR@0400,1600 IV 07/22/25 17:30 07/27/25 03:36 150 MLS/HR Amino Acids 0 ml @ 0 mls/hr PER PHARMACY IV 07/22/25 18:30 Diagnostic Test (Pha) 1 strip Q6HR 07/23/25 00:00 07/27/25 05:44 1 STRIP Insulin Human Regular FOLLOW SLIDING SCALE Q6HR SC 07/23/25 00:00 07/27/25 05:57 2 UNITS Dextrose 50 ml UD IV 07/22/25 19:00 Furosemide 20 mg DAILY IV 07/25/25 10:00 07/26/25 09:05 20 MG Midazolam HCl 100 ml @ 1 mls/hr Q24H IV 07/25/25 08:30 07/26/25 03:01 4 MLS/HR Fat Emulsion Intravenous 100 ml/Sodium Chloride 20 meq/ Potassium Phosphate 66 meq/ Magnesium Sulfate 12 meq/ Multivitamins 10 ml/Chromium/ Copper/Manganese/ Zinc 1 ml/Insulin Human Regular 7 units/Amino Acids/ Dextrose 1,334.07 ml @ 56 mls/hr [id number] IV 07/26/25 22:00 07/27/25 21:59 07/26/25 21:21 56 MLS/HR General: Other (intubated and sedated) Labs and Microbiology Laboratory Tests 07/27/25 03:27 Test 07/27/25 03:27 Range/Units Serum Glucose 141 H 74-106 mg/dL Ass/Plan Problem List Neurology Acute metabolic encephalopathy likely due to sepsis Sedated -on fentanyl and Versed Cardiovascular Sinus tachycardia likely due to underlying sepsis -continue treatment of sepsis Septic shock due to peritonitis, incarcerated small bowel obstruction -IV antibiotic with Zosyn and linezolid -panculture: Blood, respiratory, urine: No growth till now -lactic acid: Improved -target map greater than 65 -on vasopressors Levophed Respiratory Acute hypoxic respiratory failure due to sepsis -on mechanical ventilation -volume control assisted: Respiratory rate 22, tidal volume 450, FiO2 50%, peep of five -chest x-ray in a.m. and plan for CPAP trial tomorrow Gastroenterology High-grade small-bowel obstruction Incarcerated umbilical hernia Bowel gangrene Perforation of transverse colon Abdominal adhesions Acute peritonitis -status post laparotomy surgery on 07/20/2025 and 07/22/2025. -NPO -MUNA drain 2 -wound care -IV antibiotic -TPN History of ventral incisional hernia repair on 06/23/2025 History of abdominal surgery in 2020 Nephrology ROGERIO due to VMN due to hemodynamically mediated related to septic shock: Improved Low urine output -creatinine 0.58, 1.38, 0.5 , 0.45 -stop IV fluid Hypokalemia Metabolic acidosis Hypophosphatemia -IV potassium supplement -IV sodium phosphate Endocrine Diabetes mellitus type 2 -insulin regular sliding scale Obesity BMI 32.4 PUD prophylaxis with Protonix DVT prophylaxis with SCD Lines: Right IJ on 07/22/2025 Intubated on 07/21/2025 Feeding: NPO Nutrition: TPN Andrea catheter Failed CPAP trial today. patient underwent sedation vacation. become tachypneic and tachycardic. Given worsening pulmonary vascular congestion, Star IV lasix 20 mg daily. Plan cpap trial tomorrow AM again. Goals of care discussed at bedside with and sister. Full code status. Critical care time spent 89 minutes including sedation vacation. excluding procedures. Plan discussed with Assessment/Plan patient intubated labs and notes reviewed abdomen soft. non distended, wound clean dry and intact MUNA drains all seropus fluid Plan: continue current treatment 07/27/25 patient intubated labs and notes reviewed abdomen soft. non distended, wound clean dry and intact MUNA drains all serous fluid Plan: continue current treatment discussed with Dr. Rodriguez Prognosis: Good Plan discussed with Dr. Rodriguez Visit Coding Surgery Date of Service if different f: Jul 27, 2025 Billing Provider: CHARLENE RODRIGUEZ MD Surgery Visit Codes: [id number] INP/OBS CARE(HIGH) DAV TRINH NP Jul 27, 2025 08:45
[2025-07-27 09:41] LABS: Base Excess 5.7 mmol/L (-2.0-3.0)
[2025-07-27] MEDS: ALBUTEROL SULF 2.5 MG/0.5ML(0.5%) NEB SOLN NEB PRN (11:27)
[2025-07-27] MEDS: IPRATROPIUM BROM 0.5 MG/2.5ML INH SOL NEB PRN (11:27)
--- NOTE | 2025-07-27 13:28 | DVHPN2 ---
Progress Note Date Seen: Jul 27, 2025 Medical Necessity Reason Pt with a Central, PICC or Fol: Yes The following are medically ne: Central Line, Larkin Catheter Reason for larkin catheter: Strict I&O Subjective Review of Systems: RESPIRATORY:Abnormal Other Systems: Patient seen and examined by myself today on rounds, patient remained intubated on the ventilator CPAP trial Objective vital signs Vital Sign Date Time Temp Pulse Resp B/P (MAP) Pulse Ox O2 Delivery O2 Flow Rate FiO2 07/27/25 11: 106 12 95 07/27/25 11:28 Mask 10.0 07/27/25 11:28 50 50 07/27/25 08:44 184/91 07/27/25 04:00 98.0 98.0 Total Intake and Output 07/26/25 07/26/25 07/27/25 15:00 23:00 07:00 Intake Total 567.5 ml 1212 ml 977.325 ml Output Total 3450 ml 1195 ml Balance 567.5 ml -2238 ml -217.675 ml medications Current Medications Medications Dose Ordered Sig/Ssuana Route Start Time Stop Time Status Last Admin Dose Admin Piperacillin Sod/ Tazobactam Sod 100 ml @ 25 mls/hr Q8HR IV 07/22/25 06:00 07/27/25 05:44 25 MLS/HR Fentanyl Citrate 250 ml @ 2.5 mls/hr Q24H IV 07/21/25 23:15 07/26/25 16:40 20 MLS/HR Propofol 100 ml @ 2.73 mls/hr Q24H IV 07/21/25 23:15 Norepinephrine Bitartrate 250 ml @ 3.75 mls/hr Q24H IV 07/22/25 12:30 07/23/25 23:04 11.25 MLS/HR Pantoprazole Sodium 40 mg DAILY IV 07/23/25 10:00 07/27/25 08:43 40 MG Linezolid 300 ml @ 150 mls/hr Q12HR@0400,1600 IV 07/22/25 17:30 07/27/25 03:36 150 MLS/HR Amino Acids 0 ml @ 0 mls/hr PER PHARMACY IV 07/22/25 18:30 Diagnostic Test (Pha) 1 strip Q6HR 07/23/25 00:00 07/27/25 05:44 1 STRIP Insulin Human Regular FOLLOW SLIDING SCALE Q6HR SC 07/23/25 00:00 07/27/25 05:57 2 UNITS Dextrose 50 ml UD IV 07/22/25 19:00 Furosemide 20 mg DAILY IV 07/25/25 10:00 07/27/25 08:44 20 MG Midazolam HCl 100 ml @ 1 mls/hr Q24H IV 07/25/25 08:30 07/26/25 03:01 4 MLS/HR Fat Emulsion Intravenous 100 ml/Sodium Chloride 20 meq/ Potassium Phosphate 66 meq/ Magnesium Sulfate 12 meq/ Multivitamins 10 ml/Chromium/ Copper/Manganese/ Zinc 1 ml/Insulin Human Regular 7 units/Amino Acids/ Dextrose 1,334.07 ml @ 56 mls/hr [id number] IV 07/26/25 22:00 07/27/25 21:59 07/26/25 21:21 56 MLS/HR Fat Emulsion Intravenous 100 ml/Sodium Chloride 20 meq/ Sodium Phosphate 20 meq/Potassium Phosphate 22 meq/ Calcium Gluconate 2.3 meq/Magnesium Sulfate 10 meq/ Multivitamins 10 ml/Chromium/ Copper/Manganese/ Zinc 1 ml/Insulin Human Regular 7 units/Amino Acids/ Dextrose/Purified Water 1,483.5162 ml @ 62 mls/hr [id number] IV 07/27/25 22:00 07/28/25 21:59 Albuterol 2.5 mg Q6HPRN PRN NEB 07/27/25 10:30 07/27/25 11:27 2.5 MG Ipratropium Lyndon 0.5 mg Q6HPRN PRN NEB 07/27/25 10:30 07/27/25 11:27 0.5 MG Examination: LUNGS:Normal, CVS:Normal, MSK:Normal laboratory and microbiology Laboratory Tests 07/27/25 03:27 Test 07/27/25 03:27 Range/Units Serum Glucose 141 H 74-106 mg/dL Microbiology Date/Time Source Procedure Growth Status 07/22/25 15:03 Blood Blood Culture - Preliminary NO GROWTH AFTER 72 HOURS OF INCUBATION. Resulted 07/21/25 23:00 Nose MRSA Screen - Final Complete 07/21/25 19:45 Peritoneal Fluid Gram Stain - Final Resulted 07/21/25 19:45 Peritoneal Fluid Anaerobic Culture - Final Resulted 07/21/25 19:45 Peritoneal Fluid Aerobic Culture - Preliminary Resulted Problem List/Assessment/Plan Problem List/Assessment/Plan Acute kidney injury secondary to hemodynamic mediated Acute respiratory failure, intubated on ventilator Septic shock Hypokalemia Hypophosphatemia Dehydration Small-bowel obstruction status post surgery x2 Recommendations Kidney function resolved back to normal Increased urine output Strict I&Os K-Phos IV piggyback KCL replacement I agree with IV fluid hydration Hold diuresis IV antibiotics I will sign off this case, please reconsult as needed Thank you for the consult Plan discussed with: Other (Nurse) Dietary Evaluation Review Comments: 1) Increase TPN rate to meet at least 75% estimated daily needs 2) Advance to 45g CCHO cardiac diet when medically feasible 3) Refer to outpatient RD/[facility] for weight management 4) Follow-up with gastroenterology and cardiology/pulmonology 5) Continue to monitor I&O, labs, and skin integrity Expected Outcomes/Goals: 1) TPN to meet at least 75% estimated daily needs 2) labs and GI symptoms to improve 3) diet to advance 4) gradual wt loss 5) f/u in 2-3 days RADHA LAWSON MD Jul 27, 2025 13:28
[2025-07-27] MEDS: MORPHINE SULFATE INJ 2 MG/ml SYRG IV PRN (14:51)
--- NOTE | 2025-07-27 17:29 | DVHPNRES ---
Progress Note Date Seen: Jul 27, 2025 Resident Creating Document: TIM COLLIER RESIDENT Medical Necessity Reason Pt with a Central, PICC or Fol: Yes The following are medically ne: Central Line, Larkin Catheter Reason for larkin catheter: Strict I&O Subjective Review of Systems Patient is 60-year-old female with past medical history of hypertension, diabetes mellitus type 2, chronic bronchitis/Chronic obstructive pulmonary disease who initially presented with abdominal pain. Initially on 06/23/2025 patient underwent surgery for ventral hernia causing partial bowel obstruction. During procedure patient found to have multiple abdominal wall/interloop agitations, underwent mesh implant and patient was following outpatient setting with surgeon. Patient had recent hospitalization for postoperative abdominal pain, was discharged on 07/08/2025 with pain control. However patient continued to have abdominal pain 03/30, constant, diffuse, associated nausea and vomiting, that prompted visit to hospital. Patient found to have high-grade small-bowel obstruction and underwent to laparotomy procedure on 07/20/2025 and 07/22/2025. And then patient has been transferred to ICU for further care. Past medical history: Hypertension, diabetes mellitus type 2, perforation of bowel Past surgical history: History of ventral hernia repair on 06/23/2025, history of abdominal surgery in 2020. Cholecystectomy, appendectomy Personal history: Former smoker, occasional marijuana use. No any other recreational drug or alcohol use. Family history: Lives with family Allergy: None Home medication 07/22/2025: Patient is in ICU. Status post laparotomy abdominal surgery done by Dr. Almeida. Minimal urine output, requiring vasopressor. Underwent right IJ central line insertion. Receiving IV antibiotics. 07/23/2025: Patient seen in ICU. Off vasopressors. No fever, appropriate urine output. Draining both MUNA drain. Receiving IV antibiotics and IV fluids. No any other new complaints. 07/25/2025:Patient seen in ICU. Falied cpap due tachypnea and tachy cardia. Off vasopressors. No fever, appropriate urine output 2.5 L. Draining both MUNA drain. Receiving IV antibiotics and IV lasix. No any other new complaints 07/27/2025: Patient in ICU. Underwent CPAP trial, successfully extubated. Currently receiving oxygen via mask. No any other new complaint. Appropriate abdominal pain given underlying surgery done. Objective vital signs Vital Sign Date Time Temp Pulse Resp B/P (MAP) Pulse Ox O2 Delivery O2 Flow Rate FiO2 07/27/25 16:00 98 07/27/25 16:00 98.8 15 133/66 (88) 95 98.8 07/27/25 16:00 Oxymizer 7 N/A Total Intake and Output 07/26/25 07/26/25 07/27/25 15:00 23:00 07:00 Intake Total 567.5 ml 1212 ml 977.325 ml Output Total 3450 ml 1195 ml Balance 567.5 ml -2238 ml -217.675 ml medications Current Medications Medications Dose Ordered Sig/Susana Route Start Time Stop Time Status Last Admin Dose Admin Piperacillin Sod/ Tazobactam Sod 100 ml @ 25 mls/hr Q8HR IV 07/22/25 06:00 07/27/25 14:52 25 MLS/HR Fentanyl Citrate 250 ml @ 2.5 mls/hr Q24H IV 07/21/25 23:15 07/26/25 16:40 20 MLS/HR Propofol 100 ml @ 2.73 mls/hr Q24H IV 07/21/25 23:15 Norepinephrine Bitartrate 250 ml @ 3.75 mls/hr Q24H IV 07/22/25 12:30 07/23/25 23:04 11.25 MLS/HR Pantoprazole Sodium 40 mg DAILY IV 07/23/25 10:00 07/27/25 08:43 40 MG Linezolid 300 ml @ 150 mls/hr Q12HR@0400,1600 IV 07/22/25 17:30 07/27/25 17:17 150 MLS/HR Amino Acids 0 ml @ 0 mls/hr PER PHARMACY IV 07/22/25 18:30 Diagnostic Test (Pha) 1 strip Q6HR 07/23/25 00:00 07/27/25 17:21 1 STRIP Insulin Human Regular FOLLOW SLIDING SCALE Q6HR SC 07/23/25 00:00 07/27/25 16:49 4 UNITS Dextrose 50 ml UD IV 07/22/25 19:00 Furosemide 20 mg DAILY IV 07/25/25 10:00 07/27/25 08:44 20 MG Midazolam HCl 100 ml @ 1 mls/hr Q24H IV 07/25/25 08:30 07/26/25 03:01 4 MLS/HR Fat Emulsion Intravenous 100 ml/Sodium Chloride 20 meq/ Potassium Phosphate 66 meq/ Magnesium Sulfate 12 meq/ Multivitamins 10 ml/Chromium/ Copper/Manganese/ Zinc 1 ml/Insulin Human Regular 7 units/Amino Acids/ Dextrose 1,334.07 ml @ 56 mls/hr [id number] IV 07/26/25 22:00 07/27/25 21:59 07/26/25 21:21 56 MLS/HR Fat Emulsion Intravenous 100 ml/Sodium Chloride 20 meq/ Sodium Phosphate 20 meq/Potassium Phosphate 22 meq/ Calcium Gluconate 2.3 meq/Magnesium Sulfate 10 meq/ Multivitamins 10 ml/Insulin Human Regular 7 units/ Amino Acids/ Dextrose/Purified Water 1,482.5162 ml @ 62 mls/hr [id number] IV 07/27/25 22:00 07/28/25 21:59 Albuterol 2.5 mg Q6HPRN PRN NEB 07/27/25 10:30 07/27/25 11:27 2.5 MG Ipratropium [place] 0.5 mg Q6HPRN PRN NEB 07/27/25 10:30 07/27/25 11:27 0.5 MG Morphine Sulfate 2 mg Q4HPRN PRN IV 07/27/25 14:15 07/27/25 14:51 2 MG Examination General Appearance: Alert but drowsy Head Exam: Normal inspection Neck Exam: Normal inspection. Non-tender. Normal alignment Pulmonary/Respiratory: Chest non-tender. Clear bilateral breath sounds Cardiovascular/Chest: Regular rate and rhythm. No murmurs. No JVD. Peripheral Pulses: 2+ Radial (R). 2+ Radial (L). 2+ Pedal (R). 2+ Pedal (L) Abdominal Exam: Presence of two MUNA drain, dressing over laparotomy incision site. Status post surgery, deep palpation was avoided. Ankle Exam: Negative ankle edema Lower extremities: Negative lower extremity edema Neuro/Mental Status: Alert but drowsy, off sedation. Able to move upper and lower extremity voluntarily. laboratory and microbiology Laboratory Tests 07/27/25 03:27 Test 07/27/25 03:27 Range/Units Serum Glucose 141 H 74-106 mg/dL Microbiology Date/Time Source Procedure Growth Status 07/22/25 15:03 Blood Blood Culture - Final NO GROWTH AFTER 5 DAYS OF INCUBATION. Complete 07/21/25 23:00 Nose MRSA Screen - Final Complete 07/21/25 19:45 Peritoneal Fluid Gram Stain - Final Resulted 07/21/25 19:45 Peritoneal Fluid Anaerobic Culture - Final Resulted 07/21/25 19:45 Peritoneal Fluid Aerobic Culture - Preliminary Resulted Problem List/Assessment/Plan Problem List/Assessment/Plan Neurology Acute metabolic encephalopathy likely due to sepsis Sedated -off sedation after extubation Cardiovascular Sinus tachycardia likely due to underlying sepsis -continue treatment of sepsis Septic shock due to peritonitis, incarcerated small bowel obstruction -IV antibiotic with Zosyn and linezolid -panculture: Blood, respiratory, urine: No growth till now -lactic acid: Improved -target map greater than 65 -on vasopressors Levophed Respiratory Acute hypoxic respiratory failure due to sepsis -on mechanical ventilation -volume control assisted: Respiratory rate 22, tidal volume 450, FiO2 50%, peep of five -chest x-ray in a.m. and plan for CPAP trial tomorrow Gastroenterology High-grade small-bowel obstruction Incarcerated umbilical hernia Bowel gangrene Perforation of transverse colon Abdominal adhesions Acute peritonitis -status post laparotomy surgery on 07/20/2025 and 07/22/2025. -NPO -MUNA drain 2 -wound care -IV antibiotic -TPN History of ventral incisional hernia repair on 06/23/2025 History of abdominal surgery in 2020 Nephrology ROGERIO due to VMN due to hemodynamically mediated related to septic shock: Improved Low urine output -creatinine 0.58, 1.38, 0.5 , 0.45 -stop IV fluid Hypokalemia Metabolic acidosis Hypophosphatemia -IV potassium supplement -IV sodium phosphate Endocrine Diabetes mellitus type 2 -insulin regular sliding scale Obesity BMI 32.4 PUD prophylaxis with Protonix DVT prophylaxis with SCD Lines: Right IJ on 07/22/2025, plan for removal of line tomorrow. PICC line. Intubated on 07/21/2025 Extubated on 07/27/2025 Feeding: NPO Nutrition: TPN Larkin catheter Successfully extubated today, continue with current management IV antibiotic, breathing treatment. Plan for swallow evaluation, PT evaluation tomorrow. Goals of care discussed at bedside with and sister. Full code status. Critical care time spent 87 minutes including CPAP trial and extubation.. excluding procedures. Plan discussed with Plan discussed with: Patient, Other (RN) My Orders My Orders Orders - TIM COLLIER Procedure Category Date Status Time Chest Portable XY 07/27/25 Resulted 04:00 Abg W/ Co-Ox RT 07/27/25 Logged 05:18 Cpap Trial For Am ORDERS 07/27/25 Transmitted 08:06 Respiratory Misc. RT 07/27/25 Transmitted Order 09:49 Albuterol Medneb PHA 07/27/25 In Process (Ventolin Medneb) 10:30 Ipratropium Medneb PHA 07/27/25 In Process (Atrovent Medneb) 10:30 Med Ernie Sub Treatment RT 07/27/25 Logged 10:27 Abg W/ Co-Ox RT 07/27/25 Logged 11:15 Dietary Evaluation Review Comments: 1) Increase TPN rate to meet at least 75% estimated daily needs 2) Advance to 45g CCHO cardiac diet when medically feasible 3) Refer to outpatient RD/CD[facility] for weight management 4) Follow-up with gastroenterology and cardiology/pulmonology 5) Continue to monitor I&O, labs, and skin integrity Expected Outcomes/Goals: 1) TPN to meet at least 75% estimated daily needs 2) labs and GI symptoms to improve 3) diet to advance 4) gradual wt loss 5) f/u in 2-3 days Date of Service: Jul 27, 2025 Billing Provider: JOSE JORDAN MD Common Visit Codes: 36965-[id number] CARE 30-74 MIN, [id number] CARE-EACH +30MIN TIM COLLIER Jul 27, 2025 17:29 JOSE JORDAN MD Jul 30, 2025 16:33
[2025-07-27] MEDS: TPN PER PHARMACY IV NR (22:29)
[2025-07-28] VITALS (101 sets, daily range): BP systolic 125–177; BP diastolic 60–114; PULSE 84–109; RESP 8–29; TEMP 97.9–99; O2SAT 92–100
[2025-07-28 03:46] LABS: Hematocrit 27.1 % (36.0-46.0); Hemoglobin 8.9 g/dL (12.2-16.2); Mean Corpuscular Hemoglobin 27.4 pg (28.0-32.0); Mean Corpuscular Volume 83.2 fL (80.0-100.0); Nucleated Red Blood Cells % 0.1 %
[2025-07-28 04:06] LABS: Alanine Aminotransferase 30 U/L (7-40); Albumin 3.4 g/dL (3.2-4.8); Alkaline Phosphatase 94 U/L (46-116); Anion Gap 7 (5-15); BUN/Creatinine Ratio 42.9 (10.0-20.0); Blood Urea Nitrogen 15 mg/dL (9-23); Calcium 8.8 mg/dL (8.7-10.4); Chloride 101 mmol/L (98-107); Magnesium 2.1 mg/dL (1.6-2.6); Potassium 3.8 mmol/L (3.5-5.1); Sodium 140 mmol/L (136-145)
[2025-07-28 04:07] LABS: Bilirubin, Total 1.0 mg/dL (0.2-1.0)
[2025-07-28 04:13] LABS: Carbon Dioxide 32 mmol/L (20-31); Glucose 162 mg/dL (74-106); Total Protein 5.6 g/dL (5.7-8.2)
--- NOTE | 2025-07-28 06:01 | DVH ---
CHEST RADIOGRAPH Indication: s/p extubation Technique: Single frontal view of the chest was obtained Comparison: XY CHEST PORTABLE on DOS: 07/27/25 FINDINGS: Lines and Tubes: The enteric tube terminates in the stomach. There is a right central venous catheter with its tip terminating in the superior cavoatrial junction. Lungs: Left basilar opacity noted. The right lung is clear. Pleura: No effusion. No pneumothorax. Cardiomediastinal contours: Cardiomegaly, unchanged. Bones: No acute osseous abnormality. IMPRESSION: 1. Stable position of the support lines and tubes. 2. Cardiomegaly. 3. Left basilar opacity noted which could represent atelectasis or infiltrate.
[2025-07-28] MEDS: MORPHINE SULFATE INJ 2 MG/ml SYRG IV ONE (09:47)
[2025-07-28] MEDS: ONDANSETRON HCL 4 MG/2 ML VIAL ONE (09:53)
[2025-07-28] MEDS: HYDROmorphone HCL 2 MG/ML VL/or syr IV PRN (13:33)
--- NOTE | 2025-07-28 14:16 | DVHPNRES ---
Progress Note Date Seen: Jul 28, 2025 Resident Creating Document: TIM COLLIER RESIDENT Medical Necessity Reason Pt with a Central, PICC or Fol: Yes The following are medically ne: Central Line, Larkin Catheter Reason for larkin catheter: Strict I&O Subjective Review of Systems Patient is 60-year-old female with past medical history of hypertension, diabetes mellitus type 2, chronic bronchitis/Chronic obstructive pulmonary disease who initially presented with abdominal pain. Initially on 06/23/2025 patient underwent surgery for ventral hernia causing partial bowel obstruction. During procedure patient found to have multiple abdominal wall/interloop agitations, underwent mesh implant and patient was following outpatient setting with surgeon. Patient had recent hospitalization for postoperative abdominal pain, was discharged on 07/08/2025 with pain control. However patient continued to have abdominal pain 03/30, constant, diffuse, associated nausea and vomiting, that prompted visit to hospital. Patient found to have high-grade small-bowel obstruction and underwent to laparotomy procedure on 07/20/2025 and 07/22/2025. And then patient has been transferred to ICU for further care. Past medical history: Hypertension, diabetes mellitus type 2, perforation of bowel Past surgical history: History of ventral hernia repair on 06/23/2025, history of abdominal surgery in 2020. Cholecystectomy, appendectomy Personal history: Former smoker, occasional marijuana use. No any other recreational drug or alcohol use. Family history: Lives with family Allergy: None Home medication 07/22/2025: Patient is in ICU. Status post laparotomy abdominal surgery done by Dr. Almeida. Minimal urine output, requiring vasopressor. Underwent right IJ central line insertion. Receiving IV antibiotics. 07/23/2025: Patient seen in ICU. Off vasopressors. No fever, appropriate urine output. Draining both MUNA drain. Receiving IV antibiotics and IV fluids. No any other new complaints. 07/25/2025:Patient seen in ICU. Falied cpap due tachypnea and tachy cardia. Off vasopressors. No fever, appropriate urine output 2.5 L. Draining both MUNA drain. Receiving IV antibiotics and IV lasix. No any other new complaints 07/27/2025: Patient in ICU. Underwent CPAP trial, successfully extubated. Currently receiving oxygen via mask. No any other new complaint. Appropriate abdominal pain given underlying surgery done. 07/28/2025: Patient seen in ICU. Patient has been extubated. Still NPO. On tpn. mild abdominal pain. MUNA drain draining well. No other complains. Objective vital signs Vital Sign Date Time Temp Pulse Resp B/P (MAP) Pulse Ox O2 Delivery O2 Flow Rate FiO2 07/28/25 09:47 95 18 152/75 07/28/25 06:45 92 07/28/25 06:00 Oxymizer 7 N/A 07/28/25 04:00 98.0 98.0 Total Intake and Output 07/27/25 07/27/25 07/28/25 15:00 23:00 07:00 Intake Total 489.625 ml 823 ml 896 ml Output Total 2720 ml 1790 ml Balance 489.625 ml -1897 ml -894 ml medications Current Medications Medications Dose Ordered Sig/Susana Route Start Time Stop Time Status Last Admin Dose Admin Piperacillin Sod/ Tazobactam Sod 100 ml @ 25 mls/hr Q8HR IV 07/22/25 06:00 07/28/25 06:11 25 MLS/HR Pantoprazole Sodium 40 mg DAILY IV 07/23/25 10:00 07/28/25 09:43 40 MG Linezolid 300 ml @ 150 mls/hr Q12HR@0400,1600 IV 07/22/25 17:30 07/28/25 04:06 150 MLS/HR Amino Acids 0 ml @ 0 mls/hr PER PHARMACY IV 07/22/25 18:30 Diagnostic Test (Pha) 1 strip Q6HR 07/23/25 00:00 07/28/25 11:56 1 STRIP Insulin Human Regular FOLLOW SLIDING SCALE Q6HR SC 07/23/25 00:00 07/28/25 12:09 4 UNITS Dextrose 50 ml UD IV 07/22/25 19:00 Furosemide 20 mg DAILY IV 07/25/25 10:00 07/28/25 09:43 20 MG Fat Emulsion Intravenous 100 ml/Sodium Chloride 20 meq/ Sodium Phosphate 20 meq/Potassium Phosphate 22 meq/ Calcium Gluconate 2.3 meq/Magnesium Sulfate 10 meq/ Multivitamins 10 ml/Insulin Human Regular 7 units/ Amino Acids/ Dextrose/Purified Water 1,482.5162 ml @ 62 mls/hr [id number] IV 07/27/25 22:00 07/28/25 21:59 07/27/25 22:29 62 MLS/HR Albuterol 2.5 mg Q6HPRN PRN NEB 07/27/25 10:30 07/27/25 11:27 2.5 MG Ipratropium [place] 0.5 mg Q6HPRN PRN NEB 07/27/25 10:30 07/27/25 11:27 0.5 MG Morphine Sulfate 2 mg Q4HPRN PRN IV 07/27/25 14:15 07/28/25 06:37 2 MG Ondansetron HCl 4 mg Q6HPRN PRN IV 07/28/25 10:00 Hydromorphone HCl 0.25 mg Q6HPRN PRN IV 07/28/25 10:00 Fat Emulsion Intravenous 150 ml/Sodium Phosphate 20 meq/ Potassium Chloride 10 meq/ Potassium Phosphate 22 meq/ Calcium Gluconate 2.3 meq/Magnesium Sulfate 10 meq/ Multivitamins 10 ml/Insulin Human Regular 9 units/ Amino Acids/ Dextrose/Purified Water 1,482.5362 ml @ 61 mls/hr [id number] IV 07/28/25 22:00 07/29/25 21:59 Examination General Appearance: Alert but drowsy Head Exam: Normal inspection Neck Exam: Normal inspection. Non-tender. Normal alignment Pulmonary/Respiratory: Chest non-tender. Clear bilateral breath sounds Cardiovascular/Chest: Regular rate and rhythm. No murmurs. No JVD. Peripheral Pulses: 2+ Radial (R). 2+ Radial (L). 2+ Pedal (R). 2+ Pedal (L) Abdominal Exam: Presence of two MUNA drain, dressing over laparotomy incision site. Status post surgery, deep palpation was avoided. Ankle Exam: Negative ankle edema Lower extremities: Negative lower extremity edema Neuro/Mental Status: Alert but drowsy, off sedation. Able to move upper and lower extremity voluntarily. laboratory and microbiology Laboratory Tests 07/28/25 03:05 Test 07/28/25 03:05 Range/Units Serum Glucose 162 H 74-106 mg/dL Microbiology Date/Time Source Procedure Growth Status 07/22/25 15:03 Blood Blood Culture - Final NO GROWTH AFTER 5 DAYS OF INCUBATION. Complete 07/21/25 23:00 Nose MRSA Screen - Final Complete 07/21/25 19:45 Peritoneal Fluid Gram Stain - Final Complete 07/21/25 19:45 Peritoneal Fluid Anaerobic Culture - Final Complete 07/21/25 19:45 Peritoneal Fluid Aerobic Culture - Final Complete Problem List/Assessment/Plan Problem List/Assessment/Plan Neurology Acute metabolic encephalopathy likely due to sepsis Sedated -off sedation after extubation Cardiovascular Sinus tachycardia likely due to underlying sepsis -continue treatment of sepsis Septic shock due to peritonitis, incarcerated small bowel obstruction -IV antibiotic with Zosyn and linezolid -panculture: Blood, respiratory, urine: No growth till now -lactic acid: Improved -target map greater than 65 -on vasopressors Levophed Respiratory Acute hypoxic respiratory failure due to sepsis -Extubated on 07/27/2025 -Volume control assisted: Respiratory rate 22, tidal volume 450, FiO2 50%, peep of five -Chest x-ray in a.m. Gastroenterology High-grade small-bowel obstruction Incarcerated umbilical hernia Bowel gangrene Perforation of transverse colon Abdominal adhesions Acute peritonitis -status post laparotomy surgery on 07/20/2025 and 07/22/2025. -NPO -MUNA drain 2 -wound care -IV antibiotic -TPN History of ventral incisional hernia repair on 06/23/2025 History of abdominal surgery in 2020 Nephrology ROGERIO due to VMN due to hemodynamically mediated related to septic shock: Improved Low urine output -creatinine 0.58, 1.38, 0.5 , 0.45 -stop IV fluid Hypokalemia Metabolic acidosis Hypophosphatemia -IV potassium supplement -IV sodium phosphate Endocrine Diabetes mellitus type 2 -insulin regular sliding scale Obesity BMI 32.4 PUD prophylaxis with Protonix DVT prophylaxis with SCD Lines: Right IJ on 07/22/2025, plan for removal of line tomorrow. PICC line. Intubated on 07/21/2025 Extubated on 07/27/2025 Feeding: NPO Nutrition: TPN Larkin catheter Successfully extubated yesterday, continue with current management IV antibiotic, breathing treatment. Currently NPO. Continue pain management. Goals of care discussed at bedside with and sister. Full code status. Critical care time spent 87 minutes excluding procedures. Plan discussed with Dr. Charles. Plan discussed with: Patient, Other (RN) My Orders My Orders Orders - TIM COLLIER RESIDENT Procedure Category Date Status Time Chest Xray 1 View XY 07/28/25 Resulted 04:00 Ondansetron Hcl PHA 07/28/25 In Process (Zofran) 10:00 Hydromorphone PHA 07/28/25 In Process Injection (Dilaudid 10:00 * Picc Line Consult CONS 07/28/25 Transmitted 11:23 Dietary Evaluation Review Comments: 1) Increase TPN rate to meet at least 75% estimated daily needs 2) Advance to 45g CCHO cardiac diet when medically feasible 3) Refer to outpatient RD/[facility] for weight management 4) Follow-up with gastroenterology and cardiology/pulmonology 5) Continue to monitor I&O, labs, and skin integrity Expected Outcomes/Goals: 1) TPN to meet at least 75% estimated daily needs 2) labs and GI symptoms to improve 3) diet to advance 4) gradual wt loss 5) f/u in 2-3 days TIM COLLIER RESIDENT Jul 28, 2025 14:16
[2025-07-28 17:39] LABS: INR 1.13 (0.9-1.15); Partial Thromboplastin Time 24.2 SEC (24.5-34.5); Prothrombin Time 11.8 sec (9.3-11.8)
[2025-07-28] MEDS ORDERED: LIDOCAINE 1% (LOCAL ANESTH.) PF 5ml SDV ID ONE (18:45)
[2025-07-28] MEDS: SODIUM CHLOR 0.9% PF (SALINE LOCK) 10ML VIAL/SYR IV SCH (22:30)
[2025-07-28] MEDS: TPN PER PHARMACY IV NR (22:38)
--- NOTE | 2025-07-28 23:59 | DVHPN2 ---
Subjective DOS: 07/28/2025 Patient seen and examined at bedside. S/p extubation, currently on supplemental oxygen Overnight events reviewed. Changes from previous H/P or p: Changes Eyes: No Pain, No Vision change, No Conjunctivae inflammation, No Eyelid inflammation, No Other, No Redness ENT: No Ear pain, No Ear discharge, No Nose pain, No Nose discharge, No Nose congestion, No Mouth pain, No Mouth swelling, No Throat pain, No Throat swelling, No Other Cardiovascular: No Chest Pain, No Palpitations, No Orthopnea, No Paroxysmal Noc. Dyspnea, No Edema, No Lt Headedness, No Other Respiratory: No Cough, No Dry, No Shortness of breath, No SOB with excertion, No Wheezing, No Hemoptysis, No Pleuritic Pain, No Sputum, No Other Gastrointestinal: Nausea, Vomiting, Abdominal Pain; No Diarrhea, No Constipation, No Melena, No Hematochezia, No Other Genitourinary: No Dysuria, No Frequency, No Incontinence, No Hematuria, No Retention, No Other Musculoskeletal: No other, No neck pain, No shoulder pain, No arm pain, No back pain, No hand pain, No leg pain, No foot pain Skin: No Rash, No Lesions, No Jaundice, No Bruising, No Other Objective Vitals Vital Signs Date Time Temp Pulse Resp B/P (MAP) Pulse Ox O2 Delivery O2 Flow Rate FiO2 07/28/25 20:46 93 12 95 07/28/25 20:00 Oxymizer 2 N/A 07/28/25 15:45 98.3 98.3 Intake/Output Intake and Output 07/28/25 06:59 Intake Total 2216.950 ml Output Total 4510 ml Balance -2293.050 ml IV Total 2216.950 ml Output Urine Total 2825 ml Gastric Drainage Total 1600 ml Drainage Total 85 ml Exam Gen.: Patient lying in bed in no apparent distress. On supplemental oxygen. Head: Normocephalic, atraumatic. Eyes: EOMI/PERRLA. Ears: Normal hearing. Normal anatomy. Neck/trachea: Trachea midline, supple. Nose: Normal external anatomy. Mouth: Moist mucous membranes. Chest: Decreased air entry bilaterally. No wheezing or rhonchi. Cardiovascular: Positive S1, positive S2. Regular rate and rhythm. Abdomen: Positive bowel sounds in all 4 quadrants. Soft, non-tender, non- distended. : Deferred. Rectal: Deferred. Skin: Warm, dry. Intact. Extremities: 2+ radial pulses bilaterally. No lower extremity edema. Neuro: Awake, alert, oriented x3. No gross motor or sensory deficits. Cranial nerves II through XII intact. Gait not assessed. Medications Current Medications Medications Dose Ordered Sig/Susana Route Start Time Stop Time Status Last Admin Dose Admin Piperacillin Sod/ Tazobactam Sod 100 ml @ 25 mls/hr Q8HR IV 07/22/25 06:00 07/28/25 22:30 25 MLS/HR Pantoprazole Sodium 40 mg DAILY IV 07/23/25 10:00 07/28/25 09:43 40 MG Linezolid 300 ml @ 150 mls/hr Q12HR@0400,1600 IV 07/22/25 17:30 07/28/25 17:13 150 MLS/HR Amino Acids 0 ml @ 0 mls/hr PER PHARMACY IV 07/22/25 18:30 Diagnostic Test (Pha) 1 strip Q6HR 07/23/25 00:00 07/28/25 17:46 1 STRIP Insulin Human Regular FOLLOW SLIDING SCALE Q6HR SC 07/23/25 00:00 07/28/25 17:52 4 UNITS Dextrose 50 ml UD IV 07/22/25 19:00 Furosemide 20 mg DAILY IV 07/25/25 10:00 07/28/25 09:43 20 MG Albuterol 2.5 mg Q6HPRN PRN NEB 07/27/25 10:30 07/28/25 19:56 2.5 MG Ipratropium [place] 0.5 mg Q6HPRN PRN NEB 07/27/25 10:30 07/28/25 19:56 0.5 MG Morphine Sulfate 2 mg Q4HPRN PRN IV 07/27/25 14:15 07/28/25 16:47 2 MG Ondansetron HCl 4 mg Q6HPRN PRN IV 07/28/25 10:00 Hydromorphone HCl 0.25 mg Q6HPRN PRN IV 07/28/25 10:00 07/28/25 20:04 0.25 MG Fat Emulsion Intravenous 150 ml/Sodium Phosphate 20 meq/ Potassium Chloride 10 meq/ Potassium Phosphate 22 meq/ Calcium Gluconate 2.3 meq/Magnesium Sulfate 10 meq/ Multivitamins 10 ml/Insulin Human Regular 9 units/ Amino Acids/ Dextrose/Purified Water 1,482.5362 ml @ 61 mls/hr [id number] IV 07/28/25 22:00 07/29/25 21:59 07/28/25 22:38 61 MLS/HR Sodium Chloride 10 ml QSHIFT@10,22 IV 07/28/25 22:00 07/28/25 22:30 10 ML Laboratory Results Laboratory Tests 07/28/25 03:05 Chemistry Test 07/28/25 03:05 Albumin 3.4 g/dL (3.2-4.8) Calcium Level 8.8 mg/dL (8.7-10.4) Magnesium Level 2.1 mg/dL (1.6-2.6) Phosphorus Level 3.0 mg/dL (2.4-5.1) Total Protein 5.6 g/dL (5.7-8.2) L Coagulation Test 07/28/25 16:34 Prothrombin Time 11.8 sec (9.3-11.8) Prothrombin Time INR 1.13 (0.9-1.15) Activated Partial Thromboplast Time 24.2 SEC (24.5-34.5) L LFT Test 07/28/25 03:05 Alanine Aminotransferase (ALT) 30 U/L (7-40) Alkaline Phosphatase 94 U/L (46-116) Aspartate Amino Transferase (AST) 35 U/L (13-40) Total Bilirubin 1.0 mg/dL (0.2-1.0) Urinalysis Test 07/21/25 18:42 Urine Color Yellow (Yellow) Urine Clarity Clear (Clear) Urine pH 8.0 (5.0-9.0) Urine Specific [place] 1.029 (1.001-1.035) Urine Protein 1+ (Negative) H Urine Ketones 1+ (Negative) H Urine Blood Negative /uL (Negative) Urine Nitrite Negative (Negative) Urine Bilirubin Negative (Negative) Urine Urobilinogen 12 mg/dL (Negative) H Urine Leukocyte Esterase Negative /uL (Negative) Urine RBC 2 /hpf (0 - 4) Urine Microscopic WBC 1 /HPF (0-5) Urine Squamous Epithelial Cells Few /hpf (<5) Urine Bacteria Few /hpf (None Seen) H Urine Hyaline Casts Few /lpf (0 - 2) Urine Mucus Few (None Seen) Urine Glucose Normal mg/dL (Normal) Microbiology Microbiology Date/Time Source Procedure Growth Status 07/22/25 15:03 Blood Blood Culture - Final NO GROWTH AFTER 5 DAYS OF INCUBATION. Complete 07/21/25 23:00 Nose MRSA Screen - Final Complete 07/21/25 19:45 Peritoneal Fluid Gram Stain - Final Complete 07/21/25 19:45 Peritoneal Fluid Anaerobic Culture - Final Complete 07/21/25 19:45 Peritoneal Fluid Aerobic Culture - Final Complete Assessment/Plan Assessment/Plan Impression: Acute hypoxic respiratory failure Dependence on supplemental oxygen Chronic obstructive pulmonary disease Nicotine dependence S/p exploratory laparotomy Obesity, BMI 32.4 Events: Patient underwent CPAP and uneventful extubation yesterday Patient currently on supplemental oxygen On 3 LPM NC Taper O2 as tolerated CXR today demonstrates cardiomegaly. Left basilar opacity noted, which could represent atelectasis or infiltrate. Continue antibiotics. Follow up cultures. WBC trended up at 13.4 K Incentive spirometry S/p laparotomy on 07/22/25. Remains NPO TPN for nutritional support MUNA drain draining well. Follow up Surgery recs Nephrology recs appreciated Diurese with Lasix Monitor renal function Monitor electrolytes. Supplement as necessary. Accu-Cheks, ISS. Labs and imaging reviewed. Rest of plan as noted below. Plan: S/p extubation on 07/27/25 On supplemental oxygen Titrate to keep O2 sats above 92%. Surgery recommendations appreciated. Continue bronchodilators. Continue antibiotics. Follow up cultures. IV fluids with NS at 100 ml/hr. Pressors as necessary for hemodynamic support Titrate to keep mean arterial pressure greater than 65 mmHg. Accu-Cheks, ISS Wound care Protonix for GI ppx Monitor renal function Monitor electrolytes. Supplement as necessary. Monitor ins and outs. Maintain euvolemia. Recommend diet and lifestyle modifications for weight reduction Obesity complicates all care GI prophylaxis. DVT prophylaxis. Prognosis: Poor given patient's multiple co-morbidities. Condition: Critical Rest of plan per hospitalist and other consultants. A total of 35 minutes of critical care time was spent reviewing the patient record, examining the patient, making a diagnostic and therapeutic plan, discussing this plan with the medical personnel, following up on diagnostic studies and following the patient for clinical stability excluding any and all procedures. At least 50% of this time was spent in direct, [id number] contact. Thank you, YVETTE Harmon, for allowing me to participate in this patient's care. Further recommendations will depend on the patient's clinical course. Please do not hesitate to contact me if you have any questions or concerns. This medical document was created using an electronic medical record system with [employer] dictation system. Although these documentations are being carefully reviewed, there may still be some phonetic and typographical changes. The errors are purely typographical, due to imperfection on the software program, and do not reflect any compromise in the patient's medical care. Plan discussed with: Patient, Other (ANDREI Greer) Visit Coding Pulmonary Billing Provider: SIRISHA MA MD Date of Service if different f: Jul 28, 2025 Common Visit Codes: [id number] INP/OBS CARE(HIGH), [id number] CARE 30-74 MIN SIRISHA MA MD Jul 28, 2025 23:59
[2025-07-29] VITALS (67 sets, daily range): BP systolic 133–172; BP diastolic 57–131; PULSE 76–99; RESP 11–31; TEMP 98–99.1; O2SAT 91–100
[2025-07-29] MEDS: ONDANSETRON HCL 4 MG/2 ML VIAL IV PRN (00:38)
[2025-07-29 04:33] LABS: Hematocrit 27.3 % (36.0-46.0); Hemoglobin 8.8 g/dL (12.2-16.2); Mean Corpuscular Hemoglobin 27.0 pg (28.0-32.0); Mean Corpuscular Volume 83.1 fL (80.0-100.0); Nucleated Red Blood Cells % 0.0 %
[2025-07-29 04:36] LABS: Anion Gap 9 (5-15); Chloride 98 mmol/L (98-107); Potassium 3.8 mmol/L (3.5-5.1); Sodium 139 mmol/L (136-145)
[2025-07-29 04:42] LABS: BUN/Creatinine Ratio 47.5 (10.0-20.0); Blood Urea Nitrogen 19 mg/dL (9-23)
[2025-07-29 04:43] LABS: Magnesium 2.0 mg/dL (1.6-2.6)
[2025-07-29 05:00] LABS: Calcium 8.7 mg/dL (8.7-10.4); Carbon Dioxide 32 mmol/L (20-31); Glucose 215 mg/dL (74-106)
--- NOTE | 2025-07-29 05:53 | DVH ---
CHEST RADIOGRAPH Indication: on oxygen Technique: Single frontal view of the chest was obtained COMPARISON: XY CHEST XRAY 1 VIEW on DOS: 07/28/25, XY CHEST PORTABLE on DOS: 07/27/25, XY CHEST PORTABLE on DOS: 07/26/25, XY CHEST XRAY 1 VIEW on DOS: 07/25/25, XY CHEST XRAY 1 VIEW on DOS: 07/24/25 FINDINGS: Lines and Tubes: Unchanged. Lungs: Moderate diffuse increased prominence of the pulmonary vasculature. Pleura: No effusion. No pneumothorax. Cardiomediastinal contours: Cardiomegaly. Bones: Unremarkable IMPRESSION: 1. Cardiomegaly and moderate diffuse increased prominence of the pulmonary vasculature. 2. Lines and tubes unchanged.
--- NOTE | 2025-07-29 08:43 | DVHPN2 ---
Progress Note Date Seen: Jul 29, 2025 Medical Necessity Reason Pt with a Central, PICC or Fol: Yes The following are medically ne: Central Line, Larkin Catheter Reason for larkin catheter: Strict I&O Objective vital signs Vital Sign Date Time Temp Pulse Resp B/P (MAP) Pulse Ox O2 Delivery O2 Flow Rate FiO2 07/29/25 08:30 83 16 152/64 07/29/25 07:00 96 07/29/25 06:00 Oxymizer 4 N/A 07/29/25 04:00 98.2 98.2 Total Intake and Output 07/28/25 07/28/25 07/29/25 15:00 23:00 07:00 Intake Total 571 ml 945 ml 888 ml Output Total 2925 ml 1440 ml Balance 571 ml -1980 ml -552 ml medications Current Medications Medications Dose Ordered Sig/Susana Route Start Time Stop Time Status Last Admin Dose Admin Piperacillin Sod/ Tazobactam Sod 100 ml @ 25 mls/hr Q8HR IV 07/22/25 06:00 07/29/25 06:30 25 MLS/HR Pantoprazole Sodium 40 mg DAILY IV 07/23/25 10:00 07/28/25 09:43 40 MG Linezolid 300 ml @ 150 mls/hr Q12HR@0400,1600 IV 07/22/25 17:30 07/29/25 04:08 150 MLS/HR Amino Acids 0 ml @ 0 mls/hr PER PHARMACY IV 07/22/25 18:30 Diagnostic Test (Pha) 1 strip Q6HR 07/23/25 00:00 07/29/25 06:30 1 STRIP Insulin Human Regular FOLLOW SLIDING SCALE Q6HR SC 07/23/25 00:00 07/29/25 06:36 8 UNITS Dextrose 50 ml UD IV 07/22/25 19:00 Furosemide 20 mg DAILY IV 07/25/25 10:00 07/28/25 09:43 20 MG Albuterol 2.5 mg Q6HPRN PRN NEB 07/27/25 10:30 07/28/25 19:56 2.5 MG Ipratropium [place] 0.5 mg Q6HPRN PRN NEB 07/27/25 10:30 07/28/25 19:56 0.5 MG Morphine Sulfate 2 mg Q4HPRN PRN IV 07/27/25 14:15 07/29/25 08:30 2 MG Ondansetron HCl 4 mg Q6HPRN PRN IV 07/28/25 10:00 07/29/25 08:26 4 MG Hydromorphone HCl 0.25 mg Q6HPRN PRN IV 07/28/25 10:00 07/29/25 04:10 0.25 MG Fat Emulsion Intravenous 150 ml/Sodium Phosphate 20 meq/ Potassium Chloride 10 meq/ Potassium Phosphate 22 meq/ Calcium Gluconate 2.3 meq/Magnesium Sulfate 10 meq/ Multivitamins 10 ml/Insulin Human Regular 9 units/ Amino Acids/ Dextrose/Purified Water 1,482.5362 ml @ 61 mls/hr [id number] IV 07/28/25 22:00 07/29/25 21:59 07/28/25 22:38 61 MLS/HR Sodium Chloride 10 ml QSHIFT@10,22 IV 07/28/25 22:00 07/28/25 22:30 10 ML laboratory and microbiology Laboratory Tests 07/29/25 04:00 Test 07/29/25 04:00 Range/Units Serum Glucose 215 H 74-106 mg/dL Problem List/Assessment/Plan Problem List/Assessment/Plan 07/23/25 PATIENT IS SEVERELY DEHYDRATED, HAD BOWEL OBSTRUCTION AND VERY DISTENDED BOWEL NERCESSITATING TWO OPERATIONS, SHE NEEDS MORE IV FLUID. ABDOMEN SOFT, NON DISTENDED,DRAINAGE SEROSANGUINEOUS. 07/24/25 kidney function improving, bp stable on 4 rito's of levo, abdomen soft, non distended, drainage serous (all three drains). labs reviewed. will wean off vent. 07/25/25 failed weaning yesterday, remains intubated and sedated, abdomen non distended, soft, drainage serosanguineous, renal function improved. wound clean and well approximated 07/29/25 extubated, feels well and hungry, had several bowel movements, abdomen soft and non distended, wound clean and well approximated, drainage clear, will allow po after removing NG tube Plan discussed with: Patient, Other Dietary Evaluation Review Comments: 1) Increase TPN rate to meet at least 75% estimated daily needs 2) Advance to 45g CCHO cardiac diet when medically feasible 3) Refer to outpatient RD/CDCES for weight management 4) Follow-up with gastroenterology and cardiology/pulmonology 5) Continue to monitor I&O, labs, and skin integrity Expected Outcomes/Goals: 1) TPN to meet at least 75% estimated daily needs 2) labs and GI symptoms to improve 3) diet to advance 4) gradual wt loss 5) f/u in 2-3 days CHARLENE FORTUNE MD Jul 29, 2025 08:43
[2025-07-29 09:36] LABS: Alanine Aminotransferase 32.0 U/L (7-40); Albumin 3.3 g/dL (3.2-4.8); Alkaline Phosphatase 101.0 U/L (46-116); Bilirubin, Total 0.9 mg/dL (0.2-1.0)
[2025-07-29 09:54] LABS: Bilirubin, Direct 0.3 mg/dL (<0.3); Total Protein 5.2 g/dL (5.7-8.2)
--- NOTE | 2025-07-29 13:11 | DVHPNRES ---
Progress Note Date Seen: Jul 29, 2025 Resident Creating Document: TIM COLLIER RESIDENT Medical Necessity Reason Pt with a Central, PICC or Fol: Yes The following are medically ne: Central Line, Larkin Catheter Reason for larkin catheter: Strict I&O Subjective Review of Systems Patient is 60-year-old female with past medical history of hypertension, diabetes mellitus type 2, chronic bronchitis/Chronic obstructive pulmonary disease who initially presented with abdominal pain. Initially on 06/23/2025 patient underwent surgery for ventral hernia causing partial bowel obstruction. During procedure patient found to have multiple abdominal wall/interloop agitations, underwent mesh implant and patient was following outpatient setting with surgeon. Patient had recent hospitalization for postoperative abdominal pain, was discharged on 07/08/2025 with pain control. However patient continued to have abdominal pain 03/30, constant, diffuse, associated nausea and vomiting, that prompted visit to hospital. Patient found to have high-grade small-bowel obstruction and underwent to laparotomy procedure on 07/20/2025 and 07/22/2025. And then patient has been transferred to ICU for further care. Past medical history: Hypertension, diabetes mellitus type 2, perforation of bowel Past surgical history: History of ventral hernia repair on 06/23/2025, history of abdominal surgery in 2020. Cholecystectomy, appendectomy Personal history: Former smoker, occasional marijuana use. No any other recreational drug or alcohol use. Family history: Lives with family Allergy: None Home medication 07/22/2025: Patient is in ICU. Status post laparotomy abdominal surgery done by Dr. Almeida. Minimal urine output, requiring vasopressor. Underwent right IJ central line insertion. Receiving IV antibiotics. 07/23/2025: Patient seen in ICU. Off vasopressors. No fever, appropriate urine output. Draining both MUNA drain. Receiving IV antibiotics and IV fluids. No any other new complaints. 07/25/2025:Patient seen in ICU. Falied cpap due tachypnea and tachy cardia. Off vasopressors. No fever, appropriate urine output 2.5 L. Draining both MUNA drain. Receiving IV antibiotics and IV lasix. No any other new complaints 07/27/2025: Patient in ICU. Underwent CPAP trial, successfully extubated. Currently receiving oxygen via mask. No any other new complaint. Appropriate abdominal pain given underlying surgery done. 07/28/2025: Patient seen in ICU. Patient has been extubated. Still NPO. On tpn. mild abdominal pain. MUNA drain draining well. No other complains. 07/29/2025: patient seen in ICU. patient is on Oxymizer. passed bowel movement. Start clear liquids. No other complains. Objective vital signs Vital Sign Date Time Temp Pulse Resp B/P (MAP) Pulse Ox O2 Delivery O2 Flow Rate FiO2 07/29/25 11:59 79 16 144/67 07/29/25 10:30 100 Oxymizer 2 N/A 07/29/25 04:00 98.2 98.2 Total Intake and Output 07/28/25 07/28/25 07/29/25 15:00 23:00 07:00 Intake Total 571 ml 945 ml 888 ml Output Total 2925 ml 1440 ml Balance 571 ml -1980 ml -552 ml medications Current Medications Medications Dose Ordered Sig/Susana Route Start Time Stop Time Status Last Admin Dose Admin Piperacillin Sod/ Tazobactam Sod 100 ml @ 25 mls/hr Q8HR IV 07/22/25 06:00 07/29/25 06:30 25 MLS/HR Pantoprazole Sodium 40 mg DAILY IV 07/23/25 10:00 07/29/25 10:34 40 MG Linezolid 300 ml @ 150 mls/hr Q12HR@0400,1600 IV 07/22/25 17:30 07/29/25 04:08 150 MLS/HR Amino Acids 0 ml @ 0 mls/hr PER PHARMACY IV 07/22/25 18:30 Diagnostic Test (Pha) 1 strip Q6HR 07/23/25 00:00 07/29/25 12:02 1 STRIP Insulin Human Regular FOLLOW SLIDING SCALE Q6HR SC 07/23/25 00:00 07/29/25 12:07 4 UNITS Dextrose 50 ml UD IV 07/22/25 19:00 Furosemide 20 mg DAILY IV 07/25/25 10:00 07/29/25 10:34 20 MG Albuterol 2.5 mg Q6HPRN PRN NEB 07/27/25 10:30 07/28/25 19:56 2.5 MG Ipratropium [place] 0.5 mg Q6HPRN PRN NEB 07/27/25 10:30 07/28/25 19:56 0.5 MG Morphine Sulfate 2 mg Q4HPRN PRN IV 07/27/25 14:15 07/29/25 08:30 2 MG Ondansetron HCl 4 mg Q6HPRN PRN IV 07/28/25 10:00 07/29/25 08:26 4 MG Hydromorphone HCl 0.25 mg Q6HPRN PRN IV 07/28/25 10:00 07/29/25 11:08 0.25 MG Fat Emulsion Intravenous 150 ml/Sodium Phosphate 20 meq/ Potassium Chloride 10 meq/ Potassium Phosphate 22 meq/ Calcium Gluconate 2.3 meq/Magnesium Sulfate 10 meq/ Multivitamins 10 ml/Insulin Human Regular 9 units/ Amino Acids/ Dextrose/Purified Water 1,482.5362 ml @ 61 mls/hr [id number] IV 07/28/25 22:00 07/29/25 21:59 07/28/25 22:38 61 MLS/HR Sodium Chloride 10 ml QSHIFT@10,22 IV 07/28/25 22:00 07/29/25 10:34 10 ML Fat Emulsion Intravenous 150 ml/Sodium Chloride 20 meq/ Potassium Chloride 10 meq/ Potassium Acetate 10 meq/Potassium Phosphate 22 meq/ Calcium Gluconate 2.32 meq/ Magnesium Sulfate 10 meq/ Multivitamins 10 ml/Chromium/ Copper/Manganese/ Zinc 1 ml/Insulin Human Regular 7 units/Amino Aci... 1,438.5592 ml @ 60 mls/hr [id number] IV 07/29/25 22:00 07/30/25 21:59 Examination General Appearance: Alert but drowsy Head Exam: Normal inspection Neck Exam: Normal inspection. Non-tender. Normal alignment Pulmonary/Respiratory: Chest non-tender. Clear bilateral breath sounds Cardiovascular/Chest: Regular rate and rhythm. No murmurs. No JVD. Peripheral Pulses: 2+ Radial (R). 2+ Radial (L). 2+ Pedal (R). 2+ Pedal (L) Abdominal Exam: Presence of two MUNA drain, dressing over laparotomy incision site. Status post surgery, deep palpation was avoided. Ankle Exam: Negative ankle edema Lower extremities: Negative lower extremity edema Neuro/Mental Status: Alert but drowsy, off sedation. Able to move upper and lower extremity voluntarily. laboratory and microbiology Laboratory Tests 07/29/25 04:00 Test 07/29/25 04:00 Range/Units Serum Glucose 215 H 74-106 mg/dL Microbiology Date/Time Source Procedure Growth Status 07/22/25 15:03 Blood Blood Culture - Final NO GROWTH AFTER 5 DAYS OF INCUBATION. Complete 07/21/25 23:00 Nose MRSA Screen - Final Complete 07/21/25 19:45 Peritoneal Fluid Gram Stain - Final Complete 07/21/25 19:45 Peritoneal Fluid Anaerobic Culture - Final Complete 07/21/25 19:45 Peritoneal Fluid Aerobic Culture - Final Complete Problem List/Assessment/Plan Problem List/Assessment/Plan Neurology Acute metabolic encephalopathy likely due to sepsis Sedated -off sedation after extubation Cardiovascular Sinus tachycardia likely due to underlying sepsis -continue treatment of sepsis Septic shock due to peritonitis, incarcerated small bowel obstruction -IV antibiotic with Zosyn and linezolid -panculture: Blood, respiratory, urine: No growth till now -lactic acid: Improved -target map greater than 65 -on vasopressors Levophed Respiratory Acute hypoxic respiratory failure due to sepsis -Extubated on 07/27/2025 -Volume control assisted: Respiratory rate 22, tidal volume 450, FiO2 50%, peep of five -Chest x-ray in a.m. Gastroenterology High-grade small-bowel obstruction Incarcerated umbilical hernia Bowel gangrene Perforation of transverse colon Abdominal adhesions Acute peritonitis -status post laparotomy surgery on 07/20/2025 and 07/22/2025. -NPO -MUNA drain 2 -wound care -IV antibiotic -TPN History of ventral incisional hernia repair on 06/23/2025 History of abdominal surgery in 2020 Nephrology ROGERIO due to VMN due to hemodynamically mediated related to septic shock: Improved Low urine output -creatinine 0.58, 1.38, 0.5 , 0.45 -stop IV fluid Hypokalemia Metabolic acidosis Hypophosphatemia -IV potassium supplement -IV sodium phosphate Endocrine Diabetes mellitus type 2 -insulin regular sliding scale Obesity BMI 32.4 PUD prophylaxis with Protonix DVT prophylaxis with SCD Lines: Right IJ on 07/22/2025, plan for removal of line tomorrow. PICC line. Intubated on 07/21/2025 Extubated on 07/27/2025 Feeding: NPO Nutrition: TPN Larkin catheter On Oxymizer. Had bowel movement. Stat clear liquid diet. Advanced as tolerated. Stopped TPN if deterioration. PT evaluation. Goals of care discussed at bedside with and sister. Full code status. Critical care time spent 83 minutes excluding procedures. Plan discussed with Dr. Charles. Plan discussed with: Patient, Other (RN) My Orders My Orders Orders - TIM COLLIER RESIDENT Procedure Category Date Status Time Chest Xray 1 View XY 07/29/25 Resulted 04:00 Nursing Protocol Picc SLOANE 07/28/25 In Process 18:35 Change Dressing Prn SLOANE 07/28/25 In Process 18:35 PICC BD 07/28/25 Transmitted 18:35 Sodium Chloride Lock PHA 07/28/25 In Process (Saline Lock Ns) 22:00 Do Not Use Picc For SLOANE 07/28/25 In Process Blood Cult 18:35 May Draw Blood From SLOANE 07/28/25 In Process Picc 18:35 Ok To Use Picc SLOANE 07/28/25 In Process 18:35 Change Picc Dressing SLOANE 07/28/25 In Process Q7 Days 18:35 Dietary Evaluation Review Comments: 1) Increase TPN rate to meet at least 75% estimated daily needs 2) Advance to 45g CCHO cardiac diet when medically feasible 3) Refer to outpatient RD/CDCES for weight management 4) Follow-up with gastroenterology and cardiology/pulmonology 5) Continue to monitor I&O, labs, and skin integrity Expected Outcomes/Goals: 1) TPN to meet at least 75% estimated daily needs 2) labs and GI symptoms to improve 3) diet to advance 4) gradual wt loss 5) f/u in 2-3 days TIM COLLIER RESIDENT Jul 29, 2025 13:11
[2025-07-29] MEDS: MORPHINE SULFATE 4 MG/ML SYR/VIAL IV PRN (13:58)
--- NOTE | 2025-07-29 23:09 | DVHPN2 ---
Subjective DOS: 07/29/2025 Patient seen and examined at bedside. Remains on supplemental oxygen Overnight events reviewed. Changes from previous H/P or p: No Changes Eyes: No Pain, No Vision change, No Conjunctivae inflammation, No Eyelid inflammation, No Other, No Redness ENT: No Ear pain, No Ear discharge, No Nose pain, No Nose discharge, No Nose congestion, No Mouth pain, No Mouth swelling, No Throat pain, No Throat swelling, No Other Cardiovascular: No Chest Pain, No Palpitations, No Orthopnea, No Paroxysmal Noc. Dyspnea, No Edema, No Lt Headedness, No Other Respiratory: No Cough, No Dry, No Shortness of breath, No SOB with excertion, No Wheezing, No Hemoptysis, No Pleuritic Pain, No Sputum, No Other Gastrointestinal: Nausea, Vomiting, Abdominal Pain; No Diarrhea, No Constipation, No Melena, No Hematochezia, No Other Genitourinary: No Dysuria, No Frequency, No Incontinence, No Hematuria, No Retention, No Other Musculoskeletal: No other, No neck pain, No shoulder pain, No arm pain, No back pain, No hand pain, No leg pain, No foot pain Skin: No Rash, No Lesions, No Jaundice, No Bruising, No Other Objective Vitals Vital Signs Date Time Temp Pulse Resp B/P (MAP) Pulse Ox O2 Delivery O2 Flow Rate FiO2 07/29/25 22:49 82 19 161/68 07/29/25 20:00 97 Nasal Cannula* 2 28 07/29/25 20:00 99.1 99.1 Intake/Output Intake and Output 07/29/25 07:00 Intake Total 2404 ml Output Total 4365 ml Balance -1961 ml Intake Oral 0 ml IV Total 2404 ml Output Urine Total 2875 ml Gastric Drainage Total 1400 ml Drainage Total 90 ml # Bowel Movements 3 Exam Gen.: Patient lying in bed in no apparent distress. On supplemental oxygen. Head: Normocephalic, atraumatic. Eyes: EOMI/PERRLA. Ears: Normal hearing. Normal anatomy. Neck/trachea: Trachea midline, supple. Nose: Normal external anatomy. Mouth: Moist mucous membranes. Chest: Decreased air entry bilaterally. No wheezing or rhonchi. Cardiovascular: Positive S1, positive S2. Regular rate and rhythm. Abdomen: Positive bowel sounds in all 4 quadrants. Soft, non-tender, non- distended. : Deferred. Rectal: Deferred. Skin: Warm, dry. Intact. Extremities: 2+ radial pulses bilaterally. No lower extremity edema. Neuro: Awake, alert, oriented x3. No gross motor or sensory deficits. Cranial nerves II through XII intact. Gait not assessed. Medications Current Medications Medications Dose Ordered Sig/Susana Route Start Time Stop Time Status Last Admin Dose Admin Piperacillin Sod/ Tazobactam Sod 100 ml @ 25 mls/hr Q8HR IV 07/22/25 06:00 07/29/25 22:50 25 MLS/HR Pantoprazole Sodium 40 mg DAILY IV 07/23/25 10:00 07/29/25 10:34 40 MG Linezolid 300 ml @ 150 mls/hr Q12HR@0400,1600 IV 07/22/25 17:30 07/29/25 16:57 150 MLS/HR Amino Acids 0 ml @ 0 mls/hr PER PHARMACY IV 07/22/25 18:30 Diagnostic Test (Pha) 1 strip Q6HR 07/23/25 00:00 07/29/25 17:49 1 STRIP Insulin Human Regular FOLLOW SLIDING SCALE Q6HR SC 07/23/25 00:00 07/29/25 17:49 8 UNITS Dextrose 50 ml UD IV 07/22/25 19:00 Furosemide 20 mg DAILY IV 07/25/25 10:00 07/29/25 10:34 20 MG Albuterol 2.5 mg Q6HPRN PRN NEB 07/27/25 10:30 07/28/25 19:56 2.5 MG Ipratropium [place] 0.5 mg Q6HPRN PRN NEB 07/27/25 10:30 07/28/25 19:56 0.5 MG Ondansetron HCl 4 mg Q6HPRN PRN IV 07/28/25 10:00 07/29/25 19:35 4 MG Hydromorphone HCl 0.25 mg Q6HPRN PRN IV 07/28/25 10:00 07/29/25 22:49 0.25 MG Sodium Chloride 10 ml QSHIFT@10,22 IV 07/28/25 22:00 07/29/25 22:50 10 ML Fat Emulsion Intravenous 150 ml/Sodium Chloride 20 meq/ Potassium Chloride 10 meq/ Potassium Acetate 10 meq/Potassium Phosphate 22 meq/ Calcium Gluconate 2.32 meq/ Magnesium Sulfate 10 meq/ Multivitamins 10 ml/Chromium/ Copper/Manganese/ Zinc 1 ml/Insulin Human Regular 7 units/Amino Aci... 1,438.5592 ml @ 60 mls/hr [id number] IV 07/29/25 22:00 07/30/25 21:59 07/29/25 22:51 60 MLS/HR Morphine Sulfate 2 mg Q4HPRN PRN IV 07/29/25 13:45 07/29/25 19:39 2 MG Laboratory Results Laboratory Tests 07/29/25 04:00 Chemistry Test 07/29/25 04:00 Albumin 3.3 g/dL (3.2-4.8) Calcium Level 8.7 mg/dL (8.7-10.4) Magnesium Level 2.0 mg/dL (1.6-2.6) Phosphorus Level 3.7 mg/dL (2.4-5.1) Total Protein 5.2 g/dL (5.7-8.2) L LFT Test 07/29/25 04:00 Alanine Aminotransferase (ALT) 32 U/L (7-40) Alkaline Phosphatase 101 U/L (46-116) Aspartate Amino Transferase (AST) 30 U/L (13-40) Direct Bilirubin 0.3 mg/dL (<0.3) Total Bilirubin 0.9 mg/dL (0.2-1.0) Urinalysis Test 07/21/25 18:42 Urine Color Yellow (Yellow) Urine Clarity Clear (Clear) Urine pH 8.0 (5.0-9.0) Urine Specific [place] 1.029 (1.001-1.035) Urine Protein 1+ (Negative) H Urine Ketones 1+ (Negative) H Urine Blood Negative /uL (Negative) Urine Nitrite Negative (Negative) Urine Bilirubin Negative (Negative) Urine Urobilinogen 12 mg/dL (Negative) H Urine Leukocyte Esterase Negative /uL (Negative) Urine RBC 2 /hpf (0 - 4) Urine Microscopic WBC 1 /HPF (0-5) Urine Squamous Epithelial Cells Few /hpf (<5) Urine Bacteria Few /hpf (None Seen) H Urine Hyaline Casts Few /lpf (0 - 2) Urine Mucus Few (None Seen) Urine Glucose Normal mg/dL (Normal) Microbiology Microbiology Date/Time Source Procedure Growth Status 07/22/25 15:03 Blood Blood Culture - Final NO GROWTH AFTER 5 DAYS OF INCUBATION. Complete 07/21/25 23:00 Nose MRSA Screen - Final Complete 07/21/25 19:45 Peritoneal Fluid Gram Stain - Final Complete 07/21/25 19:45 Peritoneal Fluid Anaerobic Culture - Final Complete 07/21/25 19:45 Peritoneal Fluid Aerobic Culture - Final Complete Assessment/Plan Assessment/Plan Impression: Acute hypoxic respiratory failure Dependence on supplemental oxygen Chronic obstructive pulmonary disease Nicotine dependence S/p exploratory laparotomy Obesity, BMI 32.4 Events: Patient underwent CPAP and uneventful extubation yesterday Patient currently on supplemental oxygen On 2 LPM Oxymizer Taper O2 as tolerated CXR today demonstrates cardiomegaly and moderate diffuse increased prominence of the pulmonary vasculature. Continue antibiotics. Follow up cultures. WBC trended down to 11.9 K Incentive spirometry S/p laparotomy on 07/22/25. Remains NPO TPN for nutritional support MUNA drain draining well. Follow up Surgery recs Surgery plans to advance diet to clear liquids If tolerates, plan to downgrade to telemetry. Plan to stop TPN once on regular diet and nutrition at goal. Pain control Avoid oversedation Nephrology recs appreciated Continue diuresis with Lasix Monitor renal function Monitor electrolytes. Supplement as necessary. Potassium supplementation Accu-Cheks, ISS. Labs and imaging reviewed. Rest of plan as noted below. Plan: S/p extubation on 07/27/25 On supplemental oxygen Titrate to keep O2 sats above 92%. Surgery recommendations appreciated. Continue bronchodilators. Continue antibiotics. Follow up cultures. IV fluids with NS at 100 ml/hr. Pressors as necessary for hemodynamic support Titrate to keep mean arterial pressure greater than 65 mmHg. Accu-Cheks, ISS Wound care Protonix for GI ppx Monitor renal function Monitor electrolytes. Supplement as necessary. Monitor ins and outs. Maintain euvolemia. Recommend diet and lifestyle modifications for weight reduction Obesity complicates all care GI prophylaxis. DVT prophylaxis. Prognosis: Poor given patient's multiple co-morbidities. Condition: Critical Rest of plan per hospitalist and other consultants. A total of 35 minutes of critical care time was spent reviewing the patient record, examining the patient, making a diagnostic and therapeutic plan, discussing this plan with the medical personnel, following up on diagnostic studies and following the patient for clinical stability excluding any and all procedures. At least 50% of this time was spent in direct, [id number] contact. Thank you, [employer] WORKER Faustino, for allowing me to participate in this patient's care. Further recommendations will depend on the patient's clinical course. Please do not hesitate to contact me if you have any questions or concerns. This medical document was created using an electronic medical record system with [employer] dictation system. Although these documentations are being carefully reviewed, there may still be some phonetic and typographical changes. The errors are purely typographical, due to imperfection on the software program, and do not reflect any compromise in the patient's medical care. Plan discussed with: Patient, Other (ANDREI Greer) Visit Coding Pulmonary Billing Provider: SIRISHA MA MD Date of Service if different f: Jul 29, 2025 Common Visit Codes: [id number] INP/OBS CARE(HIGH), [id number] CARE 30-74 MIN SIRISHA MA MD Jul 29, 2025 23:09
[2025-07-30] VITALS (36 sets, daily range): BP systolic 132–170; BP diastolic 60–79; PULSE 73–90; RESP 14–27; TEMP 97.5–98.8; O2SAT 84–99
--- NOTE | 2025-07-30 10:21 | DVHPNRES ---
Progress Note Date Seen: Jul 30, 2025 Resident Creating Document: KAREN SWIFT RESIDENT Medical Necessity Reason Pt with a Central, PICC or Fol: Yes The following are medically ne: Central Line, Larkin Catheter Reason for larkin catheter: Strict I&O Subjective Review of Systems Patient is 60-year-old female with past medical history of hypertension, diabetes mellitus type 2, chronic bronchitis/Chronic obstructive pulmonary disease who initially presented with abdominal pain. Initially on 06/23/2025 patient underwent surgery for ventral hernia causing partial bowel obstruction. During procedure patient found to have multiple abdominal wall/interloop agitations, underwent mesh implant and patient was following outpatient setting with surgeon. Patient had recent hospitalization for postoperative abdominal pain, was discharged on 07/08/2025 with pain control. However patient continued to have abdominal pain 03/30, constant, diffuse, associated nausea and vomiting, that prompted visit to hospital. Patient found to have high-grade small-bowel obstruction and underwent to laparotomy procedure on 07/20/2025 and 07/22/2025. And then patient has been transferred to ICU for further care. Past medical history: Hypertension, diabetes mellitus type 2, perforation of bowel Past surgical history: History of ventral hernia repair on 06/23/2025, history of abdominal surgery in 2020. Cholecystectomy, appendectomy Personal history: Former smoker, occasional marijuana use. No any other recreational drug or alcohol use. Family history: Lives with family Allergy: None Home medication 07/22/2025: Patient is in ICU. Status post laparotomy abdominal surgery done by Dr. Almeida. Minimal urine output, requiring vasopressor. Underwent right IJ central line insertion. Receiving IV antibiotics. 07/23/2025: Patient seen in ICU. Off vasopressors. No fever, appropriate urine output. Draining both MUNA drain. Receiving IV antibiotics and IV fluids. No any other new complaints. 07/25/2025:Patient seen in ICU. Falied cpap due tachypnea and tachy cardia. Off vasopressors. No fever, appropriate urine output 2.5 L. Draining both MUNA drain. Receiving IV antibiotics and IV lasix. No any other new complaints 07/27/2025: Patient in ICU. Underwent CPAP trial, successfully extubated. Currently receiving oxygen via mask. No any other new complaint. Appropriate abdominal pain given underlying surgery done. 07/28/2025: Patient seen in ICU. Patient has been extubated. Still NPO. On tpn. mild abdominal pain. MUNA drain draining well. No other complains. 07/29/2025: patient seen in ICU. patient is on Oxymizer. passed bowel movement. Start clear liquids. No other complains. 07/30/25: Patient Seen in ICU. patient today will be downgraded to tele, stopped TPN as patient is tolerating clear liquid diet. Larkin removed. Patient had 2 bowel movements yesterday. Patient does complain of 8/10 abdominal pain, has MUNA drains, surgery following. Objective vital signs Vital Sign Date Time Temp Pulse Resp B/P (MAP) Pulse Ox O2 Delivery O2 Flow Rate FiO2 07/30/25 09:07 75 24 150/72 07/30/25 08:20 97 Nasal Cannula* 2 28 07/30/25 00:00 98.8 98.8 Total Intake and Output 07/29/25 07/29/25 07/30/25 15:00 23:00 07:00 Intake Total 613 ml 1887 ml 625 ml Output Total 0 ml 2210 ml 35 ml Balance 613 ml -323 ml 590 ml medications Current Medications Medications Dose Ordered Sig/Susana Route Start Time Stop Time Status Last Admin Dose Admin Piperacillin Sod/ Tazobactam Sod 100 ml @ 25 mls/hr Q8HR IV 07/22/25 06:00 07/30/25 06:23 25 MLS/HR Pantoprazole Sodium 40 mg DAILY IV 07/23/25 10:00 07/29/25 10:34 40 MG Linezolid 300 ml @ 150 mls/hr Q12HR@0400,1600 IV 07/22/25 17:30 07/30/25 04:05 150 MLS/HR Amino Acids 0 ml @ 0 mls/hr PER PHARMACY IV 07/22/25 18:30 Diagnostic Test (Pha) 1 strip Q6HR 07/23/25 00:00 07/30/25 05:43 1 STRIP Insulin Human Regular FOLLOW SLIDING SCALE Q6HR SC 07/23/25 00:00 07/30/25 05:50 4 UNITS Dextrose 50 ml UD IV 07/22/25 19:00 Furosemide 20 mg DAILY IV 07/25/25 10:00 07/29/25 10:34 20 MG Albuterol 2.5 mg Q6HPRN PRN NEB 07/27/25 10:30 07/28/25 19:56 2.5 MG Ipratropium [place] 0.5 mg Q6HPRN PRN NEB 07/27/25 10:30 07/28/25 19:56 0.5 MG Ondansetron HCl 4 mg Q6HPRN PRN IV 07/28/25 10:00 07/30/25 08:58 4 MG Hydromorphone HCl 0.25 mg Q6HPRN PRN IV 07/28/25 10:00 07/30/25 05:10 0.25 MG Sodium Chloride 10 ml QSHIFT@10,22 IV 07/28/25 22:00 07/29/25 22:50 10 ML Fat Emulsion Intravenous 150 ml/Sodium Chloride 20 meq/ Potassium Chloride 10 meq/ Potassium Acetate 10 meq/Potassium Phosphate 22 meq/ Calcium Gluconate 2.32 meq/ Magnesium Sulfate 10 meq/ Multivitamins 10 ml/Chromium/ Copper/Manganese/ Zinc 1 ml/Insulin Human Regular 7 units/Amino Aci... 1,438.5592 ml @ 60 mls/hr [id number] IV 07/29/25 22:00 07/30/25 21:59 07/29/25 22:51 60 MLS/HR Morphine Sulfate 2 mg Q4HPRN PRN IV 07/29/25 13:45 07/30/25 09:07 2 MG Examination General Appearance: Alert and oriented x4 Head Exam: Normal inspection Neck Exam: Normal inspection. Non-tender. Normal alignment Pulmonary/Respiratory: Chest non-tender. Clear bilateral breath sounds Cardiovascular/Chest: Regular rate and rhythm. No murmurs. No JVD. Peripheral Pulses: 2+ Radial (R). 2+ Radial (L). 2+ Pedal (R). 2+ Pedal (L) Abdominal Exam: Presence of two MUNA drain, dressing over laparotomy incision site. Status post surgery, deep palpation was avoided. Ankle Exam: Negative ankle edema Lower extremities: Negative lower extremity edema Neuro/Mental Status: Alert but drowsy, off sedation. Able to move upper and lower extremity voluntarily. laboratory and microbiology Laboratory Tests 07/29/25 04:00 Test 07/30/25 09:56 Range/Units Serum Glucose Pending Microbiology Date/Time Source Procedure Growth Status 07/22/25 15:03 Blood Blood Culture - Final NO GROWTH AFTER 5 DAYS OF INCUBATION. Complete 07/21/25 23:00 Nose MRSA Screen - Final Complete 07/21/25 19:45 Peritoneal Fluid Gram Stain - Final Complete 07/21/25 19:45 Peritoneal Fluid Anaerobic Culture - Final Complete 07/21/25 19:45 Peritoneal Fluid Aerobic Culture - Final Complete Problem List/Assessment/Plan Problem List/Assessment/Plan Neurology Acute metabolic encephalopathy likely due to sepsis Sedated -on fentanyl and Versed Cardiovascular Sinus tachycardia likely due to underlying sepsis -continue treatment of sepsis Septic shock due to peritonitis, incarcerated small bowel obstruction -IV antibiotic with Zosyn and vancomycin -panculture: Blood, respiratory, urine -IV fluid bolus of 1.5 L has been given -lactic acid: -target map greater than 65 -on vasopressors Levophed -CVP monitoring: Currently low 4 to 6 mmHg. Respiratory Acute hypoxic respiratory failure due to sepsis -on mechanical ventilation -volume control assisted: Respiratory rate 22, tidal volume 450, FiO2 50%, peep of five -chest x-ray in a.m. Gastroenterology High-grade small-bowel obstruction Incarcerated umbilical hernia Bowel gangrene Perforation of transverse colon Abdominal adhesions Acute peritonitis -status post laparotomy surgery on 07/20/2025 and 07/22/2025. -NPO -surgery -MUNA drain -wound care -IV antibiotic -TPN History of ventral incisional hernia repair on 06/23/2025 History of abdominal surgery in 2020 Nephrology ROGERIO due to VMN due to hemodynamically mediated related to septic shock Low urine output -creatinine 0.58, 1.38 -hyperkalemia -lactic acidosis -IV fluid to maintain CVP Hyperkalemia Metabolic acidosis -potassium 5.4 -IV bicarbonate, albuterol and insulin. Endocrine Diabetes mellitus type 2 -serum glucose 199 -IV insulin 10 units for uncontrolled diabetes and hyperkalemia -continue to monitor Obesity BMI 32.4 Lines: Right IJ on 07/22/2025 Intubated on 07/21/2025, Extubated: 07/28 Feeding: Clear liquid diet Nutrition: TPN stopped(07/30) Larkin catheter removed superficial venous thrombosis in the right cephalic vein but no deep venous thrombosis. Goals of care discussed at bedside with and sister. Full code status. Critical care time spent 83 minutes. Outside of procedure. Plan discussed with Dr.Charles Plan discussed with: Patient, Spouse, Other (sister) My Orders My Orders Orders - KAREN SWIFT RESIDENT Procedure Category Date Status Time Transfer Orders XFER 07/30/25 Transmitted 10:10 Communication Order ORDERS 07/30/25 Transmitted 10:10 Dietary Evaluation Review Comments: 1) Increase TPN rate to meet at least 75% estimated daily needs 2) Advance to 45g CCHO cardiac diet when medically feasible 3) Refer to outpatient RD/[facility] for weight management 4) Follow-up with gastroenterology and cardiology/pulmonology 5) Continue to monitor I&O, labs, and skin integrity Expected Outcomes/Goals: 1) TPN to meet at least 75% estimated daily needs 2) labs and GI symptoms to improve 3) diet to advance 4) gradual wt loss 5) f/u in 2-3 days KAREN SWIFT RESIDENT Jul 30, 2025 10:21
[2025-07-30 10:24] LABS: BUN/Creatinine Ratio 32.6 (10.0-20.0)
[2025-07-30 10:56] LABS: Alanine Aminotransferase 38 U/L (7-40); Albumin 4.1 g/dL (3.2-4.8); Alkaline Phosphatase 116 U/L (46-116); Anion Gap 9 (5-15); Bilirubin, Total 1.3 mg/dL (0.2-1.0); Blood Urea Nitrogen 15 mg/dL (9-23); Calcium 9.3 mg/dL (8.7-10.4); Carbon Dioxide 29 mmol/L (20-31); Chloride 98 mmol/L (98-107); Glucose 181 mg/dL (74-106); Magnesium 2.1 mg/dL (1.6-2.6); Potassium 3.7 mmol/L (3.5-5.1); Sodium 136 mmol/L (136-145); Total Protein 6.8 g/dL (5.7-8.2)
--- NOTE | 2025-07-30 12:20 | DVHPN2 ---
Progress Note Date Seen: Jul 30, 2025 Medical Necessity Reason Pt with a Central, PICC or Fol: Yes The following are medically ne: Central Line, Larkin Catheter Reason for larkin catheter: Strict I&O Objective vital signs Vital Sign Date Time Temp Pulse Resp B/P (MAP) Pulse Ox O2 Delivery O2 Flow Rate FiO2 07/30/25 11:30 78 21 142/69 (93) 90 07/30/25 09:45 Nasal Cannula* 1 24 07/30/25 08:00 98.3 98.3 Total Intake and Output 07/29/25 07/29/25 07/30/25 15:00 23:00 07:00 Intake Total 613 ml 1887 ml 710 ml Output Total 0 ml 2210 ml 35 ml Balance 613 ml -323 ml 675 ml medications Current Medications Medications Dose Ordered Sig/Susana Route Start Time Stop Time Status Last Admin Dose Admin Piperacillin Sod/ Tazobactam Sod 100 ml @ 25 mls/hr Q8HR IV 07/22/25 06:00 07/30/25 06:23 25 MLS/HR Pantoprazole Sodium 40 mg DAILY IV 07/23/25 10:00 07/30/25 10:31 40 MG Linezolid 300 ml @ 150 mls/hr Q12HR@0400,1600 IV 07/22/25 17:30 07/30/25 04:05 150 MLS/HR Amino Acids 0 ml @ 0 mls/hr PER PHARMACY IV 07/22/25 18:30 Diagnostic Test (Pha) 1 strip Q6HR 07/23/25 00:00 07/30/25 05:43 1 STRIP Insulin Human Regular FOLLOW SLIDING SCALE Q6HR SC 07/23/25 00:00 07/30/25 05:50 4 UNITS Dextrose 50 ml UD IV 07/22/25 19:00 Furosemide 20 mg DAILY IV 07/25/25 10:00 07/30/25 10:32 20 MG Albuterol 2.5 mg Q6HPRN PRN NEB 07/27/25 10:30 07/28/25 19:56 2.5 MG Ipratropium [place] 0.5 mg Q6HPRN PRN NEB 07/27/25 10:30 07/28/25 19:56 0.5 MG Ondansetron HCl 4 mg Q6HPRN PRN IV 07/28/25 10:00 07/30/25 08:58 4 MG Hydromorphone HCl 0.25 mg Q6HPRN PRN IV 07/28/25 10:00 07/30/25 11:19 0.25 MG Sodium Chloride 10 ml QSHIFT@10,22 IV 07/28/25 22:00 07/30/25 10:32 10 ML Fat Emulsion Intravenous 150 ml/Sodium Chloride 20 meq/ Potassium Chloride 10 meq/ Potassium Acetate 10 meq/Potassium Phosphate 22 meq/ Calcium Gluconate 2.32 meq/ Magnesium Sulfate 10 meq/ Multivitamins 10 ml/Chromium/ Copper/Manganese/ Zinc 1 ml/Insulin Human Regular 7 units/Amino Aci... 1,438.5592 ml @ 60 mls/hr [id number] IV 07/29/25 22:00 07/30/25 21:59 07/29/25 22:51 60 MLS/HR Morphine Sulfate 2 mg Q4HPRN PRN IV 07/29/25 13:45 07/30/25 09:07 2 MG laboratory and microbiology Laboratory Tests 07/30/25 09:56 07/29/25 04:00 Test 07/30/25 09:56 Range/Units Serum Glucose 181 H 74-106 mg/dL Problem List/Assessment/Plan Problem List/Assessment/Plan 07/23/25 PATIENT IS SEVERELY DEHYDRATED, HAD BOWEL OBSTRUCTION AND VERY DISTENDED BOWEL NERCESSITATING TWO OPERATIONS, SHE NEEDS MORE IV FLUID. ABDOMEN SOFT, NON DISTENDED,DRAINAGE SEROSANGUINEOUS. 07/24/25 kidney function improving, bp stable on 4 rito's of levo, abdomen soft, non distended, drainage serous (all three drains). labs reviewed. will wean off vent. 07/25/25 failed weaning yesterday, remains intubated and sedated, abdomen non distended, soft, drainage serosanguineous, renal function improved. wound clean and well approximated 07/29/25 extubated, feels well and hungry, had several bowel movements, abdomen soft and non distended, wound clean and well approximated, drainage clear, will allow po after removing NG tube 07/30/25 alert, oriented, cooperative, comfortable, wound clean and well approximatged, vital signs stable, drainage minimal clear, resumed normal bowel activity, ok to advance po intake and ambulate, stable to leave ICU Plan discussed with: Patient, Other Dietary Evaluation Review Comments: 1) Increase TPN rate to meet at least 75% estimated daily needs 2) Advance to 45g CCHO cardiac diet when medically feasible 3) Refer to outpatient RD/[facility] for weight management 4) Follow-up with gastroenterology and cardiology/pulmonology 5) Continue to monitor I&O, labs, and skin integrity Expected Outcomes/Goals: 1) TPN to meet at least 75% estimated daily needs 2) labs and GI symptoms to improve 3) diet to advance 4) gradual wt loss 5) f/u in 2-3 days CHARLENE FORTUNE MD Jul 30, 2025 12:20
--- NOTE | 2025-07-30 23:33 | DVHPN2 ---
Subjective DOS: 07/30/2025 Patient seen and examined at bedside. Remains on supplemental oxygen Overnight events reviewed. Changes from previous H/P or p: No Changes Eyes: No Pain, No Vision change, No Conjunctivae inflammation, No Eyelid inflammation, No Other, No Redness ENT: No Ear pain, No Ear discharge, No Nose pain, No Nose discharge, No Nose congestion, No Mouth pain, No Mouth swelling, No Throat pain, No Throat swelling, No Other Cardiovascular: No Chest Pain, No Palpitations, No Orthopnea, No Paroxysmal Noc. Dyspnea, No Edema, No Lt Headedness, No Other Respiratory: No Cough, No Dry, No Shortness of breath, No SOB with excertion, No Wheezing, No Hemoptysis, No Pleuritic Pain, No Sputum, No Other Gastrointestinal: Nausea, Vomiting, Abdominal Pain; No Diarrhea, No Constipation, No Melena, No Hematochezia, No Other Genitourinary: No Dysuria, No Frequency, No Incontinence, No Hematuria, No Retention, No Other Musculoskeletal: No other, No neck pain, No shoulder pain, No arm pain, No back pain, No hand pain, No leg pain, No foot pain Skin: No Rash, No Lesions, No Jaundice, No Bruising, No Other Objective Vitals Vital Signs Date Time Temp Pulse Resp B/P (MAP) Pulse Ox O2 Delivery O2 Flow Rate FiO2 07/30/25 21:19 88 19 132/64 07/30/25 21:15 98.1 99 98.1 07/30/25 20:00 Nasal Cannula* 1 24 Intake/Output Intake and Output 07/30/25 07:00 Intake Total 3210 ml Output Total 2245 ml Balance 965 ml Intake Oral 1275 ml IV Total 1935 ml Output Urine Total 2125 ml Stool Total 0 ml Gastric Drainage Total 50 ml Drainage Total 70 ml # Bowel Movements 6 Exam Gen.: Patient lying in bed in no apparent distress. On supplemental oxygen. Head: Normocephalic, atraumatic. Eyes: EOMI/PERRLA. Ears: Normal hearing. Normal anatomy. Neck/trachea: Trachea midline, supple. Nose: Normal external anatomy. Mouth: Moist mucous membranes. Chest: Decreased air entry bilaterally. No wheezing or rhonchi. Cardiovascular: Positive S1, positive S2. Regular rate and rhythm. Abdomen: Positive bowel sounds in all 4 quadrants. Soft, non-tender, non- distended. : Deferred. Rectal: Deferred. Skin: Warm, dry. Intact. Extremities: 2+ radial pulses bilaterally. No lower extremity edema. Neuro: Awake, alert, oriented x3. No gross motor or sensory deficits. Cranial nerves II through XII intact. Gait not assessed. Medications Current Medications Medications Dose Ordered Sig/Susana Route Start Time Stop Time Status Last Admin Dose Admin Piperacillin Sod/ Tazobactam Sod 100 ml @ 25 mls/hr Q8HR IV 07/22/25 06:00 07/30/25 21:16 25 MLS/HR Pantoprazole Sodium 40 mg DAILY IV 07/23/25 10:00 07/30/25 10:31 40 MG Linezolid 300 ml @ 150 mls/hr Q12HR@0400,1600 IV 07/22/25 17:30 07/30/25 17:08 150 MLS/HR Diagnostic Test (Pha) 1 strip Q6HR 07/23/25 00:00 07/30/25 18:13 1 STRIP Insulin Human Regular FOLLOW SLIDING SCALE Q6HR SC 07/23/25 00:00 07/30/25 18:15 4 UNITS Dextrose 50 ml UD IV 07/22/25 19:00 Furosemide 20 mg DAILY IV 07/25/25 10:00 07/30/25 10:32 20 MG Albuterol 2.5 mg Q6HPRN PRN NEB 07/27/25 10:30 07/28/25 19:56 2.5 MG Ipratropium [place] 0.5 mg Q6HPRN PRN NEB 07/27/25 10:30 07/28/25 19:56 0.5 MG Ondansetron HCl 4 mg Q6HPRN PRN IV 07/28/25 10:00 07/30/25 21:16 4 MG Hydromorphone HCl 0.25 mg Q6HPRN PRN IV 07/28/25 10:00 07/30/25 17:08 0.25 MG Sodium Chloride 10 ml QSHIFT@10,22 IV 07/28/25 22:00 07/30/25 21:16 10 ML Morphine Sulfate 2 mg Q4HPRN PRN IV 07/29/25 13:45 07/30/25 21:19 2 MG Laboratory Results Laboratory Tests 07/29/25 04:00 07/30/25 09:56 Chemistry Test 07/30/25 09:56 Albumin 4.1 g/dL (3.2-4.8) Calcium Level 9.3 mg/dL (8.7-10.4) Magnesium Level 2.1 mg/dL (1.6-2.6) Phosphorus Level 3.2 mg/dL (2.4-5.1) Total Protein 6.8 g/dL (5.7-8.2) Lipid panel Test 07/30/25 03:05 Triglycerides Level 531 mg/dL (< 150) H LFT Test 07/30/25 09:56 Alanine Aminotransferase (ALT) 38 U/L (7-40) Alkaline Phosphatase 116 U/L (46-116) Aspartate Amino Transferase (AST) 40 U/L (13-40) Total Bilirubin 1.3 mg/dL (0.2-1.0) H Urinalysis Test 07/21/25 18:42 Urine Color Yellow (Yellow) Urine Clarity Clear (Clear) Urine pH 8.0 (5.0-9.0) Urine Specific [place] 1.029 (1.001-1.035) Urine Protein 1+ (Negative) H Urine Ketones 1+ (Negative) H Urine Blood Negative /uL (Negative) Urine Nitrite Negative (Negative) Urine Bilirubin Negative (Negative) Urine Urobilinogen 12 mg/dL (Negative) H Urine Leukocyte Esterase Negative /uL (Negative) Urine RBC 2 /hpf (0 - 4) Urine Microscopic WBC 1 /HPF (0-5) Urine Squamous Epithelial Cells Few /hpf (<5) Urine Bacteria Few /hpf (None Seen) H Urine Hyaline Casts Few /lpf (0 - 2) Urine Mucus Few (None Seen) Urine Glucose Normal mg/dL (Normal) Microbiology Microbiology Date/Time Source Procedure Growth Status 07/22/25 15:03 Blood Blood Culture - Final NO GROWTH AFTER 5 DAYS OF INCUBATION. Complete 07/21/25 23:00 Nose MRSA Screen - Final Complete 07/21/25 19:45 Peritoneal Fluid Gram Stain - Final Complete 07/21/25 19:45 Peritoneal Fluid Anaerobic Culture - Final Complete 07/21/25 19:45 Peritoneal Fluid Aerobic Culture - Final Complete Assessment/Plan Assessment/Plan Impression: Acute hypoxic respiratory failure Dependence on supplemental oxygen Chronic obstructive pulmonary disease Nicotine dependence S/p exploratory laparotomy Obesity, BMI 32.4 Events: Patient remains on supplemental oxygen Continue on 2 LPM NC Patient noted to desaturate off supplemental oxygen CXR on 07/29 demonstrates cardiomegaly and moderate diffuse increased prominence of the pulmonary vasculature. Continue antibiotics. Follow up cultures. WBC trended down to 11.9 K (07/29) Incentive spirometry S/p laparotomy on 07/22/25. Remains NPO TPN for nutritional support MUNA drain draining well. Follow up Surgery recs Surgery plans to advance diet to clear liquids If tolerates, plan to downgrade to telemetry. Plan to stop TPN once on regular diet and nutrition at goal. Pain control Avoid oversedation Advance diet per Surgery Nephrology recs appreciated Continue diuresis with Lasix Monitor renal function Monitor electrolytes. Supplement as necessary. Accu-Cheks, ISS. Patient is stable for downgrade from the pulmonary standpoint. Labs and imaging reviewed. Rest of plan as noted below. Plan: S/p extubation on 07/27/25 On supplemental oxygen Titrate to keep O2 sats above 92%. Surgery recommendations appreciated. Continue bronchodilators. Continue antibiotics. Follow up cultures. IV fluids with NS at 100 ml/hr. Pressors as necessary for hemodynamic support Titrate to keep mean arterial pressure greater than 65 mmHg. Accu-Cheks, ISS Wound care Protonix for GI ppx Monitor renal function Monitor electrolytes. Supplement as necessary. Monitor ins and outs. Maintain euvolemia. Recommend diet and lifestyle modifications for weight reduction Obesity complicates all care GI prophylaxis. DVT prophylaxis. Prognosis: Poor given patient's multiple co-morbidities. Condition: Critical Rest of plan per hospitalist and other consultants. A total of 35 minutes of critical care time was spent reviewing the patient record, examining the patient, making a diagnostic and therapeutic plan, discussing this plan with the medical personnel, following up on diagnostic studies and following the patient for clinical stability excluding any and all procedures. At least 50% of this time was spent in direct, [id number] contact. Thank you, YVETTE Harmon, for allowing me to participate in this patient's care. Further recommendations will depend on the patient's clinical course. Please do not hesitate to contact me if you have any questions or concerns. This medical document was created using an electronic medical record system with [employer] dictation system. Although these documentations are being carefully reviewed, there may still be some phonetic and typographical changes. The errors are purely typographical, due to imperfection on the software program, and do not reflect any compromise in the patient's medical care. Plan discussed with: Patient, Other (ANDREI Greer) Visit Coding Pulmonary Billing Provider: SIRISHA MA MD Date of Service if different f: Jul 30, 2025 Common Visit Codes: [id number] INP/OBS CARE(HIGH), [id number] CARE 30-74 MIN SIRISHA MA MD Jul 30, 2025 23:33
[2025-07-31] VITALS (9 sets, daily range): BP systolic 130–153; BP diastolic 69–85; PULSE 80–110; RESP 16–20; TEMP 97.7–98.6; O2SAT 91–98
[2025-07-31 07:15] LABS: Hematocrit 29.5 % (36.0-46.0); Hemoglobin 9.4 g/dL (12.2-16.2); Mean Corpuscular Hemoglobin 27.9 pg (28.0-32.0); Mean Corpuscular Volume 88.0 fL (80.0-100.0); Nucleated Red Blood Cells % 0.0 %
[2025-07-31 07:23] LABS: Alanine Aminotransferase 39 U/L (7-40); Anion Gap 11 (5-15); BUN/Creatinine Ratio 23.4 (10.0-20.0); Blood Urea Nitrogen 11 mg/dL (9-23); Calcium 9.2 mg/dL (8.7-10.4); Carbon Dioxide 27 mmol/L (20-31); Chloride 100 mmol/L (98-107); Potassium 3.6 mmol/L (3.5-5.1); Sodium 138 mmol/L (136-145); Total Protein 6.0 g/dL (5.7-8.2)
[2025-07-31 07:24] LABS: Albumin 3.6 g/dL (3.2-4.8)
[2025-07-31 07:28] LABS: Glucose 157 mg/dL (74-106)
[2025-07-31 07:30] LABS: Bilirubin, Total 1.7 mg/dL (0.2-1.0)
[2025-07-31 07:33] LABS: Alkaline Phosphatase 110 U/L (46-116)
--- NOTE | 2025-07-31 21:34 | DVHPNRES ---
Progress Note Date Seen: Jul 31, 2025 Resident Creating Document: QUETA BANDA RESIDENT Medical Necessity Reason Pt with a Central, PICC or Fol: Yes The following are medically ne: Central Line, Larkin Catheter Reason for larkin catheter: Strict I&O Subjective Review of Systems pt seen and examined at bedside mentions abdominal pain had bowel movement today currently on full liquid diet 3 MUNA drain present awaiting surgical clearances Objective vital signs Vital Sign Date Time Temp Pulse Resp B/P (MAP) Pulse Ox O2 Delivery O2 Flow Rate FiO2 07/31/25 21:04 99 18 143/81 07/31/25 21:00 98.1 95 98.1 07/31/25 20:19 Room Air 0.0 07/31/25 20:19 21 Total Intake and Output 07/30/25 07/30/25 07/31/25 15:00 23:00 07:00 Intake Total 435 ml 1650 ml 1200 ml Output Total 10 ml Balance 435 ml 1640 ml 1200 ml medications Current Medications Medications Dose Ordered Sig/Susana Route Start Time Stop Time Status Last Admin Dose Admin Piperacillin Sod/ Tazobactam Sod 100 ml @ 25 mls/hr Q8HR IV 07/22/25 06:00 07/31/25 21:01 25 MLS/HR Pantoprazole Sodium 40 mg DAILY IV 07/23/25 10:00 07/31/25 08:52 40 MG Linezolid 300 ml @ 150 mls/hr Q12HR@0400,1600 IV 07/22/25 17:30 07/31/25 17:39 150 MLS/HR Diagnostic Test (Pha) 1 strip Q6HR 07/23/25 00:00 07/31/25 17:55 1 STRIP Insulin Human Regular FOLLOW SLIDING SCALE Q6HR SC 07/23/25 00:00 07/31/25 17:54 2 UNITS Dextrose 50 ml UD IV 07/22/25 19:00 Furosemide 20 mg DAILY IV 07/25/25 10:00 07/31/25 08:52 20 MG Albuterol 2.5 mg Q6HPRN PRN NEB 07/27/25 10:30 07/28/25 19:56 2.5 MG Ipratropium [place] 0.5 mg Q6HPRN PRN NEB 07/27/25 10:30 07/28/25 19:56 0.5 MG Ondansetron HCl 4 mg Q6HPRN PRN IV 07/28/25 10:00 07/31/25 17:01 4 MG Hydromorphone HCl 0.25 mg Q6HPRN PRN IV 07/28/25 10:00 07/31/25 21:04 0.25 MG Sodium Chloride 10 ml QSHIFT@10,22 IV 07/28/25 22:00 07/31/25 21:00 10 ML Morphine Sulfate 2 mg Q4HPRN PRN IV 07/29/25 13:45 07/31/25 17:00 2 MG Examination Examination General Appearance: Alert, Oriented X3, Cooperative, No acute distress HEENT: EOMI Respiratory: Clear to auscultation, Normal air movement Cardiovascular: Regular rate, Normal S1, Normal S2 Abdominal: Normal bowel sounds, mild abdominal tenderness, three MUNA drain present with minimal fluid, abdominal binder present Extremities: No cyanosis, No edema, Normal pulses, No tenderness/swelling Skin: No rashes, No breakdown Neuro: Normal speech and tone laboratory and microbiology Laboratory Tests 07/31/25 06:08 Test 07/31/25 06:08 Range/Units Serum Glucose 157 H 74-106 mg/dL Microbiology Date/Time Source Procedure Growth Status 07/22/25 15:03 Blood Blood Culture - Final NO GROWTH AFTER 5 DAYS OF INCUBATION. Complete 07/21/25 23:00 Nose MRSA Screen - Final Complete 07/21/25 19:45 Peritoneal Fluid Gram Stain - Final Complete 07/21/25 19:45 Peritoneal Fluid Anaerobic Culture - Final Complete 07/21/25 19:45 Peritoneal Fluid Aerobic Culture - Final Complete Labs and/or images reviewed: Labs reviewed by me, Image(s) reviewed by me Problem List/Assessment/Plan Problem List/Assessment/Plan Assessment/plan Neurology # Acute metabolic encephalopathy likely due to sepsis, currently resolved Patient was sedated, extubated 07/28/2025 Cardiovascular # Septic shock due to peritonitis, incarcerated small bowel obstruction -IV antibiotic with Zosyn, DC Zyvox -panculture: Blood, respiratory, urine -IV fluid was given -target map greater than 65 -off vasopressors Levophed # superficial venous thrombosis in the right cephalic vein -on ultrasound -warm compresses Respiratory # Acute hypoxic respiratory failure previously due to sepsis, currently on 2 L of oxygen, currently likely due to postsurgical/pulmonary vascular congestion -chest x-ray in a.m. Currently on IV Lasix 20 mg Gastroenterology # High-grade small-bowel obstruction # Incarcerated umbilical hernia # Bowel gangrene # Perforation of transverse colon # Abdominal adhesions # Acute peritonitis -status post laparotomy surgery on 07/20/2025 and 07/22/2025. -MUNA drain -wound care -IV antibiotic Full liquid diet as per surgeon # History of ventral incisional hernia repair on 06/23/2025 # History of abdominal surgery in 2020 Nephrology # ROGERIO due to VMN due to hemodynamically mediated related to septic shock, improving -monitor renal function #Hyperkalemia, resolved #Metabolic acidosis, resolved Monitor electrolytes Endocrine # Diabetes mellitus type 2 -monitor blood sugar # Obesity BMI 32.4 -we will agency legal counsel on discharge regarding weight loss Lines: Right IJ on 07/22/2025, discontinued Currently on PICC line, inserted on July 28, 2025 Intubated on 07/21/2025, Extubated: 07/28 Feeding: Full liquid diet Nutrition: TPN stopped(07/30) Larkin catheter removed Goals of care discussed for greater than 21 minutes, Full code status. on physical therapy, currently on full liquid diet 3 MUNA drain present awaiting surgical clearance for discharge Family at bedside updated about the patient's condition Case discussion with Dr. Jordan Plan discussed with: Patient, Other (Sister at bedside) My Orders My Orders Orders - QUETA BANDA RESIDENT Procedure Category Date Status Time Incentive Spirometry ORDERS 07/31/25 Transmitted Q 1hr 11:10 Complete Blood Count LAB 08/01/25 Verified 04:00 Comprehensive LAB 08/01/25 Verified Metabolic Panel 04:00 Magnesium LAB 08/01/25 Verified 04:00 Chest Portable XY 08/01/25 Verified 04:00 Dietary Evaluation Review Comments: 1) Increase TPN rate to meet at least 75% estimated daily needs 2) Advance to 45g CCHO cardiac diet when medically feasible 3) Refer to outpatient RD/CDCES for weight management 4) Follow-up with gastroenterology and cardiology/pulmonology 5) Continue to monitor I&O, labs, and skin integrity Expected Outcomes/Goals: 1) TPN to meet at least 75% estimated daily needs 2) labs and GI symptoms to improve 3) diet to advance 4) gradual wt loss 5) f/u in 2-3 days Date of Service: Jul 31, 2025 Billing Provider: JOSE JORDAN MD Common Visit Codes: [id number] INP/OBS CARE(HIGH) Secondary Visit Codes: [id number] CARE PLAN 30 MINUTES QUETA BANDA RESIDENT Jul 31, 2025 21:34 JOSE JORDAN MD Aug 01, 2025 15:19
[2025-08-01] VITALS (7 sets, daily range): BP systolic 112–147; BP diastolic 72–83; PULSE 89–105; RESP 19–20; TEMP 96.8–98.3; O2SAT 90–96
--- NOTE | 2025-08-01 05:49 | DVH ---
CHEST RADIOGRAPH Indication: sob Technique: Single frontal view of the chest was obtained COMPARISON: XY CHEST XRAY 1 VIEW on DOS: 07/29/25, XY CHEST XRAY 1 VIEW on DOS: 07/28/25, XY CHEST PORTABLE on DOS: 07/27/25, XY CHEST PORTABLE on DOS: 07/26/25, XY CHEST XRAY 1 VIEW on DOS: 07/25/25 FINDINGS: Lines and Tubes: Right PICC in satisfactory position overlying the superior vena cava. Lungs: Slightly improved multifocal airspace disease. Pleura: No effusion.No pneumothorax. Cardiomediastinal contours: Unchanged cardiomegaly. Bones: Unremarkable IMPRESSION: Slightly improved multifocal airspace disease.
[2025-08-01 06:35] LABS: Hematocrit 26.6 % (36.0-46.0); Hemoglobin 8.8 g/dL (12.2-16.2); Mean Corpuscular Hemoglobin 28.0 pg (28.0-32.0); Mean Corpuscular Volume 84.9 fL (80.0-100.0); Nucleated Red Blood Cells % 0.3 %
[2025-08-01 06:45] LABS: Alanine Aminotransferase 36 U/L (7-40); Albumin 3.6 g/dL (3.2-4.8); Alkaline Phosphatase 108 U/L (46-116); Anion Gap 12 (5-15); BUN/Creatinine Ratio 18.9 (10.0-20.0); Blood Urea Nitrogen 10 mg/dL (9-23); Calcium 8.8 mg/dL (8.7-10.4); Carbon Dioxide 27 mmol/L (20-31); Chloride 100 mmol/L (98-107); Magnesium 2.0 mg/dL (1.6-2.6); Sodium 139 mmol/L (136-145); Total Protein 6.0 g/dL (5.7-8.2)
[2025-08-01 06:47] LABS: Bilirubin, Total 1.5 mg/dL (0.2-1.0); Glucose 184 mg/dL (74-106); Potassium 3.3 mmol/L (3.5-5.1)
--- NOTE | 2025-08-01 11:22 | DVHPN2 ---
Progress Note Date Seen: Aug 01, 2025 Medical Necessity Reason Pt with a Central, PICC or Fol: Yes The following are medically ne: Central Line, Larkin Catheter Reason for larkin catheter: Strict I&O Objective vital signs Vital Sign Date Time Temp Pulse Resp B/P (MAP) Pulse Ox O2 Delivery O2 Flow Rate FiO2 08/01/25 09:18 145/75 08/01/25 09:17 91 20 08/01/25 09:00 97.8 92 97.8 07/31/25 20:19 Room Air 0.0 07/31/25 20:19 21 Total Intake and Output 07/31/25 07/31/25 08/01/25 15:00 23:00 07:00 Intake Total 1400 ml 1010 ml Output Total 2000 ml Balance -600 ml 1010 ml medications Current Medications Medications Dose Ordered Sig/Susana Route Start Time Stop Time Status Last Admin Dose Admin Piperacillin Sod/ Tazobactam Sod 100 ml @ 25 mls/hr Q8HR IV 07/22/25 06:00 08/01/25 05:50 25 MLS/HR Pantoprazole Sodium 40 mg DAILY IV 07/23/25 10:00 08/01/25 09:16 40 MG Diagnostic Test (Pha) 1 strip Q6HR 07/23/25 00:00 08/01/25 05:50 1 STRIP Insulin Human Regular FOLLOW SLIDING SCALE Q6HR SC 07/23/25 00:00 08/01/25 00:00 4 UNITS Dextrose 50 ml UD IV 07/22/25 19:00 Furosemide 20 mg DAILY IV 07/25/25 10:00 08/01/25 09:18 20 MG Ondansetron HCl 4 mg Q6HPRN PRN IV 07/28/25 10:00 08/01/25 09:17 4 MG Hydromorphone HCl 0.25 mg Q6HPRN PRN IV 07/28/25 10:00 08/01/25 05:52 0.25 MG Sodium Chloride 10 ml QSHIFT@10,22 IV 07/28/25 22:00 08/01/25 09:18 10 ML Morphine Sulfate 2 mg Q4HPRN PRN IV 07/29/25 13:45 08/01/25 09:17 2 MG laboratory and microbiology Laboratory Tests 08/01/25 06:00 Test 08/01/25 06:00 Range/Units Serum Glucose 184 H 74-106 mg/dL Problem List/Assessment/Plan Problem List/Assessment/Plan 07/23/25 PATIENT IS SEVERELY DEHYDRATED, HAD BOWEL OBSTRUCTION AND VERY DISTENDED BOWEL NERCESSITATING TWO OPERATIONS, SHE NEEDS MORE IV FLUID. ABDOMEN SOFT, NON DISTENDED,DRAINAGE SEROSANGUINEOUS. 07/24/25 kidney function improving, bp stable on 4 rito's of levo, abdomen soft, non distended, drainage serous (all three drains). labs reviewed. will wean off vent. 07/25/25 failed weaning yesterday, remains intubated and sedated, abdomen non distended, soft, drainage serosanguineous, renal function improved. wound clean and well approximated 07/29/25 extubated, feels well and hungry, had several bowel movements, abdomen soft and non distended, wound clean and well approximated, drainage clear, will allow po after removing NG tube 07/30/25 alert, oriented, cooperative, comfortable, wound clean and well approximatged, vital signs stable, drainage minimal clear, resumed normal bowel activity, ok to advance po intake and ambulate, stable to leave ICU 08/01/25 doing well, tolerating po intake, normal bowel and bladder function, abdomen appropriately tender, hilary drainage clear, she can be discharged Plan discussed with: Patient Dietary Evaluation Review Comments: 1) Increase TPN rate to meet at least 75% estimated daily needs 2) Advance to 45g CCHO cardiac diet when medically feasible 3) Refer to outpatient RD/[facility] for weight management 4) Follow-up with gastroenterology and cardiology/pulmonology 5) Continue to monitor I&O, labs, and skin integrity Expected Outcomes/Goals: 1) TPN to meet at least 75% estimated daily needs 2) labs and GI symptoms to improve 3) diet to advance 4) gradual wt loss 5) f/u in 2-3 days CHARLENE FORTUNE MD Aug 01, 2025 11:22
[2025-08-01] MEDS ORDERED: LEVO750T40 PO (15:53)
[2025-08-01] MEDS ORDERED: METR-344 PO (15:53)
[2025-08-01] MEDS: MAGNESIUM SULFATE 1GM/100ML 100 ML IV SCH (16:00)
[2025-08-01] MEDS: POTASSIUM EFFERVESENT TAB 25 MEQ PO ONE (16:28)
--- NOTE | 2025-08-01 19:01 | DVHDSRES ---
Discharge Summary Date of Admission Resident Creating Document: QUETA BANDA Jul 21, 2025 at 22:46 Date of Discharge: Aug 01, 2025 Labs/Diagnostic Data: Laboratory Results Test 08/01/25 11:59 08/01/25 06:00 07/30/25 09:56 07/30/25 03:05 POC Glucose 142 mg/dl (70-106) White Blood Count 13.0 10^3/uL (4.4-10.8) Red Blood Count 3.13 10^6/uL (4.0-5.20) Hemoglobin 8.8 g/dL (12.2-16.2) Hematocrit 26.6 % (36.0-46.0) Mean Corpuscular Volume 84.9 fL (80.0-100.0) Mean Corpuscular Hemoglobin 28.0 pg (28.0-32.0) Mean Corpuscular Hemoglobin Concent 32.9 g/dL (32.0-36.0) Red Cell Distribution Width 16.1 % (11.8-14.3) Platelet Count 483 10^3/uL (140-450) Mean Platelet Volume 6.8 fL (6.9-10.8) Neutrophils (%) (Auto) 80.9 % (37.0-80.0) Lymphocytes (%) (Auto) 9.5 % (10.0-50.0) Monocytes (%) (Auto) 7.6 % (0.0-12.0) Eosinophils (%) (Auto) 1.3 % (0.0-7.0) Basophils (%) (Auto) 0.7 % (0.0-2.0) Neutrophils # (Auto) 10.5 10 ^3/uL (1.6-8.6) Lymphocytes # (Auto) 1.2 10 ^3/uL (0.4-5.4) Monocytes # (Auto) 1.0 10 ^3/uL (0-1.3) Eosinophils # (Auto) 0.2 10 ^3/uL (0-0.8) Basophils # (Auto) 0.1 10 ^3/uL (0-0.2) Nucleated Red Blood Cells 0.3 % Sodium Level 139 mmol/L (136-145) Potassium Level 3.3 mmol/L (3.5-5.1) Chloride Level 100 mmol/L (98-107) Carbon Dioxide Level 27 mmol/L (20-31) Anion Gap 12 (5-15) Blood Urea Nitrogen 10 mg/dL (9-23) Creatinine 0.53 mg/dL (0.550-1.02) Glomerular Filtration Rate Calc 107 mL/min (>90) BUN/Creatinine Ratio 18.9 (10.0-20.0) Serum Glucose 184 mg/dL (74-106) Calcium Level 8.8 mg/dL (8.7-10.4) Magnesium Level 2.0 mg/dL (1.6-2.6) Total Bilirubin 1.5 mg/dL (0.2-1.0) Aspartate Amino Transferase (AST) 34 U/L (13-40) Alanine Aminotransferase (ALT) 36 U/L (7-40) Alkaline Phosphatase 108 U/L (46-116) Total Protein 6.0 g/dL (5.7-8.2) Albumin 3.6 g/dL (3.2-4.8) Phosphorus Level 3.2 mg/dL (2.4-5.1) Triglycerides Level 531 mg/dL (< 150) Test 07/29/25 04:00 07/28/25 16:34 07/27/25 09:36 07/27/25 06:19 Direct Bilirubin 0.3 mg/dL (<0.3) Prothrombin Time 11.8 sec (9.3-11.8) Prothrombin Time INR 1.13 (0.9-1.15) Activated Partial Thromboplast Time 24.2 SEC (24.5-34.5) Blood Gas Specimen Type Arterial Blood Gas Sample Site Right radial Blood Gas Patient Temperature 37.0 Arterial Blood Date Drawn [id number] Arterial Blood pH 7.454 (7.350-7.450) Arterial Blood Partial Pressure CO2 44.2 mmHg (32.0-45.0) Arterial Blood Partial Pressure O2 82.0 mmHg (83.0-108.0) Arterial Blood HCO3 30.3 mmol/L (21.0-28.0) Arterial Blood Oxygen Saturation 95.5 % (94.0-98.0) Arterial Blood Base Excess 5.7 mmol/L (-2.0-3.0) Arterial Blood Oxyhemoglobin 95.0 % (94.0-98.0) Arterial Blood Carboxyhemoglobin 0.4 % (0.5-1.5) Arterial Blood Methemoglobin 0.1 % (0.0-1.5) Martinez Test Modified Blood Gas Total Hemoglobin 10.40 g/dL (12.0-16.0) Blood Gas Modality Vent - cpap Blood Gas Spontaneous Rate 14 FiO2 % 40.0 Blood Gas Tidal Volume 816.0 Blood Gas Pressure Support 8 Blood Gas PEEP or CPAP 5.0 Blood Gas Set Respiration Rate 22.0 Test 07/26/25 03:50 07/22/25 21:42 07/22/25 20:07 07/22/25 19:53 B-Type Natriuretic Peptide 245.79 pg/mL (0-100) Lactic Acid Level 2.0 mmol/L (0.4-2.0) Vitamin B12 Level 222 pg/mL (211-911) Vitamin D 25-Hydroxy 27.7 ng/mL (30.0-100) Blood Gas Spontaneous Tidal Volume 450 Blood Gas Critical Value Read Back Yes Cholesterol Level 101 mg/dL (< 200) LDL Cholesterol 25 mg/dL (< 100) HDL Cholesterol 47 mg/dL (40-59) Thyroid Stimulating Hormone (TSH) 1.53 uIU/mL (0.55-4.78) Test 07/22/25 03:23 07/21/25 18:42 Hemoglobin A1c 5.7 % A1C (<5.7) Urine Color Yellow (Yellow) Urine Clarity Clear (Clear) Urine pH 8.0 (5.0-9.0) Urine Specific Franklin 1.029 (1.001-1.035) Urine Protein 1+ (Negative) Urine Ketones 1+ (Negative) Urine Blood Negative /uL (Negative) Urine Nitrite Negative (Negative) Urine Bilirubin Negative (Negative) Urine Urobilinogen 12 mg/dL (Negative) Urine Leukocyte Esterase Negative /uL (Negative) Urine RBC 2 /hpf (0 - 4) Urine Microscopic WBC 1 /HPF (0-5) Urine Squamous Epithelial Cells Few /hpf (<5) Urine Bacteria Few /hpf (None Seen) Urine Hyaline Casts Few /lpf (0 - 2) Urine Mucus Few (None Seen) Urine Glucose Normal mg/dL (Normal) Other Laboratory Tests 08/01/25 06:00 Brief Hx & Hospital Course: 60-year-old female with past medical history of AFib, diabetes mellitus, and hypertension who presented to [facility] ED with complaint of abdominal pain. Patient had been experiencing abdominal pain rating 8/10 numeric scale, described pain as sharp in nature, constant, diffuse, associated with nausea, vomiting, and unable to keep any fluids or food down. Patient had hernia repair surgery on 06/22/25, was then admitted the following week given infection at surgical site and had a drain placed. CT scan revealed High-grade small- bowel obstruction secondary to an infraumbilical hernia containing small bowel loops measuring 17 x 7.7 cm. She had laparotomy done by Dr. Galo. Patient was intubated for surgery and remained intubated and was transferred to ICU. Blood pressure dropped and patient required vasopressor. Patient underwent IJ central line placement. She was Started on antibiotics. Patient failed few CPAP trials but was successfully extubated. Patient was initially on Oxymizer and later was on room air. Patient was kept NPO initially and had MUNA drain present. She was later started on clear liquid diet which she tolerated and diet was advanced per surgeon recommendation. Patient had bowel movements. At the time of discharge, patient had stable vitals, no new complaints. Discharge plan was discussed with the patient patient advised to follow up with PCP and surgeon within one week. Patient had MUNA drain present on discharged with abdominal binder. She was discharged on levofloxacin 750 mg. Examination General Appearance: Alert, Oriented X3, Cooperative, No acute distress HEENT: EOMI Respiratory: Clear to auscultation, Normal air movement Cardiovascular: Regular rate, Normal S1, Normal S2 Abdominal: Normal bowel sounds, mild abdominal tenderness, three MUNA drain present with minimal fluid, abdominal binder present Extremities: No cyanosis, No edema, Normal pulses, No tenderness/swelling Skin: No rashes, No breakdown Neuro: Normal speech and tone time spent in discharge planning was 41 mins Consults/Reason for consult Patient: PIA WHYTE Acct: [id number] : 1965 Loc: ICU [facility] Age/Sex: 60/F Room: [address] [place] [address] / Bed: A Attending Phy: LOLIS GAUTHIER DNP DATE OF SURGERY: 07/21/2025 PREOPERATIVE DIAGNOSIS: Small bowel obstruction secondary to incarcerated umbilical hernia (recurrent) with suspected bowel gangrene. DESCRIPTION OF PROCEDURE: Under general endotracheal anesthesia administered by Dr. Dash with the abdomen prepped and draped, the abdomen was entered by incision of the preexisting scar from an operation performed approximately 4 weeks ago by another surgeon at this facility. The abdomen was entered and amount of serous fluid was evacuated. Cultures were submitted. Numerous loops of massively dilated small bowel were encountered. There was tremendous amount of adhesions within the peritoneal cavity. Lysis of adhesions was necessitated, which took approximately 1.5 hours to accomplish. We lysed the adhesions from the terminal ileum to the ligament of Treitz. The small bowel was then inspected. There were numerous areas of complete bowel obstruction with proximal dilatation of the bowel and there was an area of perforation of the transverse colon, which had to be resected due to the massive adhesions surrounding it. The transverse colon segment was resected by means of a ELISE stapler. The two ends were secured to the anterior abdominal wall as the abdomen would not be possible to approximate due to the intestinal swelling and the foreshortened nature of the fascial layer. For this reason, following termination of the procedure and inspection of the bowel for any injury, none of which were found, the abdomen was packed with wet towels and covered with an Ioban drape. The patient's sister was thoroughly informed by phone at [phone]. I explained the extent of the operation, the complicating features, as well as the need for a secondary operation tomorrow morning at 7:00 a.m. Charlene Rodriguez MD PF/CARMELLA TID: [id number] RECEIPT: [id number] DICTATED BY:CHARLENE RODRIGUEZ MD DICTATED DATE/TIME:07/21/25 193 ELECTRONICALLY SIGNED BY:CHARLENE RODRIGUEZ MD 07/24/25 0811 ELECTRONICALLY CO-SIGNED BY: Patient: PIA WHYTE Acct: [id number] : 1965 Loc: [facility] Age/Sex: 60/F Room: [address] [place] [address] / Bed: A Attending Phy: LOLIS GAUTHIER DNP DATE OF SURGERY: 07/22/2025 PREOPERATIVE DIAGNOSIS: Second-look operation after last night's exploratory laparotomy, resection of transverse colon perforation, lysis of adhesions, and removal of infected abdominal wall mesh. DESCRIPTION OF PROCEDURE: At this time, the patient was taken to the operating room. Her abdomen was uncovered and packing removed from the abdominal cavity. The abdomen was profusely irrigated. Irrigant was aspirated. Adhesions were again lysed. They were fibrinous and much exudate was encountered. The two ends of the transverse colon were placed into opposition. The staple lines were excised and while the colon was controlled with BioClamp anastomosis established between the left and right halves of the transverse colon utilizing 3-0 Monocryl and 3-0 Prolene sutures for the inner and outer layer respectively. Subsequently, the abdomen was again profusely irrigated. Irrigant was aspirated. A 10-mm Jose Marks drain was placed to the vicinity but not adjacent to the anastomosis. A 7-mm drain was placed into the pelvis exteriorized through the left lower quadrant of the abdominal wall and then the third drain is a subcutaneous drain exiting from the subcutaneous space through the right lower quadrant. Gloves were exchanged and closure accomplished utilizing rubber fish for protection of the distended bowel. Numerous #2 retention sutures equipped with rubber bolsters were placed. Subsequent to this, the fascia was approximated using #1 double-stranded PDS suture. Throughout the entire suturing process, the bowel was carefully protected from injury and all sutures were attempted to be placed away from the distended bowel. There was no omentum within the peritoneal cavity, which had been previously removed by another surgeon apparently. Following closure of the midline fascia, the retention sutures were individually ligated and skin approximated using metallic skin fina. The patient remained hemodynamically stable throughout the procedure, left the operating room following an accurate needle and sponge counts x3. The patient's sister was thoroughly informed by phone. The patient remains intubated and is going to the Intensive Care Unit. Postscript: The patient's sister was thoroughly informed about the findings, operation, and anticipated course by phone. Charlene Rodriguez MD PF/JAYLENE TID: [id number] RECEIPT: [id number] DICTATED BY:CHARLENE RODRIGUEZ MD DICTATED DATE/TIME:07/22/25856 ELECTRONICALLY SIGNED BY:CHARLENE RODRIGUEZ MD 07/24/25 08 ELECTRONICALLY CO-SIGNED BY: Condition at Discharge: Stable Final Diagnosis/Problems List # Acute metabolic encephalopathy likely due to sepsis, currently resolved # Septic shock due to peritonitis, incarcerated small bowel obstruction # superficial venous thrombosis in the right cephalic vein # Acute hypoxic respiratory failure previously due to sepsis, currently on 2 L of oxygen, currently likely due to postsurgical/pulmonary vascular congestion # High-grade small-bowel obstruction # Incarcerated umbilical hernia # Bowel gangrene # Perforation of transverse colon # Abdominal adhesions # Acute peritonitis # History of ventral incisional hernia repair on 06/23/2025 # History of abdominal surgery in 2020 # ROGERIO due to VMN due to hemodynamically mediated related to septic shock, improving #Hyperkalemia, resolved #Metabolic acidosis, resolved # Diabetes mellitus type 2 # Obesity BMI 32.4 Discharge Disposition: Home Discharge Instruct/Medications Diet: Regular Activity: No Restrictions, As Tolerated Follow Up/Referral: f/u with PCP within 1 week f/u with Surgeon within 1 week Medications: New meds: Levofloxacin, Flagyl Scheduled Cholecalciferol (Vitamin D3), 1 TAB PO DAILY, (Reported) Docusate Sodium (Colace), 1 CAP PO BID Gabapentin (Gabapentin), 300 MG PO BID, (Reported) Levofloxacin Hemihydrate (Levaquin 500 Mg), 1 TAB PO DAILY Levofloxacin Hemihydrate (Levofloxacin), 1 TAB PO DAILY Lisinopril (Lisinopril), 40 MG PO DAILY, (Reported) Meloxicam (Meloxicam), 1 TAB PO DAILY, (Reported) Metronidazole (Flagyl), 1 TAB PO TID Metronidazole (Flagyl), 1 TAB PO TID Omeprazole (Gnp Omeprazole), 10 MG PO DAILY, (Reported) Pantoprazole Sodium Sesquihydr (Pantoprazole Sodium), 40 MG PO BID Scheduled PRN Ibuprofen (Ibuprofen), 600 MG PO QIDP PRN for MILD PAIN, (Reported) Ondansetron Odt 4MG Tab (Zofran Po), 4 MG PO Q6HPRN PRN Oxycodone W/ Acetaminophen (Percocet 5/325MG), 2 TAB PO QIDPRN PRN for MODERATE PAIN, (Reported) Discharge Statement: "Patient was advised to return to the ER or call 911 if any headaches, dizziness, shortness of breath, chest pain, abdominal pain, bleeding, fevers, or worsening of medical condition. Patient was counseled about treatment plan, medications, possible side effects, patientverbalized understanding. All questions were answered to the best of my ability. This discharge took greater then 30 minutes in planning, reviewing documentation, counseling the patient, and discussing with other team members." ASSESSMENT ASSESSMENT Assessment Septic shock due to peritonitis, incarcerated small bowel obstruction # High-grade small-bowel obstruction # Incarcerated umbilical hernia # Bowel gangrene # Perforation of transverse colon # Abdominal adhesions # Acute peritonitis status post laparotomy surgery on 07/20/2025 and 07/22/2025. Date of Service: Aug 01, 2025 Billing Provider: JOSE JORDAN MD Common Visit Codes: 30310-CLF/OBS DISCH DAY >30min QUETA BANDA RESIDENT Aug 01, 2025 19:01 JOSE JORDAN MD Aug 05, 2025 18:02
== END 2025-08-01 19:00 | disposition home or self-care (01) | DRG 853 ==
LOC: EDBD 14:47 → ER 14:47 → DOU IN ICU 22:46 → ICU WEST 23:20 → TELE-EAST 07-30 13:48
PROVIDERS: ADMIT Internal Medicine; ATTEND Internal Medicine
PROC: 0DBL0ZZ Excision of Transverse Colon, Open Approach (ICD-10-PCS; 2025-07-21)
PROC: 0DNB0ZZ Release Ileum, Open Approach (ICD-10-PCS; principal; 2025-07-21 19:05)
PROC: 0DQL0ZZ Repair Transverse Colon, Open Approach (ICD-10-PCS; 2025-07-22)
PROC: 0BH18EZ Insertion of Endotracheal Airway into Trachea, Via Natural or Artificial Opening Endoscopic (ICD-10-PCS; 2025-07-22)
PROC: 5A1955Z Respiratory Ventilation, Greater than 96 Consecutive Hours (ICD-10-PCS; 2025-07-22)
PROC: 02HV33Z Insertion of Infusion Device into Superior Vena Cava, Percutaneous Approach (ICD-10-PCS; 2025-07-22)
PROC: B548ZZA Ultrasonography of Superior Vena Cava, Guidance (ICD-10-PCS; 2025-07-22)
PROC: 30233N1 Transfusion of Nonautologous Red Blood Cells into Peripheral Vein, Percutaneous Approach (ICD-10-PCS; 2025-07-26)
PROC: 02HV33Z Insertion of Infusion Device into Superior Vena Cava, Percutaneous Approach (ICD-10-PCS; 2025-07-28)
PROC: B548ZZA Ultrasonography of Superior Vena Cava, Guidance (ICD-10-PCS; 2025-07-28)
DX: A41.9 Sepsis, unspecified organism (principal); G93.41 Metabolic encephalopathy; K63.1 Perforation of intestine (nontraumatic); N17.0 Acute kidney failure with tubular necrosis; R65.21 Severe sepsis with septic shock; K65.0 Generalized (acute) peritonitis; J95.821 Acute postprocedural respiratory failure; K42.1 Umbilical hernia with gangrene; K43.0 Incisional hernia with obstruction, without gangrene; E83.39 Other disorders of phosphorus metabolism; E11.52 Type 2 diabetes mellitus with diabetic peripheral angiopathy with gangrene; T85.79XA Infection and inflammatory reaction due to other internal prosthetic devices, implants and grafts, initial encounter; Z68.32 Body mass index [BMI] 32.0-32.9, adult; I10 Essential (primary) hypertension; J44.9 Chronic obstructive pulmonary disease, unspecified; I82.611 Acute embolism and thrombosis of superficial veins of right upper extremity; E87.20 Acidosis, unspecified; E87.5 Hyperkalemia; I48.91 Unspecified atrial fibrillation; Z87.891 Personal history of nicotine dependence; Z83.3 Family history of diabetes mellitus; Z82.49 Family history of ischemic heart disease and other diseases of the circulatory system; F43.10 Post-traumatic stress disorder, unspecified; E66.9 Obesity, unspecified; K66.0 Peritoneal adhesions (postprocedural) (postinfection); Z90.49 Acquired absence of other specified parts of digestive tract; E87.6 Hypokalemia; E86.0 Dehydration; Z99.81 Dependence on supplemental oxygen
CPT/HCPCS: 36415; 36556; 36569; 36600; 71045; 74176; 76937; 80048; 80053; 80061; 80076; 81001; 82306; 82607; 82805; 82962; 83036; 83605; 83735; 83880; 84100; 84132; 84443; 84478; 85025; 85610; 85730; 86850; 86900; 86901; 86920; 87040; 87070; 87075; 87081; 87205; 93970; 94002; 94003; 94640; 96374; 96375; 97116; 97163; 97530; G0378; J1100; J1815; J2250; J2405; J2470; J2543; J2704; J3480; J3490; J7060; J7131